=== PATIENT | male | born 1945 | race Caucasian/White ===

== ENCOUNTER 2019-11-08 12:36 | Outpatient (RCR) | payer MEDICARE, SELFPAY ==
--- NOTE | 2019-11-13 10:43 | ONC FU_ITS ---
Dr. Youngblood Patient Follow-Up Note Patient: Florentino Alfaro Unit #: [id number]: 1945 Dicatated By: Erik Youngblood M.D.Date of Visit:Nov 08, 2019 Onc Med Follow-up/Prog Note Chief Complaint: Chronic lymphocytic leukemia/bladder cancer. History of Present Illness: This is a 73 year-old man with chronic lymphocytic leukemia, Garibay stage 0, initially diagnosed in July 2016. I had seen him initially on 07/15/2016 in regard to an elevated white blood cell count. In reviewing his record in [facility], multiple previous blood counts had shown mild lymphocytosis. The most recent CBC prior to that visit, from 06/15/2016, showed hemoglobin 15.7 g with hematocrit 47%. The white blood cell count was 16,000 with the differential showing 29% granulocytes, 66% lymphocytes, and 3% monocytes. The platelet count was normal at 154,000. His further evaluation showed similar CBC results with hemoglobin 15.1 g, white blood cell count 15,600, and platelet count 149,000. The differential also was similar. Sedimentation rate was normal at 9 mm/hour. Comprehensive metabolic profile was unremarkable. LDH was normal 134 unit/L. B12 was normal at 318 pg/mL. As some of the prior blood counts had shown increased absolute neutrophil count, I did obtain clonal studies, which were negative. A whole blood flow cytometry in July 2016 showed a monotypic B-cell population positive for CD19, CD20, CD5 and CD23. It showed surface kappa light chain restriction. It was CD10, FMC7, and CD38 negative. The phenotypic pattern was felt to be consistent with chronic leukocytic leukemia/small lymphocytic lymphoma. A subsequent FISH analysis was positive for the 13q deletion. As he appeared to have early stage disease, observation/expectant management was recommended. His previous evaluation had included CT abdomen/pelvis 03/26/2016. It did show mild splenomegaly. Also noted was a possible soft tissue mass in the left urinary bladder. Outpatient cystoscopy by Dr. Wilcox did confirm the presence of a large bladder tumor. He underwent TURBT on 08/03/2016. This showed a small papillary tumor just cephalad to the right ureteral orifice and a large papillary tumor on the left posterior lateral bladder wall. The base appeared to be greater than 5 cm. The surrounding mucosa, distinct from the papillary tumor, showed changes suspicious for carcinoma in situ. It was felt that the tumor was completely resected. Pathology showed papillary urothelial carcinoma, low nuclear grade. There was no invasion identified. There was no muscular propria identified in the specimen. I had seen him for a follow-up visit on 05/18/2018. At that point he appeared stable clinically, and he continued observation/expectant management. His other medical illnesses include type II diabetes, hyperlipidemia, and COPD. He has history of smoking 1 pack of cigarettes daily for 47 years, but he quit smoking in 2008. INTERIM HISTORY: For some reason he had failed to return after his visit in May 2018. He did have a repeat CBC in October 2018. It showed slightly elevated hemoglobin at 17.2 g with his white blood cell count up just slightly at 14,200. Platelet count was borderline low but stable at 133,000. He is seen now for a followup visit. He has been feeling pretty good generally, though he does has some fatigue and somewhat limited activity. His ECOG score is 1. His appetite has been good. He has gained weight. He does not have fever. He sometimes has night sweating. He has shortness of breath. He has a very occasional dry cough. At times he has had pressure in the epigastric area. He has no other GI complaints. He sometimes has difficulty voiding. He tends to have stiffness when he first gets up in the morning, but it does get better after he first up. He sometimes has numbness in his feet. Medications: Brovana 1 (15 mcg/2mL) Nebulization solution Inhalation b.i.d., Budesonide 1 Suspension Nasal b.i.d., Farxiga 1 Tablet (of 5 mg) Oral daily, Levalbuterol HCl Nebulization solution Inhalation PRN, Lisinopril 1 Tablet (of 2.5 mg) Oral daily, Magnesium Oxide 1 Tablet (of 400 mg) Capsule Oral daily, MetFORMIN HCl 1 (500 mg) Tablet Oral daily, Proventil HFA 1 (108 (90 base) mcg/act) Aerosol, solution Inhalation daily PRN, Tamsulosin HCl 1 (0.4 mg) Capsule Oral daily, TiZANidine HCl 1 (2 mg) Tablet Oral PRN, TraMADol HCl Tablet Oral PRN, Vitamin D (Ergocalciferol) 1 Tablet (of 23167 Units) Capsule Oral daily, Xopenex Nebulization solution Inhalation PRN Allergies: No Known Allergies. Review of Systems: Constitutional - His energy is fair. He is able to do light work at home. His appetite is good and his weight is up almost 15 pounds since his last visit. No fever, chills or hot flashes. He has some sweating at night. ECOG score is 1, ENMT - No sinus congestion/drainage. No mouth sores. No sore throat or difficulty swallowing, Hematologic/Lymphatic - He bruises easily, Respiratory - He has shortness of breath with activity. He has an occasional dry cough. No pleuritic pain or hemoptysis, Cardiovascular - He has occasional pressure in his lower chest/upper abdomen. No palpitations, Gastrointestinal - No nausea or vomiting. No heartburn or acid reflux. No diarrhea or constipation. No blood in the stool or black stools, Genitourinary (M) - He has some difficulty voiding. He has follow up with Dr. Wilcox every 6 months, Musculoskeletal - He has stiffness in the mornings, Integumentary - No skin complications, Neurologic - No headache. He has difficulty with balance when he first gets up from sitting, with turning, and especially with looking up. He sometimes has numbness and tingling in his feet, Psychiatric - No anxiety or depression. No insomnia. Vital Signs: Performed on Nov 08, 2019 13:11 Height - 72.00 in Weight - 246 lbs (HIGH) BSA - 2.33 sq.m BMI - 33.36 (HIGH) Temperature - 98.1 F (LOW) Pulse - 71 /min Respiration - 18 /min BP - 132/69 mm(hg) O2 Sat - 93 % (LOW) Pain - 0 Physical Examination: Constitutional - He looks pretty good generally, Eyes - Sclerae nonicteric. Conjunctivae clear, ENMT - No lesions noted in the oral cavity, Hematologic/Lymphatic - No cervical, clavicular, or axillary adenopathy, Respiratory - Lungs are clear with diminished air movement bilaterally, Cardiovascular - Heart rhythm is regular. There is no murmur, gallop, or rub noted, Abdomen - Moderately distended. Liver and spleen are not enlarged. There is no abdominal mass or ascites noted and there is no inguinal adenopathy, Extremities - No edema. Pedal pulses are palpable bilaterally, Neurologic - He has severe postural instability. There are no focal neurologic deficits noted. Impression: 1. Patient with chronic leukocytic leukemia, initially diagnosed in July 2016. His FISH analysis showed 13q deletion. By clinical evaluation, he appeared to have early stage disease (Garibay stage 0). Expectant management was recommended. 2. He has borderline high hemoglobin/hematocrit levels, probably related to secondary polycythemia. 3. On 08/03/2016 he underwent cystoscopy/TURBT for superficial low-grade papillary urothelial cancer. He is on surveillance with Dr. Wilcox. His other medical illnesses include: 4. Type II diabetes. 5. Hyperlipidemia. 6. COPD. He has been followed on observation/expectant management. In December 2017 he was admitted to the hospital with influenza A. He had a gradual recovery following the illness. As of his follow-up visit in May 2018 he still had some shortness of breath and somewhat limited activity, but he was otherwise stable clinically. His blood counts also appeared stable other than his platelet count had declined somewhat. He then failed to return here for follow-up, but a repeat CBC in theOctober 2018 showed just a slight increase in the white blood cell count with the platelet count remaining stable. At this point he continues to have some fatigue I also continues to have shortness of breath. Overall, his clinical status does not appear to have changed significantly. I do not have any more recent blood counts available. Plan: He has been getting his hemoglobin A1c checked on a regular basis at the [facility], so I will just plan to repeat a CBC with CMP and LDH level with his next scheduled lab draw. He'll have further evaluation then as indicated. Signed By: Erik Youngblood M.D. <<Signature on File>>
== END 2019-12-01 23:59 | disposition home or self-care (01) ==
LOC: ONCMED 12:36
PROVIDERS: Family Provider Nurse Practitioner; PCP Nurse Practitioner; Visit Provider Internal Medicine Medical Oncology
DX: C91.10 Chronic lymphocytic leukemia of B-cell type not having achieved remission (principal); D75.1 Secondary polycythemia; E11.9 Type 2 diabetes mellitus without complications; E78.5 Hyperlipidemia, unspecified; J44.9 Chronic obstructive pulmonary disease, unspecified; Z79.84 Long term (current) use of oral hypoglycemic drugs; Z87.891 Personal history of nicotine dependence; Z85.51 Personal history of malignant neoplasm of bladder
CPT/HCPCS: 99214

== ENCOUNTER → 2019-12-19 13:17 | Outpatient (BNVA) | payer MEDICARE, SELFPAY | PROVIDERS: Family Provider Nurse Practitioner; PCP Nurse Practitioner; Visit Provider Urology | DX: C67.8 Malignant neoplasm of overlapping sites of bladder (principal) | CPT/HCPCS: 81001 ==

== ENCOUNTER → 2020-01-16 08:21 | Outpatient (BNVA) | payer MEDICARE, SELFPAY | PROVIDERS: Family Provider Nurse Practitioner; PCP Nurse Practitioner; Visit Provider Nurse Practitioner | DX: C91.10 Chronic lymphocytic leukemia of B-cell type not having achieved remission (principal); E11.9 Type 2 diabetes mellitus without complications; C91.00 Acute lymphoblastic leukemia not having achieved remission | CPT/HCPCS: 80053; 80061; 83036; 85025 ==

== ENCOUNTER → 2020-01-18 07:46 | Outpatient (BNVA) | payer MEDICARE, SELFPAY | PROVIDERS: Family Provider Nurse Practitioner; PCP Nurse Practitioner; Visit Provider Nurse Practitioner | DX: J44.9 Chronic obstructive pulmonary disease, unspecified (principal); E11.65 Type 2 diabetes mellitus with hyperglycemia; M79.10 Myalgia, unspecified site; E55.9 Vitamin D deficiency, unspecified | CPT/HCPCS: 81000; 82306 ==

== ENCOUNTER → 2020-02-26 08:35 | Outpatient (BNVA) | payer MEDICARE, SELFPAY | PROVIDERS: Family Provider Nurse Practitioner; PCP Nurse Practitioner; Visit Provider Nurse Practitioner | DX: J44.9 Chronic obstructive pulmonary disease, unspecified (principal); E11.65 Type 2 diabetes mellitus with hyperglycemia | CPT/HCPCS: 85025 ==

== ENCOUNTER → 2020-03-18 08:52 | Outpatient (BNVA) | payer MEDICARE, SELFPAY | PROVIDERS: Family Provider Nurse Practitioner; PCP Nurse Practitioner; Visit Provider Nurse Practitioner | DX: J44.9 Chronic obstructive pulmonary disease, unspecified (principal); E11.65 Type 2 diabetes mellitus with hyperglycemia; M79.10 Myalgia, unspecified site | CPT/HCPCS: 80053; 81000; 82044; 83036 ==

== ENCOUNTER → 2020-04-23 13:52 | Outpatient (BNVA) | payer MEDICARE, SELFPAY | PROVIDERS: Family Provider Nurse Practitioner; PCP Nurse Practitioner; Visit Provider Urology | DX: C67.8 Malignant neoplasm of overlapping sites of bladder (principal) | CPT/HCPCS: 81001 ==

== ENCOUNTER → 2020-05-27 13:31 | Outpatient (BNVA) | payer MEDICARE, SELFPAY | PROVIDERS: Family Provider Nurse Practitioner; PCP Nurse Practitioner; Visit Provider Nurse Practitioner | DX: J44.9 Chronic obstructive pulmonary disease, unspecified (principal); E11.65 Type 2 diabetes mellitus with hyperglycemia; M79.10 Myalgia, unspecified site; E55.9 Vitamin D deficiency, unspecified | CPT/HCPCS: 80053; 80061; 81000; 83036 ==

== ENCOUNTER → 2020-07-25 09:08 | Outpatient (BNVA) | payer MEDICARE, SELFPAY | PROVIDERS: Family Provider Nurse Practitioner; PCP Nurse Practitioner; Visit Provider Nurse Practitioner | DX: M25.562 Pain in left knee (principal) | CPT/HCPCS: 73562 ==

== ENCOUNTER → 2020-08-19 08:32 | Outpatient (BNVA) | payer MEDICARE, SELFPAY | PROVIDERS: Family Provider Nurse Practitioner; PCP Nurse Practitioner; Visit Provider Nurse Practitioner | DX: E11.65 Type 2 diabetes mellitus with hyperglycemia (principal); J44.9 Chronic obstructive pulmonary disease, unspecified; E55.9 Vitamin D deficiency, unspecified | CPT/HCPCS: 80053; 81000; 83036 ==

== ENCOUNTER → 2020-09-03 15:09 | Outpatient (BNVA) | payer MEDICARE, SELFPAY | PROVIDERS: Family Provider Nurse Practitioner; PCP Nurse Practitioner; Visit Provider Urology | DX: R39.9 Unspecified symptoms and signs involving the genitourinary system (principal) | CPT/HCPCS: 81003 ==

== ENCOUNTER → 2020-11-19 13:50 | Outpatient (BNVA) | payer SELFPAY | PROVIDERS: Family Provider Nurse Practitioner; PCP Nurse Practitioner; Visit Provider Nurse Practitioner | DX: E11.65 Type 2 diabetes mellitus with hyperglycemia (principal); M79.10 Myalgia, unspecified site; J44.9 Chronic obstructive pulmonary disease, unspecified; E55.9 Vitamin D deficiency, unspecified | CPT/HCPCS: 80053; 80061; 81000; 82043; 83036 ==

== ENCOUNTER 2020-11-25 08:57 | Outpatient (CLI) | payer MEDICARE, SELFPAY ==
[2020-11-25 09:50] LABS: Basophils # 0.1 10^3/uL (0.0-0.1); Basophils % 0.4 %; Eosinophils # 0.1 10^3/uL (0.0-0.8); Eosinophils % 0.4 %; Hematocrit 50.8 % (42.0-52.0); Hemoglobin 16.9 g/dL (11.7-16.6); Lymphocytes # 8.3 10^3/uL (0.8-4.8); Lymphocytes % 67.1 %; Mean Corpuscular HGB Conc 33.3 g/dL (30.0-36.0); Mean Corpuscular Hemoglobin 32.7 pg (28.0-34.0); Mean Corpuscular Volume 98.3 fL (80-94); Monocytes # 0.4 10^3/uL (0.2-0.9); Neutrophils # 3.58 10^3/uL (1.8-7.7); Neutrophils % 28.9 %; Nucleated Red Blood Cells % 0 %; Platelet Count 137 10^3/cmm (130-400); Red Blood Count 5.17 10^6/uL (4.1-5.3); Red Cell Distribution Width 13.3 % (12.1-15.1); White Blood Count 12.4 10^3/uL (4.0-10.0)
[2020-11-25 10:15] LABS: Lactate Dehydrogenase 136 U/L (135-225)
[2020-11-25 10:23] LABS: Slide Review Slide Review Perform
--- NOTE | 2020-11-29 16:32 | ONC FU_ITS ---
Dr. Youngblood Patient Follow-Up Note Patient: Florentino Alfaro Unit #: [id number]: 1945 Dicatated By: Erik Youngblood M.D.Date of Visit:Nov 25, 2020 Onc Med Follow-up/Prog Note Chief Complaint: Chronic lymphocytic leukemia/bladder cancer. History of Present Illness: This is a 75 year-old man with chronic lymphocytic leukemia, Garibay stage 0, initially diagnosed in July 2016. I had seen him initially on 07/15/2016 in regard to an elevated white blood cell count. In reviewing his record in [facility], multiple previous blood counts had shown mild lymphocytosis. The most recent CBC prior to that visit, from 06/15/2016, showed hemoglobin 15.7 g with hematocrit 47%. The white blood cell count was 16,000 with the differential showing 29% granulocytes, 66% lymphocytes, and 3% monocytes. The platelet count was normal at 154,000. His further evaluation showed similar CBC results with hemoglobin 15.1 g, white blood cell count 15,600, and platelet count 149,000. The differential also was similar. Sedimentation rate was normal at 9 mm/hour. Comprehensive metabolic profile was unremarkable. LDH was normal 134 unit/L. B12 was normal at 318 pg/mL. As some of the prior blood counts had shown increased absolute neutrophil count, I did obtain clonal studies, which were negative. A whole blood flow cytometry in July 2016 showed a monotypic B-cell population positive for CD19, CD20, CD5 and CD23. It showed surface kappa light chain restriction. It was CD10, FMC7, and CD38 negative. The phenotypic pattern was felt to be consistent with chronic leukocytic leukemia/small lymphocytic lymphoma. A subsequent FISH analysis was positive for the 13q deletion. As he appeared to have early stage disease, observation/expectant management was recommended. His previous evaluation had included CT abdomen/pelvis 03/26/2016. It did show mild splenomegaly. Also noted was a possible soft tissue mass in the left urinary bladder. Outpatient cystoscopy by Dr. Wilcox did confirm the presence of a large bladder tumor. He underwent TURBT on 08/03/2016. This showed a small papillary tumor just cephalad to the right ureteral orifice and a large papillary tumor on the left posterior lateral bladder wall. The base appeared to be greater than 5 cm. The surrounding mucosa, distinct from the papillary tumor, showed changes suspicious for carcinoma in situ. It was felt that the tumor was completely resected. Pathology showed papillary urothelial carcinoma, low nuclear grade. There was no invasion identified. There was no muscular propria identified in the specimen. I had seen him for a follow-up visit on 05/18/2018. At that point he appeared stable clinically, and he continued observation/expectant management. For some reason he had failed to return after his visit in May 2018. He did have a repeat CBC in October 2018. It showed slightly elevated hemoglobin at 17.2 g with his white blood cell count up just slightly at 14,200. Platelet count was borderline low but stable at 133,000. His other medical illnesses include type II diabetes, hyperlipidemia, and COPD. He has history of smoking 1 pack of cigarettes daily for 47 years, but he quit smoking in 2008. INTERIM HISTORY: He is seen now for a follow-up visit. He has been feeling okay. He says his energy is normal, he does have somewhat limited activity. ECOG score is 1. Appetite has been good. He has not had fever or night sweats. He has shortness of breath associated with his COPD. He is on oxygen at night. He has just occasional dry cough. He does not complain of chest pain. He has no GI complaints other than his stools are occasionally runny with Metformin. Bladder function remains adequate with medication. He does see Dr. Wilcox. His neck bothers him occasionally. He has no other joint or bone pain. He does not complain of headache. For the past couple of years he has had some dysequilibrium. It tends to be positional. He has some diabetic neuropathy. Which Medications: Brovana 1 (15 mcg/2mL) Nebulization solution Inhalation b.i.d., Budesonide 1 Suspension Nasal b.i.d., Farxiga 1 Tablet (of 5 mg) Oral daily, Levalbuterol HCl Nebulization solution Inhalation PRN, Lisinopril 1 Tablet (of 2.5 mg) Oral daily, Magnesium Oxide 1 Tablet (of 400 mg) Capsule Oral daily, MetFORMIN HCl 1 (500 mg) Tablet Oral daily, Proventil HFA 1 (108 (90 base) mcg/act) Aerosol, solution Inhalation daily PRN, Tamsulosin HCl 1 (0.4 mg) Capsule Oral daily, TiZANidine HCl 1 (2 mg) Tablet Oral PRN, TraMADol HCl Tablet Oral PRN, Vitamin D (Ergocalciferol) 1 Tablet ([place] 96168 Units) Capsule Oral daily, Xopenex Nebulization solution Inhalation PRN Allergies: No Known Allergies. Vital Signs: Performed on Nov 25, 2020 09:12 Height - 72.00 in Weight - 221.4 lbs (LOW) BSA - 2.22 sq.m BMI - 30.03 (HIGH) Performed on Nov 25, 2020 09:09 Height - 72.00 in Temperature - 97.2 F (LOW) Pulse - 77 /min Respiration - 20 /min BP - 130/70 mm(hg) O2 Sat - 92 % (LOW) Pain - 0 Fatigue - 0 Physical Examination: Constitutional - He looks pretty good generally, Eyes - Sclerae nonicteric. Conjunctivae clear, ENMT - No lesions noted in the oral cavity, Hematologic/Lymphatic - No cervical, clavicular, or axillary adenopathy, Respiratory - Lungs are clear with diminished air movement bilaterally, Cardiovascular - Heart tones are distant. The rhythm appears regular. There is no murmur, gallop, or rub noted, Abdomen - Soft. Liver and spleen are not enlarged. There is no abdominal mass or ascites noted and there is no inguinal adenopathy, Extremities - No edema. Dorsalis pedis pulses are palpable bilaterally, Integumentary - There are 2 small lesions on the left ear, one of which is pigmented slightly irregular. Just adjacent to it is a small actinic lesion, Neurologic - N focal neurologic deficits noted. Lab/Imaging: Test performed on Nov 25, 2020 09:35 LDH (Total) 136 U/L WBC 12.4 10 3/uL RBC 5.17 10 6/uL HGB 16.9 g/dL HCT 50.8 % MCV 98.3 fL MCH 32.7 pg MCHC 33.3 g/dL RDW 13.3 % Platelet Count 137 10 3/cmm MPV 10.0 fL Neutrophils 3.58 10 3/uL Lymphocytes 8.3 10 3/uL Monocytes 0.4 10 3/uL Eosinophils 0.1 10 3/uL Basophils 0.1 10 3/uL Neutrophil % 28.9 % Lymphocyte % 67.1 % Monocyte % 3.0 % Eosinophil % 0.4 % Basophils % 0.4 % NRBC % 0 % CBC Slide Review Slide Review Perform REVIEW AGREES WITH AUTOMATED Test performed on Nov 25, 2020 08:24 Cholesterol, Total 219 mg/dL Glucose 152 mg/dL BUN 18 mg/dL HDL Cholesterol 42 mg/dL Creatinine 0.8 mg/dL LDL Cholesterol 121 mg/dL Cr Clearance (Est) 115.0700 mL/min VLDL Cholesterol 56 mg/dL Triglycerides 278 mg/dL Sodium 137 mmol/L Potassium 4 mmol/L Chloride 92 mmol/L CO2 32 mmol/L Calcium 10.1 mg/dL Protein, Total 7.4 g/dL Albumin 4.4 g/dL Globulin 3.0 g/dL Bilirubin, Total 0.5 mg/dL Alkaline Phosphatase 65 IU/L AST (SGOT) 15 IU/L ALT (SGPT) 18 IU/L Hemoglobin A1C 7.1 % Ua Color yellow Ua Appearance clear Ua Specific [place] 1.015 Ua pH 5.5 Ua Protein 1+ Ua Glucose 4+ Ua Ketones negative Ua Blood trace Ua Leuk Esterase negative Ua Nitrites neg Ua Bilirubin neg Ua Urobilinogen 0.2 Problem List: 1. Chronic leukocytic leukemia, initially diagnosed in July 2016. His FISH analysis showed 13q deletion. By clinical evaluation, he appeared to have early stage disease (Garibay stage 0). Expectant management was recommended. 2. He has borderline high hemoglobin/hematocrit levels, presumed to be due to secondary polycythemia. 3. On 08/03/2016 he underwent cystoscopy/TURBT for superficial low-grade papillary urothelial cancer. He has been on surveillance with Dr. Wilcox. 4. Type II diabetes. 5. Hyperlipidemia. 6. COPD. Problems Addressed with this Encounter and Plan: 1. Chronic leukocytic leukemia, initially diagnosed in July 2016. His FISH analysis showed 13q deletion. By clinical evaluation, he appeared to have early stage disease (Garibay stage 0). He has been followed on observation/expectant management. During follow-up he has continued to have just mild lymphocytosis. His platelet count is borderline low. It is uncertain what extent that may be significant. Overall, he appears to be doing well clinically with no evidence for symptomatic progression of the CLL. As such, he remains on observation/expectant management. I will see him again in 6 months. 2. He has borderline high hemoglobin/hematocrit levels. This is presumed to be due to secondary polycythemia, and has remained stable. 3. He has couple of skin lesions on his left ear. I will get him set up to be seen either at ENT or dermatology clinic. Signed By: Erik Youngblood M.D. <<Signature on File>>
== END 2020-11-25 08:58 | disposition home or self-care (01) ==
LOC: ONCMED 09:01
PROVIDERS: PCP Nurse Practitioner; Visit Provider Internal Medicine Medical Oncology
DX: C91.10 Chronic lymphocytic leukemia of B-cell type not having achieved remission (principal); L98.9 Disorder of the skin and subcutaneous tissue, unspecified; D58.2 Other hemoglobinopathies; R71.8 Other abnormality of red blood cells
CPT/HCPCS: 36415; 83615; 85025; 99214

== ENCOUNTER → 2020-12-31 10:13 | Outpatient (BNVA) | payer MEDICARE, SELFPAY | PROVIDERS: PCP Nurse Practitioner; Visit Provider Urology | DX: C67.8 Malignant neoplasm of overlapping sites of bladder (principal); N40.1 Benign prostatic hyperplasia with lower urinary tract symptoms; N52.1 Erectile dysfunction due to diseases classified elsewhere; N13.8 Other obstructive and reflux uropathy | CPT/HCPCS: 81003 ==

== ENCOUNTER → 2021-02-17 09:28 | Outpatient (BNVA) | payer MEDICARE, SELFPAY | PROVIDERS: PCP Nurse Practitioner; Visit Provider Nurse Practitioner | DX: J44.9 Chronic obstructive pulmonary disease, unspecified (principal); E11.65 Type 2 diabetes mellitus with hyperglycemia; M79.10 Myalgia, unspecified site; E78.1 Pure hyperglyceridemia; C83.00 Small cell B-cell lymphoma, unspecified site | CPT/HCPCS: 80053; 80061; 81000; 82043; 83036; 84443; 85025 ==

== ENCOUNTER → 2021-04-08 08:22 | Outpatient (BNVA) | payer MEDICARE, SELFPAY | PROVIDERS: PCP Nurse Practitioner; Visit Provider Urology | DX: N13.8 Other obstructive and reflux uropathy (principal); N40.1 Benign prostatic hyperplasia with lower urinary tract symptoms; C67.8 Malignant neoplasm of overlapping sites of bladder | CPT/HCPCS: 81003 ==

== ENCOUNTER → 2021-05-12 13:43 | Outpatient (BNVA) | payer MEDICARE, SELFPAY | PROVIDERS: PCP Nurse Practitioner; Visit Provider Nurse Practitioner | DX: M25.572 Pain in left ankle and joints of left foot (principal); E11.65 Type 2 diabetes mellitus with hyperglycemia; E78.1 Pure hyperglyceridemia; E55.9 Vitamin D deficiency, unspecified; N40.1 Benign prostatic hyperplasia with lower urinary tract symptoms; J44.9 Chronic obstructive pulmonary disease, unspecified; M79.10 Myalgia, unspecified site | CPT/HCPCS: 73610; 80053; 81000; 83036 ==

== ENCOUNTER → 2021-05-29 08:35 | Outpatient (BNVA) | payer MEDICARE, SELFPAY | PROVIDERS: PCP Nurse Practitioner; Visit Provider Nurse Practitioner | DX: R05 Cough (principal); Z20.822 Contact with and (suspected) exposure to COVID-19 | CPT/HCPCS: 71046; 87635 ==

== ENCOUNTER 2021-06-03 11:38 | Outpatient (CLI) | payer MEDICARE, SELFPAY ==
[2021-06-03 12:21] VITALS: BP 114/64; PULSE 68; RESP 24; TEMP 37.3; O2SAT 90
[2021-06-03 13:44] VITALS: BP 120/70; PULSE 62; O2SAT 91
[2021-06-03 14:48] VITALS: BP 129/71; PULSE 61; O2SAT 91
== END 2021-06-03 14:53 | disposition home or self-care (01) ==
PROVIDERS: PCP Nurse Practitioner; Visit Provider Nurse Practitioner
DX: U07.1 COVID-19 (principal)
CPT/HCPCS: 96365

== ENCOUNTER 2021-06-07 12:33 | Inpatient (IN) | payer MEDICARE, SELFPAY ==
[2021-06-07] VITALS (7 sets, daily range): BP systolic 134–143; BP diastolic 70–73; PULSE 55–69; RESP 18–27; TEMP 36.3–36.9; O2SAT 90–95; BMI 29.8
--- NOTE | 2021-06-07 12:49 | XRR_ITS ---
PROCEDURE INFORMATION: Exam: XR Chest Exam date and time: 06/07/2021 12:49 PM Age: 75 years old Clinical indication: Shortness of breath; Additional info: Hypoxia TECHNIQUE: Imaging protocol: XR of the chest. Views: 1 view. COMPARISON: CR XR chest 2V* [id number] 05/29/2021 8:35 AM FINDINGS: Lungs: 1.3 cm nodule in the left lower lobe is unchanged. New patulous consolidations most conspicuous in the right lung base. Pleural spaces: Unremarkable. No pleural effusion. No pneumothorax. Heart/Mediastinum: Unremarkable. No cardiomegaly. Bones/joints: Unremarkable. XR/XR chest 1V portable [id number] IMPRESSION: New patulous consolidations most conspicuous in the right lung base suspicious for pneumonia.
--- NOTE | 2021-06-07 12:49 | ECG_ITS ---
[facility] ED Test Date: 2021-06-07 Pat Name: Florentino Alfaro Department: Room: Gender: Male Counseling Psychologist: : 1945 Requested By: Severo Blackburn Order Number: [id number] Madan MD: Sveta Davila M.D. Measurements Intervals [facility] Rate: 69 P: 60 PA: 213 QRS: -3 QRSD: 145 T: 89 QT: 409 QTc: 441 Interpretive Statements SINUS RHYTHM WITH FIRST DEGREE AV BLOCK LEFT BUNDLE BRANCH BLOCK [120+ ms QRS DURATION, 80+ ms Q/S IN V1/V2, 85+ ms R IN I/aVL/V5/V6] Compared to ECG 12/11/2017 10:23:26 No significant changes Electronically Signed On 06-12-2021 9:39:28 CDT by Sveta Davila M.D. [email or web address]
--- NOTE | 2021-06-07 12:59 | ED_ITS ---
HPI - COVID General: Chief Complaint: COVID symptoms Stated Complaint: COVID +; LOW O2 SATS Time Seen by Provider: 06/07/21 12:39 History of Present Illness: HPI Narrative: Patient brought in by EMS with low pulse ox reading. Diagnosed with Covid 2 weeks ago pulse ox is 68% on room air with oxygen up to 6 L could get him up into the low 80s. EMS placed on 10 L nonrebreather to go up to 95% Patient was not not vaccinated states he does not believe in it. is currently hospitalized with Covid at this facility Patient denies being short of breath MD complaint: known COVID positive (2 weeks ago) COVID 19 common symptoms: positive non-productive cough, body aches and headache(s); negative fever(s) COVID 19 other sytmptoms: negative chest pressure or chest pain Onset (ago): week(s) (2) Severity: slowly worsening Pertinent comorbid conditions: hypertension, heart disease and COPD/respiratory disease COVID Results: Nasal/Oral Coronavirus 2019 PCR Detected H 05/29/21 09:51 05/29/21 Review of Systems General: Reports: Other (denies fever, chills, chest pain, n/v/d, rash, syncope, AMS, PETTY, SOB, anxie) Const: Reports: body aches; Denies: fever(s) Card: Denies: chest pain Resp: Reports: non-productive cough Neuro: Reports: headache(s) PFS ED PFSH: Medical History Advanced chronic obstructive pulmonary disease BPH with obstruction/lower urinary tract symptoms Dependence on supplemental oxygen Diabetes mellitus with hyperglycemia, with long-term current use of insulin Generalized muscle ache Lymphoplasmacytoid lymphoma, CLL Malignant neoplasm of overlapping sites of bladder Vitamin D insufficiency Surgical History H/O hernia repair umbilical and bilateral inguinal 1979' History of arthroplasty of left shoulder tendon 1969's History of cholecystectomy History of condyloma acuminatum removal surgical December 2014 Hx of vasectomy Family History Mother , at age 73 Diabetes Lung disease Father , at age 75 Cancer blood Lung disease Social History Smoking and tobacco status: former smoker Second hand smoke exposure: No Smoking risk assessment/counseling performed?: No Alcohol intake: never Desire information about alcohol rehabilitation?: No Counseling given: No Desire information about substance/drug rehabilitation?: No Counseling given: No Adopted: No Caregiver/support person: No Lives independently: Yes Household members: spouse Housing: House Marital status: Number of children: 5 Number of grandchildren: 7 service: Yes branch: [email or web address] Current occupational status: disabled Pets and animals: Yes Pets & animals: cat(s) and dog(s) History of recent travel: No Current gender identity: Male Special luis needs: No Physical Exam Const: COMMON NORMALS: no acute distress and patient oriented x3 EXAM LIMITATIONS: no altered mental status GENERAL APPEARANCE: cooperative and comfortable HENMT: COMMON NORMALS: normocephalic and atraumatic HEAD & SCALP: normocephalic and atraumatic Eye: COMMON NORMALS: Equal, round and reactive pupils present and EOMs intact bilaterally PUPIL: Yes Equal, round and reactive pupils present Resp: COMMON NORMALS: normal respiratory effort, No retractions and No use of accessory muscles EFFORT & INSPECTION: Yes able to speak in complete sentences Cardio: COMMON NORMALS: regular rate, regular rhythm and Peripheral pulses 2+ throughout RATE: regular rate RHYTHM: regular rhythm PERIPHERAL PULSES: Peripheral pulses 2+ throughout GI: COMMON NORMALS: Normal to inspection, nondistended, normoactive bowel sounds present Extremity: COMMON NORMALS: normal to inspection Neuro: COMMON NORMALS: patient oriented x3, CN's II-XII intact bilaterally and moves all extremities Psych: COMMON NORMALS: mental status grossly normal Skin: COMMON NORMALS: no rashes or lesions noted GENERAL SKIN EXAM: no rashes or lesions noted Course ED course: Patient was stable throughout entire course. Is saturating at 92% on 10 L nasal cannula. Is comfortable with that. No respiratory distress. Labs imaging consistent with Covid infection. D-dimer was elevated 1.2. Will order a CTA PE protocol if hospitalist agrees. Did get 1 dose of dexamethasone. Will admit patient to floor hospitalist paged Vital Signs: Vital signs: Vital Signs Temperature 97.9 F 06/07/21 13:15 Pulse Rate 63 06/07/21 13:48 Respiratory Rate 23 H 06/07/21 13:48 Pulse Oximetry 91 06/07/21 13:48 MDM - COVID MDM Narrative: Medical decision making narrative: Patient is a 75-year-old gentleman 2 weeks after a positive Covid test requiring higher level of oxygen. Placed the patient on nasal cannula to see whether we can keep him up above 9092%. If not OptiFlow or CPAP. We will get admission labs. Patient most l ikely need to be admitted for a higher oxygen requirement. D-dimer will check for PE if above 1.0. Patient not in any acute distress at this moment does not need chemical intubation or ventilation Lab Data: Labs: Lab Results 06/07/21 06/07/21 06/07/21 Range/Units 13:37 13:37 13:37 WBC 16.5 H (4.0-10.0) 10^3/ uL RBC 4.73 (4.1-5.3) 10^6/u L Hgb 14.4 (11.7-16.6) g/dL Hct 46.6 (42.0-52.0) % MCV 98.5 H (80-94) fL MCH 30.4 (28.0-34.0) pg MCHC 30.9 (30.0-36.0) g/dL RDW 13.5 (12.1-15.1) % Plt Count 238 (130-400) 10^3/c mm MPV 9.7 (7.4-10.4) fL Neut % (Auto) 28.6 % Lymph % (Auto) 63.2 % Laurel % (Auto) 7.6 % Eos % (Auto) 0.2 % Baso % (Auto) 0.2 % Neut # (Auto) 4.74 (1.8-7.7) 10^3/u L Lymph # (Auto) 10.5 H (0.8-4.8) 10^3/u L Laurel # (Auto) 1.3 H (0.2-0.9) 10^3/u L Eos # (Auto) 0.0 (0.0-0.8) 10^3/u L Baso # (Auto) 0.0 (0.0-0.1) 10^3/u L Nucleated RBC % (a uto) 0 % Nucleated RBCs # 0.0 /100WBC PT 14.90 (12.1-14.9) SECO NDS INR 1.14 (0.8-1.2) APTT 33.1 (23.9-36.7) SECO NDS Fibrinogen 744 H (174-498) mg/dL D-Dimer 1.20 H (0-0.59) ug/mIFE U Sodium 141 (136-145) mmol/L Potassium 4.6 (3.5-5.1) mmol/L Chloride 97 L (98-107) mmol/L Carbon Dioxide 35 H (22-29) mmol/L Anion Gap 13.6 (5-19) BUN 19 (8-23) mg/dL Creatinine 0.7 (0.7-1.2) mg/dL GFR Calculation Not Reportable Glucose 147 H (65-115) mg/dL Calculated Osmolal ity 297 H (285-295) mOsm/k g Lactic Acid (0.5-2.2) mmol/L Calcium 8.8 (8.5-10.5) mg/dL Magnesium 1.5 L (1.7-2.3) mg/dL Ferritin 441 H (30-400) ng/mL Total Bilirubin 0.5 (0.15-1.2) mg/dL AST 19 (0-40) U/L ALT 11 (0-41) U/L Alkaline Phosphata se 39 L (40-130) IU/L Lactate Dehydrogen ase 162 (135-225) U/L Creatine Kinase 45 (39-308) U/L Troponin T Gen 5 n g/L (0-15) ng/L C-Reactive Protein 102.8 H (0.0-4.9) mg/L Total Protein 5.8 L (6.6-8.7) g/dL Albumin 3.3 L (3.5-5.2) g/dL Globulin 2.5 (1.3-4.6) g/dL Procalcitonin 0.11 (0-0.5) ng/mL 06/07/21 06/07/21 Range/Units 13:37 13:37 WBC (4.0-10.0) 10^3/ uL RBC (4.1-5.3) 10^6/u L Hgb (11.7-16.6) g/dL Hct (42.0-52.0) % MCV (80-94) fL MCH (28.0-34.0) pg MCHC (30.0-36.0) g/dL RDW (12.1-15.1) % Plt Count (130-400) 10^3/c mm MPV (7.4-10.4) fL Neut % (Auto) % Lymph % (Auto) % Laurel % (Auto) % Eos % (Auto) % Baso % (Auto) % Neut # (Auto) (1.8-7.7) 10^3/u L Lymph # (Auto) (0.8-4.8) 10^3/u L Laurel # (Auto) (0.2-0.9) 10^3/u L Eos # (Auto) (0.0-0.8) 10^3/u L Baso # (Auto) (0.0-0.1) 10^3/u L Nucleated RBC % (a uto) % Nucleated RBCs # /100WBC PT (12.1-14.9) SECO NDS INR (0.8-1.2) APTT (23.9-36.7) SECO NDS Fibrinogen (174-498) mg/dL D-Dimer (0-0.59) ug/mIFE U Sodium (136-145) mmol/L Potassium (3.5-5.1) mmol/L Chloride (98-107) mmol/L Carbon Dioxide (22-29) mmol/L Anion Gap (5-19) BUN (8-23) mg/dL Creatinine (0.7-1.2) mg/dL GFR Calculation Glucose (65-115) mg/dL Calculated Osmolal ity (285-295) mOsm/k g Lactic Acid 0.9 (0.5-2.2) mmol/L Calcium (8.5-10.5) mg/dL Magnesium (1.7-2.3) mg/dL Ferritin (30-400) ng/mL Total Bilirubin (0.15-1.2) mg/dL AST (0-40) U/L ALT (0-41) U/L Alkaline Phosphata se (40-130) IU/L Lactate Dehydrogen ase (135-225) U/L Creatine Kinase (39-308) U/L Troponin T Gen 5 n g/L 28 H (0-15) ng/L C-Reactive Protein (0.0-4.9) mg/L Total Protein (6.6-8.7) g/dL Albumin (3.5-5.2) g/dL Globulin (1.3-4.6) g/dL Procalcitonin (0-0.5) ng/mL Imaging Data: CXR: My impression: Groundglass opacities scattered bilaterally consistent with Covid. No apparent consolidation or pneumothorax degenerative spine changes EKG Data: EKG 1: EKG interpretation date: 06/07/21 EKG interpretation time: 13:11 Prior EKG tracings: not available for review Ischemic changes: acute STEMI and other (Sinus rhythm first-degree AV block) Other EKG comments: Left bundle branch block first-degree AV block no evidence of ischemia or infarct COVID Results: Nasal/Oral Coronavirus 2019 PCR Detected H 05/29/21 09:51 05/29/21 Critical Care Time Critical Care Time: Critical Care Time: Yes Total Critical Care Time: 60 Attestation: This case had a high probability of a clinically significant, sudden, or life threatening deterioration of this patient's condition which required my full and direct attention, intervention and personal management. Discharge Plan Discharge Prescriptions: No Action albuterol sulfate [Proventil HFA] 90 mcg/actuation HFA aerosol inhaler 2 puff INHALATION QID PRN (Reason: shortness of breath or wheezing) Qty: 18 RF: 2 Brovana 15 mcg/2 mL solution for nebulization 2 ml INHALATION BID Qty: 120 RF: 2 budesonide 0.5 mg/2 mL suspension for nebulization 0.5 mg INHALATION BID Qty: 60 RF: 2 fenofibrate nanocrystallized [Tricor] 145 mg tablet 145 mg PO DAILY Qty: 90 RF: 0 levalbuterol HCl 1.25 mg/0.5 mL solution for nebulization 1.25 mg INHALATION Q4H PRN (Reason: shortness of breath or wheezing) Qty: 100 RF: 2 metformin 500 mg tablet extended release 24 hr 2,000 mg PO DAILY Qty: 360 RF: 0 tramadol 50 mg tablet 50 mg PO BID PRN (Reason: pain) Qty: 60 RF: 0 triamcinolone acetonide 40 mg/mL suspension 40 mg IM ONCE Qty: 1 RF: 0 mupirocin 2 % ointment 1 applic TOPICAL TID PRN (Reason: skin irritation) Qty: 22 RF: 2 tamsulosin 0.4 mg capsule 0.4 mg PO BID Qty: 180 RF: 3 tizanidine 2 mg tablet 2 mg PO BEDTIME RF: 0 lisinopril 2.5 mg tablet 2.5 mg PO DAILY RF: 0 Farxiga 5 mg tablet 5 mg PO DAILY RF: 0 Coding Level of Care Code ED Tube Coremaker for Chg Fwd Exam Comprehensive
[2021-06-07] MEDS: dexamethasone 4 mg/mL INJ 6 MG IVP (13:42)
[2021-06-07 13:54] LABS: Basophils % 0.2 %; Eosinophils % 0.2 %; Hematocrit 46.6 % (42.0-52.0); Hemoglobin 14.4 g/dL (11.7-16.6); Lymphocytes # 10.5 10^3/uL (0.8-4.8); Lymphocytes % 63.2 %; Mean Corpuscular HGB Conc 30.9 g/dL (30.0-36.0); Mean Corpuscular Hemoglobin 30.4 pg (28.0-34.0); Mean Corpuscular Volume 98.5 fL (80-94); Mean Platelet Volume 9.7 fL (7.4-10.4); Monocytes # 1.3 10^3/uL (0.2-0.9); Monocytes % 7.6 %; Neutrophils # 4.74 10^3/uL (1.8-7.7); Neutrophils % 28.6 %; Nucleated Red Blood Cells % 0 %; Platelet Count 238 10^3/cmm (130-400); Red Blood Count 4.73 10^6/uL (4.1-5.3); Red Cell Distribution Width 13.5 % (12.1-15.1); White Blood Count 16.5 10^3/uL (4.0-10.0)
[2021-06-07 14:15] LABS: Troponin T (5th) Once 28 ng/L (0-15)
[2021-06-07 14:16] LABS: INR 1.14 (0.8-1.2)
[2021-06-07 14:17] LABS: Fibrinogen 744 mg/dL (174-498); Lactic Sepsis W/Reflex 0.9 mmol/L (0.5-2.2); Partial Thromboplastin Time 33.1 SECONDS (23.9-36.7)
[2021-06-07 14:18] LABS: Alanine Aminotransferase 11 U/L (0-41); Albumin Level 3.3 g/dL (3.5-5.2); Alkaline Phosphatase 39 IU/L (40-130); Anion Gap 13.6 (5-19); Aspartate Amino Transferase 19 U/L (0-40); Blood Urea Nitrogen 19 mg/dL (8-23); C Reactive Protein 102.8 mg/L (0.0-4.9); Calcium 8.8 mg/dL (8.5-10.5); Carbon Dioxide 35 mmol/L (22-29); Chloride 97 mmol/L (98-107); Creatine Phosphokinase 45 U/L (39-308); Creatinine Clr Calc Pharmacy 99.0871; Ferritin 441 ng/mL (30-400); Globulin 2.5 g/dL (1.3-4.6); Glucose 147 mg/dL (65-115); Lactate Dehydrogenase 162 U/L (135-225); Magnesium 1.5 mg/dL (1.7-2.3); Osmolality Calculated 297 mOsm/kg (285-295); Potassium 4.6 mmol/L (3.5-5.1); Sodium 141 mmol/L (136-145); Total Bilirubin 0.5 mg/dL (0.15-1.2); Total Protein 5.8 g/dL (6.6-8.7)
[2021-06-07 14:25] LABS: Procalcitonin 0.11 ng/mL (0-0.5)
[2021-06-07 14:32] LABS: Slide Review Slide Review Perform
[2021-06-07 15:12] LABS: Blood Gas Operator Identificat AMH; Blood Gas Sample Site Not specified; Blood Gas Sample Type Venous
[2021-06-07 15:13] LABS: PCO2 VBG 57.9 mmHg (41-51); Venous Blood Gas Hematocrit 44.6 % (42-52); pH VBG 7.44 (7.32-7.42)
[2021-06-07 15:14] LABS: Base Excess VBG 12.2 mmol/L (-3.0-3.0); HCO3 VBG 39.1 mmol/L (24-28); PO2 VBG 52.9 mmHg (25-40)
--- NOTE | 2021-06-07 15:56 | P.HP_ITS ---
Providers/Chief Complaint Primary Care Provider: Ken Escamilla, BIOINFORMATICS TECHNICIAN-C Chief Complaint: COVID +; LOW O2 SATS History of Present Illness 75-year-old gentleman with history of COPD, former smoker, chronically on 2 L of oxygen previously only at night, but recently has been having to run his oxygen at home at maximum, otherwise desaturated into the 60s with this change coming about since he had been diagnosed with Covid on 05/29. Came in due to progressive hypoxia. In ER had to be started on 10 L high flow cannula to maintain saturation in the 90s. Patchy infiltrates noted on chest x-ray. He is afebrile. Leukocytosis noted 16.5, although he has CLL. 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 Reports history of urinary bladder cancer which was re sected by urology. BPH. Recently has been having some difficulties with urinary flow which he attributes to COVID-19. He received a dose of dexamethasone in the emergency room. CRP is noted 102.8. D-dimer 1.2. He states he had recently lost his qasccoe-ts-wyk to COVID-19. His is currently battling severe Covid. He otherwise denies any chest pain or pressure. Denies any headache, nausea vomiting or diarrhea. States that his appetite has been good. He has not lost her sense of smell. He feels overall he is doing quite all right apart from the hypoxia. He reports productive cough with whitish to sometimes greenish sputum. Discussing with him goal status, he states he does not foresee anything bad happening as he feels quite all right, but discussing with him eventuality of cardiac arrest or respiratory arrest, he states would want attempted CPR, but may change his mind when the time comes . Discussed with him that he may not be able to communicate his wishes at that time. He does state he would not want prolonged resuscitative efforts if there is no chance of survival, or prolonged life support. Review of Systems Const: Denies: fever(s), chills, body aches or malaise Eyes: Denies: change in vision or eye redness ENMT: Denies: throat pain, oral sores or ear or mastoid pain Card: Denies: chest pain, edema, pre-syncope or dyspnea on exertion Resp: Reports: dyspnea and productive cough; Denies: change in phlegm color or hemoptysis GI: Denies: abdominal pain, nausea, vomiting, diarrhea, constipation, hematochezia or melena : Reports: difficulty urinating and urinary frequency; Denies: flank pain or hematuria Musc: Denies: back pain, joint swelling or joint redness Skin/Breast: Reports: other (Melanoma L ear); Denies: rash or sores Neuro: Denies: headache(s), numbness in extremities, weakness in extremities, dizziness, confusion or seizure-like activity Endo: Denies: polyuria or polydipsia Sharan/Lymph: Denies: easy bleeding or purpura All/Imm: Denies: urticaria, throat swelling or tongue swelling Medications/Allergies Home Medications Medication Instructions Recorded Confirmed Last Taken Type mupirocin 2 % topical ointment 1 applic TOPICAL TID PRN #22 gm 07/25/20 06/07/21 Unknown Rx tamsulosin 0.4 mg capsule 0.4 mg PO BID #180 cap 12/31/20 06/07/21 06/06/21 Rx albuterol sulfate 90 mcg/actuation 2 puff INHALATION QID PRN #18 gm 05/12/21 06/07/21 Unknown Rx aerosol inhaler arformoterol 15 mcg/2 mL solution 2 ml INHALATION BID #120 ml 05/12/21 06/07/21 Unknown Rx for nebulization budesonide 0.5 mg/2 mL suspension 0.5 mg INHALATION BID #60 ml 05/12/21 06/07/21 Unknown Rx for nebulization fenofibrate nanocrystallized 145 145 mg PO DAILY #90 tab 05/12/21 06/07/21 06/06/21 Rx mg tablet levalbuterol HCl 1.25 mg/0.5 mL 1.25 mg INHALATION Q4H PRN #100 05/12/21 06/07/21 Unknown Rx solution for nebulization vial metformin 500 mg tablet,extended 2,000 mg PO DAILY #360 tab 05/12/21 06/07/21 06/06/21 Rx release 24 hr tramadol 50 mg tablet 50 mg PO BID PRN #60 tab 05/12/21 06/07/21 Unknown Rx dapagliflozin [Farxiga] 5 mg PO DAILY 06/07/21 06/07/21 06/06/21 History lisinopril 2.5 mg PO DAILY 06/07/21 06/07/21 06/06/21 History tizanidine 2 mg PO BEDTIME 06/07/21 06/07/21 06/06/21 History Allergies Allergy/AdvReac Type Severity Reaction Status Date / Time No Known Allergies Allergy Verified 05/29/21 09:14 PFSH Acute PFSH: Medical History Advanced chronic obstructive pulmonary disease BPH with obstruction/lower urinary tract symptoms Dependence on supplemental oxygen Diabetes mellitus with hyperglycemia, with long-term current use of insulin Generalized muscle ache Lymphoplasmacytoid lymphoma, CLL Malignant neoplasm of overlapping sites of bladder Vitamin D insufficiency Surgical History H/O hernia repair umbilical and bilateral inguinal 1979' History of arthroplasty of left shoulder tendon 1969' History of cholecystectomy History of condyloma acuminatum removal surgical December 2014 Hx of vasectomy Family History Mother , at age 73 Diabetes Lung disease Father , at age 75 Cancer blood Lung disease Social History Smoking and tobacco status: former smoker Second hand smoke exposure: No Smoking risk assessment/counseling performed?: No Alcohol intake: never Desire information about alcohol rehabilitation?: No Counseling given: No Desire information about substance/drug rehabilitation?: No Counseling given: No Adopted: No Caregiver/support person: No Lives independently: Yes Household members: spouse Housing: House Marital status: Number of children: 5 Number of grandchildren: 7 service: Yes branch: [employer] Current occupational status: disabled Pets and animals: Yes Pets & animals: cat(s) and dog(s) History of recent travel: No Current gender identity: Male Special luis needs: No Vitals/I&O/Wt Last Vital Signs Temp 97.9 F 06/07/21 13:15 Pulse 63 06/07/21 13:48 Resp 23 H 06/07/21 13:48 Pulse Ox 91 06/07/21 13:48 Weight last 48 hrs Weight 99.79 kg Physical Exam Const: COMMON NORMALS: no acute distress and patient oriented x3 NUTR ITIONAL APPEARANCE: obese HENMT: COMMON NORMALS: oropharynx normal Neck/C-Spine: COMMON NORMALS: no JVD Resp: COMMON NORMALS: normal respiratory effort and clear to auscultation bilaterally AUSCULTATION: rales and wheezes Cardio: COMMON NORMALS: no JVD, regular rhythm, S1 normal heart sound present, S2 normal heart sound present and No murmurs present (Cardio) RHYTHM: regular rhythm HEART SOUNDS: S1 normal heart sound present and S2 normal heart sound present GI: COMMON NORMALS: Normal to inspection, nondistended, normoactive bowel sounds present, Soft to palpation and non-tender PALPATION: Yes Soft to palpation Extremity: COMMON NORMALS: no joint enlargement and no pedal edema Neuro: COMMON NORMALS: patient oriented x3 and moves all extremities Skin: COMMON NORMALS: no rashes or lesions noted GENERAL SKIN EXAM: no rashes or lesions noted Data : 06/07/21 13:37 06/07/21 13:37 Micro: Microbiology 06/07/21 15:09 Blood Culture - Preliminary Blood SPECIMEN COLLECTED 06/07/21 13:37 Blood Culture - Preliminary Blood SPECIMEN COLLECTED A&P Assessment and plan (1) Acute respiratory failure due to COVID-19: Hypoxic respiratory failure, requiring 10 L by high flow cannula currently. Usually with COPD requires 2 L only at night. Discussed with him regarding severe COVID-19, options for treatment. Discussed Decadron, remdesivir. CRP is elevated to 102.8. D-dimer 1.2. Prophylactic Lovenox. Discussed with him consideration of tocilizumab in case of progressive worsening hypoxia, increased inflammatory markers possibly tomorrow. Status: Acute (2) SARS-CoV-2 positive: Status: Acute (3) COPD exacerbation: Severe exacerbation. Dyspnea, hypoxia. Diminished lung sounds, wheezing on exam. Cough productive of white-greenish sputum. Collect sputum culture. Continue steroid as above. Zosyn empirically. Advair. Spiriva. Albuterol as needed. Flutter valve. IS. Status: Acute Additional A&P Information CLL: Chronic leukocytosis Hypomagnesemia: Replace History of urinary bladder cancer Left ear melanoma pending additional evaluation, he is going to be seeking biopsy, as well as following up with Dr. Youngblood Diabetes BPH: Continue Flomax. He reports recently having difficulties with flow, dribbling. Feels like he needs to urinate. Will collect UA. Discussed consideration of adding finasteride. He will be follow-up with urology after acute illness. Attestations Medical Necessity Statement*: Admission of over 2 midnights has been admitted for assessment management of hypoxic respiratory failure secondary to COVID-19, COPD exacerbation. Coding Level of Care Code Acute [facility] Diagnoses Acute respiratory failure due to COVID-19 U07.1; J96.00 SARS-CoV-2 positive U07.1 COPD exacerbation J44.1
[2021-06-07] MEDS: tamsulosin 0.4 mg Capsule PO (19:28)
[2021-06-07] MEDS: enoxaparin 40 mg/0.4 mL Syringe SUBCUT (19:28)
[2021-06-07] MEDS: famotidine 20 mg Tablet PO (19:28)
[2021-06-07] MEDS: magnesium sulfate premix 2 GM/50 ML PIGGYBACK IV (19:29)
[2021-06-07] MEDS: remdesivir 200 MG in sodium chloride 0.9% (100 ml) 100 ML 100 MG IV (20:29)
[2021-06-07] MEDS: tizanidine 4 mg Tablet 2 MG PO (20:31)
[2021-06-07] MEDS: albuterol 8 gm MDI 2 PUFF INHALATION (21:54)
[2021-06-07] MEDS: piperacillin-tazobactam 3.375 GM in sodium chloride 0.9% (plus) 50 ML IV (22:42)
[2021-06-07 22:51] LABS: Glucose Point of Care 247 mg/dL (70-110)
[2021-06-08] VITALS (7 sets, daily range): BP systolic 115–134; BP diastolic 62–72; PULSE 40–58; RESP 18–20; TEMP 36–36.7; O2SAT 89–99; BMI 29.8
[2021-06-08] MEDS: piperacillin-tazobactam 3.375 GM in sodium chloride 0.9% (plus) 50 ML IV ×3 (06:09→21:41)
[2021-06-08 06:52] LABS: Glucose Point of Care 144 mg/dL (70-110)
[2021-06-08 08:06] LABS: Basophils % 0.1 %; Hematocrit 45.2 % (42.0-52.0); Hemoglobin 13.6 g/dL (11.7-16.6); Lymphocytes # 10.1 10^3/uL (0.8-4.8); Lymphocytes % 64.1 %; Mean Corpuscular HGB Conc 30.1 g/dL (30.0-36.0); Mean Corpuscular Hemoglobin 30.3 pg (28.0-34.0); Mean Corpuscular Volume 100.7 fL (80-94); Mean Platelet Volume 10.1 fL (7.4-10.4); Monocytes # 1.4 10^3/uL (0.2-0.9); Monocytes % 8.7 %; Neutrophils # 4.23 10^3/uL (1.8-7.7); Neutrophils % 26.7 %; Nucleated Red Blood Cells % 0 %; Platelet Count 249 10^3/cmm (130-400); Red Blood Count 4.49 10^6/uL (4.1-5.3); Red Cell Distribution Width 13.5 % (12.1-15.1); White Blood Count 15.8 10^3/uL (4.0-10.0)
[2021-06-08 08:16] LABS: D Dimer 0.91 ug/mIFEU (0-0.59)
[2021-06-08] MEDS: famotidine 20 mg Tablet PO ×2 (08:17→17:34)
[2021-06-08] MEDS: dexamethasone 10 mg/mL INJ 6 MG IVP (08:17)
[2021-06-08] MEDS: tamsulosin 0.4 mg Capsule PO ×2 (08:17→17:34)
[2021-06-08 08:38] LABS: Alanine Aminotransferase 13 U/L (0-41); Alkaline Phosphatase 36 IU/L (40-130); Aspartate Amino Transferase 17 U/L (0-40); Blood Urea Nitrogen 25 mg/dL (8-23); C Reactive Protein 84.5 mg/L (0.0-4.9); Calcium 9.2 mg/dL (8.5-10.5); Carbon Dioxide 39 mmol/L (22-29); Chloride 99 mmol/L (98-107); Creatinine Clr Calc Pharmacy 99.0871; Glucose 144 mg/dL (65-115); Osmolality Calculated 301 mOsm/kg (285-295); Sodium 142 mmol/L (136-145); Total Bilirubin 0.2 mg/dL (0.15-1.2)
[2021-06-08] MEDS: albuterol 8 gm MDI 2 PUFF INHALATION ×2 (09:28→22:02)
[2021-06-08 10:41] LABS: Glucose Urine UA 4+ (Normal); Ketones Urine Negative (Negative); Protein Urine 1+ (Negative); Urine Appearance Clear (CLEAR); Urine Color Yellow (Yellow); pH Urine 5 (5-7)
[2021-06-08 10:42] LABS: Add Urine Microscopic? YES; Bilirubin Urine Neg (Negative); Blood Urine Neg (Negative); Leukocyte Esterase Urine Negative (Negative); Nitrate Urine Negative (Negative); Urobilinogen Urine Norm (Negative)
[2021-06-08 10:43] LABS: Add Urine Culture? No; Amorphous Sediment Urine 1+ /hpf; Bacteria Urine TRACE /hpf; WBC Urine 0-4 /hpf (0-5)
--- NOTE | 2021-06-08 12:23 | PM.PN ---
Subjective Subjective: Interval history: He reports today he is doing quite all right. Denies chest pain or pressure. He is bothered quite a bit by cough. So far phlegm production appears to be little bit better. Vitals/I&O/Wt Last Vital Signs Temp 97.5 F L 06/08/21 08:00 Pulse 58 L 06/08/21 09:28 Resp 20 H 06/08/21 09:28 BP 134/70 06/08/21 08:00 Pulse Ox 92 06/08/21 09:28 06/07/21 06/08/21 06/08/21 22:59 06:59 14:59 Intake Total 650 / 650 50 / 700 50.000 / 50.000 Output Total 350 / 350 250 / 600 300 / 300 Balance 300 / 300 -200 / 100 -250.000 / -250.000 Weight last 48 hrs Weight 99.79 kg Weight 99.79 kg Physical Exam Const: COMMON NORMALS: no acute distress and patient oriented x3 NUTRITIONAL APPEARANCE: obese HENMT: COMMON NORMALS: oropharynx normal Neck/C-Spine: COMMON NORMALS: no JVD Resp: COMMON NORMALS: normal respiratory effort AUSCULTATION: no rales and wheezes (Milder) Cardio: COMMON NORMALS: no JVD, regular rhythm, S1 normal heart sound present, S2 normal heart sound present and No murmurs present (Cardio) RHYTHM: regular rhythm HEART SOUNDS: S1 normal heart sound present and S2 normal heart sound present GI: COMMON NORMALS: Normal to inspection, nondistended, normoactive bowel sounds present, Soft to palpation and non-tender PALPATION: Yes Soft to palpation Extremity: COMMON NORMALS: no joint enlargement and no pedal edema Neuro: COMMON NORMALS: patient oriented x3 and moves all extremities Skin: COMMON NORMALS: no rashes or lesions noted GENERAL SKIN EXAM: no rashes or lesions noted Data : 06/08/21 06:50 06/08/21 06:50 Micro: Microbiology 06/08/21 09:25 Gram Stain - Final Sputum - Expectorated Sputum 06/07/21 15:09 Blood Culture - Preliminary Blood SPECIMEN COLLECTED 06/07/21 13:37 Blood Culture - Preliminary Blood SPECIMEN COLLECTED A&P Assessment and plan (1) Acute respiratory failure due to COVID-19: Today still requiring 10 L by high flow cannula. Inflammatory markers little bit better, CRP down to 84.5. He is still bothered by significant cough. Still wheezing on exam. Leukocytosis persistent, 15.8. With chronic leukocytosis, with greenish phlegm production at presentation, difficult to exclude additional underlying infection. Continues empirically on Zosyn due to also consolidations noted in the right lung base with concern for superimposed bacterial pneumonia. Unclear if possible aspiration, although does not appear to have other aspiration events here so far. Sputum culture pending. Add urine bacterial antigens. Check MRSA PCR. Hypoxic respiratory failure, requiring 10 L by high flow cannula currently. Usually with COPD requires 2 L only at night. Continue Decadron, remdesivir. Prophylactic Lovenox. Given suspicion for additional focal bacterial pneumonia would avoid tocilizumab. Status: Acute (2) SARS-CoV-2 positive: Status: Acute (3) COPD exacerbation: Severe exacerbation. Dyspnea, hypoxia. Diminished lung sounds, wheezing on exam. Cough productive of white-greenish sputum. Requested sputum culture. Continue steroid as above. Zosyn empirically. Advair. Spiriva. Albuterol as needed. Flutter valve. IS. Status: Acute Additional A&P Information CLL: Chronic leukocytosis Hypomagnesemia: Replace History of urinary bladder cancer Left ear melanoma pending additional evaluation, he is going to be seeking biopsy, as well as following up with Dr. Youngblood Diabetes BPH: Continue Flomax. He reports recently having difficulties with flow, dribbling. Feels like he needs to urinate. Will collect UA. Discussed consideration of adding finasteride. He will be follow-up with urology after acute illness. Attestations Medical Necessity Statement*: Continue admission for assessment management of hypoxic respite failure with severe COVID-19, superimposed bacterial pneumonia, COPD with exacerbation. Coding Level of Care Code Acute Financial Assistance Specialist for [facility] Diagnoses Acute respiratory failure due to COVID-19 U07.1; J96.00 SARS-CoV-2 positive U07.1 COPD exacerbation J44.1
[2021-06-08 17:33] LABS: Glucose Point of Care 348 mg/dL (70-110)
[2021-06-08] MEDS: enoxaparin 40 mg/0.4 mL Syringe SUBCUT (17:37)
[2021-06-08] MEDS: remdesivir 100 MG in sodium chloride 0.9% (100 ml) 100 ML IV (18:49)
[2021-06-08 21:14] LABS: Glucose Point of Care 275 mg/dL (70-110)
[2021-06-08 21:14] LABS: Glucose Point of Care 171 mg/dL (70-110)
[2021-06-08] MEDS: tizanidine 4 mg Tablet 2 MG PO (21:42)
[2021-06-09] VITALS (8 sets, daily range): BP systolic 113–138; BP diastolic 61–68; PULSE 44–58; RESP 14–22; TEMP 36.4–36.6; O2SAT 91–96
[2021-06-09 06:12] LABS: Basophils % 0.1 %; Eosinophils % 0.1 %; Hematocrit 44.5 % (42.0-52.0); Hemoglobin 13.9 g/dL (11.7-16.6); Lymphocytes # 11.5 10^3/uL (0.8-4.8); Lymphocytes % 57.8 %; Mean Corpuscular HGB Conc 31.2 g/dL (30.0-36.0); Mean Corpuscular Hemoglobin 30.8 pg (28.0-34.0); Mean Corpuscular Volume 98.5 fL (80-94); Mean Platelet Volume 10.2 fL (7.4-10.4); Monocytes # 1.8 10^3/uL (0.2-0.9); Monocytes % 8.8 %; Neutrophils # 6.49 10^3/uL (1.8-7.7); Neutrophils % 32.6 %; Nucleated Red Blood Cells % 0 %; Platelet Count 242 10^3/cmm (130-400); Red Blood Count 4.52 10^6/uL (4.1-5.3); Red Cell Distribution Width 13.2 % (12.1-15.1); White Blood Count 19.8 10^3/uL (4.0-10.0)
[2021-06-09] MEDS: piperacillin-tazobactam 3.375 GM in sodium chloride 0.9% (plus) 50 ML IV ×3 (06:19→22:09)
[2021-06-09 06:26] LABS: D Dimer 0.65 ug/mIFEU (0-0.59)
[2021-06-09 06:36] LABS: Anion Gap 9.5 (5-19); Blood Urea Nitrogen 30 mg/dL (8-23); C Reactive Protein 30.8 mg/L (0.0-4.9); Calcium 8.9 mg/dL (8.5-10.5); Carbon Dioxide 33 mmol/L (22-29); Chloride 99 mmol/L (98-107); Creatinine Clr Calc Pharmacy 99.0871; Glucose 172 mg/dL (65-115); Osmolality Calculated 294 mOsm/kg (285-295); Potassium 4.5 mmol/L (3.5-5.1); Sodium 137 mmol/L (136-145)
[2021-06-09 06:46] LABS: Glucose Point of Care 159 mg/dL (70-110)
[2021-06-09] MEDS: tamsulosin 0.4 mg Capsule PO ×2 (08:34→17:24)
[2021-06-09] MEDS: dexamethasone 10 mg/mL INJ 6 MG IVP (08:34)
[2021-06-09] MEDS: famotidine 20 mg Tablet PO ×2 (08:34→17:23)
--- NOTE | 2021-06-09 09:49 | PC.CHAP ---
Pastoral Care Encounter/Spiritual Assessment Type of Contact [] Declined industrial renderer visit [] Patient/Family/Request visit [] Outpatient visit [] Follow-up visit [] Physician referral [] Code/Alert [x] Routine visit [] Staff referral [] Actively dying [] Patient sleeping [] Family support [] [] Out of room [] Palliative care [] [] Receiving care in room [] Pre-surgical visit [] Trauma [] Long length of stay [] ICU visit [x] Other:covid Relational/Emotional Strength [] Patient feels connected with others/family/visitors/staff [] Distress [] Loneliness/isolation [] Abandonment Spirituality of Patient [] Person of Latonia [] Attends Yarsani of their [place]onia [] Believes in Prayer [] Reads Bible or Lutheran materials [] There are Spiritual issues to be addressed 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 Interventions [x] Prayer [] Active listening [] Non-anxious presence [] Spiritual/emotional support [] Crisis/trauma care [] Spiritual counseling [] Bereavement support [] Provided bereavement packet [] Provided Bible/devotional materials [] Provided toy/stuffed animal, coloring book to patient or family member [] Provided Communion [] Anointing/[place] [] Salvation [x] Completed spiritual assessment [] Other: Impact on Illness or Injury [] Angry [] Fearful [] Anxious [] Often cries [] Exhaustion [] Unable to work [] Unable to attend gnosticism [] Unable to walk/stand [] Unable to read [] Unable to drive [] Unable to eat/drink [] Unable to sleep [] Unable to be with family [] Patient intubated [] Other: Summary Time spent with patient
[2021-06-09 11:47] LABS: Glucose Point of Care 419 mg/dL (70-110)
--- NOTE | 2021-06-09 14:32 | PM.PN ---
Subjective Subjective: Interval history: Florentino reports he feels a little bit better. No chest discomfort. A little less short of breath. Medications: Reviewed: Yes Vitals/I&O/Wt Last Vital Signs Temp 97.6 F 06/09/21 12:00 Pulse 58 L 06/09/21 12:00 Resp 18 06/09/21 12:00 BP 130/68 06/09/21 12:00 Pulse Ox 93 06/09/21 12:00 06/08/21 06/09/21 06/09/21 22:59 06:59 14:59 Intake Total 390 / 440.000 50 / 490.000 770 / 770 Output Total 350 / 1000 425 / 1425 500 / 500 Balance 40 / -560.000 -375 / -935.000 270 / 270 Weight last 48 hrs Weight 96.57 kg Weight 99.79 kg Physical Exam Narrative: EXAM NARRATIVE: General exam no apparent distress Neck is supple no lymphadenopathy thyromegaly Cardiovascular regular in rhythm without murmur Lungs few expiratory wheezes, and coarse breath sounds Abdomen is soft with positive bowel sounds Extremities no cyanosis clubbing or edema Data : 06/09/21 05:45 06/09/21 05:45 Micro: Microbiology 06/08/21 09:25 Gram Stain - Final Sputum - Expectorated Sputum Sputum Culture - Preliminary 06/07/21 15:09 Blood Culture - Preliminary Blood NEGATIVE TO DATE 06/07/21 13:37 Blood Culture - Preliminary Blood NEGATIVE TO DATE A&P Assessment and plan (1) Acute respiratory failure due to COVID-19: Secondary to severe COVID-19 pneumonia Wean oxygen as tolerated. Currently on 10 L. Continue empiric Zosyn Note that his baseline oxygen requirement is 2 L MRSA PCR is pending as well as bacterial antigen panel. Continue pulmonary toilet Inflammatory markers are decreasing Continue remdesivir Continue dexamethasone Concern for superimposed bacterial pneumonia and Tocilizumab at this point will be avoided. Status: Acute (2) SARS-CoV-2 positive: Status: Acute (3) COPD exacerbation: Continue pulmonary toilet Dexamethasone as above Flutter valve. IS. 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 Sliding scale insulin BPH. 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
[2021-06-09 17:17] LABS: Glucose Point of Care 274 mg/dL (70-110)
[2021-06-09] MEDS: enoxaparin 40 mg/0.4 mL Syringe SUBCUT (17:24)
--- NOTE | 2021-06-09 17:37 | PC.RESP ---
RT Shift Note Frequent safety and respiratory rounds continue. Orders completed as indicated. Patient monitored pre and post treatments throughout shift. Patient tolerated treatments appropriately. Condition did not change. Patient and/or sales representative rural power educated on respiratory treatment and medications. Patient and/or sales representative rural power verbalized understanding. Will continue to monitor patient progress.
--- NOTE | 2021-06-09 17:48 | PC.NUTR ---
Nutrition note: Pt has not triggered for nutrition assessment, however when visiting other pt in room, was notified he would prefer coffee with meals. Approved per Dr. Walters and have added to order. Will assess at 5day LOS or as needed.
[2021-06-09] MEDS: remdesivir 100 MG in sodium chloride 0.9% (100 ml) 100 ML IV (20:52)
[2021-06-09] MEDS: tizanidine 4 mg Tablet 2 MG PO (20:52)
[2021-06-09] MEDS: albuterol 8 gm MDI 2 PUFF INHALATION (21:24)
[2021-06-10] VITALS (10 sets, daily range): BP systolic 126–149; BP diastolic 61–68; PULSE 40–98; RESP 16–22; TEMP 36.5–36.8; O2SAT 91–97
[2021-06-10 02:20] LABS: Glucose Point of Care 260 mg/dL (70-110)
[2021-06-10] MEDS: piperacillin-tazobactam 3.375 GM in sodium chloride 0.9% (plus) 50 ML IV ×3 (05:09→22:04)
[2021-06-10 06:40] LABS: Glucose Point of Care 189 mg/dL (70-110)
[2021-06-10 07:16] LABS: Basophils % 0.2 %; Eosinophils % 0.1 %; Hematocrit 45.8 % (42.0-52.0); Hemoglobin 14.1 g/dL (11.7-16.6); Lymphocytes # 11.3 10^3/uL (0.8-4.8); Lymphocytes % 62.6 %; Mean Corpuscular HGB Conc 30.8 g/dL (30.0-36.0); Mean Corpuscular Hemoglobin 30.5 pg (28.0-34.0); Mean Corpuscular Volume 98.9 fL (80-94); Mean Platelet Volume 9.9 fL (7.4-10.4); Monocytes # 1.5 10^3/uL (0.2-0.9); Monocytes % 8.1 %; Neutrophils # 5.13 10^3/uL (1.8-7.7); Neutrophils % 28.4 %; Nucleated Red Blood Cells % 0 %; Platelet Count 240 10^3/cmm (130-400); Red Blood Count 4.63 10^6/uL (4.1-5.3); Red Cell Distribution Width 13.3 % (12.1-15.1); White Blood Count 18.1 10^3/uL (4.0-10.0)
[2021-06-10 07:49] LABS: Anion Gap 11.5 (5-19); Blood Urea Nitrogen 25 mg/dL (8-23); Calcium 9.4 mg/dL (8.5-10.5); Carbon Dioxide 34 mmol/L (22-29); Chloride 101 mmol/L (98-107); Glucose 187 mg/dL (65-115); Osmolality Calculated 303 mOsm/kg (285-295); Potassium 4.5 mmol/L (3.5-5.1); Sodium 142 mmol/L (136-145)
[2021-06-10 08:11] LABS: Slide Review Slide Review Perform
[2021-06-10] MEDS: dexamethasone 10 mg/mL INJ 6 MG IVP (08:26)
[2021-06-10] MEDS: tamsulosin 0.4 mg Capsule PO ×2 (08:26→17:32)
[2021-06-10] MEDS: famotidine 20 mg Tablet PO ×2 (08:26→17:32)
[2021-06-10] MEDS: albuterol 8 gm MDI 2 PUFF INHALATION ×3 (09:07→22:00)
--- NOTE | 2021-06-10 09:11 | PC.SOCIAL ---
Pg 2 IMM Explained to pt's , via phone, Pg 2 IMM. No questions voiced. Provided pt care nurse a copy to give to pt. Initialed, dated, & timed a copy & placed in chart.
[2021-06-10 11:48] LABS: Glucose Point of Care 246 mg/dL (70-110)
--- NOTE | 2021-06-10 15:12 | PM.PN ---
Subjective Subjective: Interval history: Florentino believes he is feeling a little bit better. Feels like he can breathe deeper. Medications: Reviewed: Yes Vitals/I&O/Wt Last Vital Signs Temp 98.1 F 06/10/21 12:00 Pulse 92 06/10/21 12:00 Resp 18 06/10/21 12:00 BP 132/68 06/10/21 12:00 Pulse Ox 92 06/10/21 12:00 06/10/21 06/10/21 06/10/21 06:59 14:59 22:59 Intake Total 530 / 1930 650 / 650 Output Total 600 / 2850 600 / 600 Balance -70 / -920 50 / 50 Weight last 48 hrs Weight 95.844 kg Weight 96.57 kg Physical Exam Narrative: EXAM NARRATIVE: General exam no apparent distress Neck is supple no lymphadenopathy thyromegaly Cardiovascular regular in rhythm without murmur Lungs few expiratory wheezes, and coarse breath sounds Abdomen is soft with positive bowel sounds Extremities no cyanosis clubbing or edema Data : 06/10/21 06:20 06/10/21 06:20 Micro: Microbiology 06/08/21 09:25 Gram Stain - Final Sputum - Expectorated Sputum Sputum Culture - Final 06/09/21 13:15 MRSA Culture - Final Nose A&P Assessment and plan (1) Acute respiratory failure due to COVID-19: Secondary to severe COVID-19 pneumonia Wean oxygen as tolerated. He is still on 10 L Continue empiric Zosyn Note that his baseline oxygen requirement is 2 L MRSA PCR negative Continue pulmonary toilet Continue remdesivir Continue dexamethasone Concern for superimposed bacterial pneumonia and Tocilizumab was avoided. Status: Acute (2) SARS-CoV-2 positive: Status: Acute (3) COPD exacerbation: Continue pulmonary toilet Dexamethasone as above Flutter valve. IS. 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 Sliding scale insulin BPH. Continue Flomax Lovenox for DVT prophylaxis Attestations Medical Necessity Statement*: Needs continued hospitalization for severe COVID-19 pneumonia requiring high flow oxygen. 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
[2021-06-10 15:50] LABS: Glucose Point of Care 300 mg/dL (70-110)
[2021-06-10] MEDS: enoxaparin 40 mg/0.4 mL Syringe SUBCUT (17:33)
[2021-06-10] MEDS: remdesivir 100 MG in sodium chloride 0.9% (100 ml) 100 ML IV (17:33)
--- NOTE | 2021-06-10 18:23 | PC.NURSE ---
Shift Note Patient did well with his oxygen today still requiring 10 liters hi-flow. went home today so a little lonely, but has roommate now. Had great urine output, and had a bowel movement today. Frequent safety and comfort rounds continue. Orders and/or nursing care completed as indicated. Patient monitored for response to intervention and treatment(s). Education provided includes reinforcement of the IS and flutter valve. Patient and/or policy services representative verbalized understanding. Will continue to monitor.
[2021-06-10 21:35] LABS: Glucose Point of Care 364 mg/dL (70-110)
[2021-06-10] MEDS: tizanidine 4 mg Tablet 2 MG PO (22:04)
[2021-06-11] VITALS (9 sets, daily range): BP systolic 96–132; BP diastolic 50–70; PULSE 41–81; RESP 16–27; TEMP 36.3–36.8; O2SAT 91–98
[2021-06-11] MEDS: piperacillin-tazobactam 3.375 GM in sodium chloride 0.9% (plus) 50 ML IV ×3 (05:07→22:05)
--- NOTE | 2021-06-11 05:42 | PC.NURSE ---
Patient down to 7L NC. No issues all night. WIll continue to monitor.
[2021-06-11 07:03] LABS: Basophils % 0.2 %; Hematocrit 46.3 % (42.0-52.0); Hemoglobin 14.9 g/dL (11.7-16.6); Lymphocytes # 14.1 10^3/uL (0.8-4.8); Lymphocytes % 68.3 %; Mean Corpuscular HGB Conc 32.2 g/dL (30.0-36.0); Mean Corpuscular Hemoglobin 30.6 pg (28.0-34.0); Mean Corpuscular Volume 95.1 fL (80-94); Mean Platelet Volume 10.1 fL (7.4-10.4); Monocytes # 1.2 10^3/uL (0.2-0.9); Neutrophils % 24.8 %; Nucleated Red Blood Cells % 0 %; Platelet Count 285 10^3/cmm (130-400); Red Blood Count 4.87 10^6/uL (4.1-5.3); Red Cell Distribution Width 13.2 % (12.1-15.1); White Blood Count 20.6 10^3/uL (4.0-10.0)
--- NOTE | 2021-06-11 07:13 | PC.RESP ---
PULMONARY REHAB INFORMATION SENT TO PATIENT.
[2021-06-11 07:32] LABS: Glucose Point of Care 198 mg/dL (70-110)
[2021-06-11 07:34] LABS: Anion Gap 12.2 (5-19); Blood Urea Nitrogen 24 mg/dL (8-23); Carbon Dioxide 34 mmol/L (22-29); Chloride 98 mmol/L (98-107); Glucose 192 mg/dL (65-115); Osmolality Calculated 299 mOsm/kg (285-295); Potassium 4.2 mmol/L (3.5-5.1); Sodium 140 mmol/L (136-145)
[2021-06-11 07:54] LABS: Slide Review Slide Review Perform
[2021-06-11] MEDS: dexamethasone 10 mg/mL INJ 6 MG IVP (08:00)
[2021-06-11] MEDS: tamsulosin 0.4 mg Capsule PO ×2 (08:00→17:29)
[2021-06-11] MEDS: famotidine 20 mg Tablet PO ×2 (08:00→17:30)
[2021-06-11 08:09] LABS: Calcium 9.3 mg/dL (8.5-10.5)
[2021-06-11] MEDS: albuterol 8 gm MDI 2 PUFF INHALATION (09:29)
--- NOTE | 2021-06-11 11:01 | PC.CHAP ---
Pastoral Care Encounter/Spiritual Assessment Type of Contact [] Declined bias machine operator helper visit [] Patient/Family/Request visit [] Outpatient visit [] Follow-up visit [] Physician referral [] Code/Alert [x] Routine visit [] Staff referral [] Actively dying [] Patient sleeping [] Family support [] [] Out of room [] Palliative care [] [] Receiving care in room [] Pre-surgical visit [] Trauma [] Long length of stay [] ICU visit [x] Other: 2A Relational/Emotional Strength [] Patient feels connected with others/family/visitors/staff [] Distress [] Loneliness/isolation [] Abandonment Spirituality of Patient [] Person of Lat[place] [] Attends Hinduism of their [place] [] Believes in Prayer [] Reads Bible or Yazdanism materials [] There are Spiritual issues to be addressed Furniture Cleaner Interventions [x] Prayer [] Active listening [] Non-anxious presence [] Spiritual/emotional support [] Crisis/trauma care [] Spiritual counseling [] Bereavement support [] Provided bereavement packet [] Provided Bible/devotional materials [] Provided toy/stuffed animal, coloring book to patient or family member [] Provided Communion [] Anointing/[place] [] Salvation [x] Completed spiritual assessment [] Other: Impact on Illness or Injury [] Angry [] Fearful [] Anxious [] Often cries [] Exhaustion [] Unable to work [] Unable to attend restoration [] Unable to walk/stand [] Unable to read [] Unable to drive [] Unable to eat/drink [] Unable to sleep [] Unable to be with family [] Patient intubated [] Other: Summary Time spent with patient
[2021-06-11 11:36] LABS: Glucose Point of Care 346 mg/dL (70-110)
--- NOTE | 2021-06-11 11:57 | P.PN_ITS ---
Subjective Subjective: Interval history: Florentino reports he is feeling better. Less short of breath. Oxygen is weaned down some. Now on 7 L. Medications: Reviewed: Yes Vitals/I&O/Wt Last Vital Signs Temp 98.1 F 06/11/21 08:00 Pulse 57 L 06/11/21 09:30 Resp 20 H 06/11/21 09:30 BP 112/58 06/11/21 08:00 Pulse Ox 91 06/11/21 09:30 06/10/21 06/11/21 06/11/21 22:59 06:59 14:59 Intake Total 630 / 1280 150 / 1430 290 / 290 Output Total 1400 / 2000 500 / 2500 150 / 150 Balance -770 / -720 -350 / -1070 140 / 140 Weight last 48 hrs Weight 95.799 kg Weight 95.844 kg Physical Exam Narrative: EXAM NARRATIVE: General exam no apparent distress. Conversing in full sentences Neck is supple no lymphadenopathy thyromegaly Cardiovascular regular in rhythm without murmur Lungs no wheezes. Improved aeration. Abdomen is soft with positive bowel sounds Extremities no cyanosis clubbing or edema Data : 06/11/21 05:40 06/11/21 05:40 Micro: Microbiology 06/08/21 09:25 Gram Stain - Final Sputum - Expectorated Sputum Sputum Culture - Final A&P Assessment and plan (1) Acute respiratory failure due to COVID-19: Secondary to severe COVID-19 pneumonia Wean oxygen as tolerated. He is now on 7 L Continue empiric Zosyn Note that his baseline oxygen requirement is 2 L MRSA PCR negative Continue pulmonary toilet Continue remdesivir Continue dexamethasone Concern for superimposed bacterial pneumonia and Tocilizumab was avoided. If he continues to wean possible discharge tomorrow. Status: Acute (2) SARS-CoV-2 positive: Status: Acute (3) COPD exacerbation: Continue pulmonary toilet Dexamethasone as above Flutter valve. IS. 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 Sliding scale insulin BPH. Continue Flomax Lovenox for DVT prophylaxis No need for laboratory tomorrow. Attestations Medical Necessity Statement*: Needs continued hospitalization for treatment of COVID-19 pneumonia requiring significant amount of oxygen with antiviral and IV steroid. 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
[2021-06-11 17:17] LABS: Glucose Point of Care 441 mg/dL (70-110)
[2021-06-11] MEDS: remdesivir 100 MG in sodium chloride 0.9% (100 ml) 100 ML IV (17:30)
--- NOTE | 2021-06-11 17:58 | PC.NURSE ---
Shift Note Frequent safety and comfort rounds continue. Orders and/or nursing care completed as indicated. Patient monitored for response to intervention and treatment(s). Education provided includes sitting up for all meals and encouraged incentive spirometer and flutter valve. Patient and/or special service representative verbalized understanding. Will continue to monitor. Patient has been doing well today. Is currently on 7L hi-flow. Patient has diminished lung sounds in all almanza and crackles in the lower left lobe. Has had adequate output this shift and has had a BM.
[2021-06-11] MEDS: enoxaparin 40 mg/0.4 mL Syringe SUBCUT (18:37)
[2021-06-11 20:26] LABS: Glucose Point of Care 402 mg/dL (70-110)
[2021-06-11] MEDS: tizanidine 4 mg Tablet 2 MG PO (22:05)
--- NOTE | 2021-06-11 23:21 | PC.RESP ---
RT Shift Note Frequent safety and respiratory rounds continue. Orders completed as indicated. Patient monitored pre and post treatments throughout shift. Patient [Did. tolerate treatments appropriately. Condition [.DidNotChange]. Patient and/or software support representative educated on respiratory treatment and medications. Patient and/or software support representative [ResponseToTeaching]. Will continue to monitor patient progress.
[2021-06-12] VITALS (8 sets, daily range): BP systolic 114–160; BP diastolic 65–73; PULSE 50–68; RESP 18–26; TEMP 36.4–36.8; O2SAT 88–97
[2021-06-12 06:48] LABS: Glucose Point of Care 176 mg/dL (70-110)
[2021-06-12] MEDS: piperacillin-tazobactam 3.375 GM in sodium chloride 0.9% (plus) 50 ML IV (06:50)
[2021-06-12] MEDS: famotidine 20 mg Tablet PO (08:05)
[2021-06-12] MEDS: dexamethasone 10 mg/mL INJ 6 MG IVP (08:05)
[2021-06-12] MEDS: tamsulosin 0.4 mg Capsule PO (08:05)
[2021-06-12] MEDS: albuterol 8 gm MDI 2 PUFF INHALATION ×2 (09:15→13:20)
[2021-06-12 11:38] LABS: Glucose Point of Care 372 mg/dL (70-110)
--- NOTE | 2021-06-12 12:42 | PC.NUTR ---
Nutrition assessment completed for 5D LOS. Notified nurse of multiple diet orders in system, which was clarified to Consistent Carb diet at this time. Excellent po intakes noted. Swallowing difficulty per admission screen--recommend ACID FILLER eval if warranted. See full RD assessment for further details.
--- NOTE | 2021-06-12 14:10 | P.DS_ITS ---
Discharge Providers Date of Admission: 06/07/21 14:54 Date of Discharge: June 12, 2021 Attending Provider at Admission: Alon Goodwin Attending Provider at Discharge: Onofre Walters MD Primary Care Provider: MELCHOR Lange Diagnoses at Discharge Discharge Diagnosis (1) Acute respiratory failure due to COVID-19: Status: Acute (2) SARS-CoV-2 positive: Status: Acute (3) COPD exacerbation: Status: Acute Reason for Visit Reason for Visit: COVID +; LOW O2 SATS Hospital Course Hospital Course Florentino is a 75-year-old white male who presented to the hospital with shortness of breath secondary to COVID-19 pneumonia and COPD exacerbation. He was placed on dexamethasone as well as remdesivir. He was also placed on Zosyn IV for concern of bacterial infection. Throughout the course of his hospital stay he had gradual improvement. By June 12 he had made significant improvement and it was thought he could be discharged home. At that point he was requiring 5 L of oxygen per nasal cannula with exertion. He will finish up 4 more days of dexamethasone, 4 more days of Augmentin, and follow-up with his primary care provider in 3 to 5 days. Physical Exam Narrative: EXAM NARRATIVE: General exam no distress Neck is supple no lymphadenopathy or thyromegaly Cardiovascular regular rate and rhythm without murmur Lungs diminished breath sounds bilaterally but clear Abdomen is soft, positive bowel sounds Extremities no cyanosis clubbing or edema Discharge Data Data Completed and Pending: Completed Studies During Hospitalization Category Date Time Status XR chest 1V tanesha ble [id number] Stat Exams 06/07/21 12:49 Completed Pending at discharge Category Date Time Status Bacterial Antigen Routine Lab 06/09/21 07:27 Ordered Blood Culture Sta t Lab 06/07/21 13:37 Results Complete Blood Co unt w/Auto AM LABS Lab 06/13/21 04:00 Ordered Comprehensive Met abolic Panel AM LA BS Lab 06/13/21 04:00 Ordered Legionella Antige n STAT Routine Lab 06/09/21 07:27 Ordered Labs from last 24 hours 06/12/21 06/12/21 06/11/21 11:08 06:33 19:39 POC Glucose 372 H 176 H 402 H 06/11/21 15:59 POC Glucose 441 H Vitals: Last Vital Signs Temp 97.9 F 06/12/21 11:19 Pulse 68 06/12/21 13:22 Resp 20 H 06/12/21 13:22 BP 130/73 06/12/21 11:19 Pulse Ox 88 L 06/12/21 13:45 Discharge Plan Discharge Patient Disposition: Home Condition: Stable Prescriptions: New amoxicillin-pot clavulanate [Augmentin] 875-125 mg tablet 1 tab PO BID Qty: 8 RF: 0 dexamethasone 6 mg tablet 6 mg PO DAILY Qty: 4 RF: 0 Continued albuterol sulfate [Proventil HFA] 90 mcg/actuation HFA aerosol inhaler 2 puff INHALATION QID PRN (Reason: shortness of breath or wheezing) Qty: 18 RF: 2 Brovana 15 mcg/2 mL solution for nebulization 2 ml INHALATION BID Qty: 120 RF: 2 budesonide 0.5 mg/2 mL suspension for nebulization 0.5 mg INHALATION BID Qty: 60 RF: 2 fenofibrate nanocrystallized [Tricor] 145 mg tablet 145 mg PO DAILY Qty: 90 RF: 0 levalbuterol HCl 1.25 mg/0.5 mL solution for nebulization 1.25 mg INHALATION Q4H PRN (Reason: shortness of breath or wheezing) Qty: 100 RF: 2 metformin 500 mg tablet extended release 24 hr 2,000 mg PO DAILY Qty: 360 RF: 0 tramadol 50 mg tablet 50 mg PO BID PRN (Reason: pain) Qty: 60 RF: 0 triamcinolone acetonide 40 mg/mL suspension 40 mg IM ONCE Qty: 1 RF: 0 mupirocin 2 % ointment 1 applic TOPICAL TID PRN (Reason: skin irritation) Qty: 22 RF: 2 tamsulosin 0.4 mg capsule 0.4 mg PO BID Qty: 180 RF: 3 tizanidine 2 mg tablet 2 mg PO BEDTIME RF: 0 lisinopril 2.5 mg tablet 2.5 mg PO DAILY RF: 0 Farxiga 5 mg tablet 5 mg PO DAILY RF: 0 Discharge Orders: Discharge Order (Routine); Ordered 06/12/21 Ordered By: Onofre Walters Other Ambulatory Orders: DME: Oxygen (Order) Location: None Selected Ordered By: Onofre Walters Referrals: Ken Escamilla, RESEARCH EPIDEMIOLOGIST-C [Primary Care Provider] - 4-7 days Discharge Diet: Diabetic Discharge Activity: Increase activity as tolerated Patient Instructions: Opioid Safety Activity Restrictions/Additional Instructions: Return for any worsening Oxygen 5 L per nasal cannula Your primary care provider will decrease your oxygen as tolerated Discharge Attestations Time Spent in Discharge Care*: greater than 30 min Quality Metrics Clinical Quality Measures During this hospital stay, did patient experience: None Coding Level of Care Code Acute Chg FW DC note Diagnoses Acute respiratory failure due to COVID-19 U07.1; J96.00 SARS-CoV-2 positive U07.1 COPD exacerbation J44.1
--- NOTE | 2021-06-12 18:15 | PC.NURSE ---
Shift Note Frequent safety and comfort rounds continue. Orders and/or nursing care completed as indicated. Patient monitored for response to intervention and treatment(s). Education provided includes using oxygen as prescribed and continue to use incentive spirometer and flutter valve at home. Patient and/or vaccine customer representative verbalized understanding. Will continue to monitor.
== END 2021-06-12 18:17 | disposition home or self-care (01) | DRG 177 ==
LOC: ER 14:56 → MS 2A 16:59
PROVIDERS: Admitting Provider Internal Medicine; Emergency Provider Family Medicine; PCP Nurse Practitioner; Visit Provider Internal Medicine
DX: U07.1 COVID-19 (principal); J12.82 Pneumonia due to coronavirus disease 2019; J96.01 Acute respiratory failure with hypoxia; J44.1 Chronic obstructive pulmonary disease with (acute) exacerbation; J44.0 Chronic obstructive pulmonary disease with (acute) lower respiratory infection; C91.10 Chronic lymphocytic leukemia of B-cell type not having achieved remission; N40.0 Benign prostatic hyperplasia without lower urinary tract symptoms; E11.9 Type 2 diabetes mellitus without complications; E83.42 Hypomagnesemia; C43.22 Malignant melanoma of left ear and external auricular canal; Z85.51 Personal history of malignant neoplasm of bladder; Z98.52 Vasectomy status; Z90.49 Acquired absence of other specified parts of digestive tract; Z83.3 Family history of diabetes mellitus; Z87.891 Personal history of nicotine dependence; Z84.89 Family history of other specified conditions; Z79.4 Long term (current) use of insulin; Z79.52 Long term (current) use of systemic steroids
CPT/HCPCS: 36415; 36416; 71045; 80048; 80053; 81001; 82550; 82728; 82803; 82962; 83605; 83615; 83735; 84145; 84484; 85025; 85378; 85384; 85610; 85730; 86140; 87040; 87070; 87205; 87641; 93005; 94640; 96372; 96374; 99285; J1100; J1650; J1815; J2543; J3475; J3535

== ENCOUNTER → 2021-06-24 11:13 | Outpatient (BNVA) | payer MEDICARE, SELFPAY | PROVIDERS: PCP Nurse Practitioner; Visit Provider Nurse Practitioner | DX: E11.65 Type 2 diabetes mellitus with hyperglycemia (principal); E55.9 Vitamin D deficiency, unspecified; E78.1 Pure hyperglyceridemia; B37.9 Candidiasis, unspecified; K59.01 Slow transit constipation; Z79.4 Long term (current) use of insulin | CPT/HCPCS: 80053; 80061; 83036; 85025 ==

== ENCOUNTER → 2021-06-30 08:58 | Outpatient (BNVA) | payer MEDICARE, SELFPAY | PROVIDERS: PCP Nurse Practitioner; Visit Provider Urology | DX: C67.8 Malignant neoplasm of overlapping sites of bladder (principal); N41.9 Inflammatory disease of prostate, unspecified; R97.20 Elevated prostate specific antigen [PSA]; N40.1 Benign prostatic hyperplasia with lower urinary tract symptoms; N13.8 Other obstructive and reflux uropathy; Z12.5 Encounter for screening for malignant neoplasm of prostate | CPT/HCPCS: 81003; G0103 ==

== ENCOUNTER 2021-07-16 13:35 | Outpatient (CLI) | payer MEDICARE, SELFPAY ==
[2021-07-16 14:45] LABS: Basophils # 0.1 10^3/uL (0.0-0.1); Basophils % 0.5 %; Eosinophils # 0.1 10^3/uL (0.0-0.8); Eosinophils % 0.5 %; Hematocrit 43.1 % (42.0-52.0); Lymphocytes % 63.5 %; Mean Corpuscular HGB Conc 32.5 g/dL (30.0-36.0); Mean Corpuscular Hemoglobin 31.3 pg (28.0-34.0); Mean Corpuscular Volume 96.2 fl (80-94); Mean Platelet Volume 9.7 fL (7.4-10.4); Monocytes # 0.5 10^3/uL (0.2-0.9); Monocytes % 4.6 %; Neutrophils # 3.32 10^3/uL (1.8-7.7); Neutrophils % 30.3 %; Nucleated Red Blood Cells % 0 %; Platelet Count 152 10^3/cmm (130-400); Red Blood Count 4.48 10^6/uL (4.1-5.3); Red Cell Distribution Width 15.8 % (12.1-15.1)
[2021-07-16 15:21] LABS: Alanine Aminotransferase 12 U/L (0-41); Albumin Level 4.2 g/dL (3.5-5.2); Alkaline Phosphatase 41 IU/L (40-130); Anion Gap 13.6 (5-19); Aspartate Amino Transferase 13 U/L (0-40); Blood Urea Nitrogen 19 mg/dL (8-23); Calcium 9.5 mg/dL (8.5-10.5); Carbon Dioxide 30 mmol/L (22-29); Chloride 99 mmol/L (98-107); Globulin 2.5 g/dL (1.3-4.6); Glucose 100 mg/dL (65-115); Lactate Dehydrogenase 129 U/L (135-225); Osmolality Calculated 288 mOsm/kg (285-295); Potassium 4.6 mmol/L (3.5-5.1); Sodium 138 mmol/L (136-145); Total Bilirubin 0.2 mg/dL (0.15-1.2); Total Protein 6.7 g/dL (6.6-8.7)
[2021-07-16 15:33] LABS: Slide Review Slide Review Perform
--- NOTE | 2021-07-17 06:19 | ONC FU_ITS ---
Dr. Youngblood Patient Follow-Up Note Patient: Florentino Alfaro Unit #: [id number]: 1945 Dicatated By: Erik Youngblood M.D.Date of Visit:Jul 16, 2021 Onc Med Follow-up/Prog Note Chief Complaint: Chronic lymphocytic leukemia/bladder cancer. History of Present Illness: This is a 75 year-old man with chronic lymphocytic leukemia, Garibay stage 0, initially diagnosed in July 2016. I had seen him initially on 07/15/2016 in regard to an elevated white blood cell count. In reviewing his record in [facility], multiple previous blood counts had shown mild lymphocytosis. The most recent CBC prior to that visit, from 06/15/2016, showed hemoglobin 15.7 g with hematocrit 47%. The white blood cell count was 16,000 with the differential showing 29% granulocytes, 66% lymphocytes, and 3% monocytes. The platelet count was normal at 154,000. His further evaluation showed similar CBC results with hemoglobin 15.1 g, white blood cell count 15,600, and platelet count 149,000. The differential also was similar. Sedimentation rate was normal at 9 mm/hour. Comprehensive metabolic profile was unremarkable. LDH was normal 134 unit/L. B12 was normal at 318 pg/mL. As some of the prior blood counts had shown increased absolute neutrophil count, I did obtain clonal studies, which were negative. A whole blood flow cytometry in July 2016 showed a monotypic B-cell population positive for CD19, CD20, CD5 and CD23. It showed surface kappa light chain restriction. It was CD10, FMC7, and CD38 negative. The phenotypic pattern was felt to be consistent with chronic leukocytic leukemia/small lymphocytic lymphoma. A subsequent FISH analysis was positive for the 13q deletion. As he appeared to have early stage disease, observation/expectant management was recommended. His previous evaluation had included CT abdomen/pelvis 03/26/2016. It did show mild splenomegaly. Also noted was a possible soft tissue mass in the left urinary bladder. Outpatient cystoscopy by Dr. Wilcox did confirm the presence of a large bladder tumor. He underwent TURBT on 08/03/2016. This showed a small papillary tumor just cephalad to the right ureteral orifice and a large papillary tumor on the left posterior lateral bladder wall. The base appeared to be greater than 5 cm. The surrounding mucosa, distinct from the papillary tumor, showed changes suspicious for carcinoma in situ. It was felt that the tumor was completely resected. Pathology showed papillary urothelial carcinoma, low nuclear grade. There was no invasion identified. There was no muscular propria identified in the specimen. I had seen him for a follow-up visit on 05/18/2018. At that point he appeared stable clinically, and he continued observation/expectant management. For some reason he had failed to return after his visit in May 2018. He did have a repeat CBC in October 2018. It showed slightly elevated hemoglobin at 17.2 g with his white blood cell count up just slightly at 14,200. Platelet count was borderline low but stable at 133,000. His other medical illnesses include type II diabetes, hyperlipidemia, and COPD. He has history of smoking 1 pack of cigarettes daily for 47 years, but he quit smoking in 2008. INTERIM HISTORY: On 06/07/2021 he was admitted to the hospital with acute respiratory failure due to COVID-19 virus pneumonia. He improved on treatment. He did not require hospitalization, and he was discharged home 5 days later. He is seen for a scheduled follow-up visit. He has continued to show gradual recovery from the COVID-19 virus infection. He is still on home oxygen, but is breathing is getting better and is activity tolerance is improving. He is doing most of his normal activities, but more slowly. ECOG score is 1. He has good appetite. He has not had fever. He has had sweating chronically, both daytime and at night. He has not had sore mouth or throat and he now has cough only rarely. He does not complain of chest pain. He has no GI complaints. He continues follow-up with Dr. Wilcox for the bladder cancer. He recently has had antibiotic therapy for suspected UTI. He has no significant joint or bone pain. He does not complain of headache. He does report having difficulty with equilibrium. He occasionally has numbness in his feet. Medications: Brovana 1 (15 mcg/2mL) Nebulization solution Inhalation b.i.d., Budesonide 1 Suspension Nasal b.i.d., Farxiga 1 Tablet (of 5 mg) Oral daily, Levalbuterol HCl Nebulization solution Inhalation PRN, Lisinopril 1 Tablet (of 2.5 mg) Oral daily, Magnesium Oxide 1 Tablet (of 400 mg) Capsule Oral daily, MetFORMIN HCl 1 (500 mg) Tablet Oral daily, Proventil HFA 1 (108 (90 base) mcg/act) Aerosol, solution Inhalation daily PRN, Tamsulosin HCl 1 (0.4 mg) Capsule Oral daily, TiZANidine HCl 1 (2 mg) Tablet Oral PRN, TraMADol HCl Tablet Oral PRN, Vitamin D (Ergocalciferol) 1 Tablet ([place] 79142 Units) Capsule Oral daily, Xopenex Nebulization solution Inhalation PRN Allergies: No Known Allergies. Vital Signs: Performed on Jul 16, 2021 15:48 Height - 72.00 in Weight - 206.4 lbs (LOW) BSA - 2.16 sq.m BMI - 27.99 Temperature - 97.7 F (LOW) Pulse - 83 /min Respiration - 18 /min BP - 130/71 mm(hg) O2 Sat - 90 % (LOW) Pain - 0 Fatigue - 5 Physical Examination: Constitutional - He appears somewhat weak generally, Eyes - Sclerae nonicteric. Conjunctivae clear, ENMT - No lesions noted in the oral cavity, Hematologic/Lymphatic - No cervical, clavicular, or axillary adenopathy, Respiratory - Lungs are clear with diminished air movement bilaterally, Cardiovascular - Heart rhythm appears regular. There is no murmur, gallop, or rub noted, Abdomen - Mildly distended but soft. Liver and spleen are not enlarged. There is no abdominal mass or ascites noted and there is no inguinal adenopathy, Extremities - No edema, Neurologic - He has severe postural instability. There are no focal neurologic deficits noted. Lab/Imaging: Test performed on Jul 16, 2021 14:08 LDH (Total) 129 U/L Sodium 138 mmol/L Potassium 4.6 mmol/L Chloride 99 mmol/L CO2 30 mmol/L Anion Gap 13.6 BUN 19 mg/dL Creatinine 1.0 mg/dL Cr Clearance (Est) 85.82 mL/min Glucose 100 mg/dL Osmolality - Calculated 288 mOsm/kg Calcium 9.5 mg/dL Protein, Total 6.7 g/dL Albumin 4.2 g/dL Globulin 2.5 g/dL Bilirubin, Total 0.2 mg/dL ALT (SGPT) 12 U/L AST (SGOT) 13 U/L Alkaline Phosphatase 41 IU/L WBC 11.0 10 3/uL RBC 4.48 10 6/uL HGB 14.0 g/dL HCT 43.1 % MCV 96.2 fl MCH 31.3 pg MCHC 32.5 g/dL RDW 15.8 % Platelet Count 152 10 3/cmm MPV 9.7 fL Neutrophils 3.32 10 3/uL Lymphocytes 7.0 10 3/uL Monocytes 0.5 10 3/uL Eosinophils 0.1 10 3/uL Basophils 0.1 10 3/uL Neutrophil % 30.3 % Lymphocyte % 63.5 % Monocyte % 4.6 % Eosinophil % 0.5 % Basophils % 0.5 % NRBC % 0 % CBC Slide Review Slide Review Perform SLIDE REVIEWED AGREES WITH THE AUTO RESULT. Problem List: 1. Chronic leukocytic leukemia, initially diagnosed in July 2016. His FISH analysis showed 13q deletion. By clinical evaluation, he appeared to have early stage disease (Garibay stage 0). Expectant management was recommended. 2. He has borderline high hemoglobin/hematocrit levels, presumed to be due to secondary polycythemia. 3. On 08/03/2016 he underwent cystoscopy/TURBT for superficial low-grade papillary urothelial cancer. He has been on surveillance with Dr. Wilcox. 4. Type II diabetes. 5. Hyperlipidemia. 6. COPD. 7. He had COVID-19 virus pneumonia in June 2021. Problems Addressed with this Encounter and Plan: 1. Patient with chronic leukocytic leukemia, initially diagnosed in July 2016. His FISH analysis showed 13q deletion. By clinical evaluation, he appeared to have early stage disease (Garibay stage 0). He has been followed on observation/expectant management. During follow-up he has continued to have just mild lymphocytosis. He has had borderline low platelet count of uncertain clinical significance. Overall, there has been no significant progression of the chronic lymphocytic leukemia, and he continues on expectant management. He has regular quarterly follow-up and lab studies with Ken Escamilla. For my part, that should include CBC, comprehensive metabolic profile, and LDH . I will see him again in 6 months. 2. He has borderline high hemoglobin/hematocrit levels. This is presumed to be due to secondary polycythemia. It has remained stable, and can be followed expectantly. Signed By: Erik Youngblood M.D. <<Signature on File>>
== END 2021-07-16 13:36 | disposition home or self-care (01) ==
LOC: ONCMED 13:41
PROVIDERS: PCP Nurse Practitioner; Visit Provider Internal Medicine Medical Oncology
DX: C91.10 Chronic lymphocytic leukemia of B-cell type not having achieved remission (principal); D75.1 Secondary polycythemia; Z85.59 Personal history of malignant neoplasm of other urinary tract organ; E11.9 Type 2 diabetes mellitus without complications; E78.5 Hyperlipidemia, unspecified; J44.9 Chronic obstructive pulmonary disease, unspecified; Z86.16 Personal history of COVID-19; Z79.899 Other long term (current) drug therapy; Z79.84 Long term (current) use of oral hypoglycemic drugs
CPT/HCPCS: 36415; 80053; 83615; 85025; 99214

== ENCOUNTER → 2021-08-25 08:26 | Outpatient (BNVA) | payer MEDICARE, SELFPAY | PROVIDERS: PCP Nurse Practitioner; Visit Provider Nurse Practitioner | DX: E11.65 Type 2 diabetes mellitus with hyperglycemia (principal); Z79.4 Long term (current) use of insulin; C83.00 Small cell B-cell lymphoma, unspecified site; E55.9 Vitamin D deficiency, unspecified | CPT/HCPCS: 80053; 80061; 81000; 82306; 83036; 83615; 85025 ==

== ENCOUNTER → 2021-10-08 11:03 | Outpatient (BNVA) | payer MEDICARE, SELFPAY | PROVIDERS: PCP Nurse Practitioner; Visit Provider Urology | DX: N41.9 Inflammatory disease of prostate, unspecified (principal); C67.8 Malignant neoplasm of overlapping sites of bladder | CPT/HCPCS: 81003 ==

== ENCOUNTER → 2021-12-01 16:50 | Outpatient (BNVA) | payer MEDICARE, SELFPAY | PROVIDERS: PCP Nurse Practitioner; Visit Provider Nurse Practitioner | DX: C91.10 Chronic lymphocytic leukemia of B-cell type not having achieved remission (principal); D63.0 Anemia in neoplastic disease; D72.829 Elevated white blood cell count, unspecified; E11.65 Type 2 diabetes mellitus with hyperglycemia | CPT/HCPCS: 80053; 83036; 83615; 85025 ==

== ENCOUNTER 2022-01-14 13:55 | Outpatient (CLI) | payer MEDICARE, SELFPAY ==
--- NOTE | 2022-01-16 09:54 | ONC FU_ITS ---
Dr. Youngblood Patient Follow-Up Note Patient: Florentino Alfaro Unit #: [id number]: 1945 Dicatated By: Erik Youngblood M.D.Date of Visit:Jan 14, 2022 Onc Med Follow-up/Prog Note Chief Complaint: Chronic lymphocytic leukemia/bladder cancer. History of Present Illness: This is a 76 year-old man with chronic lymphocytic leukemia, Garibay stage 0, initially diagnosed in July 2016. I had seen him initially on 07/15/2016 in regard to an elevated white blood cell count. In reviewing his record in [facility], multiple previous blood counts had shown mild lymphocytosis. The most recent CBC prior to that visit, from 06/15/2016, showed hemoglobin 15.7 g with hematocrit 47%. The white blood cell count was 16,000 with the differential showing 29% granulocytes, 66% lymphocytes, and 3% monocytes. The platelet count was normal at 154,000. His further evaluation showed similar CBC results with hemoglobin 15.1 g, white blood cell count 15,600, and platelet count 149,000. The differential also was similar. Sedimentation rate was normal at 9 mm/hour. Comprehensive metabolic profile was unremarkable. LDH was normal 134 unit/L. B12 was normal at 318 pg/mL. As some of the prior blood counts had shown increased absolute neutrophil count, I did obtain clonal studies, which were negative. A whole blood flow cytometry in July 2016 showed a monotypic B-cell population positive for CD19, CD20, CD5 and CD23. It showed surface kappa light chain restriction. It was CD10, FMC7, and CD38 negative. The phenotypic pattern was felt to be consistent with chronic leukocytic leukemia/small lymphocytic lymphoma. A subsequent FISH analysis was positive for the 13q deletion. As he appeared to have early stage disease, observation/expectant management was recommended. His previous evaluation had included CT abdomen/pelvis 03/26/2016. It did show mild splenomegaly. Also noted was a possible soft tissue mass in the left urinary bladder. Outpatient cystoscopy by Dr. Wilcox did confirm the presence of a large bladder tumor. He underwent TURBT on 08/03/2016. This showed a small papillary tumor just cephalad to the right ureteral orifice and a large papillary tumor on the left posterior lateral bladder wall. The base appeared to be greater than 5 cm. The surrounding mucosa, distinct from the papillary tumor, showed changes suspicious for carcinoma in situ. It was felt that the tumor was completely resected. Pathology showed papillary urothelial carcinoma, low nuclear grade. There was no invasion identified. There was no muscular propria identified in the specimen. I had seen him for a follow-up visit on 05/18/2018. At that point he appeared stable clinically, and he continued observation/expectant management. For some reason he had failed to return after his visit in May 2018. He did have a repeat CBC in October 2018. It showed slightly elevated hemoglobin at 17.2 g with his white blood cell count up just slightly at 14,200. Platelet count was borderline low but stable at 133,000. His other medical illnesses include type II diabetes, hyperlipidemia, and COPD. He has history of smoking 1 pack of cigarettes daily for 47 years, but he quit smoking in 2008. INTERIM HISTORY: On 06/07/2021 he was admitted to the hospital with acute respiratory failure due to COVID-19 virus pneumonia. He improved on treatment. He did not require hospitalization, and he was discharged home 5 days later. As of his follow-up visit on 07/16/2021 he appeared stable clinically. He continued expectant management for the CLL. He is seen for a scheduled follow-up visit. He has been feeling pretty good generally, though he still tires easily. He is able to do light work. ECOG score is 1. He has good appetite. He has not had fever. He occasionally has sweating at night. He has not had sore mouth or throat. He has occasional nonproductive cough. His breathing is labored with activity, but it is unchanged. He has not had chest pain. He has no GI complaints other than his bowels are sometimes loose. He has ongoing problems with bladder function. He has episodes of having to void urgently but with dribbling and very small volume output. He is seeing Dr. Wilcox. He has no significant joint or bone pain. He does not complain of headache. He has ongoing problems with his equilibrium. He has numbness in both feet. Medications: Brovana 1 (15 mcg/2mL) Nebulization solution Inhalation b.i.d., Budesonide 1 Suspension Nasal b.i.d., Farxiga 1 Tablet (of 5 mg) Oral daily, Levalbuterol HCl Nebulization solution Inhalation PRN, Lisinopril 1 Tablet (of 2.5 mg) Oral daily, Magnesium Oxide 1 Tablet (of 400 mg) Capsule Oral daily, medicore Vitamin 1 Tablet daily, MetFORMIN HCl 1 (500 mg) Tablet Oral daily, Proventil HFA 1 (108 (90 base) mcg/act) Aerosol, solution Inhalation daily PRN, Tamsulosin HCl 1 (0.4 mg) Capsule Oral daily, TiZANidine HCl 1 (2 mg) Tablet Oral PRN, TraMADol HCl Tablet Oral PRN, Vitamin D (Ergocalciferol) 1 Tablet ([place] 19286 Units) Capsule Oral daily, Xopenex Nebulization solution Inhalation PRN Allergies: No Known Allergies. Vital Signs: Performed on Jan 14, 2022 15:39 Height - 72.00 in Weight - 226.4 lbs (HIGH) BSA - 2.25 sq.m BMI - 30.71 (HIGH) Temperature - 98.4 F Pulse - 74 /min Respiration - 22 /min BP - 133/68 mm(hg) O2 Sat - 90 % (LOW) Pain - 0 Fatigue - 6 Physical Examination: Constitutional - He appears somewhat weak generally, Eyes - Sclerae nonicteric. Conjunctivae clear, ENMT - No lesions noted in the oral cavity, Hematologic/Lymphatic - No cervical, clavicular, or axillary adenopathy, Respiratory - Lungs are clear with diminished air movement bilaterally, Cardiovascular - The heart tones are distant. The rhythm appears regular. There is no murmur, gallop, or rub noted, Abdomen - Mildly distended but soft. Liver and spleen are not enlarged. There is no abdominal mass or ascites noted and there is no inguinal adenopathy, Extremities - No edema. There are scattered purpuric lesions, Neurologic - He has severe postural instability. There are no focal neurologic deficits noted. Lab/Imaging: His laboratory studies from 12/01/2021 included CBC showing hemoglobin 16.8 g with hematocrit 52.7%. The white blood cell count was 12,700 with a differential showing 37% neutrophils, 56% lymphocytes, 4% monocytes, and 1% eosinophils. The platelet count was normal at 158,000. Comprehensive metabolic profile showed borderline renal function with BUN 27 and creatinine 1.2 mg/dL. The bilirubin and liver enzymes were normal. LDH was normal at 143 U/L. The hemoglobin A1c was down slightly at 6.7%. Problem List: 1. Chronic leukocytic leukemia, initially diagnosed in July 2016. His FISH analysis showed 13q deletion. By clinical evaluation, he appeared to have early stage disease (Garibay stage 0). Expectant management was recommended. 2. He has borderline high hemoglobin/hematocrit levels, presumed to be due to secondary polycythemia. 3. On 08/03/2016 he underwent cystoscopy/TURBT for superficial low-grade papillary urothelial cancer. He has been on surveillance with Dr. Wilcox. 4. Type II diabetes. 5. Hyperlipidemia. 6. COPD. 7. He had COVID-19 virus pneumonia in June 2021. Problems Addressed with this Encounter and Plan: 1. Patient with chronic leukocytic leukemia, initially diagnosed in July 2016. His FISH analysis showed 13q deletion. By clinical evaluation, he appeared to have early stage disease (Garibay stage 0). He has been followed on observation/expectant management. During follow-up he has continued to have just mild lymphocytosis. He has had borderline low platelet count of uncertain clinical significance. Overall, his clinical status appears stable. There has been no significant progression of the chronic lymphocytic leukemia. He continues expectant management. I will see him again in 6 months. 2. He has borderline high hemoglobin/hematocrit levels. This is presumed to be due to secondary polycythemia. It has remained stable, and it is being followed expectantly. Signed By: Erik Youngblood M.D. <<Signature on File>>
== END 2022-01-14 13:56 | disposition home or self-care (01) ==
PROVIDERS: PCP Nurse Practitioner; Visit Provider Internal Medicine Medical Oncology
DX: C91.10 Chronic lymphocytic leukemia of B-cell type not having achieved remission (principal); E11.9 Type 2 diabetes mellitus without complications; E78.5 Hyperlipidemia, unspecified; J44.9 Chronic obstructive pulmonary disease, unspecified; Z86.16 Personal history of COVID-19; D75.1 Secondary polycythemia; Z79.84 Long term (current) use of oral hypoglycemic drugs
CPT/HCPCS: 99214

== ENCOUNTER → 2022-03-12 15:01 | Outpatient (BNVA) | payer MEDICARE, SELFPAY | PROVIDERS: PCP Nurse Practitioner; Visit Provider Nurse Practitioner | DX: E11.65 Type 2 diabetes mellitus with hyperglycemia (principal); J44.9 Chronic obstructive pulmonary disease, unspecified; Z79.4 Long term (current) use of insulin; M79.10 Myalgia, unspecified site; E55.9 Vitamin D deficiency, unspecified; L03.90 Cellulitis, unspecified | CPT/HCPCS: 80053; 80061; 81000; 82306; 83036 ==

== ENCOUNTER 2022-04-09 09:02 | Outpatient (CLI) | payer MEDICARE, SELFPAY | END 2022-04-09 09:03 | disposition home or self-care (01) | LOC: LAB 09:07 | PROVIDERS: PCP Nurse Practitioner; Visit Provider Urology | DX: R97.20 Elevated prostate specific antigen [PSA] (principal); C67.8 Malignant neoplasm of overlapping sites of bladder; N40.1 Benign prostatic hyperplasia with lower urinary tract symptoms; N13.8 Other obstructive and reflux uropathy | CPT/HCPCS: 52000; 81003; 84153; 99214 ==

== ENCOUNTER → 2022-06-16 08:08 | Outpatient (BNVA) | payer MEDICARE, SELFPAY | PROVIDERS: PCP Nurse Practitioner; Visit Provider Nurse Practitioner | DX: E11.65 Type 2 diabetes mellitus with hyperglycemia (principal); E55.9 Vitamin D deficiency, unspecified; J44.9 Chronic obstructive pulmonary disease, unspecified; R97.20 Elevated prostate specific antigen [PSA] | CPT/HCPCS: 80053; 80061; 81000; 82043; 82306; 83036; 84153; 85651; 86140 ==

== ENCOUNTER 2022-07-01 17:03 | Observation (INO) | payer MEDICARE, SELFPAY ==
[2022-07-01] VITALS (7 sets, daily range): BP systolic 102–123; BP diastolic 50–66; PULSE 55–69; RESP 16–20; TEMP 36.9; O2SAT 90–94
--- NOTE | 2022-07-01 17:10 | XRR_ITS ---
PROCEDURE INFORMATION: Exam: XR Chest Exam date and time: 07/01/2022 5:31 PM Age: 76 years old Clinical indication: Shortness of breath; Additional info: Dyspnea TECHNIQUE: Imaging protocol: Radiologic exam of the chest. Views: 1 view. COMPARISON: CR (CHEST, ) 06/07/2021 1:02 PM FINDINGS: Lungs: Lungs are clear bilaterally. Pleural spaces: No pleural effusion. No pneumothorax. Heart/Mediastinum: Stable mild enlargement of the cardiac silhouette. Mediastinal contours are unremarkable. Vasculature: Stable vascular calcifications in the aorta. Bones/joints: Unremarkable for age. XR/XR chest 1V portable [id number] IMPRESSION: 1. No acute cardiopulmonary process. 2. Incidental/nonacute findings are listed in the report.
--- NOTE | 2022-07-01 17:20 | PC.NURSE ---
Per EMS, around 1400 pts heart started racing, checked his HR and it was above 260s. reports pt became dizzy, saw starts, and became short of breath. reports this has happened 4 times in the last 1.5 years. Pt denies chest, dyspnea, dizziness, or lightheadedness. denies fevers, nausea, or vomiting.
--- NOTE | 2022-07-01 17:43 | ECG_ITS ---
[facility] Test Date: 2022-07-01 Pat Name: Florentino Alfaro Department: Room: Gender: Male Client Support Coordinator: : 1945 Requested By: Jeremi King Order Number: [id number] Madan MD: Sveta Davila M.D. Measurements Intervals [place] Rate: 61 P: 64 IA: 264 QRS: 15 QRSD: 150 T: 129 QT: 426 QTc: 432 Interpretive Statements SINUS RHYTHM WITH FIRST DEGREE AV BLOCK LEFT BUNDLE BRANCH BLOCK [120+ ms QRS DURATION, 80+ ms Q/S IN V1/V2, 85+ ms R IN I/aVL/V5/V6] Compared to ECG 06/07/2021 13:05:24 No significant changes Electronically Signed On 07-02-2022 6:05:00 CDT by Sveta Davila M.D. [email or web address]
--- NOTE | 2022-07-01 17:51 | ED_ITS ---
HPI - General Adult General: Chief complaint: Shortness of Breath/Dyspnea Stated complaint: sob Time Seen by Provider: 07/01/22 17:09 History of Present Illness: Patient is a 76-year-old male with a history of bladder cancer, CLL, COPD who presents the emergency room for concerns of fast heart rate, near syncope and shortness of breath. Patient tells me that he was at home earlier today. Around 1 PM, patient noted that his heart rate was in the 200s per his apple device. Patient also noted that he was feeling very short of breath and her breathing. Patient reports that his vision became tunnel and he nearly passed out from or breathing. Patient was in this fast heart rate for a few minutes. Since then, patient's heart rate improved. Patient denies any prior cardiac history. Patient denies any associated chest pain, chest pressure, diaphoresis, nausea/vomiting, diarrhea melena medic easier. No complaints. Patient is not currently on any chemotherapy or radiation treatment for his bladder cancer or for his CLL. Onset: earlier today Duration:once for 2-3 hrs Location:home Severity:moderate Associated symptoms: Reports dyspnea and palpitations; Deny chest pain, nausea, rash or vomiting Review of Systems Const: Denies: fever(s) or chills Eyes: Denies: change in vision ENMT: Denies: mouth pain Card: Reports: palpitations; Denies: chest pain Resp: Reports: dyspnea; Denies: non-productive cough GI: Denies: abdominal pain, nausea, vomiting or diarrhea : Denies: dysuria Musc: Denies: extremity pain Skin/Breast: Denies: rash or new lesions Neuro: Reports: other (+near syncope); Denies: weakness in extremities Psych: Reports: other (Normal mood) Sharan/Lymph: Denies: easy bruising PFSH ED PFSH: Medical History Advanced chronic obstructive pulmonary disease BPH with obstruction/lower urinary tract symptoms Dependence on supplemental oxygen Diabetes mellitus with hyperglycemia, without long-term current use of insulin Generalized muscle ache Lymphoplasmacytoid lymphoma, CLL Malignant neoplasm of overlapping sites of bladder Vitamin D insufficiency Surgical History H/O hernia repair umbilical and bilateral inguinal History of arthroplasty of left shoulder tendon 1970's History of cholecystectomy History of condyloma acuminatum removal surgical December 2014 Hx of vasectomy Family History Mother , at age 73 Diabetes Lung disease Father , at age 75 Cancer blood Lung disease Social History Smoking and tobacco status: former smoker Second hand smoke exposure: No Smoking risk assessment/counseling performed?: No Alcohol intake: current Alcohol intake frequency: holidays/special occasions only Desire information about alcohol rehabilitation?: No Counseling given: No Desire information about substance/drug rehabilitation?: No Counseling given: No Adopted: No Caregiver/support person: No Lives independently: Yes Household members: spouse Housing: House Marital status: Number of children: 5 Number of grandchildren: 7 service: Yes branch: [employer] Current occupational status: disabled Pets and animals: Yes Pets & animals: cat(s) and dog(s) History of recent travel: No Current gender identity: Male Special luis needs: No Physical Exam Const: COMMON NORMALS: alert HENMT: COMMON NORMALS: atraumatic HEAD & SCALP: atraumatic MOUTH: moist mucous membranes not abnormal Eye: COMMON NORMALS: EOMs intact bilaterally and conjunctivae normal CONJUNCTIVA: Yes conjunctivae normal Neck/C-Spine: COMMON NORMALS: full ROM and supple Resp: COMMON NORMALS: normal respiratory effort and clear to auscultation bilaterally AUSCULTATION: clear to auscultation bilaterally Cardio: COMMON NORMALS: regular rate RATE: regular rate GI: COMMON NORMALS: Soft to palpation and non-tender PALPATION: Yes Soft to palpation OTHER: No focal TTP. NO guarding rebound, guarding, rigidity. No CVA tenderness to percussion. Neg Thomason/Neg McBurney's point tenderness, no suprabupic tenderness to palpation. Extremity: COMMON NORMALS: full ROM Neuro: SENSORIUM/ORIENTATION: Yes alert MOTOR EXAM: No Abnormal motor strength present and Other motor observations present (no focal motor deficits) Psych: COMMON NORMALS: speech normal SPEECH: Yes normal speech MOOD & AFFECT: Yes euthymic mood Course Vital Signs: Vital signs: Vital Signs Temperature 98.4 F 07/01/22 17:05 Pulse Rate 55 L 07/01/22 18:30 Respiratory Rate 16 07/01/22 18:30 Blood Pressure 113/50 07/01/22 18:30 Pulse Oximetry 94 07/01/22 18:30 Oxygen Delivery Me thod 07/01/22 17:05 Oxygen Flow Rate 3 07/01/22 17:05 MDM - General Adult Medical Decision Making Patient is a 76-year-old male with a history of bladder cancer, CLL, COPD who presents the emergency room for concerns of fast heart rate, near syncope and shortness of breath occurred for 2 to 3 hours. On exam, patient is hemodynamically stable. Patient's heart rate is within normal limit. No focal findings on physical exam. Patient has no signs of respiratory distress. O2 sat appears to be normal. EKG showed left bundle branch block with a prolonged NM interval. No signs of ST-T wave changes. Patient does not meet Sgarbossa criteria. Patient received IVF reports feeling symptomatically improved. It is unclear exactly what happened earlier with patient's heart rate in the 200s. Patient has never had a cardiac work-up. Troponin of 32 today. D-dimer within normal limit. XR chest is clear. Patient will be admitted to hospital for further work-up of near syncope and palpitation in the setting of left bundle branch abnormal EKG. Disposition: admission Lab Data : 07/01/22 17:34 07/01/22 17:34 Radiology Impressions Chest X-Ray 07/01/22 17:10 IMPRESSION: 1. No acute cardiopulmonary process. 2. Incidental/nonacute findings are listed in the report. Laboratory Results WBC 10.3 10^3/uL (4.0-10.0) H 07/01/22 17:34 RBC 5.14 10^6/uL (4.1-5.3) 07/01/22 17:34 Hgb 16.6 g/dL (11.7-16.6) 07/01/22 17:34 Hct 51.3 % (42.0-52.0) 07/01/22 17:34 MCV 99.8 fl (80-94) H 07/01/22 17:34 MCH 32.3 pg (28.0-34.0) 07/01/22 17:34 MCHC 32.4 g/dL (30.0-36.0) 07/01/22 17:34 RDW 14.0 % (12.1-15.1) 07/01/22 17:34 Plt Count 145 10^3/cmm (130-400) 07/01/22 17:34 MPV 10.5 fL (7.4-10.4) H 07/01/22 17:34 Neut % (Auto) 39.6 % 07/01/22 17:34 Lymph % (Auto) 54.7 % 07/01/22 17:34 [place] % (Auto) 4.0 % 07/01/22 17:34 Eos % (Auto) 0.7 % 07/01/22 17:34 Baso % (Auto) 0.4 % 07/01/22 17:34 Neut # (Auto) 4.09 10^3/uL (1.8-7.7) 07/01/22 17:34 Lymph # (Auto) 5.6 10^3/uL (0.8-4.8) H 07/01/22 17:34 [place] # (Auto) 0.4 10^3/uL (0.2-0.9) 07/01/22 17:34 Eos # (Auto) 0.1 10^3/uL (0.0-0.8) 07/01/22 17:34 Baso # (Auto) 0.0 10^3/uL (0.0-0.1) 07/01/22 17:34 Nucleated RBC % (auto) 0 % 07/01/22 17:34 Nucleated RBCs # 0.0 /100WBC 07/01/22 17:34 D-Dimer 0.41 ug/mIFEU (0-0.59) 07/01/22 17:34 Sodium 140 mmol/L (136-145) 07/01/22 17:34 Potassium 4.6 mmol/L (3.5-5.1) 07/01/22 17:34 Chloride 99 mmol/L (98-107) 07/01/22 17:34 Carbon Dioxide 31 mmol/L (22-29) H 07/01/22 17:34 Anion Gap 14.6 (5-19) 07/01/22 17:34 BUN 21 mg/dL (8-23) 07/01/22 17:34 Creatinine 1.0 mg/dL (0.7-1.2) 07/01/22 17:34 GFR Calculation Not Reportable 07/01/22 17:34 Glucose 170 mg/dL (65-115) H 07/01/22 17:34 Calculated Osmolality 297 mOsm/kg (285-295) H 07/01/22 17:34 Calcium 9.9 mg/dL (8.5-10.5) 07/01/22 17:34 Troponin T Baseline 32 ng/L (0-15) H 07/01/22 17:34 Troponin T 120 Minute 32.61 ng/L (0-15) H 07/01/22 19:12 Delta Troponin T 0.61 ABS# (0-10) 07/01/22 19:12 Imaging Data Other Imaging: Radiologist's impression: [address] [address] XRay Report Signed Patient: Florentino Alfaro Unit #: [id number] : 1945 Age/Sex: 76 / M ADM Date: 07/01/22 Loc: ER Room/Bed: Attending Dr: Ordering Provider/Ordering MD: Jeremi King MD Date of Service: 07/01/22 Procedure(s): XR chest 1V portable [id number] Accession Number(s): [id number] Report Number: [id number] PROCEDURE INFORMATION: Exam: XR Chest Exam date and time: 07/01/2022 5:31 PM Age: 76 years old Clinical indication: Shortness of breath; Additional info: Dyspnea TECHNIQUE: Imaging protocol: Radiologic exam of the chest. Views: 1 view. COMPARISON: CR (CHEST, ) 06/07/2021 1:02 PM FINDINGS: Lungs: Lungs are clear bilaterally. Pleural spaces: No pleural effusion. No pneumothorax. Heart/Mediastinum: Stable mild enlargement of the cardiac silhouette. Mediastinal contours are unremarkable. Vasculature: Stable vascular calcifications in the aorta. Bones/joints: Unremarkable for age. XR/XR chest 1V portable [id number] IMPRESSION: 1. No acute cardiopulmonary process. 2. Incidental/nonacute findings are listed in the report. ? Dictated By: Luanne Charles MD Signed By: Luanne Charles MD Signed Date/Time: 07/01/221805 DD/ 30 Discharge Plan Discharge Patient Disposition: Admitted As Inpatient Clinical Impression: Dyspnea, Light headedness, Palpitations Condition: Stable Coding Level of Care Code ED Short Filler Bunch Machine Operator for Chg Fwd Exam Comprehensive
[2022-07-01 17:57] LABS: Basophils % 0.4 %; Eosinophils # 0.1 10^3/uL (0.0-0.8); Eosinophils % 0.7 %; Hematocrit 51.3 % (42.0-52.0); Hemoglobin 16.6 g/dL (11.7-16.6); Lymphocytes # 5.6 10^3/uL (0.8-4.8); Lymphocytes % 54.7 %; Mean Corpuscular HGB Conc 32.4 g/dL (30.0-36.0); Mean Corpuscular Hemoglobin 32.3 pg (28.0-34.0); Mean Corpuscular Volume 99.8 fl (80-94); Mean Platelet Volume 10.5 fL (7.4-10.4); Monocytes # 0.4 10^3/uL (0.2-0.9); Neutrophils # 4.09 10^3/uL (1.8-7.7); Neutrophils % 39.6 %; Nucleated Red Blood Cells % 0 %; Platelet Count 145 10^3/cmm (130-400); Red Blood Count 5.14 10^6/uL (4.1-5.3); White Blood Count 10.3 10^3/uL (4.0-10.0)
[2022-07-01 17:59] LABS: D Dimer 0.41 ug/mIFEU (0-0.59)
--- NOTE | 2022-07-01 18:14 | PC.NURSE ---
attempted to obtain covid swab, pt refused. physician notified.
[2022-07-01 18:19] LABS: Troponin(5th) Baseline 32 ng/L (0-15)
[2022-07-01 18:20] LABS: Anion Gap 14.6 (5-19); Blood Urea Nitrogen 21 mg/dL (8-23); Calcium 9.9 mg/dL (8.5-10.5); Carbon Dioxide 31 mmol/L (22-29); Chloride 99 mmol/L (98-107); Glucose 170 mg/dL (65-115); Osmolality Calculated 297 mOsm/kg (285-295); Potassium 4.6 mmol/L (3.5-5.1); Sodium 140 mmol/L (136-145)
--- NOTE | 2022-07-01 19:00 | PC.NURSE ---
Report from STEPHAN Resendez. Pt sitting up on side of bed eating Sonic. Reports he is feeling much better.
--- NOTE | 2022-07-01 19:07 | PC.NURSE ---
report given to Lizz
[2022-07-01 19:36] LABS: Troponin 5 2HR 32.61 ng/L (0-15)
[2022-07-01 19:39] LABS: Troponin 5 2HR Delta 0.61 ABS# (0-10)
--- NOTE | 2022-07-01 19:43 | P.HP_ITS ---
Providers/Chief Complaint Primary Care Provider: Ken Escamilla, TRAFFIC ENGINEERING DIRECTOR-C Chief Complaint: sob History of Present Illness Florentino Alfaro is a 76 year old male who follows up with Dr. Youngblood for CLL, papillary urothelial cancer status post TURBT follows up with Dr. Wilcox type 2 diabetes COPD COVID-19 in 2020, dyslipidemia presented today after presyncopal event. Patient was told that he was watching television in his recliner when his pulse oximeter read his pulse 280 He is not experiencing any symptoms no chest pain shortness of breath or palpitations, after few seconds it dipped down to low 30s as per the . Patient is stating that he has been experiencing these kind of spells this year and this probably is third or fourth episode, it would only last for a few seconds but today this was more than just a few seconds which made them very anxious hence decided to come to the hospital for further evaluation. He never experienced any syncopal event, seizure, chest pain, shortness of breath recent fever diarrhea or shortness of breath. 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, however he is hemoglobin is 16 white count 10.3, platelet count of 145 In the ER his heart rate is fluctuating between 60 to 70s hemodynamically stable he was eating his dinner when entered the room no active chest pain or shortness of breath very pleasant [facility] requested to admit him monitor his heart rate EKG showing left bundle branch block which was present since 2018 Review of Systems Const: Denies: chills or body aches Eyes: Denies: change in vision ENMT: Denies: throat pain Card: Denies: chest pain Resp: Reports: dyspnea GI: Denies: abdominal pain : Denies: flank pain Musc: Denies: neck pain Skin/Breast: Denies: rash Neuro: Denies: headache(s) Psych: Denies: anxiety Endo: Denies: polyuria Sharan/Lymph: Denies: easy bruising All/Imm: Denies: urticaria Medications/Allergies Home Medications Medication Instructions Recorded Confirmed Last Taken Type mupirocin 2 % topical ointment 1 applic topical TID PRN skin 07/25/20 06/19/22 Unknown Rx irritation #22 grams blood sugar diagnostic #50 ea 01/21/22 06/19/22 Unknown Rx Disposable nebulizer circuit #1 ea 03/02/22 06/19/22 Unknown Rx nebulizers #1 ea 03/02/22 06/19/22 Unknown Rx pen needle, diabetic 33 gauge x #100 ea 03/12/22 06/19/22 Unknown Rx 5/32 ascorbate calcium (vitamin C) 500 500 mg PO DAILY 04/09/22 06/19/22 Unknown History mg tablet cholecalciferol (vitamin D3) 10 10 mcg PO DAILY 04/09/22 06/19/22 Unknown History mcg (400 unit) capsule albuterol sulfate 90 mcg/actuation 2 puff inhalation QID PRN 06/05/22 06/19/22 Unknown Rx aerosol inhaler (Proventil HFA) shortness of breath or wheezing #18 grams arformoterol 15 mcg/2 mL solution 2 ml inhalation BID #120 mL 06/05/22 06/19/22 Unknown Rx for nebulization (Obdulio) dapagliflozin 5 mg tablet (Farxiga) 5 mg PO DAILY #30 tabs 06/05/22 06/19/22 Unknown Rx fenofibrate nanocrystallized 145 145 mg PO DAILY #90 tabs 06/05/22 06/19/22 Unknown Rx mg tablet (Tricor) levalbuterol HCl 1.25 mg/0.5 mL 1.25 mg (0.5 mL) inhalation Q4H 06/05/22 06/19/22 Unknown Rx solution for nebulization PRN shortness of breath or wheezing #100 vials liraglutide 0.6 mg/0.1 mL (18 mg/3 1.2 mg (0.2 mL) SUBCUT DAILY #9 mL 06/05/22 06/19/22 Unknown Rx mL) subcutaneous pen injector (Victoza 3-Evgeny) lisinopril 2.5 mg tablet 2.5 mg PO DAILY #90 tabs 06/05/22 06/19/22 Unknown Rx metformin 500 mg tablet,extended 2,000 mg PO DAILY #360 tabs 06/05/22 06/19/22 Unknown Rx release 24 hr tizanidine 2 mg tablet 2 mg PO BEDTIME muscle spasticity 06/05/22 06/19/22 Unknown Rx #90 tabs tramadol 50 mg tablet 50 mg PO BID PRN pain #60 tabs 06/05/22 06/19/22 Unknown Rx cephalexin 500 mg capsule 500 mg PO TID #30 caps 06/19/22 06/19/22 Unknown Rx imiquimod 5 % topical cream packet 1 applic topical .MWF #24 ea 06/19/22 06/19/22 Unknown Rx budesonide 0.5 mg/2 mL suspension 0.5 mg (2 mL) inhalation BID #60 mL 06/28/22 Unknown Rx for nebulization tamsulosin 0.4 mg capsule 0.4 mg PO BID 07/01/22 07/01/22 07/01/22 History Allergies Allergy/AdvReac Type Severity Reaction Status Date / Time No Known Allergies Allergy Verified 06/19/22 14:23 PFSH Acute PFSH: Medical History Advanced chronic obstructive pulmonary disease BPH with obstruction/lower urinary tract symptoms Dependence on supplemental oxygen Diabetes mellitus with hyperglycemia, without long-term current use of insulin Generalized muscle ache Lymphoplasmacytoid lymphoma, CLL Malignant neoplasm of overlapping sites of bladder Vitamin D insufficiency Surgical History H/O hernia repair umbilical and bilateral inguinal 1979' History of arthroplasty of left shoulder tendon 1969' History of cholecystectomy History of condyloma acuminatum removal surgical December 2014 Hx of vasectomy Family History Mother , at age 73 Diabetes Lung disease Father , at age 75 Cancer blood Lung disease Social History Smoking and tobacco status: former smoker Second hand smoke exposure: No Smoking risk assessment/counseling performed?: No Alcohol intake: current Alcohol intake frequency: holidays/special occasions only Desire information about alcohol rehabilitation?: No Counseling given: No Desire information about substance/drug rehabilitation?: No Counseling given: No Adopted: No Caregiver/support person: No Lives independently: Yes Household members: spouse Housing: House Marital status: Number of children: 5 Number of grandchildren: 7 service: Yes branch: [employer] Current occupational status: disabled Pets and animals: Yes Pets & animals: cat(s) and dog(s) History of recent travel: No Current gender identity: Male Special luis needs: No Vitals/I&O/Wt Last Vital Signs Temp 98.4 F 07/01/22 17:05 Pulse 55 L 07/01/22 18:30 Resp 16 07/01/22 18:30 BP 113/50 07/01/22 18:30 Pulse Ox 94 07/01/22 18:30 O2 Del Method 07/01/22 17:05 O2 Flow Rate 3 07/01/22 17:05 Weight last 48 hrs Weight 2.722 kg Physical Exam Narrative: Very pleasant cooperative male Currently hemodynamically stable Heart rate in 70s No active chest pain or shortness of breath Currently doing well on 2 to 3 L of oxygen, Abdomen soft No signs of edema Awake and alert Nonfocal neuro exam at the bedside Patient was eating his meal Data : 07/01/22 17:34 07/01/22 17:34 A&P Assessment and plan (1) Light headedness: Status: Acute (2) Dependence on supplemental oxygen: Status: Chronic (3) BPH with obstruction/lower urinary tract symptoms: Status: Chronic (4) Lymphoplasmacytoid lymphoma, CLL: Status: Chronic (5) Malignant neoplasm of overlapping sites of bladder: Status: Chronic (6) Advanced chronic obstructive pulmonary disease: Status: Chronic Plan Presyncopal event Patient is sitting highest heart rate was 280 at home and then the worst was low 30s No fluctuation of blood pressure No active chest pain or shortness of breath No syncopal event He felt dizzy Weak and lethargic which was transient and only for few seconds At this point he is hemodynamically stable EKG showing chronic left bundle branch block We will monitor on cardiac telemetry Check TSH, magnesium level No active chest pain Troponin without significant delta EKG without ischemic or infarctive changes Tachybradycardia syndrome/sick sinus syndrome? Planning to discharge him home tomorrow with event monitor Will need outpatient cardiology new appointment Full code Cardiac diet DVT prophylaxis Lovenox D-dimer unremarkable Chronic COPD oxygen dependent uses 2 L of oxygen, no acute exacerbation No previous history of hyperviscosity syndrome however the way he is describing his symptoms are typical, follows up with Dr. Youngblood Attestations Medical Necessity Statement*: Anticipating discharge within 48 hours will need overnight monitoring because of tacky bradycardia syndrome Time Spent in Patient Care: 45 Coding Level of Care Code Acute Eligibility Counselor for Chg Fwd Diagnoses Light headedness R42 Dependence on supplemental oxygen Z99.81 BPH with obstruction/lower urinary tract symptoms N40.1; N13.8 Lymphoplasmacytoid lymphoma, CLL C83.00 Malignant neoplasm of overlapping sites of bladder C67.8 Advanced chronic obstructive pulmonary disease J44.9
[2022-07-01 20:11] LABS: Procalcitonin 0.12 ng/mL (0-0.5); Thyroid Stimulating Hormone 2.97 uIU/mL (0.27-4.20)
--- NOTE | 2022-07-01 22:32 | ECG_ITS ---
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 Measurements Intervals [place] Rate: 55 P: 71 HI: 263 QRS: -20 QRSD: 151 T: 110 QT: 441 QTc: 423 Interpretive Statements SINUS BRADYCARDIA WITH FIRST DEGREE AV BLOCK LEFT BUNDLE BRANCH BLOCK [120+ ms QRS DURATION, 80+ ms Q/S IN V1/V2, 85+ ms R IN I/aVL/V5/V6] Compared to ECG 07/01/2022 17:43:20 Sinus rhythm no longer present Electronically Signed On 07-03-2022 15:41:29 CDT by Pilar Harris M.D. [id number]
[2022-07-02] VITALS (9 sets, daily range): BP systolic 104–145; BP diastolic 53–72; PULSE 51–65; RESP 16–19; TEMP 36.7–37.2; O2SAT 90–98
--- NOTE | 2022-07-02 00:47 | USCV_ITS ---
AlfaroFlorentino hernandez Age: 76 Gender: M : 1945 Exam Date: 07/02/2022 01:38 Ordering Phys: Rossy Ruelas MD Technologist: KEESHA Exam Location: [facility] Indication: pre-syncope today, also 4 times in last 18 months. No history of cardiac intervention per patient BP: 145 / 72 HR: 57 Rhythm: Sinus Technical Quality: Adequate MEASUREMENTS (Male / Female) Normal Values 2D ECHO LV Diastolic Diameter PLAX 4.9 cm 4.2 - 5.9 / 3.9 - 5.3 cm LV Systolic Diameter PLAX 3.4 cm IVS Diastolic Thickness 1.5 cm 0.6 - 1.0 / 0.6 - 0.9 cm IVS Systolic Thickness 2.3 cm LVPW Diastolic Thickness 1.6 cm 0.6 - 1.0 / 0.6 - 0.9 cm LVPW Systolic Thickness 2.2 cm LVOT Diameter 2.1 cm LV Ejection Fraction 2D Teich 59.0 % LV Ejection Fraction MOD 2C 72.8 % LV Ejection Fraction 2C AL 72.6 % LA Diameter 3.7 cm LA Width 4.0 cm LA Height 5.0 cm RA Width 3.9 cm RA Height 3.4 cm Aorta at Sinotubular Diameter 3.0 cm IVC Diameter 2.3 cm M-MODE Aortic Annulus Diameter 3.4 cm LA Ao Ratio MM 1.0 MV E Point Septal Separation 0.9 cm DOPPLER AV Peak Velocity 209.0 cm/s LVOT Peak Velocity 120.0 cm/s AV Area Cont Eq vti 1.8 cm squared AV Area Cont Eq pk 2.1 cm squared MV Area PHT 3.7 cm squared Mitral E to A Ratio 0.9 MV E' Velocity 51.5 cm/s Mitral E to MV E' Ratio 22.7 Mitral E to LV E' Lateral Ratio 31.2 Mitral E to LV E' Septal Ratio 17.8 TR Peak Velocity 209.0 cm/s TR Peak Gradient 17.5 mmHg TV Peak E Velocity 43.0 cm/s Right Atrial Pressure 5.0 mmHg Pulmonary Artery Systolic Pressu 22.5 mmHg PV Peak Velocity 129.0 cm/s RV Acceleration Time 0.1 s RV Ejection Time 0.4 s RV AcT/ET 0.2 FINDINGS Left Ventricle Normal left ventricular size, systolic function and wall thickness, with no regional wall motion abnormalities. Grade I/IV diastolic dysfunction (abnormal relaxation filling pattern), normal to mildly elevated filling pressures. Left ventricular ejection fraction is estimated at 60 %. Right Ventricle Normal right ventricular size and systolic function. Normal right ventricular systolic pressure. Right Atrium The right atrium is normal in size. Left Atrium The left atrium is normal in size. Mitral Valve Structurally normal mitral valve. Trace mitral valve regurgitation. Aortic Valve Structurally normal aortic valve without significant sclerosis or stenosis. There is no aortic regurgitation. Tricuspid Valve Structurally normal tricuspid valve. Trace tricuspid valve regurgitation. Pulmonic Valve Pulmonic valve not well visualized. Pericardium Normal pericardium without effusion. Aorta Normal ascending aorta dimension. IVC The inferior vena cava appears normal. The inferior vena cava collapses normally with respiration. CONCLUSIONS Normal left ventricular size, systolic function and wall thickness, with no regional wall motion abnormalities. Grade I/IV diastolic dysfunction (abnormal relaxation filling pattern), normal to mildly elevated filling pressures. Left ventricular ejection fraction is estimated at 60 %. Structurally normal mitral valve. Trace mitral valve regurgitation. There are no prior echocardiogram studies to compare. Dr. Alen Vargas MD (Electronically Signed) Final Date: 02 July 2022 09:39 S
--- NOTE | 2022-07-02 01:47 | ECG_ITS ---
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 Measurements Intervals [place] Rate: 54 P: 75 IN: 268 QRS: -14 QRSD: 153 T: 99 QT: 452 QTc: 429 Interpretive Statements SINUS BRADYCARDIA WITH FIRST DEGREE AV BLOCK WITH OCCASIONAL VENTRICULAR PREMATURE COMPLEXES LEFT BUNDLE BRANCH BLOCK [120+ ms QRS DURATION, 80+ ms Q/S IN V1/V2, 85+ ms R IN I/aVL/V5/V6] Compared to ECG 07/01/2022 22:32:47 Ventricular premature complex(es) now present Electronically Signed On 07-03-2022 15:43:22 CDT by Pilar Harris M.D. [email or web address] [email or web address] va [id number]
[2022-07-02] MEDS: enoxaparin 40 mg/0.4 mL Syringe SUBCUT (02:31)
[2022-07-02 02:34] LABS: Basophils # 0.1 10^3/uL (0.0-0.1); Basophils % 0.4 %; Eosinophils # 0.1 10^3/uL (0.0-0.8); Eosinophils % 1.2 %; Hematocrit 53.8 % (42.0-52.0); Lymphocytes # 7.1 10^3/uL (0.8-4.8); Lymphocytes % 62.8 %; Mean Corpuscular HGB Conc 31.6 g/dL (30.0-36.0); Mean Corpuscular Hemoglobin 32.2 pg (28.0-34.0); Mean Corpuscular Volume 101.9 fl (80-94); Mean Platelet Volume 10.6 fL (7.4-10.4); Monocytes # 0.4 10^3/uL (0.2-0.9); Monocytes % 3.7 %; Neutrophils # 3.54 10^3/uL (1.8-7.7); Neutrophils % 31.5 %; Nucleated Red Blood Cells % 0 %; Platelet Count 152 10^3/cmm (130-400); Red Blood Count 5.28 10^6/uL (4.1-5.3); Red Cell Distribution Width 14.2 % (12.1-15.1); White Blood Count 11.3 10^3/uL (4.0-10.0)
[2022-07-02 02:53] LABS: Anion Gap 11.5 (5-19); Blood Urea Nitrogen 23 mg/dL (8-23); Calcium 10.2 mg/dL (8.5-10.5); Carbon Dioxide 38 mmol/L (22-29); Chloride 97 mmol/L (98-107); Glucose 170 mg/dL (65-115); Magnesium 1.9 mg/dL (1.7-2.3); Osmolality Calculated 302 mOsm/kg (285-295); Potassium 4.5 mmol/L (3.5-5.1); Sodium 142 mmol/L (136-145)
[2022-07-02 02:57] LABS: Troponin 5 6HR 31.97 ng/L (0-15)
[2022-07-02 03:13] LABS: Troponin 5 6HR Delta -0.03 ng/L (0-12)
[2022-07-02 06:35] LABS: Glucose Point of Care 157 mg/dL (70-110)
[2022-07-02] MEDS: lisinopril 2.5 mg Tablet PO (09:32)
[2022-07-02 11:01] LABS: Glucose Point of Care 216 mg/dL (70-110)
--- NOTE | 2022-07-02 12:00 | P.DS_ITS ---
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 In the hospital he was noted to have mild troponin elevation without any uptrend. Without signs of acute AK. Remained chest pain- free, and was monitored on telemetry, had no recurrence of tachycardia, mild sinus bradycardia noted overnight. EKG with noted first-degree block, old LBBB. He denies any prior history of AK or any cardiac work-up. He was assessed with echocardiogram which showed normal ejection fraction, no R WMA. Trace MVR. He states that he has had few similar episodes although overall they are rare happening maybe a few times a year. He does state that perhaps sometimes does not wear oxygen which he states should be wearing all the time, and noticed perhaps there could be some relation to not wearing his oxygen. Encouraged him to wear oxygen as instructed. Discussed with him also setting up for a 21-day event monitor. Discussed also referral for additional assessment with stress testing to which she is agreeable. Discussed follow-up with cardiology. Due to rarity of episodes in case of not catching any on 21-day event monitor and consideration may then be given to possibly a loop recorder. Continue to encourage him to wear oxygen as prescribed. He is also asked to stop Brovana nebs as it may have adverse effect of supraventricular arrhythmia in about 2% of cases, is at this time switched to Xopenex instead. Physical Exam Const: COMMON NORMALS: patient oriented x3 and alert GENERAL APPEARANCE: cooperative NUTRITIONAL APPEARANCE: overweight ORIENTATION/CONSCIOUSNESS: Yes awake OTHER: Pleasant, conversant, denies any complaints, no pain or discomfort. No chest pain or pressure, no trouble breathing. No further palpitations. Reports he is doing well. HENMT: COMMON NORMALS: oropharynx normal Neck/C-Spine: COMMON NORMALS: no JVD Resp: COMMON NORMALS: normal respiratory effort and clear to auscultation bilaterally AUSCULTATION: clear to auscultation bilaterally Cardio: COMMON NORMALS: no JVD, regular rhythm, S1 normal heart sound present, S2 normal heart sound present and No murmurs present (Cardio) RHYTHM: regular rhythm HEART SOUNDS: S1 normal heart sound present and S2 normal heart sound present GI: COMMON NORMALS: Normal to inspection, nondistended, normoactive bowel sounds present, Soft to palpation and non-tender PALPATION: Yes Soft to palpation Extremity: COMMON NORMALS: no joint enlargement and no pedal edema Neuro: COMMON NORMALS: patient oriented x3 and moves all extremities SENSORIUM/ORIENTATION: Yes alert Skin: COMMON NORMALS: no rashes or lesions noted GENERAL SKIN EXAM: no rashes or lesions noted Discharge Data Studies Completed and Pending Completed Studies During Hospitalization Category Date Time Status XR chest 1V portable [id number] Stat Exams 07/01/22 17:10 Completed CV. echo complete* [id number] Routine Ultrasound 07/02/22 00:47 Completed Pending at discharge Category Date Time Status COVID OZH [Coronavirus PCR] Stat Lab 07/01/22 17:39 Uncollected COVID [SARS Covid-2 Antigen] Stat Lab 07/01/22 17:48 Uncollected Radiology Impressions Chest X-Ray 07/01/22 17:10 IMPRESSION: 1. No acute cardiopulmonary process. 2. Incidental/nonacute findings are listed in the report. Laboratory Results WBC 11.3 10^3/uL (4.0-10.0) H 07/02/22 01:29 RBC 5.28 10^6/uL (4.1-5.3) 07/02/22 01:29 Hgb 17.0 g/dL (11.7-16.6) H 07/02/22 01:29 Hct 53.8 % (42.0-52.0) H 07/02/22 01:29 MCV 101.9 fl (80-94) H 07/02/22 01: MCH 32.2 pg (28.0-34.0) 07/02/22 01: MCHC 31.6 g/dL (30.0-36.0) 07/02/22 01: RDW 14.2 % (12.1-15.1) 07/02/22 01:29 Plt Count 152 10^3/cmm (130-400) 07/02/22 01: MPV 10.6 fL (7.4-10.4) H 07/02/22 01:29 Neut % (Auto) 31.5 % 07/02/22 01: Lymph % (Auto) 62.8 % 07/02/22 01: [place] % (Auto) 3.7 % 07/02/22 01: Eos % (Auto) 1.2 % 07/02/22 01: Baso % (Auto) 0.4 % 07/02/22 01: Neut # (Auto) 3.54 10^3/uL (1.8-7.7) 07/02/22 01: Lymph # (Auto) 7.1 10^3/uL (0.8-4.8) H 07/02/22 01: [place] # (Auto) 0.4 10^3/uL (0.2-0.9) 07/02/22 01: Eos # (Auto) 0.1 10^3/uL (0.0-0.8) 07/02/22 01: Baso # (Auto) 0.1 10^3/uL (0.0-0.1) 07/02/22 01: Nucleated RBC % (auto) 0 % 07/02/22 01: Nucleated RBCs # 0.0 /100WBC 07/02/22 01: D-Dimer 0.41 ug/mIFEU (0-0.59) 07/01/22 17:34 Sodium 142 mmol/L (136-145) 07/02/22 01: Potassium 4.5 mmol/L (3.5-5.1) 07/02/22 01: Chloride 97 mmol/L (98-107) L 07/02/22 01: Carbon Dioxide 38 mmol/L (22-29) H 07/02/22 01:29 Anion Gap 11.5 (5-19) 07/02/22 01:29 BUN 23 mg/dL (8-23) 07/02/22 01:29 Creatinine 1.2 mg/dL (0.7-1.2) 07/02/22 01:29 GFR Calculation Not Reportable 07/02/22 01:29 Glucose 170 mg/dL (65-115) H 07/02/22 01:29 POC Glucose 216 mg/dL (70-110) H 07/02/22 10:49 Calculated Osmolality 302 mOsm/kg (285-295) H 07/02/22 01:29 Calcium 10.2 mg/dL (8.5-10.5) 07/02/22 01:29 Magnesium 1.9 mg/dL (1.7-2.3) 07/02/22 01:29 Troponin T Baseline 32 ng/L (0-15) H 07/01/22 17:34 Troponin T 120 Minute 32.61 ng/L (0-15) H 07/01/22 19:12 Delta Troponin T 0.61 ABS# (0-10) 07/01/22 19:12 Troponin T Hi Sens 6Hr 31.97 ng/L (0-15) H 07/02/22 01:29 Troponin T Hi Sens 6Hr Delta -0.03 ng/L (0-12) L 07/02/22 01:29 C-Reactive Protein 5.0 mg/L (0.0-4.9) H 07/02/22 01:29 Procalcitonin 0.12 ng/mL (0-0.5) 07/01/22 19:14 TSH 2.97 uIU/mL (0.27-4.20) 07/01/22 19:14 Vitals Last Vital Signs Temp 98.2 F 07/02/22 11:34 Pulse 65 07/02/22 11:34 Resp 18 07/02/22 11:34 BP 108/62 07/02/22 11:34 Pulse Ox 98 07/02/22 11:34 O2 Del Method 07/02/22 11:34 O2 Flow Rate 2 07/02/22 11:34 Discharge Plan Discharge Patient Disposition: Home Condition: Stable Prescriptions: New levalbuterol HCl [Xopenex] 0.63 mg/3 mL solution for nebulization 0.63 mg inhalation TID Qty: 90 0RF Continued ascorbate calcium (vitamin C) 500 mg tablet 500 mg PO DAILY cholecalciferol (vitamin D3) 10 mcg (400 unit) capsule 10 mcg PO DAILY mupirocin 2 % ointment 1 applic TOPICAL TID PRN (Reason: skin irritation) Qty: 22 2RF imiquimod 5 % cream in packet 1 applic topical .MWF Qty: 24 2RF Rx Instructions: Apply thin film qhs MWF for 8 weeks to affected areas on penis cephalexin 500 mg capsule 500 mg PO TID Qty: 30 0RF (DME) pen needle, diabetic 33 gauge x 5/32 needle See Rx Instructions .ROUTE .MEDSUPPLY Qty: 100 5RF Rx Instructions: 1 times day albuterol sulfate [Proventil HFA] 90 mcg/actuation HFA aerosol inhaler 2 puff INHALATION QID PRN (Reason: shortness of breath or wheezing) Qty: 18 2RF Farxiga 5 mg tablet 5 mg PO DAILY Qty: 30 2RF fenofibrate nanocrystallized [Tricor] 145 mg tablet 145 mg PO DAILY Qty: 90 2RF levalbuterol HCl 1.25 mg/0.5 mL solution for nebulization 1.25 mg INHALATION Q4H PRN (Reason: shortness of breath or wheezing) Qty: 100 2RF Victoza 3-Evgeny 0.6 mg/0.1 mL (18 mg/3 mL) pen injector 1.2 mg SUBCUT DAILY Qty: 9 2RF lisinopril 2.5 mg tablet 2.5 mg PO DAILY Qty: 90 0RF metformin 500 mg tablet extended release 24 hr 2,000 mg PO DAILY Qty: 360 0RF tizanidine 2 mg tablet 2 mg PO BEDTIME Qty: 90 0RF tramadol 50 mg tablet 50 mg PO BID PRN (Reason: pain) Qty: 60 2RF (DME) OneTouch Ultra Blue Test Strip Strip See Rx Instructions .Route Qty: 50 5RF Rx Instructions: 1 daily (DME) Disposable nebulizer circuit See Rx Instructions .Route .MEDSUPPLY Qty: 1 0RF Rx Instructions: As directed (DME) nebulizers Misc See Rx Instructions .ROUTE .MEDSUPPLY Qty: 1 0RF Rx Instructions: As directed budesonide 0.5 mg/2 mL suspension for nebulization 0.5 mg INHALATION BID Qty: 60 2RF tamsulosin 0.4 mg capsule 0.4 mg PO BID Discontinued Brovana 15 mcg/2 mL solution for nebulization 2 ml INHALATION BID Qty: 120 2RF Discharge Orders: Discharge Order (Routine); Ordered 07/02/22 Ordered By: Alon Goodwin Other Ambulatory Orders: MCT/Event Monitor 21 Days (Routine) Timeframe: 1 Day Facility: [facility] - Location: Radiology Ordered By: Alon Goodwin Referrals: Pilar Harris MD [Physician] - (In 3 weeks regarding tachy/juan rare episodes, monitor, consider loop recorder. Heart block. Follow-up after stress test.) Ken Escamilla, PAPER SALES REPRESENTATIVE-C [Primary Care Provider] - 4-7 days Discharge Diet: Cardiac Discharge Activity: Oxygen as instructed Patient Instructions: Opioid Safety Activity Restrictions/Additional Instructions: Please wear oxygen as instructed. You are being set up with a forge utility worker as discussed. Please follow-up with stress test as well. Subsequently follow-up with cardiology Dr. Harris in office for assessment of forge utility worker and after stress test. Discuss also with your primary doctor. Additionally Brovana is discontinued as in 2% of cases may cause supraventricular arrhythmia. You are instead for now prescribed levalbuterol nebs. Albuterol sometimes can cause fast heart rate as well, please discuss with your primary doctor in case you notice any relation to using albuterol. Discharge Attestations Time Spent in Discharge Care*: greater than 30 min Quality Metrics Clinical Quality Measures [ No reported AMI, CVA or VTE this stay] Coding Level of Care Code Acute Chg FW DC note Diagnoses Light headedness R42 Dependence on supplemental oxygen Z99.81 BPH with obstruction/lower urinary tract symptoms N40.1; N13.8 Lymphoplasmacytoid lymphoma, CLL C83.00 Malignant neoplasm of overlapping sites of bladder C67.8 Advanced chronic obstructive pulmonary disease J44.9
== END 2022-07-02 14:35 | disposition home or self-care (01) ==
LOC: ER 23:00 → MEDSURG 07-02 00:03
PROVIDERS: Admitting Provider Internal Medicine; Emergency Provider Emergency Medicine; PCP Nurse Practitioner; Visit Provider Internal Medicine
DX: J44.9 Chronic obstructive pulmonary disease, unspecified (principal); R42 Dizziness and giddiness; N40.1 Benign prostatic hyperplasia with lower urinary tract symptoms; N13.8 Other obstructive and reflux uropathy; E11.65 Type 2 diabetes mellitus with hyperglycemia; I44.0 Atrioventricular block, first degree; I44.7 Left bundle-branch block, unspecified; Z79.84 Long term (current) use of oral hypoglycemic drugs; Z87.891 Personal history of nicotine dependence; Z85.51 Personal history of malignant neoplasm of bladder; Z85.72 Personal history of non-Hodgkin lymphomas; Z85.6 Personal history of leukemia; Z99.81 Dependence on supplemental oxygen
CPT/HCPCS: 36415; 36416; 71045; 80048; 82962; 83735; 84145; 84443; 84484; 85025; 85378; 86140; 93005; 93306; 96372; 97116; 97161; 99285; G0378; J1650

== ENCOUNTER → 2022-07-23 12:02 | Outpatient (BNVA) | payer MEDICARE, SELFPAY | PROVIDERS: PCP Nurse Practitioner; Visit Provider Internal Medicine | DX: I45.9 Conduction disorder, unspecified (principal); Z87.891 Personal history of nicotine dependence; E11.65 Type 2 diabetes mellitus with hyperglycemia; Z79.84 Long term (current) use of oral hypoglycemic drugs; R06.00 Dyspnea, unspecified | CPT/HCPCS: 99204 ==

== ENCOUNTER 2022-07-28 15:09 | Outpatient (CLI) | payer MEDICARE, SELFPAY | END 2022-07-28 15:10 | disposition home or self-care (01) | PROVIDERS: PCP Nurse Practitioner; Visit Provider Urology | DX: R97.20 Elevated prostate specific antigen [PSA] (principal) | CPT/HCPCS: 84153 ==

== ENCOUNTER → 2022-07-30 14:45 | Outpatient (BNVA) | payer MEDICARE, SELFPAY | PROVIDERS: PCP Nurse Practitioner; Visit Provider Internal Medicine Pulmonary Disease | DX: J44.9 Chronic obstructive pulmonary disease, unspecified (principal); R06.00 Dyspnea, unspecified; Z99.81 Dependence on supplemental oxygen; I45.9 Conduction disorder, unspecified; R42 Dizziness and giddiness; G47.30 Sleep apnea, unspecified; Z12.2 Encounter for screening for malignant neoplasm of respiratory organs; Z87.891 Personal history of nicotine dependence | CPT/HCPCS: 99204 ==

== ENCOUNTER 2022-08-06 | Outpatient (CLI) | payer MEDICARE, SELFPAY | END 2022-08-06 23:00 | disposition home or self-care (01) | LOC: RAD 09-01 01:28 | PROVIDERS: PCP Nurse Practitioner; Visit Provider Internal Medicine | DX: C67.8 Malignant neoplasm of overlapping sites of bladder (principal); N40.1 Benign prostatic hyperplasia with lower urinary tract symptoms; N13.8 Other obstructive and reflux uropathy; R97.20 Elevated prostate specific antigen [PSA] | CPT/HCPCS: 52000; 99213 ==

== ENCOUNTER → 2022-08-28 09:19 | Outpatient (BNVA) | payer MEDICARE, SELFPAY | PROVIDERS: PCP Nurse Practitioner; Visit Provider Nurse Practitioner | DX: E11.65 Type 2 diabetes mellitus with hyperglycemia (principal); J44.9 Chronic obstructive pulmonary disease, unspecified; E78.1 Pure hyperglyceridemia; M79.10 Myalgia, unspecified site | CPT/HCPCS: 80053; 80061; 81000; 83036; 83735; 84443; 85651; 86140 ==

== ENCOUNTER 2022-09-10 09:04 | Outpatient (CLI) | payer MEDICARE, SELFPAY ==
--- NOTE | 2022-09-10 | ECG_ITS ---
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 Interpretive Statements NAME OF STUDY: LEXISCAN SESTAMIBI STRESS TEST INDICATION: Chest Pain, PROCEDURE: At the baseline, the EKG revealed sinus rhythm with a left bundle branch block. Secondary ST-T changes. The baseline heart was 60 bpm with a blood pressue of 114/73 mm of Hg Lexiscan was infused over a period of 20 seconds. A total of 0.4 milligrams of Lexiscan was infused. The stress phase was continued for a total of 5 minutes. Heart rate at the end of the stress phase was 67 bpm with a blood pressure 126/70 mm of Hg. The EKG at the peak infusion revealed no significant changes. Sestamibi was injected 20 seconds after the Lexiscan infusion. Heart rate at the end of the recovery phase was 68 bpm with a blood pressure of 125/66 mm of Hg. CONCLUSION: 1. No significant EKG changes with the LexiScan infusion 2. No LexiScan induced chest pain or cardiac arrhythmia 3. Normal blood pressure and heart rate response 4. Sestamibi/sestamibi perfusion scan pending; see separate report. Electronically Signed On 09-11-2022 9:23:17 AUTOMOTIVE SERVICE PORTER by Pilar Harris M.D. [id number]
[2022-09-10 09:29] VITALS: BMI 30.9
--- NOTE | 2022-09-10 09:31 | NMCV_ITS ---
NM sakshi perf SPECT r/s* [id number] Florentino Alfaro Age: 76 Gender: M : 1945 Exam Date: 09/10/2022 09:31 Ordering Phys: Alon Goodwin MD Technologist: REYNA Adler Exam Location: [facility] Indications: SICK SINUS SYNDROME STRESS TEST Please see separate stress test report in [facility] for full findings IMAGE PROTOCOL Rest/Stress 1 Lexiscan Day Radiopharmaceutical Dose (mCi) Administration Site Administered by Rest: Tc-99m 9.0 IV REYNA Keith Sestamibi Stress:Tc-99m 29.8 IV REYNA Keith Sestamibi Rest: 10-Sep-2022 60 Discovery 630 Stress: 10-Sep-2022 30 Discovery 630 0.4mg Lexiscan. Images obtained in supine and prone position. SPECT RESULTS Technical Quality: Excellent Raw Data Analysis: Normal Image Corrections: No attenuation or motion correction applied Summed Stress Score: 16 Summed Rest Score: 19 Summed Difference Score: 0 PERFUSION FINDINGS Moderate to large area of moderate to severely decreases uptake in the inferior, inferoseptal, anteroseptal and apical regions. Subtle area of reversibility was noted in the inferolateral region FUNCTIONAL RESULTS (calculated via Gated SPECT) Stress Image LV EF (%): 48 Stress EDV (mL):145 TID: 1.22 Stress ESV (mL):76 FUNCTIONAL FINDINGS: Segmental wall motion analysis revealed moderate diffuse hypokinesia of the septum. The transient ischemic dilatation ratio was found to be elevated at 1.22 IMPRESSIONS 1. Myocardial perfusion imaging revealing moderate to large area of persistent decreased tracer uptake in the inferior, inferolateral, inferoseptal, anteroseptal and apical regions the subtle areas of reversibility, suggesting myocardial scarring in the distribution of all the 3 coronary arteries- predominantly in the distribution of the right coronary artery and left anterior descending artery with subtle areas of brandon-infarct ischemia in the right coronary artery distribution. 2. Diminished LV ejection fraction of 48%. 3. LV wall motion analysis revealing diffuse hypokinesia of the septum. 4. Mildly dilated LV cavity with an end-systolic volume of 76 mL. 5. Elevated transischemic dilatation ratio also may suggest endocardial ischemia. Clinical correlation is recommended. Dr Pilar Harris MD FACC (Electronically Signed) Final Date: 10 September 2022 18:40 S
[2022-09-10] MEDS: regadenoson 0.4 Mg/5 ml Syringe IVP (10:30)
[2022-09-10 10:58] VITALS: BP 125/66; PULSE 67
== END 2022-09-10 09:05 | disposition home or self-care (01) ==
PROVIDERS: PCP Nurse Practitioner; Visit Provider Internal Medicine
DX: I44.7 Left bundle-branch block, unspecified (principal); I49.5 Sick sinus syndrome; R07.9 Chest pain, unspecified
CPT/HCPCS: 36415; 78452; 93017; A9500; J2785

== ENCOUNTER 2022-09-29 20:00 | Outpatient (CLI) | payer MEDICARE, SELFPAY | END 2022-09-29 20:01 | disposition home or self-care (01) | LOC: SLEEP 09-30 09:00 | PROVIDERS: PCP Nurse Practitioner; Visit Provider Internal Medicine | DX: R40.0 Somnolence (principal); R06.83 Snoring; G47.33 Obstructive sleep apnea (adult) (pediatric); R09.02 Hypoxemia | CPT/HCPCS: 95810 ==

== ENCOUNTER → 2022-10-06 12:14 | Outpatient (BNVA) | payer MEDICARE, SELFPAY | PROVIDERS: PCP Nurse Practitioner; Visit Provider Internal Medicine | DX: R06.00 Dyspnea, unspecified (principal); E11.65 Type 2 diabetes mellitus with hyperglycemia; Z79.84 Long term (current) use of oral hypoglycemic drugs; I45.9 Conduction disorder, unspecified; Z87.891 Personal history of nicotine dependence | CPT/HCPCS: 99214 ==

== ENCOUNTER → 2022-11-23 09:06 | Outpatient (BNVA) | payer MEDICARE, SELFPAY | PROVIDERS: PCP Nurse Practitioner; Visit Provider Nurse Practitioner | DX: E11.65 Type 2 diabetes mellitus with hyperglycemia (principal); J44.9 Chronic obstructive pulmonary disease, unspecified; E78.1 Pure hyperglyceridemia; N40.1 Benign prostatic hyperplasia with lower urinary tract symptoms; N13.8 Other obstructive and reflux uropathy; M79.10 Myalgia, unspecified site | CPT/HCPCS: 80053; 80061; 81000; 83036; 84443 ==

== ENCOUNTER 2022-12-02 12:49 | Outpatient (CLI) | payer MEDICARE, SELFPAY | END 2022-12-02 12:50 | disposition home or self-care (01) | PROVIDERS: PCP Nurse Practitioner; Visit Provider Internal Medicine Pulmonary Disease | DX: G47.30 Sleep apnea, unspecified (principal); I45.9 Conduction disorder, unspecified; J44.9 Chronic obstructive pulmonary disease, unspecified | CPT/HCPCS: 94060; 94618; 94726; 94729; J7613 ==

== ENCOUNTER → 2023-01-06 08:08 | Outpatient (BNVA) | payer MEDICARE, SELFPAY | PROVIDERS: PCP Nurse Practitioner; Visit Provider Urology | DX: N40.1 Benign prostatic hyperplasia with lower urinary tract symptoms (principal); N13.8 Other obstructive and reflux uropathy; R97.20 Elevated prostate specific antigen [PSA] | CPT/HCPCS: 84153 ==

== ENCOUNTER → 2023-01-14 14:02 | Outpatient (BNVA) | payer MEDICARE, SELFPAY | PROVIDERS: PCP Nurse Practitioner; Visit Provider Urology | DX: C67.8 Malignant neoplasm of overlapping sites of bladder (principal); N41.9 Inflammatory disease of prostate, unspecified; R97.20 Elevated prostate specific antigen [PSA] | CPT/HCPCS: 52000; 99213 ==

== ENCOUNTER → 2023-02-05 08:45 | Outpatient (BNVA) | payer MEDICARE, SELFPAY | PROVIDERS: PCP Nurse Practitioner; Visit Provider Nurse Practitioner Family | DX: I45.9 Conduction disorder, unspecified (principal); Z87.891 Personal history of nicotine dependence | CPT/HCPCS: 93005; 99213 ==

== ENCOUNTER 2023-02-09 13:32 | Oncology outpatient (recurring) (ONCR) | payer MEDICARE, SELFPAY ==
[2023-02-09 15:44] LABS: Alanine Aminotransferase 11 U/L (0-41); Albumin Level 4.2 g/dL (3.5-5.2); Alkaline Phosphatase 34 U/L (40-130); Anion Gap 13.6 (5-19); Aspartate Amino Transferase 17 U/L (0-40); Blood Urea Nitrogen 30 mg/dL (8-23); Calcium 9.9 mg/dL (8.5-10.5); Carbon Dioxide 33 mmol/L (22-29); Chloride 98 mmol/L (98-107); Glucose 187 mg/dL (65-115); Lactate Dehydrogenase 179 U/L (135-225); Osmolality Calculated 301 mOsm/kg (285-295); Potassium 4.6 mmol/L (3.5-5.1); Sodium 140 mmol/L (136-145); Total Bilirubin 0.3 mg/dL (0.15-1.2); Total Protein 7.2 g/dL (6.6-8.7)
== END 2023-02-28 23:59 | disposition home or self-care (01) ==
LOC: ONCMED 13:33
PROVIDERS: PCP Nurse Practitioner; Visit Provider Internal Medicine Medical Oncology
DX: C91.10 Chronic lymphocytic leukemia of B-cell type not having achieved remission (principal); R55 Syncope and collapse
CPT/HCPCS: 36415; 80053; 83615; 99213; 99215

== ENCOUNTER → 2023-02-10 13:25 | Outpatient (BNVA) | payer MEDICARE, SELFPAY | PROVIDERS: PCP Nurse Practitioner; Visit Provider Internal Medicine Cardiovascular Disease | DX: R94.39 Abnormal result of other cardiovascular function study (principal); C83.00 Small cell B-cell lymphoma, unspecified site; Z79.899 Other long term (current) drug therapy | CPT/HCPCS: 85025; 85610 ==

== ENCOUNTER 2023-02-15 06:13 | Outpatient (CLI) | payer MEDICARE, SELFPAY | END 2023-02-15 06:14 | disposition home or self-care (01) | LOC: SLEEP 02-16 06:13 | PROVIDERS: PCP Nurse Practitioner; Visit Provider Internal Medicine Pulmonary Disease | DX: G47.33 Obstructive sleep apnea (adult) (pediatric) (principal); E11.65 Type 2 diabetes mellitus with hyperglycemia; E55.9 Vitamin D deficiency, unspecified; Z79.899 Other long term (current) drug therapy | CPT/HCPCS: 80053; 81000; 82043; 82306; 83036; 95811 ==

== ENCOUNTER 2023-02-24 05:41 | Outpatient (CLI) | payer MEDICARE, SELFPAY ==
[2023-02-24] VITALS (17 sets, daily range): BP systolic 110–165; BP diastolic 58–81; PULSE 52–62; RESP 15–21; TEMP 36.8; O2SAT 89–94; BMI 30.4
--- NOTE | 2023-02-24 06:00 | XACV_ITS ---
Exam Room: 2 Ht: 183 cm Wt: 102 kg BSA: 2.30 m2 Gender: Male : 1945 Exam Priority: Routine Procedure(s): Procedure Description: Diagnostic procedure Procedure Description: Left Heart Catheterization Procedure Description: Coronary Angiography Steven NAVARRETE; Diagnostic Cath Status: Elective Diagnostic Findings * INDICATION: Dyspnea on exertion/abnormal stress test/ sinus pauses/syncope. * Left Main has no significant disease. 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 It is a small to medium sized vessel that has no disease. * Circumflex has no disease. * Proximal Left Anterior Descending: mild 40% stenosis, DAVE: 3 flow. * Coronary angiography shows co-dominance. Conclusions 1. Nonobstructive CAD. Anomalous origin of RCA . Recommendations * Aggressive risk factor modification. * Outpatient cardiology follow up in 2-4 weeks. Interventional RX Recommendation: PCI w/o planned CABG Diagnostic RX Recommendation: PCI w/o planned CABG Anticoagulation: Heparin Pressures Phase:Rest AO : 87 / 47 ( 63 ) @ 8:54:00 AM 121 / 64 ( 86 ) @ 9:15:00 AM 121 / 63 ( 86 ) @ 9:15:00 AM LV : 132 / 2 / 20 @ 9:15:00 AM 138 / 1 / 21 @ 9:15:00 AM Valves Phase:DefaultPhase AV : 18.0 @ 8:22:39 AM 18.0 @ 8:22:39 AM AV Mean Gradient: 14.0 @ 8:22:39 AM 14.0 @ 8:22:39 AM Clinical Evaluation EBL: 5mL-10mL Procedural Details Procedure Consent Obtained. Admit Source: Out Patient. Pre-Procedure Time Out. Identified patient by full name and date of as verbalized by the patient/guarantor. Does the consent match the physician's order: Yes. Accurate & Complete Informed Consent: Yes. Inpatient/Outpatient History & Physical on Chart: Yes. If H&P is completed, is and addenduem needed: Yes; If yes, is the addendum complete: Yes. Visualize and Verify Site with Patient/Guarantor: N/A. Relevant Radiology Images available: N/A. Pre-op teaching completed and patient verbalized understanding. The risks, benefits, and alternatives of sedation and/or procedure were discussed by physician. The patient agrees to continue. Procedure started. [facility] Clinical Fraility Score: 4: Vulnerable. [employer] Indications: Worsening Angina, Abnormal Stress Test. Chest Pain Symptom Assessment: Typical Angina Symptoms. Correct patient, site and procedure confirmed by cath team. Current diagnosis: Chest Pain. PERRLA. Strong, equal hand counter former bilaterally. Lungs clear x 5 lobes. IV Site on Arrival: 20 gauge in the left anticubital. IV Fluids: 0.9% NaCl at KVO. 0 mL infused prior to photo lab specialist. Pre Procedural Pulses: bilateral dorsalis pedis was 3+. Pre Procedural Pulses: right brachial was 3+. Oxygen started at 2liters/min via nasal canula. right groin was prepped with chloroprep then draped in the usual sterile fashion. right radial was prepped with chloroprep then draped in the usual sterile fashion. Baseline sample Acquired. HR: 77 BPM. Physician notified. Physician arrived. Physician scrubbed in. Immediate Pre-Procedure Time Out. Correct Patient: Yes; Correct Procedure: Yes; Correct Site: Yes; Correct Patient Position: Yes; Correct Supplies: Yes; Dried Flammable Prep: Yes; Blood Products Available: N/A;. Lidocaine 1% infiltrated to the right radial. Arterial access obtained. A 5 [place] TIG catheter in over wire. Multiple views taken of left coronary artery. Catheter redirected to the RCA. Catheter removed over the exchange wire. A 5 [place] JR4 catheter in over wire. Catheter out. A 5 [place] 3DRC catheter in over wire. Catheter removed over the exchange wire. A 5 [place] AL1 catheter in over wire. Multiple views taken of right coronary artery. Catheter removed over the exchange wire. A 5 [place] JR4 catheter in over wire. EDP Sample taken: LV 132/2,20; HR: 79 BPM; SpO2: 96%. Pullback taken: LV 138/1,21; AO 121/64(86); Mean: 14mmHg, Peak to Peak: 18mmHg, SEP: 19sec/min; HR: 69 BPM; SpO2: 96%. Catheter out. A TR Band was successful obtaining hemostatsis at the Right Radial artery insertion site. Post Procedure: Pulses reassessed and unchanged. PERRLA. Strong, equal hand counter former bilaterally. No VTE prophylaxis required. Medication's Wasted: Lidocaine 1% = 1 mL. Medication's Wasted: Heparin = 1000 u. Medication's Wasted: Other = Versed 1 mg. Medication's Wasted: Other = Fentanyl 50 mcg. Medication's Wasted: Nitro = 49.8 mg. Total IV fluids: 45 mL. Post-op diagnosis: Anamalous takeoff of RCA, Mild LAD Stenosis. Complications: none. Estimated blood loss: 5mL-10mL. Responsiveness - Normal response to verbal stimuli; alert and oriented, PERRLA. Airway - Unaffected, no intervention required; spontaneous ventilation. Circulation: W/N/L, pulses unchanged. Nausea/Vomiting: No. Procedure completed. Patient transferred by wheelchair to CPRU. Vital chart was stopped. Access Site Site: Right Radial artery Sheath Size: 6 Fr Hemostasis Method: TR Band Hemostasis Success: Successful Procedure Medications Start: 7:45 AM Stop: 7:45 AM Medication: Versed Amount: 1 mg Route: I.V. Start: 7:45 AM Stop: 7:45 AM Medication: Fentanyl Amount: 50 mcg Route: I.V. Start: 7:50 AM Stop: 7:50 AM Medication: Nitrogylcerin Amount: 200 mcg Route: I.A. Start: 7:52 AM Stop: 7:52 AM Medication: Heparin Amount: 5000 units Route: I.V. I, the attending physician, have reviewed and verified all procedure medications. Yes, all medications given per verbal order History/Risk Factors Hypertension: No Dyslipidemia: No Peripheral Arterial Disease (PAD): No Myocardial Infarction (AZ): No Obesity: Yes Renal Disease: No Tobacco Use: Former Prior Interventions PCI: No CABG: No Valve Surgery: No Report Signatures Finalized by Eduardo Dewey MD on 02/28/2023 03:26 PM
[2023-02-24 06:24] LABS: Glucose Point of Care 158 mg/dL (70-110)
--- NOTE | 2023-02-24 07:43 | P.HPUD_ITS ---
Surgery/Procedure H&P Update DATE OF PROCEDURE: February 24, 2023 DATE H&P PERFORMED: 02/09/23 H&P UPDATE INFORMATION: I have reviewed H&P completed within last 30 days, I have examined patient prior to procedure and No changes to prior documentation PREOP DIAGNOSIS: Dyspnea on exertion/abnormal stress test/ sinus pauses/syncope PRIMARY INDICATION FOR PROCEDURE: Dyspnea on exertion/abnormal stress test/ sinus pauses/syncope PLANNED PROCEDURE: Operation Date: 02/24/23 07:00 Proposed Procedures p [facility] w/- w/o 79106, R94.39, I49.5, I44.7(Left) - Eduardo Dewey M.D Possible percutaneous coronary intervention PATIENT REASSESSED PRIOR TO SEDATION, WITH NO CHANGE NOTED: Yes PHYSICAL EXAM: alert, oriented x 3, clear to auscultation bilaterally and regular rate & rhythm AIRWAY EVAL/ANESTHESIA PLAN: normal airway, ASA III, Local Anesthesia, Risks, benefits & alternatives of sedation and/or procedure discussed and Patient agrees to continue as planned ADDITIONAL INFORMATION: Moderate sedation
--- NOTE | 2023-02-24 08:47 | PC.NURSE ---
received pt from laboratory engineer post diagnostic [facility]. pt alert and oriented x3. pt complains of no pain. tr band on right wrist with distal pulse palpable. no bruising or hematoma noted. pt placed on monitor and will be monitored per protocol. per physician verbal order nurse to infuse 100ml/hr for 4 hrs. cardiac diet ordered. pt and family educated on restrictions of right wrist and both acknowledged understanding.
== END 2023-02-24 12:36 | disposition home or self-care (01) ==
PROVIDERS: PCP Nurse Practitioner; Visit Provider Internal Medicine
DX: R94.39 Abnormal result of other cardiovascular function study (principal); R06.09 Other forms of dyspnea; R55 Syncope and collapse; I49.5 Sick sinus syndrome; I44.7 Left bundle-branch block, unspecified; J44.9 Chronic obstructive pulmonary disease, unspecified; Z87.891 Personal history of nicotine dependence; C83.00 Small cell B-cell lymphoma, unspecified site; E78.1 Pure hyperglyceridemia
CPT/HCPCS: 36415; 36416; 82962; 93458; 96361; 96365; 99152; 99153; C1769; C1887; C1894; J1644; J2250; J3010; J3490; J7030; Q0163; Q9967

== ENCOUNTER → 2023-03-09 10:24 | Outpatient (BNVA) | payer MEDICARE, SELFPAY | PROVIDERS: PCP Nurse Practitioner; Visit Provider Nurse Practitioner Family | DX: I25.10 Atherosclerotic heart disease of native coronary artery without angina pectoris (principal); J44.9 Chronic obstructive pulmonary disease, unspecified; Z87.891 Personal history of nicotine dependence | CPT/HCPCS: 36415; 80048; 99214 ==

== ENCOUNTER → 2023-04-07 14:51 | Outpatient (BNVA) | payer MEDICARE, SELFPAY | PROVIDERS: PCP Nurse Practitioner; Visit Provider Internal Medicine | DX: I45.9 Conduction disorder, unspecified (principal); R06.00 Dyspnea, unspecified; E11.65 Type 2 diabetes mellitus with hyperglycemia; Z87.891 Personal history of nicotine dependence; Z79.84 Long term (current) use of oral hypoglycemic drugs | CPT/HCPCS: 99214 ==

== ENCOUNTER → 2023-05-31 08:27 | Outpatient (BNVA) | payer OTHER, SELFPAY | PROVIDERS: PCP Nurse Practitioner; Visit Provider Nurse Practitioner | DX: E11.65 Type 2 diabetes mellitus with hyperglycemia (principal); E78.1 Pure hyperglyceridemia; N40.1 Benign prostatic hyperplasia with lower urinary tract symptoms; N13.8 Other obstructive and reflux uropathy; M79.10 Myalgia, unspecified site; C83.00 Small cell B-cell lymphoma, unspecified site | CPT/HCPCS: 80053; 80061; 81000; 82043; 83036 ==

== ENCOUNTER → 2023-08-12 08:29 | Outpatient (BNVA) | payer MEDICARE, SELFPAY | PROVIDERS: PCP Nurse Practitioner; Visit Provider Nurse Practitioner | DX: E11.65 Type 2 diabetes mellitus with hyperglycemia (principal); E78.1 Pure hyperglyceridemia; J44.9 Chronic obstructive pulmonary disease, unspecified; Z79.4 Long term (current) use of insulin; N40.1 Benign prostatic hyperplasia with lower urinary tract symptoms; N13.8 Other obstructive and reflux uropathy; M79.10 Myalgia, unspecified site; C91.10 Chronic lymphocytic leukemia of B-cell type not having achieved remission; R23.8 Other skin changes | CPT/HCPCS: 80053; 80061; 81000; 82043; 83036; 83615; 85025 ==

== ENCOUNTER → 2023-08-16 13:23 | Outpatient (BNVA) | payer MEDICARE, SELFPAY | PROVIDERS: PCP Nurse Practitioner; Visit Provider Internal Medicine Medical Oncology | DX: C91.10 Chronic lymphocytic leukemia of B-cell type not having achieved remission (principal) | CPT/HCPCS: 99213 ==

== ENCOUNTER → 2023-10-06 15:11 | Outpatient (BNVA) | payer MEDICARE, SELFPAY | PROVIDERS: PCP Nurse Practitioner; Visit Provider Internal Medicine | DX: E11.65 Type 2 diabetes mellitus with hyperglycemia (principal); Z79.84 Long term (current) use of oral hypoglycemic drugs; R06.00 Dyspnea, unspecified; I45.9 Conduction disorder, unspecified; Z87.891 Personal history of nicotine dependence | CPT/HCPCS: 99214 ==

== ENCOUNTER → 2023-11-04 12:25 | Outpatient (BNVA) | payer BC, SELFPAY | PROVIDERS: PCP Nurse Practitioner; Visit Provider Nurse Practitioner | DX: E11.9 Type 2 diabetes mellitus without complications (principal) | CPT/HCPCS: 80053; 81000; 83036 ==

== ENCOUNTER 2023-11-20 15:28 | Inpatient (IN) | payer MEDICARE, SELFPAY ==
[2023-11-20] VITALS (13 sets, daily range): BP systolic 93–138; BP diastolic 40–66; PULSE 53–61; RESP 14–23; TEMP 36.4; O2SAT 89–99
--- NOTE | 2023-11-20 16:37 | ED_ITS ---
Documented by User: RIVERA Llanos 11/20/23 19:39 HPI - Back Pain/Injury 2 General: Chief Complaint: Back Pain/Injury Stated Complaint: fall, back pain,confusion Time Seen by Provider: 11/20/23 16:25 Source: patient and family Mode of arrival: wheelchair Limitations: no limitations History of Present Illness: Patient presents to the emergency department today accompanied by his for evaluation and treatment of complaints of upper back pain after fall. Patient indicates the patient had a fall approximately 5 to 6 days ago. He has continued to have reported pain in between his shoulder blades with difficulty reclining or laying down. His states she has been providing him tramadol with alternating ibuprofen and Tylenol for his pain. When asked how the patient fell, he seems somewhat unsure. He states he thinks he fell but -who witnessed the fall, thought it look like he passed out, causing him to fall. She states she was getting dressed when he fell and by the time she finished getting her close on 2 go over to where the patient was, he had already stood back up and had made his way towards her. She states she asked him if he passed out and he stated he did not but, when I asked him now, in the room, if he passed out, patient indicated he was not sure. They note that when the patient fell, the ground he landed on was concrete. He does not believe he hit his head but states the patient seems much more confused-especially here just recently. Patient is not on any blood thinning medication. Patient is supposed to be on 2 L by nasal cannula at all times but, states patient is noncompliant and does not wear his oxygen. was concerned as she thought the patient may be hallucinating. Patient denies cough or congestion. They have not noticed any fever. Patient does note worsening of pain in his back when he takes a deep breath. He denies tingling or numbness in his lower extremities. He has been able to bear weight. He indicates no issues with bowel or bladder control. Review of Systems 2 General: Reports: 10 or more systems reviewed and unremarkable except in HPI and below PFSH ED 2 PFSH: Medical History Atherosclerosis of coronary artery ANASTASIYA (obstructive sleep apnea) Chronic lymphocytic leukemia Diabetes mellitus with hyperglycemia, without long-term current use of insulin Advanced chronic obstructive pulmonary disease Generalized muscle ache Malignant neoplasm of overlapping sites of bladder BPH with obstruction/lower urinary tract symptoms Dependence on supplemental oxygen Vitamin D insufficiency Surgical History History of local excision of skin lesion H/O transurethral destruction of bladder lesion History of condyloma acuminatum removal surgical December 2014 History of arthroplasty of left shoulder tendon 1969' Hx of vasectomy H/O hernia repair umbilical and bilateral inguinal History of cholecystectomy Family History Mother , at age 73 Diabetes Lung disease Father , at age 75 Cancer blood Lung disease Social History Smoking and tobacco/nicotine status: former use of tobacco/nicotine Quit status (tobacco/nicotine): has quit using Year quit tobacco: 2002 Former quit date comment: smoked 47 years Second hand smoke exposure: No Alcohol intake: current Alcohol intake frequency: holidays/special occasions only Substance/Drug Use: never Adopted: No Caregiver/support person: No Lives independently: Yes Household members: spouse Housing: House Marital status: Number of children: 5 Number of grandchildren: 7 service: Yes branch: [employer] Current occupational status: disabled Pets and animals: Yes Pets & animals: cat(s) and dog(s) Do you think of yourself as: Straight/Heterosexual Current gender identity: Male Special luis needs: No Physical Exam 2 Const: COMMON NORMALS: no acute distress, patient oriented x3 and alert HENMT: OTHER: No signs of any facial trauma, abrasions, or hematomas. Eye: COMMON NORMALS: EOMs intact bilaterally and conjunctivae normal C ONJUNCTIVA: Yes conjunctivae normal Lymph: LYMPHATIC: no lymphadenopathy noted Resp: COMMON NORMALS: normal respiratory effort, No retractions and No use of accessory muscles Cardio: COMMON NORMALS: regular rate RATE: regular rate : COMMON NORMALS: Yes no CVA tenderness BLADDER/KIDNEY EXAM: Yes no CVA tenderness Back/Pelvis: COMMON NORMALS: no CVA tenderness, thoracic and lumbar spine normal to inspection and thoraco-lumbar ROM normal Extremity: COMMON NORMALS: normal to inspection, full ROM and no pedal edema Neuro: COMMON NORMALS: patient oriented x3 SENSORIUM/ORIENTATION: Yes alert CRANIAL NERVES: Yes CN normal except as noted SPEECH: speech normal Psych: COMMON NORMALS: mental status grossly normal, Normal thought process present and speech normal SPEECH: Yes normal speech THOUGHT PROCESS: N ormal thought process present Skin: COMMON NORMALS: no rashes or lesions noted and turgor normal GENERAL SKIN EXAM: no rashes or lesions noted and turgor normal Course 2 Vital Signs: Vital signs: Vital Signs Temperature 97.5 F L 11/20/23 15:37 Pulse Rate 59 L 11/20/23 19:44 Respiratory Rate 14 11/20/23 17:17 Blood Pressure 118/64 11/20/23 18:00 Pulse Oximetry 97 11/20/23 19:44 Oxygen Delivery Me thod Nasal Cannula 11/20/23 18:00 Oxygen Flow Rate 5 11/20/23 18:00 Fraction of Inspir ed Oxygen 40 11/20/23 19:44 MDM - Back Pain/Injury Medical Decision Making Patient presents emergency department today accompanied by his for complaints of mid/upper back pain after a fall several days ago. indicates she is concerned that the patient seems confused and patient admits he is not sure how or why he fell originally. Lab work was obtained to evaluate other potential concerns for acute confusion or causes of unknown origin for fall. Patient is supposed be on 2 L by nasal cannula but refuses to wear his oxygen. After gathering more history, patient indicates he is also supposed to be wearing a CPAP which he will not do. He reports he has not worn oxygen or CPAP now for quite some time. Patient's VBG comes back with CO2 in the 80s. Patient's pH is acidic. BUN is extremely high and patient appears to be in acute kidney injury/acute kidney failure. Patient was started on BiPAP. However, nursing came to notify me that the patient was refusing to wear the BiPAP. I did going to speak with the patient who indicated he does not like the BiPAP and does not want to wear it. He states it is the same sensation he gets with the CPAP and does not want to wear it either. states that she thinks the patient is too confused to refuse to wear the BiPAP but, in my overall impression, patient is still within his right mind and is able to make medical decisions. However, I was very clear with him that with his kidney injury and respiratory failure-he will most likely without intervention. Patient is still not wanting to wear the BiPAP. I indicated I could have a doctor come in and provide him a second opinion and Dr. Fernandes was kind enough to do a bedside assessment and to discuss the condition of the patient with the family and patient. After discussion, patient was willing to try the BiPAP again and patient was provided Ativan for comfort. Upon recheck, patient was still wearing BiPAP and appeared to be resting. Dr. Fernandes had reached out to Dr. Parry to discuss admission. Patient will be admitted for further treatment and intervention. Differential Diagnosis Likely thoracic back pain; Unlikely lumbar radiculopathy, sciatica, strain of lumbar region, renal colic, pyelonephritis, AAA or discitis Labs 11/20/23 17:16 11/20/23 17:16 Radiology Impressions Cervical Spine CT 11/20/23 16:37 IMPRESSION: I see no acute abnormality. Head CT 11/20/23 16:37 IMPRESSION: No acute intracranial abnormality. Thoracic Spine CT 11/20/23 16:37 IMPRESSION: I see no acute abnormality. Laboratory Results WBC 8.56 10^3/uL (3.29-11.43) 11/20/23 17:16 RBC 5.09 10^6/uL (3.85-5.65) 11/20/23 17:16 Hgb 16.40 g/dL (11.27-16.99) 11/20/23 17:16 Hct 51.7 % (37-53) 11/20/23 17:16 MCV 101.6 fl (82-101) H 11/20/23 17:16 MCH 32.2 pg (27-33) 11/20/23 17:16 MCHC 31.7 g/dL (30-55) 11/20/23 17:16 RDW 15.3 % (12.1-15.1) H 11/20/23 17:16 Plt Count 119 10^3/cmm (157-399) L 11/20/23 17:16 MPV 10.5 fL (7.4-10.4) H 11/20/23 17:16 Neut % (Auto) 35.1 % 11/20/23 17:16 Lymph % (Auto) 60.3 % 11/20/23 17:16 [place] % (Auto) 3.7 % 11/20/23 17:16 Eos % (Auto) 0.5 % 11/20/23 17:16 Baso % (Auto) 0.2 % 11/20/23 17:16 Neut # (Auto) 3.00 10^3/uL (1.8-7.7) 11/20/23 17:16 Lymph # (Auto) 5.2 10^3/uL (0.8-4.8) H 11/20/23 17:16 [place] # (Auto) 0.3 10^3/uL (0.2-0.9) 11/20/23 17:16 Eos # (Auto) 0.0 10^3/uL (0.0-0.8) 11/20/23 17:16 Baso # (Auto) 0.0 10^3/uL (0.0-0.1) 11/20/23 17:16 Nucleated RBC % (auto) 0 % 11/20/23 17:16 Nucleated RBCs # 0.0 /100WBC 11/20/23 17:16 Specimen Type Venous 11/20/23 16:38 Sample Site Not specified 11/20/23 16:38 Remberto Test Pos 11/20/23 16:38 VBG pH 7.16 (7.32-7.42) L* 11/20/23 16:38 VBG pCO2 82.2 mmHg (41-51) H* 11/20/23 16:38 VBG pO2 28.3 mmHg (25-40) 11/20/23 16:38 VBG HCO3 29.6 mmol/L (24-28) H 11/20/23 16:38 VBG Base Excess -2.2 mmol/L (-3.0-3.0) 11/20/23 16:38 VBG Hematocrit 53.6 % (42-52) H 11/20/23 16:38 O2 Delivery Device Nc 11/20/23 16:38 O2 Liters/Min 5.0 % 11/20/23 16:38 FiO2 40.0 % 11/20/23 16:38 Recruiting Assistant ID Monro 11/20/23 16:38 Sodium 137 mmol/L (136-145) 11/20/23 17:16 Potassium 5.4 mmol/L (3.5-5.1) H 11/20/23 17:16 Chloride 98 mmol/L (98-107) 11/20/23 17:16 Carbon Dioxide 26 mmol/L (22-29) 11/20/23 17:16 Anion Gap 18.4 (5-19) 11/20/23 17:16 BUN 92 mg/dL (8-23) H* D 11/20/23 17:16 Creatinine 3.8 mg/dL (0.7-1.2) H 11/20/23 17:16 GFR Calculation Not Reportable 11/20/23 17:16 Glucose 190 mg/dL (65-115) H 11/20/23 17:16 Calculated Osmolality 317 mOsm/kg (285-295) H 11/20/23 17:16 Calcium 8.7 mg/dL (8.5-10.5) 11/20/23 17:16 Total Bilirubin 0.2 mg/dL (0.15-1.2) 11/20/23 17:16 AST 13 U/L (0-40) 11/20/23 17:16 ALT 10 U/L (0-41) 11/20/23 17:16 Alkaline Phosphatase 57 U/L (40-130) 11/20/23 17:16 Total Protein 6.1 g/dL (6.6-8.7) L 11/20/23 17:16 Albumin 3.4 g/dL (3.5-5.2) L 11/20/23 17:16 Globulin 2.7 g/dL (1.3-4.6) 11/20/23 17:16 Urine Color Straw (Yellow) 11/20/23 16:50 Urine Appearance Clear (CLEAR) 11/20/23 16:50 Urine pH 5 (5-7) 11/20/23 16:50 Ur Specific Dix 1.015 (1.005-1.030) 11/20/23 16:50 Urine Protein Trace (Negative) 11/20/23 16:50 Urine Glucose (UA) 2+ (Normal) H 11/20/23 16:50 Urine Ketones Negative (Negative) 11/20/23 16:50 Urine Blood Trace (Negative) H 11/20/23 16:50 Urine Nitrate Negative (Negative) 11/20/23 16:50 Urine Bilirubin Neg (Negative) 11/20/23 16:50 Urine Urobilinogen Norm mg/dL (Negative) 11/20/23 16:50 Ur Leukocyte Esterase Negative (Negative) 11/20/23 16:50 Urine RBC Rare /hpf (0-2) 11/20/23 16:50 Urine WBC 10-15 /hpf (0-5) H 11/20/23 16:50 Ur Squamous Epith Cells None /hpf (0-5) 11/20/23 16:50 Amorphous Sediment Not Reportable 11/20/23 16:50 Urine Bacteria Trace /hpf (NONE) 11/20/23 16:50 All radiology interpretation(s) finalized by discharge Discharge Plan Discharge Admit Provider: Josh Parry Condition: Stable Prescriptions: No Action ascorbate calcium (vitamin C) 500 mg tablet 500 mg PO DAILY cholecalciferol (vitamin D3) 10 mcg (400 unit) capsule 10 mcg PO DAILY imiquimod 5 % cream in packet 1 applic topical .MWF Qty: 24 2RF Hold Instructions: Doctor's Order Rx Instructions: Apply thin film qhs MWF for 8 weeks to affected areas on penis vitamin E (dl, acetate) 450 mg (1,000 unit) capsule 450 mg PO DAILY zinc acetate 50 mg (zinc) capsule 50 mg PO DAILY (DME) OneTouch Ultra Test Strip See Rx Instructions .Route Qty: 50 5RF Rx Instructions: use one strip daily levalbuterol HCl 1.25 mg/0.5 mL solution for nebulization 1.25 mg INHALATION Q4H PRN (Reason: shortness of breath or wheezing) Qty: 100 2RF levalbuterol tartrate [Xopenex HFA] 45 mcg/actuation HFA aerosol inhaler 2 inh inhalation Q6H PRN (Reason: shortness of breath) Qty: 15 2RF metformin 500 mg tablet extended release 24 hr 2,000 mg PO DAILY Qty: 360 0RF Hold Instructions: Resume on 02/26/23. (DME) pen needle, diabetic 33 gauge x needle See Rx Instructions .ROUTE .MEDSUPPLY Qty: 100 5RF Rx Instructions: 1 times day tramadol 50 mg tablet 50 mg PO BID PRN (Reason: pain) Qty: 60 2RF mupirocin 2 % ointment 1 applic TOPICAL TID PRN (Reason: skin irritation) Qty: 22 2RF Farxiga 5 mg tablet 5 mg PO DAILY Qty: 30 5RF Victoza 3-Evgeny 0.6 mg/0.1 mL (18 mg/3 mL) pen injector 1.8 mg SUBCUT DAILY Qty: 18 5RF (DME) Disposable nebulizer circuit See Rx Instructions .Route .MEDSUPPLY Qty: 1 0RF Rx Instructions: As directed (DME) nebulizers Misc See Rx Instructions .ROUTE .MEDSUPPLY Qty: 1 0RF Rx Instructions: As directed arformoterol [Brovana] 15 mcg/2 mL solution for nebulization 2 ml INHALATION BID Qty: 120 5RF budesonide 1 mg/2 mL suspension for nebulization 1 mg inhalation DAILY Qty: 60 0RF Rx Instructions: To be used when 0.5 mg is unavailable. tizanidine 2 mg tablet 2 mg PO BEDTIME Qty: 90 0RF Hold Instructions: He not taking currently lisinopril 2.5 mg tablet 2.5 mg PO DAILY Qty: 90 0RF tamsulosin 0.4 mg capsule 0.4 mg PO BID Qty: 180 0RF budesonide 0.5 mg/2 mL suspension for nebulization 0.5 mg INHALATION BID Qty: 60 2RF Hold Instructions: using Marv Coding Level of Care Code ED Field Service Manager for Chg Fwd Documented by User: Inocencio Fernandes MD 11/20/23 19:54 HPI - Back Pain/Injury 2 General: Chief Complaint: Back Pain/Injury Stated Complaint: fall, back pain,confusion Time Seen by Provider: 11/20/23 16:25 PFSH ED 2 PFSH: Medical History Atherosclerosis of coronary artery ANASTASIYA (obstructive sleep apnea) Chronic lymphocytic leukemia Diabetes mellitus with hyperglycemia, without long-term current use of insulin Advanced chronic obstructive pulmonary disease Generalized muscle ache Malignant neoplasm of overlapping sites of bladder BPH with obstruction/lower urinary tract symptoms Dependence on supplemental oxygen Vitamin D insufficiency Surgical History History of local excision of skin lesion H/O transurethral destruction of bladder lesion History of condyloma acuminatum removal surgical December 2014 History of arthroplasty of left shoulder tendon 1970's Hx of vasectomy H/O hernia repair umbilical and bilateral inguinal 1979' History of cholecystectomy Family History Mother , at age 73 Diabetes Lung disease Father , at age 75 Cancer blood Lung disease Social History Smoking and tobacco/nicotine status: former use of tobacco/nicotine Quit status (tobacco/nicotine): has quit using Year quit tobacco: 2002 Former quit date comment: smoked 47 years Second hand smoke exposure: No Alcohol intake: current Alcohol intake frequency: holidays/special occasions only Substance/Drug Use: never Adopted: No Caregiver/support person: No Lives independently: Yes Household members: spouse Housing: House Marital status: Number of children: 5 Number of grandchildren: 7 service: Yes branch: [employer] Current occupational status: disabled Pets and animals: Yes Pets & animals: cat(s) and dog(s) Do you think of yourself as: Straight/Heterosexual Current gender identity: Male Special luis needs: No Course 2 Vital Signs: Vital signs: Vital Signs Temperature 97.5 F L 11/20/23 15:37 Pulse Rate 59 L 11/20/23 19:44 Respiratory Rate 14 11/20/23 17:17 Blood Pressure 118/64 11/20/23 18:00 Pulse Oximetry 97 11/20/23 19:44 Oxygen Delivery Me thod Nasal Cannula 11/20/23 18:00 Oxygen Flow Rate 5 11/20/23 18:00 Fraction of Inspir ed Oxygen 40 11/20/23 19:44 MDM - Back Pain/Injury Medical Decision Making Patient presents emergency department today accompanied by his for complaints of mid/upper back pain after a fall several days ago. indicates she is concerned that the patient seems confused and patient admits he is not sure how or why he fell originally. Lab work was obtained to evaluate other potential concerns for acute confusion or causes of unknown origin for fall. Patient is supposed be on 2 L by nasal cannula but refuses to wear his oxygen. After gathering more history, patient indicates he is also supposed to be wearing a CPAP which he will not do. He reports he has not worn oxygen or CPAP now for quite some time. Patient's VBG comes back with CO2 in the 80s. Patient's pH is acidic. BUN is extremely high and patient appears to be in acute kidney injury/acute kidney failure. Patient was started on BiPAP. However, nursing came to notify me that the patient was refusing to wear the BiPAP. I did going to speak with the patient who indicated he does not like the BiPAP and does not want to wear it. He states it is the same sensation he gets with the CPAP and does not want to wear it either. states that she thinks the patient is too confused to refuse to wear the BiPAP but, in my overall impression, patient is still within his right mind and is able to make medical decisions. However, I was very clear with him that with his kidney injury and respiratory failure-he will most likely without intervention. Patient is still not wanting to wear the BiPAP. I indicated I could have a doctor come in and provide him a second opinion and Dr. Fernandes was kind enough to do a bedside assessment and to discuss the condition of the patient with the family and patient. After discussion, patient was willing to try the BiPAP again and patient was provided Ativan for comfort. Upon recheck, patient was still wearing BiPAP and appeared to be resting. Dr. Fernandes had reached out to Dr. Parry to discuss admission. Patient will be admitted for further treatment and intervention. I did speak to patient was able to convince him to wear BiPAP here for his hypercapnia spoke to the hospitalist will admit to the ICU Labs 11/20/23 17:16 11/20/23 17:16 Radiology Impressions Cervical Spine CT 11/20/23 16:37 IMPRESSION: I see no acute abnormality. Head CT 11/20/23 16:37 IMPRESSION: No acute intracranial abnormality. Thoracic Spine CT 11/20/23 16:37 IMPRESSION: I see no acute abnormality. Laboratory Results WBC 8.56 10^3/uL (3.29-11.43) 11/20/23 17:16 RBC 5.09 10^6/uL (3.85-5.65) 11/20/23 17:16 Hgb 16.40 g/dL (11.27-16.99) 11/20/23 17:16 Hct 51.7 % (37-53) 11/20/23 17:16 MCV 101.6 fl (82-101) H 11/20/23 17:16 MCH 32.2 pg (27-33) 11/20/23 17:16 MCHC 31.7 g/dL (30-55) 11/20/23 17:16 RDW 15.3 % (12.1-15.1) H 11/20/23 17:16 Plt Count 119 10^3/cmm (157-399) L 11/20/23 17:16 MPV 10.5 fL (7.4-10.4) H 11/20/23 17:16 Neut % (Auto) 35.1 % 11/20/23 17:16 Lymph % (Auto) 60.3 % 11/20/23 17:16 [place] % (Auto) 3.7 % 11/20/23 17:16 Eos % (Auto) 0.5 % 11/20/23 17:16 Baso % (Auto) 0.2 % 11/20/23 17:16 Neut # (Auto) 3.00 10^3/uL (1.8-7.7) 11/20/23 17:16 Lymph # (Auto) 5.2 10^3/uL (0.8-4.8) H 11/20/23 17:16 [place] # (Auto) 0.3 10^3/uL (0.2-0.9) 11/20/23 17:16 Eos # (Auto) 0.0 10^3/uL (0.0-0.8) 11/20/23 17:16 Baso # (Auto) 0.0 10^3/uL (0.0-0.1) 11/20/23 17:16 Nucleated RBC % (auto) 0 % 11/20/23 17:16 Nucleated RBCs # 0.0 /100WBC 11/20/23 17:16 Specimen Type Venous 11/20/23 16:38 Sample Site Not specified 11/20/23 16:38 Remberto Test Pos 11/20/23 16:38 VBG pH 7.16 (7.32-7.42) L* 11/20/23 16:38 VBG pCO2 82.2 mmHg (41-51) H* 11/20/23 16:38 VBG pO2 28.3 mmHg (25-40) 11/20/23 16:38 VBG HCO3 29.6 mmol/L (24-28) H 11/20/23 16:38 VBG Base Excess -2.2 mmol/L (-3.0-3.0) 11/20/23 16:38 VBG Hematocrit 53.6 % (42-52) H 11/20/23 16:38 O2 Delivery Device Nc 11/20/23 16:38 O2 Liters/Min 5.0 % 11/20/23 16:38 FiO2 40.0 % 11/20/23 16:38 Recruiting Assistant ID Monro 11/20/23 16:38 Sodium 137 mmol/L (136-145) 11/20/23 17:16 Potassium 5.4 mmol/L (3.5-5.1) H 11/20/23 17:16 Chloride 98 mmol/L (98-107) 11/20/23 17:16 Carbon Dioxide 26 mmol/L (22-29) 11/20/23 17:16 Anion Gap 18.4 (5-19) 11/20/23 17:16 BUN 92 mg/dL (8-23) H* D 11/20/23 17:16 Creatinine 3.8 mg/dL (0.7-1.2) H 11/20/23 17:16 GFR Calculation Not Reportable 11/20/23 17:16 Glucose 190 mg/dL (65-115) H 11/20/23 17:16 Calculated Osmolality 317 mOsm/kg (285-295) H 11/20/23 17:16 Calcium 8.7 mg/dL (8.5-10.5) 11/20/23 17:16 Total Bilirubin 0.2 mg/dL (0.15-1.2) 11/20/23 17:16 AST 13 U/L (0-40) 11/20/23 17:16 ALT 10 U/L (0-41) 11/20/23 17:16 Alkaline Phosphatase 57 U/L (40-130) 11/20/23 17:16 Total Protein 6.1 g/dL (6.6-8.7) L 11/20/23 17:16 Albumin 3.4 g/dL (3.5-5.2) L 11/20/23 17:16 Globulin 2.7 g/dL (1.3-4.6) 11/20/23 17:16 Urine Color Straw (Yellow) 11/20/23 16:50 Urine Appearance Clear (CLEAR) 11/20/23 16:50 Urine pH 5 (5-7) 11/20/23 16:50 Ur Specific Dix 1.015 (1.005-1.030) 11/20/23 16:50 Urine Protein Trace (Negative) 11/20/23 16:50 Urine Glucose (UA) 2+ (Normal) H 11/20/23 16:50 Urine Ketones Negative (Negative) 11/20/23 16:50 Urine Blood Trace (Negative) H 11/20/23 16:50 Urine Nitrate Negative (Negative) 11/20/23 16:50 Urine Bilirubin Neg (Negative) 11/20/23 16:50 Urine Urobilinogen Norm mg/dL (Negative) 11/20/23 16:50 Ur Leukocyte Esterase Negative (Negative) 11/20/23 16:50 Urine RBC Rare /hpf (0-2) 11/20/23 16:50 Urine WBC 10-15 /hpf (0-5) H 11/20/23 16:50 Ur Squamous Epith Cells None /hpf (0-5) 11/20/23 16:50 Amorphous Sediment Not Reportable 11/20/23 16:50 Urine Bacteria Trace /hpf (NONE) 11/20/23 16:50 Critical Care Time 2 Critical Care Time: Critical Care Time: Yes Total Critical Care Time: 40 Attestation: The high probability of a clinically significant, sudden or life threatening deterioration of the patient's resp system(s) required my full and direct attention, intervention and personal management. The critical care time is as shown. This time is in addition to time spent performing any reported procedures but includes the following: [x] Data and vital sign review and interpretation [x] Patient assessment, examination and intervention [x] Documentation [x] Medication orders and management Discharge Plan Discharge Admit Provider: Josh Parry Condition: Stable Prescriptions: No Action ascorbate calcium (vitamin C) 500 mg tablet 500 mg PO DAILY cholecalciferol (vitamin D3) 10 mcg (400 unit) capsule 10 mcg PO DAILY imiquimod 5 % cream in packet 1 applic topical .MWF Qty: 24 2RF Hold Instructions: Doctor's Order Rx Instructions: Apply thin film qhs MWF for 8 weeks to affected areas on penis vitamin E (dl, acetate) 450 mg (1,000 unit) capsule 450 mg PO DAILY zinc acetate 50 mg (zinc) capsule 50 mg PO DAILY (DME) OneTouch Ultra Test Strip See Rx Instructions .Route Qty: 50 5RF Rx Instructions: use one strip daily levalbuterol HCl 1.25 mg/0.5 mL solution for nebulization 1.25 mg INHALATION Q4H PRN (Reason: shortness of breath or wheezing) Qty: 100 2RF levalbuterol tartrate [Xopenex HFA] 45 mcg/actuation HFA aerosol inhaler 2 inh inhalation Q6H PRN (Reason: shortness of breath) Qty: 15 2RF metformin 500 mg tablet extended release 24 hr 2,000 mg PO DAILY Qty: 360 0RF Hold Instructions: Resume on 02/26/23. (DME) pen needle, diabetic 33 gauge x 5/32 needle See Rx Instructions .ROUTE .MEDSUPPLY Qty: 100 5RF Rx Instructions: 1 times day tramadol 50 mg tablet 50 mg PO BID PRN (Reason: pain) Qty: 60 2RF mupirocin 2 % ointment 1 applic TOPICAL TID PRN (Reason: skin irritation) Qty: 22 2RF Farxiga 5 mg tablet 5 mg PO DAILY Qty: 30 5RF Victoza 3-Evgeny 0.6 mg/0.1 mL (18 mg/3 mL) pen injector 1.8 mg SUBCUT DAILY Qty: 18 5RF (DME) Disposable nebulizer circuit See Rx Instructions .Route .MEDSUPPLY Qty: 1 0RF Rx Instructions: As directed (DME) nebulizers [facility] [place] See Rx Instructions .ROUTE .MEDSUPPLY Qty: 1 0RF Rx Instructions: As directed arformoterol [Brovana] 15 mcg/2 mL solution for nebulization 2 ml INHALATION BID Qty: 120 5RF budesonide 1 mg/2 mL suspension for nebulization 1 mg inhalation DAILY Qty: 60 0RF Rx Instructions: To be used when 0.5 mg is unavailable. tizanidine 2 mg tablet 2 mg PO BEDTIME Qty: 90 0RF Hold Instructions: He not taking currently lisinopril 2.5 mg tablet 2.5 mg PO DAILY Qty: 90 0RF tamsulosin 0.4 mg capsule 0.4 mg PO BID Qty: 180 0RF budesonide 0.5 mg/2 mL suspension for nebulization 0.5 mg INHALATION BID Qty: 60 2RF Hold Instructions: using [place] Coding Level of Care Code ED Field Service Manager for Brandon Paredes
--- NOTE | 2023-11-20 16:37 | CTR_ITS ---
PROCEDURE INFORMATION: Exam: CT Cervical Spine Without Contrast Exam date and time: 11/20/2023 5:27 PM Age: 78 years old Clinical indication: Injury or trauma; Fall; Blunt trauma TECHNIQUE: Imaging protocol: Computed tomography of the cervical spine without contrast. Radiation optimization: All CT scans at this facility use at least one of these dose optimization techniques: automated exposure control; mA and/or kV adjustment per patient size (includes targeted exams where dose is matched to clinical indication); or iterative reconstruction. COMPARISON: CT head wo con* [id number] 11/20/2023 5:27 PM RADIATION DOSE METRICS: Total DLP (mGy-cm): 739.5 FINDINGS: Bones/joints: There is multilevel degenerative disc disease along with vertebral body spurring and facet arthropathy. No fracture noted. Lungs: Lung apices are normal. Soft tissues: Unremarkable. CT/CT cervical spin wo con* [id number] IMPRESSION: I see no acute abnormality.
--- NOTE | 2023-11-20 16:37 | ECG_ITS ---
[facility] Test Date: 2023-11-20 Pat Name: Florentino Alfaro Department: Room: Gender: Male Assistant Manager: : 1945 Requested By: Lottie Roldan Order Number: [id number] Madan MD: Alen Vargas M.D. Measurements Intervals [place] Rate: 57 P: 65 CT: 261 QRS: -26 QRSD: 158 T: 87 QT: 431 QTc: 421 Interpretive Statements SINUS BRADYCARDIA WITH FIRST DEGREE AV BLOCK LEFT BUNDLE BRANCH BLOCK [120+ ms QRS DURATION, 80+ ms Q/S IN V1/V2, 85+ ms R IN I/aVL/V5/V6] Compared to ECG 07/02/2022 02:29:36 No significant changes Electronically Signed On 11-21-2023 8:30:11 STILL OPERATOR BATCH OR CONTINUOUS by Alen Vargas M.D. [id number]
--- NOTE | 2023-11-20 16:37 | CTR_ITS ---
PROCEDURE INFORMATION: Exam: CT Head Without Contrast Exam date and time: 11/20/2023 5:27 PM Age: 78 years old Clinical indication: Injury or trauma; Fall; Blunt trauma (contusions or hematomas); Additional info: Fall, seems confused- per TECHNIQUE: Imaging protocol: Computed tomography of the head without contrast. Radiation optimization: All CT scans at this facility use at least one of these dose optimization techniques: automated exposure control; mA and/or kV adjustment per patient size (includes targeted exams where dose is matched to clinical indication); or iterative reconstruction. COMPARISON: CT cervical spin wo con* [id number] 11/20/2023 5:27 PM RADIATION DOSE METRICS: Total DLP (mGy-cm): 981.4 FINDINGS: Brain: Normal. No hemorrhage. Unremarkable white matter. No mass effect or acute infarct. Cerebral ventricles: No ventriculomegaly. No midline shift. Paranasal sinuses: Visualized sinuses are unremarkable. No fluid levels. Mastoid air cells: Visualized mastoid air cells are well aerated. Bones/joints: Unremarkable. No acute fracture. Soft tissues: Unremarkable. CT/CT head wo con* [id number] IMPRESSION: No acute intracranial abnormality.
--- NOTE | 2023-11-20 16:37 | CTR_ITS ---
PROCEDURE INFORMATION: Exam: CT Thoracic Spine Without Contrast Exam date and time: 11/20/2023 5:31 PM Age: 78 years old Clinical indication: Injury or trauma; Fall; Blunt trauma (contusions or hematomas); Additional info: Fall, pain, t3-6 TECHNIQUE: Imaging protocol: Computed tomography of the thoracic spine without contrast. Radiation optimization: All CT scans at this facility use at least one of these dose optimization techniques: automated exposure control; mA and/or kV adjustment per patient size (includes targeted exams where dose is matched to clinical indication); or iterative reconstruction. COMPARISON: CT cervical spin wo con* [id number] 11/20/2023 5:27 PM RADIATION DOSE METRICS: Total DLP (mGy-cm): 1536.39 FINDINGS: Bones/joints: SevereVertebral body spurring can be seen at multiple levels. Soft tissues: Unremarkable. CT/CT thoracic spin wo con* [id number] IMPRESSION: I see no acute abnormality.
[2023-11-20 17:12] LABS: Glucose Urine UA 2+ (Normal); Ketones Urine Negative (Negative); Protein Urine Trace (Negative); Specific Gravity, Urine 1.015 (1.005-1.030); Urine Appearance Clear (CLEAR); Urine Color Straw (Yellow); pH Urine 5 (5-7)
[2023-11-20 17:13] LABS: Add Urine Microscopic? YES; Bilirubin Urine Neg (Negative); Blood Urine Trace (Negative); Leukocyte Esterase Urine Negative (Negative); Nitrate Urine Negative (Negative); Urobilinogen Urine Norm (Negative)
[2023-11-20 17:17] LABS: Add Urine Culture? No; Bacteria Urine TRACE /hpf; RBC Urine RARE /hpf (0-2)
[2023-11-20] MEDS: morphine 4 mg/mL SDV 1 mL IVP (17:17)
[2023-11-20 17:47] LABS: Base Excess VBG -2.2 mmol/L (-3.0-3.0); Blood Gas Allen Test Pos; Blood Gas Operator Identificat MONRO; Blood Gas Sample Site Not specified; Blood Gas Sample Type Venous; HCO3 VBG 29.6 mmol/L (24-28); Oxygen Device NC; PO2 VBG 28.3 mmHg (25-40); Venous Blood Gas Hematocrit 53.6 % (42-52)
[2023-11-20 17:47] LABS: Basophils % 0.2 %; Eosinophils % 0.5 %; Hematocrit 51.7 % (37-53); Lymphocytes # 5.2 10^3/uL (0.8-4.8); Lymphocytes % 60.3 %; Mean Corpuscular HGB Conc 31.7 g/dL (30-55); Mean Corpuscular Hemoglobin 32.2 pg (27-33); Mean Corpuscular Volume 101.6 fl (82-101); Mean Platelet Volume 10.5 fL (7.4-10.4); Monocytes # 0.3 10^3/uL (0.2-0.9); Monocytes % 3.7 %; Neutrophils % 35.1 %; Nucleated Red Blood Cells % 0 %; Platelet Count 119 10^3/cmm (157-399); Red Blood Count 5.09 10^6/uL (3.85-5.65); Red Cell Distribution Width 15.3 % (12.1-15.1); White Blood Count 8.56 10^3/uL (3.29-11.43)
[2023-11-20 17:48] LABS: PCO2 VBG 82.2 mmHg (41-51); pH VBG 7.16 (7.32-7.42)
[2023-11-20 18:09] LABS: Alanine Aminotransferase 10 U/L (0-41); Albumin Level 3.4 g/dL (3.5-5.2); Alkaline Phosphatase 57 U/L (40-130); Anion Gap 18.4 (5-19); Aspartate Amino Transferase 13 U/L (0-40); Calcium 8.7 mg/dL (8.5-10.5); Carbon Dioxide 26 mmol/L (22-29); Chloride 98 mmol/L (98-107); Globulin 2.7 g/dL (1.3-4.6); Glucose 190 mg/dL (65-115); Osmolality Calculated 317 mOsm/kg (285-295); Potassium 5.4 mmol/L (3.5-5.1); Sodium 137 mmol/L (136-145); Total Bilirubin 0.2 mg/dL (0.15-1.2); Total Protein 6.1 g/dL (6.6-8.7)
[2023-11-20 18:11] LABS: Blood Urea Nitrogen 92 mg/dL (8-23)
[2023-11-20] MEDS: sodium chloride 0.9% 1,000 ML 999 ML IV (18:32)
[2023-11-20] MEDS: LORazepam 2 mg/mL INJ 10 mL MDV 0.5 MG IVP (19:14)
--- NOTE | 2023-11-20 19:30 | XRR_ITS ---
PROCEDURE INFORMATION: Exam: XR Chest Exam date and time: 11/20/2023 7:53 PM Age: 78 years old Clinical indication: Shortness of breath; Additional info: SOB TECHNIQUE: Imaging protocol: Radiologic exam of the chest. Views: 1 view. COMPARISON: CR XR chest 1V portable [id number] 07/01/2022 5:31 PM FINDINGS: Lungs: Calcified granuloma noted in the left lower lung. Low lung volumes with bronchovascular crowding. No convincing airspace disease. Pleural spaces: No pleural effusion. No pneumothorax. Heart/Mediastinum: Normal sized cardiac silhouette. Bones/joints: Bone anchors are noted in the left glenoid neck. XR/XR chest 1V portable [id number] IMPRESSION: Low lung volumes. No convincing airspace disease. No features of heart failure.
--- NOTE | 2023-11-20 19:38 | ECG_ITS ---
[facility] Test Date: 2023-11-20 Pat Name: Florentino Alfaro Department: Room: Gender: Male Youth Counselor: : 1945 Requested By: Josh Parry Order Number: [id number] Madan MD: Alen Vargas M.D. Measurements Intervals [place] Rate: 55 P: 74 [place]: 275 QRS: -11 QRSD: 153 T: 92 QT: 442 QTc: 424 Interpretive Statements SINUS BRADYCARDIA WITH FIRST DEGREE AV BLOCK LEFT BUNDLE BRANCH BLOCK [120+ ms QRS DURATION, 80+ ms Q/S IN V1/V2, 85+ ms R IN I/aVL/V5/V6] Compared to ECG 11/20/2023 16:46:37 No significant changes Electronically Signed On 11-21-2023 8:31:54 COUNSELLING PSYCHOLOGIST by Alen Vargas M.D. [id number]
[2023-11-20 20:21] LABS: Troponin(5th) Baseline 84 ng/L (0-15)
[2023-11-20 20:28] LABS: NT Pro B Type Natriuretic Pept 179 pg/mL (0-450); Procalcitonin 0.26 ng/mL (0-0.5)
[2023-11-20 20:36] LABS: Troponin 5 2HR 90.89 ng/L (0-15); Troponin 5 2HR Delta 6.89 ABS# (0-10)
[2023-11-20 20:40] LABS: C Reactive Protein 53.1 mg/L (0.0-4.9); Creatine Phosphokinase 264 U/L (39-308); Ferritin 45 ng/mL (30-400); Iron 34 ug/dL (59-158)
--- NOTE | 2023-11-20 21:13 | PC.NURSE ---
narrative writer assumed care of pt at 2104, report from margaret rivas, verified pt allergies and applied band.
--- NOTE | 2023-11-20 21:30 | ECG_ITS ---
[facility] Test Date: 2023-11-20 Pat Name: Florentino Alfaro Department: Room: ED Gender: Male Forensic Psychologist: : 1945 Requested By: Josh Parry Order Number: [id number] Madan MD: Alen Vargas M.D. Measurements Intervals [place] Rate: 55 P: 77 MS: 254 QRS: 5 QRSD: 153 T: 90 QT: 428 QTc: 411 Interpretive Statements SINUS BRADYCARDIA WITH FIRST DEGREE AV BLOCK LEFT BUNDLE BRANCH BLOCK [120+ ms QRS DURATION, 80+ ms Q/S IN V1/V2, 85+ ms R IN I/aVL/V5/V6] Compared to ECG 11/20/2023 19:38:09 No significant changes Electronically Signed On 11-21-2023 8:38:07 REAL ESTATE JOB TITLES by Alen Vargas M.D. [id number]
--- NOTE | 2023-11-20 21:31 | PM.HP ---
Providers/Chief Complaint Admitting Physician: Josh Parry MD Primary Care Provider: Ken Escamilla, STOCK PARTS INSPECTOR-C Chief Complaint: fall, back pain,confusion History of Present Illness Florentino Alfaro is a 78 year old male with a past medical history of COPD, on 4 L, history of CAD, BPH, CLL, cfj-rbphneu-xonmfxmod type 2 diabetes mellitus, ANASTASIYA, history of bladder cancer, BPH, who presents [facility] due to syncopal episode, shortness of breath, right-sided back pain, confusion. Currently patient is on BiPAP, he is alert to person, to place, not to time, he can follow commands. Patient's is at bedside, helps with the history taking, she tells me that patient has been following up with cardiology as outpatient, he has had a normal coronary angiography roughly January of last year, he has been having intermittent syncopal episodes which has been worked up by cardiology. About a week ago he went outside to change that would in the stove, fire stove, when he passed out, witnessed the event went out to help him but by the time she got out there, he was already on his feet, initially he said that he slipped and fell, but he subsequently has been telling nurses here in the ER that he thinks he just passed out. Since his fall he has been having back pain, mid back, between both scapula's, associated with shortness of breath, no chest pain reported. He has been complaining of increased shortness of breath, increased bilateral lower extremity swelling more particularly on the right the tells me that he has had that for some time no history of DVTs or PEs. In the emergency room, he was found to have hypoxic respiratory failure was placed on BiPAP, he had a VBG drawn, he is resting comfortably on BiPAP, he has been given Ativan due to agitation on BiPAP. Currently he complains of pain between both scapula is more on the right, no chest pain, does report shortness of breath, no fevers, no chills, no cough, no history of smoking does have COPD, discussed with at bedside he is uremia, and acute renal failure, she tells me he has been hydrating well, Review of Systems Const: Denies: fever(s) Card: Denies: chest pain Resp: Reports: dyspnea GI: Denies: abdominal pain Neuro: Denies: headache(s), numbness in extremities or weakness in extremities Medications/Allergies Home Medications Medication Instructions Recorded Confirmed Last Taken Type Disposable nebulizer circuit #1 ea 03/02/22 11/04/23 Unknown Rx nebulizers #1 ea 03/02/22 11/04/23 Unknown Rx ascorbate calcium (vitamin C) 500 500 mg PO DAILY 04/09/22 11/04/23 02/23/23 10:00 History mg tablet cholecalciferol (vitamin D3) 10 10 mcg PO DAILY 04/09/22 11/04/23 02/23/23 10:00 History mcg (400 unit) capsule imiquimod 5 % topical cream packet 1 applic topical .MWF #24 ea 06/19/22 11/04/23 02/23/23 10:00 Rx vitamin E (dl, acetate) 450 mg 450 mg PO DAILY 02/03/23 11/04/23 02/23/23 10:00 History (1,000 unit) capsule zinc acetate 50 mg (zinc) capsule 50 mg PO DAILY 03/09/23 11/04/23 Unknown History arformoterol 15 mcg/2 mL solution 2 ml inhalation BID #120 mL 03/19/23 11/04/23 Unknown Rx for nebulization (Brovana) blood sugar diagnostic (OneTouch #50 ea 08/12/23 11/04/23 Unknown Rx Ultra Test strips) levalbuterol HCl 1.25 mg/0.5 mL 1.25 mg (0.5 mL) inhalation Q4H 08/12/23 11/04/23 Unknown Rx solution for nebulization PRN shortness of breath or wheezing #100 vials levalbuterol tartrate 45 2 inh inhalation Q6H PRN shortness 08/12/23 11/04/23 Unknown Rx mcg/actuation aerosol inhaler of breath #15 grams (Xopenex HFA) metformin 500 mg tablet,extended 2,000 mg (4 x 500 mg) PO DAILY 08/12/23 11/04/23 Unknown Rx release 24 hr #360 tabs mupirocin 2 % topical ointment 1 applic topical TID PRN skin 08/12/23 11/04/23 Unknown Rx irritation #22 grams pen needle, diabetic 33 gauge x #100 ea 08/12/23 11/04/23 Unknown Rx 5/32 tramadol 50 mg tablet 50 mg PO BID PRN pain #60 tabs 08/12/23 11/04/23 Unknown Rx budesonide 1 mg/2 mL suspension 1 mg (2 mL) inhalation DAILY #60 mL 10/05/23 11/04/23 Unknown Rx for nebulization lisinopril 2.5 mg tablet 2.5 mg PO DAILY #90 tabs 11/01/23 11/04/23 Unknown Rx tamsulosin 0.4 mg capsule 0.4 mg PO BID #180 caps 11/01/23 11/04/23 Unknown Rx tizanidine 2 mg tablet 2 mg PO BEDTIME muscle spasticity 11/01/23 11/04/23 Unknown Rx #90 tabs dapagliflozin propanediol 5 mg 5 mg PO DAILY #30 tabs 11/07/23 11/07/23 Unknown Rx tablet (Farxiga) liraglutide 0.6 mg/0.1 mL (18 mg/3 1.8 mg (0.3 mL) SUBCUT DAILY #18 mL 11/07/23 11/07/23 Unknown Rx mL) subcutaneous pen injector (Victoza 3-Evgeny) budesonide 0.5 mg/2 mL suspension 0.5 mg (2 mL) inhalation BID #60 mL 11/19/23 Unknown Rx for nebulization Allergies Allergy/AdvReac Type Severity Reaction Status Date / Time No Known Allergies Allergy Verified 11/20/23 15:41 PFSH Acute PFSH: Medical History Atherosclerosis of coronary artery ANASTASIYA (obstructive sleep apnea) Chronic lymphocytic leukemia Diabetes mellitus with hyperglycemia, without long-term current use of insulin Advanced chronic obstructive pulmonary disease Generalized muscle ache Malignant neoplasm of overlapping sites of bladder BPH with obstruction/lower urinary tract symptoms Dependence on supplemental oxygen Vitamin D insufficiency Surgical History History of local excision of skin lesion H/O transurethral destruction of bladder lesion History of condyloma acuminatum removal surgical December 2014 History of arthroplasty of left shoulder tendon 1970's Hx of vasectomy H/O hernia repair umbilical and bilateral inguinal 1979' History of cholecystectomy Family History Mother , at age 73 Diabetes Lung disease Father , at age 75 Cancer blood Lung disease Social History Smoking and tobacco/nicotine status: former use of tobacco/nicotine Quit status (tobacco/nicotine): has quit using Year quit tobacco: 2002 Former quit date comment: smoked 47 years Second hand smoke exposure: No Alcohol intake: current Alcohol intake frequency: holidays/special occasions only Substance/Drug Use: never Adopted: No Caregiver/support person: No Lives independently: Yes Household members: spouse Housing: House Marital status: Number of children: 5 Number of grandchildren: 7 service: Yes branch: [employer] Current occupational status: disabled Pets and animals: Yes Pets & animals: cat(s) and dog(s) Do you think of yourself as: Straight/Heterosexual Current gender identity: Male Special luis needs: No Vitals/I&O/Wt Last Vital Signs Temp 97.5 F L 11/20/23 15:37 Pulse 60 11/20/23 21:11 Resp 17 11/20/23 21:11 BP 103/48 11/20/23 21:11 Pulse Ox 97 11/20/23 21:11 O2 Del Method BiPAP 11/20/23 21:11 O2 Flow Rate 5 11/20/23 18:00 FiO2 40 11/20/23 19:44 Weight last 48 hrs Weight 101.605 kg Physical Exam Const: COMMON NORMALS: no acute distress and patient oriented x3 HENMT: COMMON NORMALS: normocephalic HEAD & SCALP: normocephalic Eye: COMMON NORMALS: Equal, round and reactive pupils present and EOMs intact bilaterally Neck/C-Spine: COMMON NORMALS: no JVD Lymph: LYMPHATIC: no lymphadenopathy noted Resp: COMMON NORMALS: normal respiratory effort, No retractions and No use of accessory muscles AUSCULTATION: wheezes Cardio: COMMON NORMALS: regular rate, regular rhythm, S1 normal heart sound present and S2 normal heart sound present RATE: regular rate RHYTHM: regular rhythm HEART SOUNDS: S1 normal heart sound present and S2 normal heart sound present GI: COMMON NORMALS: Normal to inspection, nondistended, normoactive bowel sounds present, Soft to palpation and non-tender Extremity: NARRATIVE EXTREMITY EXAM: Bilateral calf tenderness, bilateral lower extremity mild right more than left Neuro: COMMON NORMALS: patient oriented x3, CN's II-XII intact bilaterally and moves all extremities Psych: COMMON NORMALS: mental status grossly normal Data 11/20/23 17:16 11/20/23 17:16 A&P Assessment and plan (1) Acute hypoxic respiratory failure: (2) Acute renal failure: (3) Uremia: (4) NSTEMI (non-ST elevated myocardial infarction): (5) Lymphoplasmacytoid lymphoma, CLL: (6) Sleep apnea: (7) Syncope: (8) COPD exacerbation: Plan Acute hypoxic respiratory failure -Likely secondary to COPD -History concerning for possible PE, given elevated troponin, right lower extremity swelling, complaints of shortness of breath, acute hypoxia, syncopal episode Plan -Solu-Medrol 125 mg, followed by 40 mg IV every 8 hours -DuoNeb -Budesonide -CT of the chest, cannot give contrast given acute renal failure -Will have to consider VQ scan based on clinical progress -For now placed on heparin drip -D-dimer ordered, venous ultrasound ordered -Monitor respiratory status closely -Repeat ABG in the a.m. -Full code -Heparin drip for DVT prophylaxis NSTEMI -Serial EKGs, serial troponins, telemetry monitoring -History of coronary angiography and 02/18/2023, no obstructive CAD -Order cardiac echo Right lower extremity swelling, elevated troponins -Concerns for hypercoagulable bed, DVT and/or PE -Venous ultrasound, cardiac echo, D-dimer Acute renal failure with uremia -CPK within normal limits -CVA no significant tenderness -UA within normal limits -No history of renal failure -CT abdomen and pelvis History of BPH -Bladder scan, evaluate for postobstructive SUE Syncope -Syncope -Recent history of normal coronary angiography in 02/18/2023 -Had event monitoring on 02/18/2023 1. Monitoring period was from 02/05/2023 till 03/06/2023. 2. Baseline heart rhythm was normal sinus bradycardia with first-degree AV block with heart rate of 51 bpm. 3. Average heart rate was 63 bpm. Maximum heart rate was 121 bpm and patient was in sinus tachycardia at that time. This was recorded on 02/17/2023 at 12:41 PM. Minimum heart rate was 37 bpm. Patient had sinus bradycardia. This was recorded at 8:01 AM on 02/08/2023. Less than 1% ventricular ectopic beats. Less than 1% supraventricular ectopic beats. 4. No atrial fibrillation or arrhythmias seen. 5. No pauses seen 6. No patient reported symptoms -CT head within normal limits -EKGs, echo, venous ultrasound, CT chest abdomen pelvis workup as above Back pain -CT thoracic spine within normal limits -Monitor Attestations Medical Necessity Statement*: Patient requires hospitalization, inpatient, greater than 2 midnights, for acute hypoxia, COPD exacerbation, NSTEMI, syncope, uremia, acute renal failure Diagnoses Acute hypoxic respiratory failure J96.01 Acute renal failure N17.9 Uremia N19 NSTEMI (non-ST elevated myocardial infarction) I21.4 Lymphoplasmacytoid lymphoma, CLL C83.00 Sleep apnea G47.30 Syncope R55 COPD exacerbation J44.1
--- NOTE | 2023-11-20 21:38 | CTR_ITS ---
PROCEDURE INFORMATION: Exam: CT Chest Without Contrast; Diagnostic Exam date and time: 11/21/2023 5:28 AM Age: 78 years old Clinical indication: Other: Abd distention/shyla; Shortness of breath; Prior surgery; Surgery date: 6+ months; Surgery type: Left shoulder. Gb. Hernia repair. Vasectomy. Patient HX: SOB with hypoxia and hypercapnia. Abd distention with shyla. History of copd and lymphoma/leukemia; Additional info: SOB, abdominal distention, shyla TECHNIQUE: Imaging protocol: Diagnostic computed tomography of the chest without contrast. Radiation optimization: All CT scans at this facility use at least one of these dose optimization techniques: automated exposure control; mA and/or kV adjustment per patient size (includes targeted exams where dose is matched to clinical indication); or iterative reconstruction. COMPARISON: CR (CHEST, ) 11/20/2023 7:53 PM RADIATION DOSE METRICS: Total DLP (mGy-cm): 1215.86 FINDINGS: Lungs: Is a prominent calcified granuloma seen in the left posterior hemithorax measuring 14 mm. Pleural spaces: Unremarkable. No pneumothorax. No pleural effusion. Heart: Unremarkable. No cardiomegaly. No pericardial effusion. Coronary arteries: There are mild coronary artery calcifications. There is a background centrilobular emphysema and mild pulmonary fibrosis. There are patchy and strandy opacities in the right posterior lung base that likely represents atelectasis although a right basilar pneumonia can not be excluded. Lymph nodes: There are small mediastinal lymph nodes seen are below CT criteria for lymphadenopathy. Vasculature: Unremarkable. No aortic aneurysm. Bones/joints: Unremarkable. No acute fracture. Soft tissues: Unremarkable. COMMENTS: The presence of pulmonary emphysema on CT is an independent risk factor for lung cancer. In the absence of a history or active diagnosis of lung cancer, it is recommended that this patient with emphysema be evaluated for enrollment in a low dose CT lung cancer screening program. PROCEDURE INFORMATION: Exam: CT Abdomen And Pelvis Without Contrast Exam date and time: 11/21/2023 5:28 AM Age: 78 years old Clinical indication: Other: Abd distention/shyla; Shortness of breath; Prior surgery; Surgery date: 6+ months; Surgery type: Left shoulder. Gb. Hernia repair. Vasectomy. Patient HX: SOB with hypoxia and hypercapnia. Abd distention with shyla. History of copd and lymphoma/leukemia; Additional info: SOB, abdominal distention, shyla TECHNIQUE: Imaging protocol: Computed tomography of the abdomen and pelvis without contrast. Radiation optimization: All CT scans at this facility use at least one of these dose optimization techniques: automated exposure control; mA and/or kV adjustment per patient size (includes targeted exams where dose is matched to clinical indication); or iterative reconstruction. COMPARISON: CT thoracic spin wo con* [id number] 11/20/2023 5:31 PM RADIATION DOSE METRICS: Total DLP (mGy-cm): 1215.86 FINDINGS: Liver: There is hypoattenuation hepatic parenchyma with fatty infiltration. Gallbladder and bile ducts: Status post cholecystectomy. Pancreas: Normal. No ductal dilation. Spleen: Normal. No splenomegaly. Adrenal glands: Normal. No mass. Kidneys and ureters: Normal. No hydronephrosis. Stomach and bowel: Some diverticula are seen the sigmoid colon. Appendix: No evidence of appendicitis. Intraperitoneal space: Unremarkable. No free air. No significant fluid collection. Vasculature: Unremarkable. No abdominal aortic aneurysm. Lymph nodes: There are multiple prominent retroperitoneal lymph nodes seen . This finding correlates patient's clinical history of lymphoma. The largest lymph node is seen anterior to inferior vena cava measuring 18 mm transverse dimension. Prominent lymph nodes are seen along the pelvic sidewalls bilaterally. Urinary bladder: Unremarkable as visualized. Reproductive: Unremarkable as visualized. Bones/joints: Unremarkable. No acute fracture. Soft tissues: Unremarkable. CT/[place] [id number] IMPRESSION: 1. There are no acute chest findings. 2. Stranding patchy opacity seen right lung base posteriorly likely represents atelectasis although right basilar pneumonia can not excluded. 3. There are small mediastinal nodes seen below CT criteria for lymphadenopathy. However, this could represent mild nodes. IMPRESSION: 1. Multiple prominent retroperitoneal lymph are seen within pelvis, finding that correlates with patient's clinical history of lymphoma. 2. Fatty infiltration liver 3. Mild diverticulosis of the sigmoid colon
[2023-11-20 21:52] LABS: D Dimer 1.14 ug/mLFEU (0-0.59)
--- NOTE | 2023-11-20 23:35 | PC.NURSE ---
global technical writer gave report to Patrica Donaldson at 2333, pt stable in recliner no current complaints or concerns.
[2023-11-20 23:42] LABS: Lactic Sepsis W/Reflex 0.8 mmol/L (0.5-2.2)
[2023-11-20 23:43] LABS: Estmated Average Glucose 194; Hemoglobin A1C 8.4 % (4.0-6.0)
[2023-11-20 23:52] LABS: Cholesterol 162 mg/dL (0-200); Creatine Phosphokinase 280 U/L (39-308); HDL Cholesterol 36 mg/dL (60-100); LDL Cholesterol Calculated 102 mg/dL (50-129); LDL HDL Ratio 2.83 RATIO (0.00-3.22); Thyroid Stimulating Hormone 3.16 uIU/mL (0.27-4.20); Triglycerides 118 mg/dL (0-150)
[2023-11-21] VITALS (178 sets, daily range): BP systolic 83–143; BP diastolic 35–73; PULSE 45–118; RESP 11–37; TEMP 36.2–37; O2SAT 87–100; BMI 31.6
[2023-11-21] MEDS: heparin drip 25,000 UNIT/500 ML PREMIX 28.45 UNIT IV (00:03)
[2023-11-21] MEDS: heparin 5,000 unit/mL INJ 1 mL IV (00:03)
[2023-11-21] MEDS: pantoprazole 40 mg SDV IVP ×2 (00:05→20:22)
[2023-11-21] MEDS: methylPREDNISolone sod succ 125 mg/2 mL INJ IVP (00:05)
--- NOTE | 2023-11-21 01:30 | ECG_ITS ---
[facility] Test Date: 2023-11-21 Pat Name: Florentino Alfaro Department: Room: ED Gender: Male Food And Nutrition Teacher: : 1945 Requested By: Josh Parry Order Number: [id number] Madan MD: Alen Vargas M.D. Measurements Intervals [place] Rate: 65 P: 68 [place]: 270 QRS: -21 QRSD: 166 T: 88 QT: 422 QTc: 439 Interpretive Statements SINUS RHYTHM WITH FIRST DEGREE AV BLOCK LEFT BUNDLE BRANCH BLOCK [120+ ms QRS DURATION, 80+ ms Q/S IN V1/V2, 85+ ms R IN I/aVL/V5/V6] Compared to ECG 11/20/2023 21:43:08 Sinus bradycardia no longer present Electronically Signed On 11-21-2023 8:38:24 SEAM PRESS OPERATOR by Alen Vargas M.D. [id number]
[2023-11-21] MEDS: LORazepam 2 mg/mL INJ 10 mL MDV 0.5 MG IV ×2 (01:43→02:43)
[2023-11-21 02:12] LABS: Troponin 5 6HR 30.11 ng/L (0-15)
--- NOTE | 2023-11-21 06:00 | USCV_ITS ---
Florentino Alfaro Age: 78 Gender: M : 1945 Exam Date: 11/21/2023 11:12 Ordering Phys: Josh Parry MD Technologist: Elio Kaba Exam Location: [facility] [place] Indication: sob BP: 132 / 54 HR: Rhythm: Sinus Technical Quality: Very technically difficult study MEASUREMENTS (Male / Female) Normal Values 2D ECHO LVOT Diameter 2.0 cm LA Diameter 3.2 cm Aorta at Sinotubular Diameter 2.4 cm M-MODE Aortic Annulus Diameter 2.8 cm LA Ao Ratio MM 1.2 MV E Point Septal Separation 0.5 cm DOPPLER PV Peak Velocity 99.0 cm/s RV Acceleration Time 0.1 s RV Ejection Time 0.3 s RV AcT/ET 0.5 FINDINGS Left Ventricle The study is limited to two-dimensional parasternal long axis view only. Patient was uncooperative and verbally abused the registered veterinary technician. The study was stopped short. No M-mode or Doppler examinations were obtained. In the limited views available the overall ejection fraction appears to be lower limit of normal. Wall motion disturbances cannot be determined. Diastolic function cannot be determined. Right Ventricle Right ventricle not well visualized. Right Atrium Right atrium not well visualized. Left Atrium Left atrium not well visualized. Mitral Valve Mitral valve not well visualized. Aortic Valve Aortic valve not well visualized. Tricuspid Valve Tricuspid valve not well visualized. Pulmonic Valve Pulmonic valve not well visualized. Pericardium Normal pericardium without effusion. Aorta Aorta not well visualized. IVC Inferior vena cava not visualized. CONCLUSIONS The study is limited to two-dimensional parasternal long axis view only. Patient was uncooperative and verbally abused the registered veterinary technician. The study was stopped short. No M-mode or Doppler examinations were obtained. In the limited views available the overall ejection fraction appears to be lower limit of normal. Wall motion disturbances cannot be determined. Diastolic function cannot be determined. Previous scan was done in July 2022. No changes compared to then. Dr. Alen Vargas MD (Electronically Signed) Final Date: 22 November 2023 07:12 S
[2023-11-21] MEDS: dexmedeTOMIDine 0.9 % NaCL 400 MCG/100 ML PREMIX IV (06:47)
[2023-11-21] MEDS: morphine 4 mg/mL SDV 1 mL 2 MG IVP ×2 (06:56→14:56)
[2023-11-21 07:31] LABS: Glucose Point of Care 273 mg/dL (70-110)
[2023-11-21 07:34] LABS: Glucose Point of Care 313 mg/dL (70-110)
[2023-11-21] MEDS: methylPREDNISolone sod succ 40 mg/mL INJ IVP (07:35)
[2023-11-21] MEDS: ipratropium-albuterol 3 mL Neb INHALATION ×3 (07:37→20:01)
[2023-11-21] MEDS: budesonide 0.5 mg/2 mL Neb 0.25 MG INHALATION ×2 (07:37→20:01)
[2023-11-21] MEDS: insulin lispro 100 unit/1 mL SUBCUT ×4 (07:38→20:22)
[2023-11-21 07:55] LABS: Basophils % 0.1 %; Eosinophils % 0.1 %; Hematocrit 51.9 % (37-53); Lymphocytes # 5.2 10^3/uL (0.8-4.8); Lymphocytes % 57.2 %; Mean Corpuscular HGB Conc 31.4 g/dL (30-55); Mean Corpuscular Hemoglobin 32.2 pg (27-33); Mean Corpuscular Volume 102.6 fl (82-101); Mean Platelet Volume 10.5 fL (7.4-10.4); Monocytes # 0.1 10^3/uL (0.2-0.9); Monocytes % 0.8 %; Neutrophils # 3.74 10^3/uL (1.8-7.7); Neutrophils % 41.2 %; Nucleated Red Blood Cells % 0.3 %; Platelet Count 130 10^3/cmm (157-399); Red Blood Count 5.06 10^6/uL (3.85-5.65); Red Cell Distribution Width 15.1 % (12.1-15.1); White Blood Count 9.07 10^3/uL (3.29-11.43)
[2023-11-21 08:01] LABS: ABG PCO2 51.4 mmHg (35-45); Alveolar-Arterial Oxygen Gradi 16.6 mmHg (5-10); Base Excess ABG -8.4 mmol/L (-2.0-2.0); Blood Gas Allen Test Pos; Blood Gas Operator Identificat MONRO; Blood Gas Sample Site Radial, right; Blood Gas Sample Type Arterial; HCO3 ABG 20.1 mmol/L (22-26); Ionized Calcium Level - ABG 1.1 mmol/L (1.1-1.4); Methemoglobin 0.4 % (0.4-1.5); Oxygen Device BIPAP; Oxygen Saturation ABG 98.3; PO2 ABG 99.5 mmHg (80.0-100.0); PO2 FiO2 Ratio Arterial Blood 0
[2023-11-21 08:13] LABS: Alanine Aminotransferase 12 U/L (0-41); Albumin Level 3.4 g/dL (3.5-5.2); Alkaline Phosphatase 62 U/L (40-130); Anion Gap 23.4 (5-19); Aspartate Amino Transferase 15 U/L (0-40); Calcium 8.2 mg/dL (8.5-10.5); Carbon Dioxide 20 mmol/L (22-29); Chloride 98 mmol/L (98-107); Glucose 286 mg/dL (65-115); Magnesium 2.4 mg/dL (1.7-2.3); Osmolality Calculated 319 mOsm/kg (285-295); Phosphorus 6.7 mg/dL (2.5-4.5); Sodium 134 mmol/L (136-145); Total Bilirubin 0.3 mg/dL (0.15-1.2); Total Protein 6.4 g/dL (6.6-8.7)
--- NOTE | 2023-11-21 08:14 | PC.NURSE ---
ABG shows potassium of 7. NUrse alerted Dr Ruelas. recieved orders for 10 units of insulin and amp of d50. Orders to start folet for accurate I/O.
[2023-11-21 08:17] LABS: Blood Urea Nitrogen 97 mg/dL (8-23); Potassium 7.4 mmol/L (3.5-5.1)
[2023-11-21] MEDS: dextrose 50% syringe 50 mL IVP (08:17)
[2023-11-21] MEDS: insulin regular-human 10 UNIT in SYRINGE 1 EACH IVP (08:21)
[2023-11-21 08:23] LABS: Partial Thromboplastin Time 56.6 SECONDS (23.9-36.7)
--- NOTE | 2023-11-21 09:10 | PC.PHAR ---
pts delmy [phone] verified pts medications-states the pt only uses brovana and budesonide 0.5mg/2ml qam both rxs filled for bid-pts states the pts victoza was increased to 1.8mg daily
[2023-11-21] MEDS: sodium polystyrene sulfonate 15 gm/60 mL Btl PO (09:26)
[2023-11-21] MEDS: lactulose oral liq 20 gm/30 mL UDC 10 GM PO (09:26)
[2023-11-21] MEDS: FUROsemide 10 mg/mL SDV 4mL 40 MG IVP ×2 (09:33→18:04)
[2023-11-21] MEDS: calcium gluconate 0.9% NaCL 1 GM/50 ML PREMIX IV (09:34)
[2023-11-21 09:52] LABS: Glucose Point of Care 314 mg/dL (70-110)
[2023-11-21 11:05] LABS: Glucose Point of Care 244 mg/dL (70-110)
--- NOTE | 2023-11-21 12:04 | P.PN_ITS ---
Subjective 2 Subjective: Patient is refusing venous Doppler and echo He has been cursing the staff taking care of him I have asked bench repair technician not to continue with the echo Patient is on a BiPAP This morning he was given calcium gluconate, insulin, lactulose, Kayexalate, Vitals/I&O/Wt Last Vital Signs Temp 98.4 F 11/21/23 07:32 Pulse 64 11/21/23 11:09 Resp 16 11/21/23 10:10 BP 94/44 11/21/23 10:10 Pulse Ox 96 11/21/23 11:09 O2 Del Method BiPAP 11/21/23 07:37 O2 Flow Rate 4 11/21/23 02:39 FiO2 40 11/21/23 11:09 11/20/23 11/21/23 11/21/23 22:59 06:59 14:59 Intake Total 0 / 0 12.234 / 12.234 Output Total 450 / 450 Balance 0 / 0 -437.766 / -437.766 Weight last 48 hrs Weight 105.959 kg Weight 101.605 kg Physical Exam 2 Narrative: Clinically patient is fluid overloaded Farrell catheter drained urine right away Sign of fluid overload present Currently on BiPAP Not willing to participate for echo No active chest pain or shortness of breath No fever hemodynamically stable Abdomen soft Urinary Catheter Management: Farrell: Cath Placed During This Visit: yes Urinary Catheter Date of Insertion: 11/21/23 Urinary Catheter Time of Insertion: 09:13 Data 11/21/23 07:15 11/21/23 07:15 A&P Assessment and plan (1) NSTEMI (non-ST elevated myocardial infarction): (2) Diabetes mellitus with hyperglycemia, without long-term current use of insulin: Qualifiers: Diabetes mellitus type: type 2 Qualified Code(s): E11.65 - Type 2 diabetes mellitus with hyperglycemia (3) Constipation, slow transit: (4) Acute renal failure: (5) 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, CLL: (7) Chronic lymphocytic leukemia not having achieved remission: (8) Malignant neoplasm of overlapping sites of bladder: (9) Sleep apnea: (10) Syncope: (11) Hyperkalemia: (12) Metabolic acidosis: Plan Acute renal failure Concern for post renal obstructive etiology History of bladder cancer with BPH Farrell cath was placed this morning No sign of hydronephrosis on CT abdomen pelvis No need to get renal ultrasound Hyperkalemia: She was given hyperkalemia cocktail Will repeat BMP now Monitor urine output Not sure if patient would opt for hemodialysis if needed if acute renal failure worsens Non-STEMI No active chest pain Recent angiogram was done which showed nonobstructive coronary disease this could be related to worsening of creatinine Sign of fluid overload Patient refused venous Doppler Hypoxic hypercapnic respiratory failure Continue BiPAP for now Metabolic acidosis will give bicarb as well Hyperglycemia start consistent carb insulin diet CODE STATUS needs to be discussed as patient is not using most information which has been offered, Attestations 2 Medical Necessity Statement*: Continue medical management Diagnoses NSTEMI (non-ST elevated myocardial infarction) I21.4 Type 2 diabetes mellitus with hyperglycemia, without long-term current use of insulin E11.65 Diabetes mellitus type: type 2 Constipation, slow transit K59.01 Acute renal failure N17.9 BPH with obstruction/lower urinary tract symptoms N40.1; N13.8 Lymphoplasmacytoid lymphoma, CLL C83.00 Chronic lymphocytic leukemia not having achieved remission C91.10 Malignant neoplasm of overlapping sites of bladder C67.8 Sleep apnea G47.30 Syncope R55 Hyperkalemia E87.5 Metabolic acidosis E87.20
[2023-11-21] MEDS: sodium bicarbonate 650 mg Tablet PO ×3 (12:46→20:22)
[2023-11-21 12:47] LABS: Calcium 8.7 mg/dL (8.5-10.5); Carbon Dioxide 23 mmol/L (22-29); Chloride 97 mmol/L (98-107); Glucose 259 mg/dL (65-115); Osmolality Calculated 317 mOsm/kg (285-295); Sodium 134 mmol/L (136-145)
[2023-11-21 12:55] LABS: Anion Gap 20.1 (5-19); Blood Urea Nitrogen 98 mg/dL (8-23); Potassium 6.1 mmol/L (3.5-5.1)
[2023-11-21 13:08] LABS: ABG PCO2 54.6 mmHg (35-45); ABG PH Result 7.22 (7.35-7.45); Arterial Blood Gas Hematocrit 51.2 % (42-52); Blood Gas Allen Test Pos; Blood Gas Sample Type Arterial; HCO3 ABG 22.6 mmol/L (22-26); PO2 ABG 80.1 mmHg (80.0-100.0)
[2023-11-21 13:09] LABS: Blood Gas Operator Identificat MONRO; Blood Gas Sample Site Radial, right; Oxygen Device NC; PO2 FiO2 Ratio Arterial Blood 0
[2023-11-21 17:23] LABS: Glucose Point of Care 269 mg/dL (70-110)
[2023-11-21] MEDS: heparin 5,000 unit/mL INJ 1 mL 5000 UNIT SUBCUT (18:04)
[2023-11-21] MEDS: tamsulosin 0.4 mg Capsule PO (18:04)
--- NOTE | 2023-11-21 18:22 | PC.NURSE ---
Shift SUmmary: UNeventful shift. Patient has rested in bed throughout the day. Overall, mental status has improved and is usually oriented to person, place, time, and situation, though he still has intermittent periods of confusion where he has removed Bipap, becomes agitated, or pulls off monitoring/pulls out IV. came to bedside near end of shift and endorses improvement in mental status. Farrell catheter in place. 1750mL of urine output.
[2023-11-21 20:15] LABS: Glucose Point of Care 309 mg/dL (70-110)
[2023-11-22] VITALS (53 sets, daily range): BP systolic 93–159; BP diastolic 36–86; PULSE 50–165; RESP 10–27; TEMP 36.2–36.7; O2SAT 87–95; BMI 31.1
[2023-11-22] MEDS: ipratropium-albuterol 3 mL Neb INHALATION ×3 (02:38→14:13)
[2023-11-22 05:02] LABS: Eosinophils % 0.1 %; Hematocrit 45.6 % (37-53); Lymphocytes # 4.2 10^3/uL (0.8-4.8); Lymphocytes % 45.5 %; Mean Corpuscular HGB Conc 32.7 g/dL (30-55); Mean Corpuscular Hemoglobin 32.4 pg (27-33); Mean Corpuscular Volume 99.1 fl (82-101); Mean Platelet Volume 10.4 fL (7.4-10.4); Monocytes # 0.4 10^3/uL (0.2-0.9); Monocytes % 4.6 %; Neutrophils # 4.53 10^3/uL (1.8-7.7); Neutrophils % 49.5 %; Nucleated Red Blood Cells % 0 %; Platelet Count 151 10^3/cmm (157-399); Red Cell Distribution Width 14.6 % (12.1-15.1); White Blood Count 9.15 10^3/uL (3.29-11.43)
[2023-11-22 05:16] LABS: Anion Gap 16.8 (5-19); Carbon Dioxide 26 mmol/L (22-29); Chloride 103 mmol/L (98-107); Glucose 277 mg/dL (65-115); Osmolality Calculated 334 mOsm/kg (285-295); Potassium 5.8 mmol/L (3.5-5.1); Sodium 140 mmol/L (136-145)
[2023-11-22 05:17] LABS: Blood Urea Nitrogen 108 mg/dL (8-23)
[2023-11-22 05:24] LABS: ABG PCO2 55.3 mmHg (35-45); ABG PH Result 7.31 (7.35-7.45); Arterial Blood Gas Hematocrit 47.9 % (42-52); Blood Gas Allen Test Pos; Blood Gas Operator Identificat JB; Blood Gas Sample Site Radial, left; Blood Gas Sample Type Arterial; HCO3 ABG 27.7 mmol/L (22-26); Oxygen Device NC; PO2 ABG 75.7 mmHg (80.0-100.0)
[2023-11-22] MEDS: FUROsemide 10 mg/mL SDV 4mL 40 MG IVP ×2 (06:07→19:21)
[2023-11-22] MEDS: heparin 5,000 unit/mL INJ 1 mL 5000 UNIT SUBCUT ×2 (06:07→19:27)
[2023-11-22] MEDS: budesonide 0.5 mg/2 mL Neb 0.25 MG INHALATION (08:49)
[2023-11-22 09:48] LABS: Glucose Point of Care 284 mg/dL (70-110)
[2023-11-22] MEDS: sodium bicarbonate 650 mg Tablet PO (10:07)
[2023-11-22] MEDS: insulin lispro 100 unit/1 mL SUBCUT ×4 (10:08→21:38)
[2023-11-22] MEDS: tamsulosin 0.4 mg Capsule PO ×2 (10:08→17:27)
--- NOTE | 2023-11-22 10:30 | PC.SOCIAL ---
Pg 2 IMM Explained to pt Pg 2 IMM. No questions voiced. Provided pt a copy. Initialed, dated, & timed a copy & placed in chart.
[2023-11-22 12:45] LABS: Glucose Point of Care 300 mg/dL (70-110)
--- NOTE | 2023-11-22 13:13 | P.PN_ITS ---
Subjective 2 Subjective: Patient this morning is very awake and alert He is not able to recall events from yesterday Request assist more Spoke with his Creatinine improving Will request nephro consultation BNP was not high Echo was not completed because of his aggressive behavior yesterday Vitals/I&O/Wt Last Vital Signs Temp 97.5 F L 11/22/23 12:00 Pulse 64 11/22/23 12:00 Resp 24 H 11/22/23 12:00 BP 139/60 11/22/23 12:00 Pulse Ox 90 11/22/23 12:00 O2 Del Method Nasal Cannula 11/22/23 12:00 O2 Flow Rate 3 11/22/23 12:00 FiO2 40 11/21/23 23:00 11/21/23 11/22/23 11/22/23 22:59 06:59 14:59 Intake Total 123.048 / 1739.110 240 / 1979.110 240 / 240 Output Total 600 / 1750 1775 / 3525 1700 / 1700 Balance -476.952 / -10.890 -1535 / -1545.890 -1460 / -1460 Weight last 48 hrs Weight 103.963 kg Weight 105.959 kg Weight 101.605 kg Physical Exam 2 Narrative: Signs of fluid overload still present GCS 15 Pleasant cough Currently on 3 L Awake and alert Afebrile No signs of meningitis Pleasant and cooperative Farrell catheter in place S1, S2 Abdomen soft Urinary Catheter Management: Farrell: Cath Placed During This Visit: yes Reason for Continuing Indwelling Catheter: Accurate Measurement of Urinary Output in Critically Ill Patients Urinary Catheter Date of Insertion: 11/21/23 Urinary Catheter Time of Insertion: 09:13 Data 11/22/23 04:24 11/22/23 04:24 A&P Assessment and plan (1) Diabetes mellitus with hyperglycemia, without long-term current use of insulin: Qualifiers: Diabetes mellitus type: type 2 Qualified Code(s): E11.65 - Type 2 diabetes mellitus with hyperglycemia (2) Constipation, slow transit: (3) Atherosclerosis of coronary artery: (4) Acute renal failure: (5) Hyperkalemia: (6) Metabolic acidosis: (7) BPH with obstruction/lower urinary tract symptoms: (8) Uremia: (9) Lymphoplasmacytoid lymphoma, CLL: (10) Syncope: Plan Non-STEMI Patient had a stress test with clean coronary angiogram in the past Type II [place]? No active chest pain Echo was not able to be completed because of his aggressive behavior yesterday He is very calm Metabolic encephalopathy related to hypercapnia and uremia: Much improved today Hypoxic hypercapnic respite failure related to fluid overload, improved with BiPAP Hypervolemia with acute renal failure Will request nephro consultation My concern is related to underlying chronic kidney disease Will request urine studies, nephro consultation Avoid nephrotoxic agents Avoid metformin Hyperkalemia: Proved Discontinue bicarb tablets patient's metabolic acidosis improved Hyperglycemia Consistent carb diet insulin sliding scale Patient is very stable today, will transfer out of ICU [facility] we will request respiratory panel add doxycycline Continue Farrell catheter with aggressive diuresis Attestations 2 Medical Necessity Statement*: Continue medical management Diagnoses Type 2 diabetes mellitus with hyperglycemia, without long-term current use of insulin E11.65 Diabetes mellitus type: type 2 Constipation, slow transit K59.01 Atherosclerosis of coronary artery I25.10 Acute renal failure N17.9 Hyperkalemia E87.5 Metabolic acidosis E87.20 BPH with obstruction/lower urinary tract symptoms N40.1; N13.8 Uremia N19 Lymphoplasmacytoid lymphoma, CLL C83.00 Syncope R55
--- NOTE | 2023-11-22 16:53 | P.CONIM_ITS ---
Providers/Reason For Consult 2 Consulting Physician/Specialty*: kommana/nephrology Reason for Consult*: sue Attending Physician: Rossy Ruelas MD Primary Care Provider: MELCHOR Lange History of Present Illness History of Present Illness Florentino Alfaro is a 78 year old male Patient is a 78-year-old male with past medical history of COPD on 4 L oxygen, coronary artery disease, diabetes, history of bladder cancer presented to the emergency department on November 20, 2023 due to syncopal episode, shortness of breath. Patient reports that he had been having intermittent episodes of syncope and follows with cardiology as outpatient. Patient was hypoxic, was placed on BiPAP. Lab data significant for creatinine of 3.8 BUN of 92 and potassium of 5.4 on presentation. Troponin was elevated. Patient was admitted to the hospital due to acute hypoxic respiratory failure and possible non-STEMI. Renal function has improved to 2.5 currently but continues to have hyperkalemia with a potassium of 5.4 today. Patient refused echocardiogram, has been getting IV Lasix with a aggressive diuresis, had been running negative fluid balance in the last couple of days. . Review of Systems 2 Narrative: other ros negative Medications/Allergies Home Medications Medication Instructions Recorded Confirmed Last Taken Type Disposable nebulizer circuit #1 ea 03/02/22 11/21/23 Unknown Rx nebulizers #1 ea 03/02/22 11/21/23 Unknown Rx ascorbate calcium (vitamin C) 500 1,000 mg PO DAILY 04/09/22 11/21/23 02/23/23 10:00 History mg tablet cholecalciferol (vitamin D3) 10 10 mcg PO DAILY 04/09/22 11/21/23 02/23/23 10:00 History mcg (400 unit) capsule vitamin E (dl, acetate) 450 mg 450 mg PO DAILY 02/03/23 11/21/23 02/23/23 10:00 History (1,000 unit) capsule zinc acetate 50 mg (zinc) capsule 50 mg PO DAILY 03/09/23 11/21/23 Unknown History blood sugar diagnostic (OneTouch #50 ea 08/12/23 11/21/23 Unknown Rx Ultra Test strips) levalbuterol HCl 1.25 mg/0.5 mL 1.25 mg (0.5 mL) inhalation Q4H 08/12/23 11/21/23 Unknown Rx solution for nebulization PRN shortness of breath or wheezing #100 vials levalbuterol tartrate 45 2 inh inhalation Q6H PRN shortness 08/12/23 11/21/23 Unknown Rx mcg/actuation aerosol inhaler of breath #15 grams (Xopenex HFA) metformin 500 mg tablet,extended 2,000 mg (4 x 500 mg) PO DAILY 08/12/23 11/21/23 Unknown Rx release 24 hr #360 tabs mupirocin 2 % topical ointment 1 applic topical TID PRN skin 08/12/23 11/21/23 Unknown Rx irritation #22 grams pen needle, diabetic 33 gauge x #100 ea 08/12/23 11/21/23 Unknown Rx tramadol 50 mg tablet 50 mg PO BID PRN pain #60 tabs 08/12/23 11/21/23 Unknown Rx lisinopril 2.5 mg tablet 2.5 mg PO DAILY #90 tabs 11/01/23 11/21/23 Unknown Rx tamsulosin 0.4 mg capsule 0.4 mg PO BID #180 caps 11/01/23 11/21/23 Unknown Rx dapagliflozin propanediol 5 mg 5 mg PO DAILY #30 tabs 11/07/23 11/21/23 Unknown Rx tablet (Farxiga) liraglutide 0.6 mg/0.1 mL (18 mg/3 1.8 mg (0.3 mL) SUBCUT DAILY #18 mL 11/07/23 11/21/23 Unknown Rx mL) subcutaneous pen injector (Victoza 3-Evgeny) albuterol sulfate 90 mcg/actuation 2 puff inhalation QID PRN 11/21/23 11/21/23 Unknown History aerosol inhaler Shortness Of Breath arformoterol 15 mcg/2 mL solution 2 ml inhalation QAM 11/21/23 11/21/23 Unknown History for nebulization (Brovana) budesonide 0.5 mg/2 mL suspension 0.5 mg inhalation QAM 11/21/23 11/21/23 Unknown History for nebulization tizanidine 2 mg tablet 2 mg PO BEDTIME PRN Muscle 11/21/23 11/21/23 Unknown History Spasticity Allergies Allergy/AdvReac Type Severity Reaction Status Date / Time No Known Allergies Allergy Verified 11/21/23 09:02 Current Medications Generic Name Dose Route Start Last Admin Trade Name Freq PRN Reason Stop Dose Admin Albuterol/Ipratropium 3 ml 11/21/23 02:00 11/22/23 14:13 Ipratropium-Albuterol 3 Ml Neb INHALATION 3 ml Q6H.RESP COOPER Administration Budesonide 0.25 mg 11/21/23 08:00 11/22/23 08:49 Budesonide 0.5 Mg/2 Ml Neb INHALATION 0.25 mg BID.RESPIRATORY COOPER Administration Furosemide 40 mg 11/21/23 19:00 11/22/23 06:07 Furosemide 10 Mg/Ml Sdv 4ml IVP 40 mg Q12H COOPER Administration Heparin Sodium (Porcine) 5,000 unit 11/21/23 19:00 11/22/23 06:07 Heparin 5,000 Unit/Ml Inj 1 Ml SUBCUT 5,000 unit Q12H COOPER Administration Insulin Human Lispro 0 unit 11/21/23 18:00 11/22/23 12:14 Insulin Lispro 100 Unit/1 Ml SUBCUT 10 unit WM&BEDTIME COOPER Administration Protocol Pantoprazole Sodium 40 mg 11/20/23 23:14 11/21/23 20:22 Pantoprazole 40 Mg Sdv IVP 40 mg BEDTIME COOPER Administration Tamsulosin HCl 0.4 mg 11/21/23 09:00 11/22/23 10:08 Tamsulosin 0.4 Mg Capsule PO 0.4 mg BID COOPER Administration PFSH Acute 2 PFSH: Medical History Atherosclerosis of coronary artery ANASTASIYA (obstructive sleep apnea) Chronic lymphocytic leukemia Diabetes mellitus with hyperglycemia, without long-term current use of insulin Advanced chronic obstructive pulmonary disease Generalized muscle ache Malignant neoplasm of overlapping sites of bladder BPH with obstruction/lower urinary tract symptoms Dependence on supplemental oxygen Vitamin D insufficiency Surgical History History of local excision of skin lesion H/O transurethral destruction of bladder lesion History of condyloma acuminatum removal surgical December 2014 History of arthroplasty of left shoulder tendon 1970's Hx of vasectomy H/O hernia repair umbilical and bilateral inguinal 1979' History of cholecystectomy Family History Mother , at age 73 Diabetes Lung disease Father , at age 75 Cancer blood Lung disease Social History Smoking and tobacco/nicotine status: former use of tobacco/nicotine Quit status (tobacco/nicotine): has quit using Year quit tobacco: 2002 Former quit date comment: smoked 47 years Second hand smoke exposure: No Alcohol intake: current Alcohol intake frequency: holidays/special occasions only Substance/Drug Use: never Adopted: No Caregiver/support person: No Lives independently: Yes Household members: spouse Housing: House Marital status: Number of children: 5 Number of grandchildren: 7 service: Yes branch: [employer] Current occupational status: disabled Pets and animals: Yes Pets & animals: cat(s) and dog(s) Do you think of yourself as: Straight/Heterosexual Current gender identity: Male Special luis needs: No Vitals/I&O/Wt Last Vital Signs Temp 97.5 F L 11/22/23 12:00 Pulse 56 L 11/22/23 14:21 Resp 18 11/22/23 14:21 BP 122/62 11/22/23 14:00 Pulse Ox 91 11/22/23 14:21 O2 Del Method Nasal Cannula 11/22/23 14:21 O2 Flow Rate 3 11/22/23 14:21 FiO2 40 11/21/23 23:00 11/22/23 11/22/23 11/22/23 06:59 14:59 22:59 Intake Total 240 / 1979.110 240 / 240 Output Total 1775 / 3525 1700 / 1700 Balance -1535 / -1545.890 -1460 / -1460 Weight last 48 hrs Weight 103.963 kg Weight 105.959 kg Physical Exam 2 Narrative: awake , no distress Urinary Catheter Management: Farrell: Cath Placed During This Visit: yes Reason for Continuing Indwelling Catheter: Accurate Measurement of Urinary Output in Critically Ill Patients Urinary Catheter Date of Insertion: 11/21/23 Urinary Catheter Time of Insertion: 09:13 Data 11/22/23 04:24 11/22/23 04:24 A&P Assessment and plan (1) Acute renal failure: (2) Hyperkalemia: Plan 1. Acute kidney injury: Baseline creatinine of 1.0 prior to admission on November 04. Now has SUE with a creatinine of 3.8 on presentation likely , question cardiorenal. -Patient had aggressive diuresis and had been running negative fluid balance, will hold Lasix for now, check echocardiogram, will give gentle hydration with normal saline at 60 cc/h, check urine electrolytes no obstruction seen on CT. 2. Hyperkalemia: Mild, will give a dose of Lokelma, should be on low K diet 3. Acute on chronic respiratory failure 4. Question NSTEMI 5. History of COPD Patient evaluated using audiovisual cart. Time spent 40 minutes Consult Attestations 2 Medical Necessity Statement: per medicine Coding Level of Care Code Acute Code for [facility] Fwd Diagnoses Acute renal failure N17.9 Hyperkalemia E87.5
[2023-11-22 17:23] LABS: Glucose Point of Care 171 mg/dL (70-110)
[2023-11-22] MEDS: sodium polystyrene sulfonate 15 gm/60 mL Btl 30 GM PO (17:26)
[2023-11-22] MEDS: doxycycline 100 mg Tablet PO (17:27)
[2023-11-22 17:39] LABS: Urine Random Sodium 60 mmol/L
[2023-11-22 17:44] LABS: Creatinine Urine, Random 56 mg/dL (39-259); Microalbum Creatinine Ratio Ur 36 mg/dL (0-20); Microalbumin Random Urine 2 ug/dL (0-20)
[2023-11-22 19:08] LABS: Adenovirus Not Detected (NOT DETECT); Chlamydia Pneumoniae Not Detected (NOT DETECT); Coronavirus 229E,HKU1,NL63,OC4 Not Detected (NOT DETECT); Human Metapneumovirus Not Detected (NOT DETECT); Human Rhinovirus/Enterovirus Not Detected (NOT DETECT); Influenza A Not Detected (NOT DETECT); Influenza A H1 Not Detected (NOT DETECT); Influenza A H1-2009 Not Detected (NOT DETECT); Influenza A H3 Not Detected (NOT DETECT); Influenza B Not Detected (NOT DETECT); Mycoplasma Pneumoniae Not Detected (NOT DETECT); Parainfluenza Virus Type 1 Not Detected (NOT DETECT); Parainfluenza Virus Type 2 Not Detected (NOT DETECT); Parainfluenza Virus Type 3 Not Detected (NOT DETECT); Parainfluenza Virus Type 4 Not Detected (NOT DETECT); Respiratory Syncytial Virus A Not Detected (NOT DETECT); Respiratory Syncytial Virus B Not Detected (NOT DETECT); SARS-COV-2 Not Detected (NOT DETECT)
[2023-11-22] MEDS: sodium chloride 0.9% 1,000 ML 60 ML IV (19:23)
[2023-11-22] MEDS: acetaminophen 325 mg Tablet 650 MG PO (19:46)
--- NOTE | 2023-11-22 20:53 | PC.NURSE ---
Spoke with regarding patient complaints of back pain, not relieved with PRN tylenol. ordered Morphine 1mg IVP q 4 PRN.
[2023-11-22] MEDS: morphine 4 mg/mL SDV 1 mL 1 MG IVP (21:14)
[2023-11-22 22:33] LABS: Glucose Point of Care 195 mg/dL (70-110)
[2023-11-23] VITALS (27 sets, daily range): BP systolic 110–120; BP diastolic 51–62; PULSE 53–72; RESP 13–23; TEMP 36.2–36.6; O2SAT 88–95
--- NOTE | 2023-11-23 00:08 | PC.NURSE ---
Spoke with regarding patient complaints of nasal stuffiness possibly related to supplemental o2. ordered prn saline nasal spray.
[2023-11-23] MEDS: saline nasal spray 44mL Btl 1 SPRAY NASAL (00:57)
[2023-11-23] MEDS: morphine 4 mg/mL SDV 1 mL 1 MG IVP ×5 (01:04→21:25)
[2023-11-23] MEDS: ipratropium-albuterol 3 mL Neb INHALATION ×4 (02:30→19:38)
[2023-11-23 03:54] LABS: Basophils % 0.2 %; Eosinophils # 0.1 10^3/uL (0.0-0.8); Eosinophils % 0.5 %; Hematocrit 50.3 % (37-53); Lymphocytes # 5.3 10^3/uL (0.8-4.8); Mean Corpuscular HGB Conc 32.2 g/dL (30-55); Mean Corpuscular Hemoglobin 32.4 pg (27-33); Mean Corpuscular Volume 100.6 fl (82-101); Mean Platelet Volume 10.7 fL (7.4-10.4); Monocytes # 0.3 10^3/uL (0.2-0.9); Monocytes % 3.5 %; Neutrophils % 39.4 %; Nucleated Red Blood Cells % 0 %; Platelet Count 137 10^3/cmm (157-399); Red Cell Distribution Width 14.8 % (12.1-15.1)
[2023-11-23 04:12] LABS: Anion Gap 12.6 (5-19); Calcium 8.4 mg/dL (8.5-10.5); Carbon Dioxide 33 mmol/L (22-29); Chloride 102 mmol/L (98-107); Glucose 169 mg/dL (65-115); Osmolality Calculated 326 mOsm/kg (285-295); Potassium 4.6 mmol/L (3.5-5.1); Sodium 143 mmol/L (136-145)
[2023-11-23 04:18] LABS: Blood Urea Nitrogen 87 mg/dL (8-23)
[2023-11-23] MEDS: heparin 5,000 unit/mL INJ 1 mL 5000 UNIT SUBCUT ×2 (06:07→18:18)
--- NOTE | 2023-11-23 06:09 | XR_ITS ---
WS: [id number] XR chest 1V portable [id number] REASON FOR EXAM: sob FINDINGS: The chest is unchanged compared to 11/20/2023. Cardiac silhouette is somewhat prominent. Calcified granulomas disease in both hemithoraces. No active pulmonary parenchymal or pleural disease. IMPRESSION: Stable chest with no acute abnormality.
[2023-11-23 06:29] LABS: Glucose Point of Care 187 mg/dL (70-110)
--- NOTE | 2023-11-23 07:36 | SUR.PREOP ---
STRESS CANCEL NOTE Informed by nuclear medicine that MD wishes to cancel stress today. Noted. Orders cancelled.
[2023-11-23] MEDS: insulin lispro 100 unit/1 mL SUBCUT ×4 (08:37→21:56)
[2023-11-23] MEDS: tamsulosin 0.4 mg Capsule PO ×2 (08:38→18:14)
[2023-11-23] MEDS: doxycycline 100 mg Tablet PO ×2 (08:38→18:14)
[2023-11-23] MEDS: budesonide 0.5 mg/2 mL Neb 0.25 MG INHALATION ×2 (08:54→19:38)
--- NOTE | 2023-11-23 08:59 | P.PN_ITS ---
Subjective 2 Subjective: Negative fluid retention Signs of contraction alkalosis Creatinine improving Patient clinically doing much better Creatinine 1.3 Potassium 4.6 Vitals/I&O/Wt Last Vital Signs Temp 97.9 F 11/23/23 04:00 Pulse 62 11/23/23 08:55 Resp 16 11/23/23 08:55 BP 115/55 11/23/23 04:00 Pulse Ox 91 11/23/23 08:55 O2 Del Method Nasal Cannula 11/23/23 08:55 O2 Flow Rate 4 11/23/23 08:55 FiO2 40 11/21/23 23:00 11/22/23 11/23/23 11/23/23 22:59 06:59 14:59 Intake Total 240 / 480 480 / 480 Output Total 3350 / 5050 1650 / 6700 Balance -3110 / -4570 -1650 / -6220 480 / 480 Weight last 48 hrs Weight 102.648 kg Weight 103.963 kg Physical Exam 2 Narrative: Awake and alert Signs of fluid load of lower extremities GCS 15 Pleasant cooperative Currently on 3 L Pleasant cooperative Patient endorsing feeling better Lower extremity swelling Abdomen soft Urinary Catheter Management: Farrell: Cath Placed During This Visit: yes Reason for Continuing Indwelling Catheter: Acute Urinary Retention or Obstruction Urinary Catheter Date of Insertion: 11/21/23 Urinary Catheter Time of Insertion: 09:13 Data 11/23/23 03:15 11/23/23 03:15 A&P Assessment and plan (1) NSTEMI (non-ST elevated myocardial infarction): (2) Diabetes mellitus with hyperglycemia, without long-term current use of insulin: Qualifiers: Diabetes mellitus type: type 2 Qualified Code(s): E11.65 - Type 2 diabetes mellitus with hyperglycemia (3) Constipation, slow transit: (4) Acute renal failure: (5) Hyperkalemia: (6) Metabolic acidosis: (7) 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 Normal angiogram recently We wanted MUGA scan to learn about his EF with recently, troponin Hyperkalemia acute renal failure metabolic acidosis improving We held diuresis yesterday and gave fluids SUE: Creatinine improving significantly Patient nephro recommendations COPD exacerbation: Acute hypoxia Currently requiring 4 L Off BiPAP Hypercapnia improved Most likely patient will be able to go home in next 24 to 48 hours Will request PT evaluation Continue doxycycline therapy Full code Consistent carb cardiac diet DVT prophylaxis on board Constipation: Relieved Attestations 2 Medical Necessity Statement*: Likely discharge tomorrow Diagnoses NSTEMI (non-ST elevated myocardial infarction) I21.4 Type 2 diabetes mellitus with hyperglycemia, without long-term current use of insulin E11.65 Diabetes mellitus type: type 2 Constipation, slow transit K59.01 Acute renal failure N17.9 Hyperkalemia E87.5 Metabolic acidosis E87.20 BPH with obstruction/lower urinary tract symptoms N40.1; N13.8 Lymphoplasmacytoid lymphoma, CLL C83.00 Malignant neoplasm of overlapping sites of bladder C67.8 Generalized muscle ache M79.10 Acute hypoxic respiratory failure J96.01 Advanced chronic obstructive pulmonary disease J44.9 Syncope R55
--- NOTE | 2023-11-23 10:30 | NMCV_ITS ---
NM card bld pool r or s*[id number] Dominic Florentino Age: 78 Gender: M : 1945 Exam Date: 11/23/2023 18:16 Ordering Phys: Rossy Ruelas MD Technologist: REYNA Adler Exam Location: [facility] Indications: NSTEMI, NORMAL ANGIOGRAM 02-24-23 Camera Used: [employer] Imaging Protocol: three view gated blood pool study Technical Image Quality: Good Dose: Admin Site: Administered By: [id number] Tagged RBCs: 27.5 IV - Right REYNA Adler Antecubital PYP: EJECTION FRACTION: Automatic LV EF: 63 Rest RV EF: Manual LV EF: FINDINGS LV ejection fraction estimated to be 63% LV wall motion analysis revealing no gross wall motion abnormalities CONCLUSIONS Estimated LV ejection fraction 63% Segmental wall motion analysis revealing no gross wall motion abnormalities Dr Pilar Harris MD FACC (Electronically Signed) Final Date: 23 November 2023 12:45 S
[2023-11-23 11:54] LABS: Glucose Point of Care 225 mg/dL (70-110)
[2023-11-23 16:58] LABS: Glucose Point of Care 197 mg/dL (70-110)
--- NOTE | 2023-11-23 17:06 | P.PN_ITS ---
Subjective 2 Subjective: feels better stopped IVFs Medications: Reviewed: Yes Vitals/I&O/Wt Last Vital Signs Temp 97.6 F 11/23/23 16:10 Pulse 61 11/23/23 16:10 Resp 18 11/23/23 16:10 BP 118/51 11/23/23 16:10 Pulse Ox 91 11/23/23 16:10 O2 Del Method Nasal Cannula 11/23/23 16:10 O2 Flow Rate 4 11/23/23 14:30 FiO2 40 11/21/23 23:00 11/23/23 11/23/23 11/23/23 06:59 14:59 22:59 Intake Total 1440 / 1440 Output Total 1650 / 6700 500 / 500 Balance -1650 / -6220 1440 / 1440 -500 / 940 Weight last 48 hrs Weight 102.648 kg Weight 103.963 kg Physical Exam 2 Narrative: awake , no distress Urinary Catheter Management: Farrell: Cath Placed During This Visit: yes Reason for Continuing Indwelling Catheter: Acute Urinary Retention or Obstruction Urinary Catheter Date of Insertion: 11/21/23 Urinary Catheter Time of Insertion: 09:13 Data 11/23/23 03:15 11/23/23 03:15 A&P Assessment and plan (1) Acute renal failure: (2) Hyperkalemia: Plan 1. Acute kidney injury: Baseline creatinine of 1.0 prior to admission on November 04. Now has SUE with a creatinine of 3.8 on presentation likely , question cardiorenal. -Patient had aggressive diuresis and had been running negative fluid balance, will hold Lasix for now, check echocardiogram, - s/p IVFs , Cr improved 2. Hyperkalemia: improved , s/p Lokelma, should be on low K diet 3. Acute on chronic respiratory failure 4. Question NSTEMI 5. History of COPD Patient evaluated using audiovisual cart. Time spent 20 minutes Attestations 2 Medical Necessity Statement*: per roney Coding Level of Care Code Acute Code for Chg Fwd Diagnoses Acute renal failure N17.9 Hyperkalemia E87.5
[2023-11-23 22:47] LABS: Glucose Point of Care 202 mg/dL (70-110)
[2023-11-24] VITALS (26 sets, daily range): BP systolic 118–129; BP diastolic 51–70; PULSE 54–80; RESP 15–25; TEMP 36.5; O2SAT 87–94; BMI 29.2
[2023-11-24] MEDS: morphine 4 mg/mL SDV 1 mL 1 MG IVP ×2 (03:51→10:26)
[2023-11-24 04:15] LABS: Basophils % 0.2 %; Eosinophils # 0.1 10^3/uL (0.0-0.8); Eosinophils % 0.6 %; Lymphocytes # 5.2 10^3/uL (0.8-4.8); Lymphocytes % 53.1 %; Mean Corpuscular Hemoglobin 32.6 pg (27-33); Mean Platelet Volume 10.2 fL (7.4-10.4); Monocytes # 0.4 10^3/uL (0.2-0.9); Monocytes % 4.1 %; Neutrophils # 4.09 10^3/uL (1.8-7.7); Neutrophils % 41.7 %; Nucleated Red Blood Cells % 0 %; Platelet Count 128 10^3/cmm (157-399); Red Cell Distribution Width 14.6 % (12.1-15.1); White Blood Count 9.81 10^3/uL (3.29-11.43)
[2023-11-24 04:40] LABS: Blood Urea Nitrogen 56 mg/dL (8-23); Calcium 9.2 mg/dL (8.5-10.5); Carbon Dioxide 34 mmol/L (22-29); Chloride 100 mmol/L (98-107); Glucose 218 mg/dL (65-115); Osmolality Calculated 314 mOsm/kg (285-295); Sodium 141 mmol/L (136-145)
[2023-11-24] MEDS: heparin 5,000 unit/mL INJ 1 mL 5000 UNIT SUBCUT (05:58)
[2023-11-24 08:16] LABS: Glucose Point of Care 193 mg/dL (70-110)
[2023-11-24] MEDS: TRAMadol 50 mg Tablet PO ×2 (08:23→13:56)
[2023-11-24] MEDS: insulin lispro 100 unit/1 mL SUBCUT (08:24)
[2023-11-24] MEDS: doxycycline 100 mg Tablet PO (08:24)
[2023-11-24] MEDS: tamsulosin 0.4 mg Capsule PO (08:24)
[2023-11-24] MEDS: lidocaine 5% Patch 1 PATCH TOPICAL (08:25)
[2023-11-24] MEDS: budesonide 0.5 mg/2 mL Neb 0.25 MG INHALATION (09:02)
[2023-11-24] MEDS: ipratropium-albuterol 3 mL Neb INHALATION ×2 (09:03→14:12)
--- NOTE | 2023-11-24 10:36 | PM.DCS ---
Discharge Providers Date of Admission: 11/20/23 23:14 Date of Discharge: November 24, 2023 Attending Provider at Admission: Josh Parry MD Attending Provider at Discharge: Rossy Ruelas MD Primary Care Provider: MELCHOR Lange Diagnoses at Discharge Discharge Diagnosis (1) Acute renal failure: Status: Acute (2) Hyperkalemia: Status: Acute Reason for Visit Reason for Visit: fall, back pain,confusion Hospital Course Hospital Course 78-year male who carries history of diastolic CHF, last year he was evaluated by cardiology for recurrent syncopal events, 4-second pause was identified however there was a 6 months When patient never experienced any syncopal event, he presented to the hospital with another episode of syncope, he was diagnosed with acute renal failure, hyperkalemia, uremia, acute hypoxic hypercarbic respiratory failure. He was admitted to ICU is mentation improved significantly with use of BiPAP for about 12 to 48 hours, hypercapnic episode improved, patient has history of sleep apnea he does not use CPAP regularly, he does get bradycardic during his sleep. He never extremity syncopal event during hospitalization. EKG and telemetry consistent with first-degree AV block with sinus rhythm. Patient had high troponin, I requested MUGA scan which showed preserved action fraction, coronary angiogram was done last year which was unremarkable Mentation significant improved after use of BiPAP patient never required BiPAP after initial 48 hours I do believe untreated sleep apnea is the cause of worsening of hypoxic syncope and bradycardia He did get extensive workup for his spine because he was complaining of shoulder blade pain, no active fracture it is consistent with osteoarthritis, he may need outpatient evaluation by Dr. Hernandez I will discharge him on low-dose tramadol and as needed use of anti-inflammatory Acute renal failure improved when we placed Farrell catheter, adequate urine output was noted likely was postrenal obstruction, patient has history of urinary bladder cancer and BPH Creatinine has improved to normal at the time of discharge Patient is requiring 2 to 3 L of oxygen which she uses at baseline, Nose blood and sputum cultures are negative Nephro was consulted for his lower extremity swelling and worsening of creatinine, initially creatinine improved with diuresis and Farrell catheter placement, nephro recommended IV fluids for about 24 hours because patient was in negative fluid balance, This case was discussed with Dr. Dewey, he recommended discharging him on event monitor to see if he would require a pacemaker however he does not have an indication as of now Physical Exam Narrative: GCS 15 Currently on 3 L Hemodynamic stable Pleasant cooperative Reproducible pain paraspinal region and between shoulder blades Abdomen soft Pleasant cooperative S1, S2 sinus rhythm heart rate around 70s Urinary Catheter Management: Farrell: Cath Placed During This Visit: yes Reason for Continuing Indwelling Catheter: Accurate Measurement of Urinary Output in Critically Ill Patients Urinary Catheter Date of Insertion: 11/21/23 Urinary Catheter Time of Insertion: 09:13 Discharge Data Studies Completed and Pending Completed Studies During Hospitalization Category Date Time Status CT cervical spin wo con* [id number] Stat Cat Scan 11/20/23 16:[address] chest abdomen pelvis [[place] [id number] Cat Scan 11/20/23 21:38 Completed ] Routine CT head wo con* [id number] Stat Cat Scan 11/20/23 16:[address] thoracic spin wo con* [id number] Stat Cat Scan 11/20/23 16:37 Completed CXRP [XR chest 1V portable [id number]] Routine Exams 11/23/23 06:09 Completed XR chest 1V portable [id number] Stat Exams 11/20/23 19:30 Completed NM card bld pool r or s*[id number] Routine Nuc Med 11/23/23 10:30 Completed CV. echo complete* [id number] Routine Ultrasound 11/21/23 06:00 Completed Pending at discharge Category Date Time Status Sestamibi Stress Test Request Routine Exams 11/22/23 12:58 Stop Req Blood Cultures ([facility]) Routine Lab 11/20/23 20:00 Received Blood Cultures ([facility]) Routine Lab 11/20/23 20:10 Received Radiology Impressions Cervical Spine CT 11/20/23 16:37 IMPRESSION: I see no acute abnormality. Head CT 11/20/23 16:37 IMPRESSION: No acute intracranial abnormality. Thoracic Spine CT 11/20/23 16:37 IMPRESSION: I see no acute abnormality. Chest/Abdomen/Pelvis CT 11/20/23 21:38 IMPRESSION: 1. There are no acute chest findings. 2. Stranding patchy opacity seen right lung base posteriorly likely represents atelectasis although right basilar pneumonia can not excluded. 3. There are small mediastinal nodes seen below CT criteria for lymphadenopathy. However, this could represent mild nodes. IMPRESSION: 1. Multiple prominent retroperitoneal lymph are seen within pelvis, finding that correlates with patient's clinical history of lymphoma. 2. Fatty infiltration liver 3. Mild diverticulosis of the sigmoid colon Laboratory Results WBC 9.81 10^3/uL (3.29-11.43) 11/24/23 03:48 RBC 5.00 10^6/uL (3.85-5.65) 11/24/23 03:48 Hgb 16.30 g/dL (11.27-16.99) 11/24/23 03:48 Hct 51.0 % (37-53) 11/24/23 03:48 MCV 102.0 fl (82-101) H 11/24/23 03:48 MCH 32.6 pg (27-33) 11/24/23 03:48 MCHC 32.0 g/dL (30-55) 11/24/23 03:48 RDW 14.6 % (12.1-15.1) 11/24/23 03:48 Plt Count 128 10^3/cmm (157-399) L 11/24/23 03:48 MPV 10.2 fL (7.4-10.4) 11/24/23 03:48 Neut % (Auto) 41.7 % 11/24/23 03:48 Lymph % (Auto) 53.1 % 11/24/23 03:48 [place] % (Auto) 4.1 % 11/24/23 03:48 Eos % (Auto) 0.6 % 11/24/23 03:48 Baso % (Auto) 0.2 % 11/24/23 03:48 Neut # (Auto) 4.09 10^3/uL (1.8-7.7) 11/24/23 03:48 Lymph # (Auto) 5.2 10^3/uL (0.8-4.8) H 11/24/23 03:48 [place] # (Auto) 0.4 10^3/uL (0.2-0.9) 11/24/23 03:48 Eos # (Auto) 0.1 10^3/uL (0.0-0.8) 11/24/23 03:48 Baso # (Auto) 0.0 10^3/uL (0.0-0.1) 11/24/23 03:48 Nucleated RBC % (auto) 0 % 11/24/23 03:48 Nucleated RBCs # 0.0 /100WBC 11/24/23 03:48 APTT 56.6 SECONDS (23.9-36.7) H 11/21/23 07:15 D-Dimer 1.14 ug/mLFEU (0-0.59) H 11/20/23 20:05 Specimen Type Arterial 11/22/23 05:10 Sample Site Radial, left 11/22/23 05:10 ABG pH 7.31 (7.35-7.45) L 11/22/23 05:10 ABG pCO2 55.3 mmHg (35-45) H 11/22/23 05:10 ABG pO2 75.7 mmHg (80.0-100.0) L 11/22/23 05:10 ABG PO2/FiO2 Ratio 0 11/21/23 12:57 ABG HCO3 27.7 mmol/L (22-26) H 11/22/23 05:10 ABG O2 Saturation 98.3 11/21/23 07:49 ABG Base Excess 0.0 mmol/L (-2.0-2.0) 11/22/23 05:10 [place] Test Pos 11/22/23 05:10 VBG pH 7.16 (7.32-7.42) L* 11/20/23 16:38 VBG pCO2 82.2 mmHg (41-51) H* 11/20/23 16:38 VBG pO2 28.3 mmHg (25-40) 11/20/23 16:38 VBG HCO3 29.6 mmol/L (24-28) H 11/20/23 16:38 VBG Base Excess -2.2 mmol/L (-3.0-3.0) 11/20/23 16:38 VBG Hematocrit 53.6 % (42-52) H 11/20/23 16:38 A-a O2 Gradient 16.6 mmHg (5-10) H 11/21/23 07:49 Hematocrit 47.9 % (42-52) 11/22/23 05:10 Hgb O2 Saturation 96.0 % (95-100) 11/21/23 07:49 Carboxyhemoglobin 2.0 %THgb (0.4-20.1) 11/21/23 07:49 Methemoglobin 0.4 % (0.4-1.5) 11/21/23 07:49 Total Hemoglobin 17.0 g/dL (14-18) 11/21/23 07:49 Sodium 136.0 mmol/L (131-143) 11/21/23 07:49 Potassium 7.0 mmol/L (3.5-5.0) H 11/21/23 07:49 Glucose 293.0 mg/dL (70-115) H 11/21/23 07:49 Ionized Calcium 1.1 mmol/L (1.1-1.4) 11/21/23 07:49 O2 Delivery Device Nc 11/22/23 05:10 O2 Liters/Min 2.0 % 11/22/23 05:10 FiO2 32.0 % 11/21/23 12:57 Battery Inspector ID Jorge 11/22/23 05:10 Sodium 141 mmol/L (136-145) 11/24/23 03:48 Potassium 5.0 mmol/L (3.5-5.1) 11/24/23 03:48 Chloride 100 mmol/L (98-107) 11/24/23 03:48 Carbon Dioxide 34 mmol/L (22-29) H 11/24/23 03:48 Anion Gap 12.0 (5-19) 11/24/23 03:48 BUN 56 mg/dL (8-23) H 11/24/23 03:48 Creatinine 0.9 mg/dL (0.7-1.2) 11/24/23 03:48 GFR Calculation Not Reportable 11/24/23 03:48 Glucose 218 mg/dL (65-115) H 11/24/23 03:48 POC Glucose 193 mg/dL (70-110) H 11/24/23 08:14 Estimat Average Glucose 194 11/20/23 20:22 Hemoglobin A1c 8.4 % (4.0-6.0) H 11/20/23 20:22 Calculated Osmolality 314 mOsm/kg (285-295) H 11/24/23 03:48 Lactic Acid 0.8 mmol/L (0.5-2.2) 11/20/23 20:22 Calcium 9.2 mg/dL (8.5-10.5) 11/24/23 03:48 Phosphorus 6.7 mg/dL (2.5-4.5) H 11/21/23 07:15 Magnesium 2.4 mg/dL (1.7-2.3) H 11/21/23 07:15 Iron 34 ug/dL (59-158) L 11/20/23 17:16 Ferritin 45 ng/mL (30-400) 11/20/23 17:16 Total Bilirubin 0.3 mg/dL (0.15-1.2) 11/21/23 07:15 AST 15 U/L (0-40) 11/21/23 07:15 ALT 12 U/L (0-41) 11/21/23 07:15 Alkaline Phosphatase 62 U/L (40-130) 11/21/23 07:15 Creatine Kinase 280 U/L (39-308) 11/20/23 20:22 Troponin T Baseline 84 ng/L (0-15) H 11/20/23 17:16 Troponin T 120 Minute 90.89 ng/L (0-15) H 11/20/23 20:00 Delta Troponin T 6.89 ABS# (0-10) 11/20/23 20:00 Troponin T Hi Sens 6Hr 30.11 ng/L (0-15) H 11/21/23 01:34 Troponin T Hi Sens 6Hr Delta -53.89 ng/L (0-12) L 11/21/23 01:34 C-Reactive Protein 53.1 mg/L (0.0-4.9) H 11/20/23 17:16 NT-Pro-B Natriuret Pep 179 pg/mL (0-450) 11/20/23 17:16 Total Protein 6.4 g/dL (6.6-8.7) L 11/21/23 07:15 Albumin 3.4 g/dL (3.5-5.2) L 11/21/23 07:15 Globulin 3.0 g/dL (1.3-4.6) 11/21/23 07:15 Triglycerides 118 mg/dL (0-150) 11/20/23 20: Cholesterol 162 mg/dL (0-200) 11/20/23 20:22 LDL Cholesterol, Calc 102 mg/dL (50-129) 11/20/23 20:22 HDL Cholesterol 36 mg/dL (60-100) L 11/20/23 20:22 LDL/HDL Ratio 2.83 RATIO (0.00-3.22) 11/20/23 20: Cholesterol/HDL Ratio 4.50 mg/dL (1.0-5.00) 11/20/23 20:22 Procalcitonin 0.26 ng/mL (0-0.5) 11/20/23 17:16 TSH 3.16 uIU/mL (0.27-4.20) 11/20/23 20:22 Urine Color Straw (Yellow) 11/20/23 16:50 Urine Appearance Clear (CLEAR) 11/20/23 16:50 Urine pH 5 (5-7) 11/20/23 16:50 Ur Specific [place] 1.015 (1.005-1.030) 11/20/23 16:50 Urine Protein Trace (Negative) 11/20/23 16:50 Urine Glucose (UA) 2+ (Normal) H 11/20/23 16:50 Urine Ketones Negative (Negative) 11/20/23 16:50 Urine Blood Trace (Negative) H 11/20/23 16:50 Urine Nitrate Negative (Negative) 11/20/23 16:50 Urine Bilirubin Neg (Negative) 11/20/23 16:50 Urine Urobilinogen Norm mg/dL (Negative) 11/20/23 16:50 Ur Leukocyte Esterase Negative (Negative) 11/20/23 16:50 Urine RBC Rare /hpf (0-2) 11/20/23 16:50 Urine WBC 10-15 /hpf (0-5) H 11/20/23 16:50 Ur Squamous Epith Cells None /hpf (0-5) 11/20/23 16:50 Amorphous Sediment Not Reportable 11/20/23 16:50 Urine Bacteria Trace /hpf (NONE) 11/20/23 16:50 Ur Random Microalbumin 2 ug/dL (0-20) 11/22/23 13:10 Ur Random Sodium 60 mmol/L 11/22/23 13:10 Urine Creatinine 56 mg/dL (39-259) 11/22/23 13:10 Microalb/Creat Ratio 36 mg/dL (0-20) H 11/22/23 13:10 Adenovirus (PCR) Not detected (NOT DETECT) 11/22/23 13:10 C. pneumoniae DNA (PCR) Not detected (NOT DETECT) 11/22/23 13:10 Coronavirus 229E (PCR) Not detected (NOT DETECT) 11/22/23 13:10 Human Metapneumovir PCR Not detected (NOT DETECT) 11/22/23 13:10 Influenza A (H1) PCR Not detected (NOT DETECT) 11/22/23 13:10 Influ A (H1/09) PCR Not detected (NOT DETECT) 11/22/23 13:10 Influenza A (H3) PCR Not detected (NOT DETECT) 11/22/23 13:10 Influenza Type A (PCR) Not detected (NOT DETECT) 11/22/23 13:10 Influenza Type B (PCR) Not detected (NOT DETECT) 11/22/23 13:10 M. pneumoniae (PCR) Not detected (NOT DETECT) 11/22/23 13:10 Parainfluenza 1 (PCR) Not detected (NOT DETECT) 11/22/23 13:10 Parainfluenza 2 (PCR) Not detected (NOT DETECT) 11/22/23 13:10 Parainfluenza 3 (PCR) Not detected (NOT DETECT) 11/22/23 13:10 Parainfluenza 4 (PCR) Not detected (NOT DETECT) 11/22/23 13:10 RSV Type A (PCR) Not detected (NOT DETECT) 11/22/23 13:10 RSV Type B (PCR) Not detected (NOT DETECT) 11/22/23 13:10 Entero/Rhino (PCR) Not detected (NOT DETECT) 11/22/23 13:10 SARS-CoV-2 (PCR) Not detected (NOT DETECT) 11/22/23 13:10 Vitals Last Vital Signs Temp 97.7 F 11/24/23 06:13 Pulse 61 11/24/23 09:13 Resp 22 H 11/24/23 10:26 BP 125/62 11/24/23 06:13 Pulse Ox 93 11/24/23 10:26 O2 Del Method Nasal Cannula 11/24/23 08:56 O2 Flow Rate 4 11/24/23 08:56 FiO2 40 11/21/23 23:00 Discharge Plan Discharge Patient Disposition: Home Condition: Stable Prescriptions: New tramadol 50 mg tablet 50 mg PO BID PRN (Reason: pain) Qty: 20 0RF doxycycline monohydrate 100 mg Tablet 100 mg PO BID Qty: 6 0RF Continued ascorbate calcium (vitamin C) 500 mg tablet 1,000 mg PO DAILY cholecalciferol (vitamin D3) 10 mcg (400 unit) capsule 10 mcg PO DAILY vitamin E (dl, acetate) 450 mg (1,000 unit) capsule 450 mg PO DAILY zinc acetate 50 mg (zinc) capsule 50 mg PO DAILY (DME) OneTouch Ultra Test Strip See Rx Instructions .Route Qty: 50 5RF Rx Instructions: use one strip daily levalbuterol HCl 1.25 mg/0.5 mL solution for nebulization 1.25 mg INHALATION Q4H PRN (Reason: shortness of breath or wheezing) Qty: 100 2RF levalbuterol tartrate [Xopenex HFA] 45 mcg/actuation HFA aerosol inhaler 2 inh inhalation Q6H PRN (Reason: shortness of breath) Qty: 15 2RF (DME) pen needle, diabetic 33 gauge x 5/32 needle See Rx Instructions .ROUTE .MEDSUPPLY Qty: 100 5RF Rx Instructions: 1 times day mupirocin 2 % ointment 1 applic TOPICAL TID PRN (Reason: skin irritation) Qty: 22 2RF Farxiga 5 mg tablet 5 mg PO DAILY Qty: 30 5RF Victoza 3-Evgeny 0.6 mg/0.1 mL (18 mg/3 mL) pen injector 1.8 mg SUBCUT DAILY Qty: 18 5RF (DME) Disposable nebulizer circuit See Rx Instructions .Route .MEDSUPPLY Qty: 1 0RF Rx Instructions: As directed (DME) nebulizers Mis See Rx Instructions .ROUTE .MEDSUPPLY Qty: 1 0RF Rx Instructions: As directed lisinopril 2.5 mg tablet 2.5 mg PO DAILY Qty: 90 0RF tamsulosin 0.4 mg capsule 0.4 mg PO BID Qty: 180 0RF tizanidine 2 mg Tablet 2 mg PO BEDTIME PRN (Reason: Muscle Spasticity) tramadol 50 mg tablet 50 mg PO BID PRN (Reason: pain) Qty: 20 0RF budesonide 0.5 mg/2 mL suspension for nebulization 0.5 mg inhalation QAM Qty: 60 3RF Rx Instructions: mixes with brovana albuterol sulfate 90 mcg/actuation HFA aerosol inhaler 2 puff INHALATION QID PRN (Reason: Shortness Of Breath) Qty: 6.7 4RF arformoterol 15 mcg/2 mL solution for nebulization 2 ml INHALATION QAM Qty: 60 4RF Held metformin 500 mg tablet extended release 24 hr 2,000 mg PO DAILY Qty: 360 0RF Hold Instructions: Resume on 02/26/23. Discharge Orders: Discharge Order (Routine); Ordered 11/24/23 Ordered By: Rossy Ruelas Other Ambulatory Orders: MCT/Event Monitor 21 Days (Routine) Timeframe: 3 Weeks Facility: [facility] - Location: Radiology Ordered By: Rossy Ruelas Referrals: Ken Escamilla, DUANE-C [Primary Care Provider] - Eduardo Dewey M.D [Physician] - 1 month Richard Hernandez DO [Physician] - 2 weeks Patient Instructions: Opioid Safety Activity Restrictions/Additional Instructions: Please do not take trazodone before you go to bed Your last dose of trazodone could be taken before 5 PM You did not have any fractures You can see orthopedic surgeon for your osteoarthritis of spine Please use CPAP for sleep apnea to prevent readmissions in the hospital and wear monitor for 3 weeks before you see Dr. Dewey again in the clinic Discharge Attestations Time Spent in Discharge Care*: greater than 30 min Quality Metrics Clinical Quality Measures [ No reported AMI, CVA or VTE this stay] Coding Level of Care Code Acute Code for Chg Fwd Diagnoses Acute renal failure N17.9 Hyperkalemia E87.5
--- NOTE | 2023-11-24 11:17 | PC.SOCIAL ---
IMM Updated Updated pt on IMM. No questions voiced. Provided pt a copy. Initialed, dated, & timed copy in chart.
[2023-11-24] MEDS: FUROsemide 10 mg/mL SDV 4mL 40 MG IVP (11:31)
--- NOTE | 2023-11-24 13:41 | P.PN_ITS ---
Subjective 2 Subjective: on 4 L FiO2 Medications: Reviewed: Yes Vitals/I&O/Wt Last Vital Signs Temp 97.7 F 11/24/23 06:13 Pulse 63 11/24/23 13:30 Resp 19 H 11/24/23 13:30 BP 129/70 11/24/23 13:30 Pulse Ox 87 L 11/24/23 13:30 O2 Del Method Nasal Cannula 11/24/23 08:56 O2 Flow Rate 4 11/24/23 08:56 FiO2 40 11/21/23 23:00 11/23/23 11/24/23 11/24/23 22:59 06:59 14:59 Intake Total 600 / 600 Output Total 500 / 500 2175 / 2675 600 / 600 Balance -500 / 940 -2175 / -1235 0 / 0 Weight last 48 hrs Weight 97.607 kg Weight 102.648 kg Physical Exam 2 Narrative: awake , no distress Urinary Catheter Management: Farrell: Cath Placed During This Visit: yes, but has since been removed by the nurse Reason for Continuing Indwelling Catheter: Accurate Measurement of Urinary Output in Critically Ill Patients Urinary Catheter Date of Insertion: 11/21/23 Urinary Catheter Time of Insertion: 09:13 Date Urinary Catheter Removed: 11/24/23 Time Urinary Catheter Discontinued: 12:45 Data 11/24/23 03:48 11/24/23 03:48 A&P Assessment and plan (1) Acute renal failure: (2) Hyperkalemia: Plan 1. Acute kidney injury: Baseline creatinine of 1.0 prior to admission on November 04. Now has SUE with a creatinine of 3.8 on presentation likely , question cardiorenal. -Patient had aggressive diuresis and had been running negative fluid balance, holding Lasix, check echocardiogram, - s/p IVFs , Cr improved -Resume Lasix 40 mg p.o. twice daily, ordered extra dose of Lasix IV 40 mg x 1 due to increased O2 requirement 2. Hyperkalemia: improved , s/p Lokelma, should be on low K diet 3. Acute on chronic respiratory failure 4. Question NSTEMI 5. History of COPD Patient evaluated using audiovisual cart. Time spent 20 minutes Attestations 2 Medical Necessity Statement*: Per medicine team Coding Level of Care Code Acute Code for [facility] Diagnoses Acute renal failure N17.9 Hyperkalemia E87.5
--- NOTE | 2023-11-24 15:40 | PC.NURSE ---
discharge instructions given and explained to pt and spouse .they verb understanding.discharged via w/c to exit.spouse to drive pt home
== END 2023-11-24 15:43 | disposition home or self-care (01) | DRG 682 ==
LOC: ER 16:37 → ER IP 19:54 → ICU 11-21 06:25 → ER IP 11-21 09:30 → ICU 11-21 09:30 → CSU 11-22 18:16
PROVIDERS: Hospitalist; Physician Assistant; Admitting Provider Family Medicine; Emergency Provider Emergency Medicine; PCP Nurse Practitioner; Visit Provider Internal Medicine
DX: N17.9 Acute kidney failure, unspecified (principal); G93.41 Metabolic encephalopathy; I21.4 Non-ST elevation (NSTEMI) myocardial infarction; J96.21 Acute and chronic respiratory failure with hypoxia; C91.10 Chronic lymphocytic leukemia of B-cell type not having achieved remission; J44.1 Chronic obstructive pulmonary disease with (acute) exacerbation; E87.20 Acidosis, unspecified; R55 Syncope and collapse; I25.10 Atherosclerotic heart disease of native coronary artery without angina pectoris; N40.1 Benign prostatic hyperplasia with lower urinary tract symptoms; E11.65 Type 2 diabetes mellitus with hyperglycemia; G47.33 Obstructive sleep apnea (adult) (pediatric); W18.30XA Fall on same level, unspecified, initial encounter; E55.9 Vitamin D deficiency, unspecified; K59.01 Slow transit constipation; E87.5 Hyperkalemia; M19.90 Unspecified osteoarthritis, unspecified site; Z11.52 Encounter for screening for COVID-19; Z99.81 Dependence on supplemental oxygen; Z79.85 Long-term (current) use of injectable non-insulin antidiabetic drugs; Z79.4 Long term (current) use of insulin; Z85.51 Personal history of malignant neoplasm of bladder; Z87.891 Personal history of nicotine dependence
CPT/HCPCS: 36415; 36416; 36600; 51702; 51798; 70450; 71045; 71250; 72125; 72128; 74176; 78472; 80048; 80051; 80053; 80061; 81001; 82044; 82330; 82550; 82728; 82803; 82805; 82962; 83036; 83540; 83605; 83735; 83880; 84100; 84132; 84145; 84300; 84443; 84484; 85025; 85378; 85730; 86140; 87040; 87486; 87581; 87633; 93005; 93306; 94640; 94660; 96372; 96374; 96375; 96376; 99291; A9560; C9113; J0610; J1644; J1815; J1940; J2060; J2270; J2920; J2930; J7030; J7626

== ENCOUNTER → 2023-12-01 11:29 | Outpatient (BNVA) | payer MEDICARE, SELFPAY | PROVIDERS: PCP Nurse Practitioner; Visit Provider Nurse Practitioner | DX: E11.65 Type 2 diabetes mellitus with hyperglycemia (principal) | CPT/HCPCS: 80048 ==

== ENCOUNTER → 2023-12-10 13:58 | Outpatient (BNVA) | payer MEDICARE, SELFPAY | PROVIDERS: PCP Nurse Practitioner; Referring Provider Internal Medicine; Visit Provider Orthopaedic Surgery | DX: M54.6 Pain in thoracic spine | CPT/HCPCS: 72070; 99204 ==

== ENCOUNTER → 2024-01-19 11:51 | Outpatient (BNVA) | payer MEDICARE, SELFPAY | PROVIDERS: PCP Nurse Practitioner; Visit Provider Nurse Practitioner | DX: E11.65 Type 2 diabetes mellitus with hyperglycemia (principal); M79.10 Myalgia, unspecified site; R23.8 Other skin changes | CPT/HCPCS: 80053; 81000; 85025 ==

== ENCOUNTER → 2024-02-02 10:48 | Outpatient (BNVA) | payer MEDICARE, SELFPAY | PROVIDERS: PCP Nurse Practitioner; Visit Provider Nurse Practitioner Family | DX: I45.9 Conduction disorder, unspecified (principal); Z87.891 Personal history of nicotine dependence | CPT/HCPCS: 99213 ==

== ENCOUNTER → 2024-02-09 14:39 | Outpatient (BNVA) | payer MEDICARE, SELFPAY | PROVIDERS: PCP Nurse Practitioner; Visit Provider Nurse Practitioner | DX: E11.65 Type 2 diabetes mellitus with hyperglycemia (principal); N40.1 Benign prostatic hyperplasia with lower urinary tract symptoms; N13.8 Other obstructive and reflux uropathy; E11.9 Type 2 diabetes mellitus without complications; C83.00 Small cell B-cell lymphoma, unspecified site | CPT/HCPCS: 80053; 81000; 82607; 83036; 83615; 85025 ==

== ENCOUNTER 2024-02-14 13:54 | Oncology outpatient (recurring) (ONCR) | payer MEDICARE, SELFPAY | END 2024-02-29 23:59 | disposition home or self-care (01) | PROVIDERS: PCP Nurse Practitioner; Visit Provider Internal Medicine Medical Oncology | DX: C91.10 Chronic lymphocytic leukemia of B-cell type not having achieved remission (principal) | CPT/HCPCS: 99213 ==

== ENCOUNTER 2024-02-16 15:19 | Outpatient (CLI) | payer MEDICARE, SELFPAY ==
--- NOTE | 2024-02-16 15:45 | USCV_ITS ---
AlfaroFlorentino hernandez Age: 78 Gender: M : 1945 Exam Date: 02/16/2024 15:28 Ordering Phys: Rolan Molina MD Technologist: LYNNE [place] [facility] [place]: [place] Risk Factors: Previous Vascular Surgery: Right Brachial BP: / Left Brachial BP: / Right Left Velocity (cm/s) Spectral Plaque Velocity (cm/s) Spectral Plaque Syst/Diast Broadening Syst/Diast Broadening 112.50/13.70 Prox CCA 168.20/ 17.50 110.00/20.20 Mid CCA 126.90/ 22.40 112.20/22.40 Distal CCA 109.90/ 27.20 77.50/ 15.40 Prox ICA 75.70 / 15.10 85.20/ 21.60 Mid ICA 122.60/ 29.30 102.20/33.00 Distal ICA 138.50/ 29.30 123.20 ECA 163.40 0.90 ICA/CCA 1.30 Antegrade Vertebral Antegrade 64.90/ 20.40 cm/s 53.30/ 12.70 cm/s Tri Subclavian Tri 191.5 151.0 0 0 CONCLUSIONS Right ICA stenosis <50%. Moderate atheromatous plaque right carotid bulb/ICA. Left ICA stenosis <50%. Moderate atheromatous plaque left carotid bulb/ICA. Normal antegrade Doppler flow noted in the right vertebral artery. Normal antegrade Doppler flow noted in the left vertebral artery. Christopher Go MD (Electronically Signed) Final Date: 16 February 2024 16:10 S
== END 2024-02-16 15:20 | disposition home or self-care (01) ==
LOC: RAD 15:24
PROVIDERS: Visit Provider Internal Medicine Pulmonary Disease
DX: R55 Syncope and collapse (principal); I65.23 Occlusion and stenosis of bilateral carotid arteries
CPT/HCPCS: 93880

== ENCOUNTER → 2024-03-02 10:54 | Outpatient (BNVA) | payer MEDICARE, SELFPAY | PROVIDERS: PCP Nurse Practitioner; Visit Provider Psychiatry & Neurology Neurology | DX: R55 Syncope and collapse (principal); R00.1 Bradycardia, unspecified | CPT/HCPCS: 99203 ==

== ENCOUNTER → 2024-03-22 09:55 | Outpatient (BNVA) | payer MEDICARE, SELFPAY | PROVIDERS: PCP Nurse Practitioner; Visit Provider Nurse Practitioner Family | DX: R55 Syncope and collapse (principal); Z87.891 Personal history of nicotine dependence | CPT/HCPCS: 99213 ==

== ENCOUNTER → 2024-04-05 09:50 | Outpatient (BNVA) | payer MEDICARE, SELFPAY | PROVIDERS: PCP Nurse Practitioner; Visit Provider Internal Medicine Cardiovascular Disease | DX: R55 Syncope and collapse (principal); Z79.01 Long term (current) use of anticoagulants; E78.1 Pure hyperglyceridemia; E11.65 Type 2 diabetes mellitus with hyperglycemia; Z87.891 Personal history of nicotine dependence; Z79.4 Long term (current) use of insulin | CPT/HCPCS: 99214 ==

== ENCOUNTER → 2024-04-11 13:44 | Outpatient (BNVA) | payer MEDICARE, SELFPAY | PROVIDERS: PCP Nurse Practitioner; Visit Provider Nurse Practitioner | DX: R59.0 Localized enlarged lymph nodes (principal); Z79.899 Other long term (current) drug therapy | CPT/HCPCS: 85025 ==

== ENCOUNTER 2024-04-12 15:27 | Oncology outpatient (recurring) (ONCR) | payer MEDICARE, SELFPAY ==
--- NOTE | 2024-03-30 16:45 | MR_ITS ---
WS: [id number] MRI BRAIN WITHOUT CONTRAST HISTORY: R55 - Syncope and collapse COMPARISON: CT head 11/20/2023 TECHNIQUE: Diffusion imaging, multiplanar T1, T2 and FLAIR imaging obtained. Technically limited MRI brain. Patient was unable to lay flat for the entire examination. No evidence for acute infarct or hemorrhage. [place]-white matter differentiation is normal. Mild volume loss with no prior large infarct. Mild small vessel ischemic type changes in the perivent ricular and subcortical white matter. Ventricles and extra-axial spaces are normal. No inferior displacement of cerebellar tonsils. The sella turcica and pituitary gland are unremarkabl e. Dural venous sinuses and [place] demonstrate no abnormality on this unenhanced studies. Paranasal sinuses: Clear. Mastoid air cells: Normal. Calvarium and scalp: Intact. MR/MR head wo con* [id number] IMPRESSION: 1. No acute infarct. No diffusion abnormality. 2. Mild atrophy and volume loss with mild small vessel ischemic changes. 3. No hemorrhage.
--- NOTE | 2024-04-12 16:00 | US_ITS ---
WS: [id number] INDICATION: Enlarged lymph nodes TECHNIQUE: Ultrasound soft tissue area LEFT neck area of concern FINDINGS: Several enlarged suspicious-appearing lymph nodes in the area of concern LEFT neck. Replace ment of the normal fatty hilum. Recommend further evaluation with contrast-enhanced neck CT for watson r anatomic detail. Largest lymph nodes measure 1.4 x 0.5 x 1.0 cm. US/US soft tissue head neck [id number] IMPRESSION: Enlarged lymph nodes LEFT neck area of concern some with replacemen t of the fatty hilum with a suspicious appearance. Recommend further evaluation with contrast-enhanced neck CT.
== END 2024-04-12 23:59 | disposition home or self-care (01) ==
LOC: RAD 15:27 → ONCMED 05-16 07:28
PROVIDERS: PCP Nurse Practitioner; Visit Provider Nurse Practitioner
DX: C91.10 Chronic lymphocytic leukemia of B-cell type not having achieved remission (principal); R55 Syncope and collapse
CPT/HCPCS: 70551; 76536

== ENCOUNTER 2024-04-25 05:37 | Outpatient (CLI) | payer MEDICARE, SELFPAY ==
[2024-04-25] MEDS: cephALEXin 500 mg Capsule 2000 MG PO (06:45)
[2024-04-25 06:47] VITALS: BMI 30.5
[2024-04-25 06:48] VITALS: BP 163/80; PULSE 68; RESP 18; TEMP 36.7; O2SAT 94
--- NOTE | 2024-04-25 06:51 | W.PM.OPSUD ---
Surgery/Procedure H&P Update DATE OF PROCEDURE: April 25, 2024 DATE H&P PERFORMED: 04/05/24 H&P UPDATE INFORMATION: I have reviewed H&P completed within last 30 days, I have examined patient prior to procedure and No changes to prior documentation PREOP DIAGNOSIS: Recurrent syncope/near syncope PRIMARY INDICATION FOR PROCEDURE: Patient with history of bradycardia, second-degree heart block, presenting with recurrent episodes of syncope. Had no symptoms while wearing the event monitor. PLANNED PROCEDURE: Operation Date: 04/25/24 07:00 Proposed Procedures p Loop Recorder Insertion [id number], I45.9, I44.7(Not Applicable) - Pilar Harris MD
[2024-04-25 07:51] VITALS: BP 133/62; PULSE 68; RESP 18; O2SAT 92
--- NOTE | 2024-04-25 07:52 | SUR.PHASEII ---
post procedure note Manual pressure held at insertion site until hemostasis obtained. Vitals obtained post- stable and normal. Site secured with steri strips and a covaderm dressing. Verbal instcutions about use of device went over with the patient and the family who is now at bedside post procedure. They understood well. MD to discharge 1 hour post procedure. Appointments made.
--- NOTE | 2024-04-25 08:05 | PM.OP ---
Operative Report Date of procedure: April 25, 2024 Surgeon: Pilar Harris MD Procedure: Date of Procedure: 04/25/2020 Name of the procedure: IMPLANTABLE INSTRUMENT PERSON INSERTION LOCATION: [facility] REFERRING PROVIDER: Dr. SAGAR Harris PREOPERATIVE DIAGNOSIS: Recurrent syncope. POSTOPERATIVE DIAGNOSIS: Same. ESTIMATED BLOOD LOSS: None COMPLICATIONS: None. BRIEF HISTORY: Patient presented with recurrent episodes of syncope. He had an event monitor which didn't reveal any significant arrhythmias to explain the symptoms. Apparently the patient was noted to having the syncopal or near syncopal episodes, while wearing the monitor. For further evaluation, an implantable warehouse receiving clerk was recommended PROCEDURE: The procedure was explained to the patient in detail with the risks and benefits. The risk of bleeding, hematoma, vascular injury, infection and other concomitant complications were explained in detail. The patient understood this well and consented to proceed. The patient was brought to the [facility]. The left side of the chest was cleaned and draped in a sterile fashion. 1% Xylocaine was used as local anesthetic agent. An incision was made in the left fourth intercostal space. Making use of the application device, the implantable warehouse receiving clerk was inserted, subcutaneously. 5 minutes of manual pressure was applied, at the puncture site. The patient tolerated the procedure very well and there were no complications. No bleeding or hematoma. Steri-Strips were applied over the insertion site followed by a sterile dressing. Patient was sent back to the medical floor in stable condition IMPLANTED DEVICE Reveal GUSTAVOQII Model number: [id number] Serial number: [id number] Make: Medtronic Parameters: Standard settings were applied( (tachycardia rate of 140 beats per minute , bradycardia rate of 40 beats per minute and a pause of 3 seconds ; symptom recording -4 episodes of 7.5 minutes. Atrial fibrillation detection was turned on- recording threshold of ->6 minutes. Sensitivity was kept at 0.035 mV) The R wave sensing was 0.10 mV
== END 2024-04-25 09:00 | disposition home or self-care (01) ==
PROVIDERS: PCP Nurse Practitioner; Visit Provider Internal Medicine Cardiovascular Disease
PROC: (CPT 33285; principal; 2024-04-25 07:00)
DX: R55 Syncope and collapse (principal); E11.42 Type 2 diabetes mellitus with diabetic polyneuropathy; N40.1 Benign prostatic hyperplasia with lower urinary tract symptoms; N13.8 Other obstructive and reflux uropathy; I25.2 Old myocardial infarction; G47.33 Obstructive sleep apnea (adult) (pediatric); Z87.891 Personal history of nicotine dependence
CPT/HCPCS: 33285; C1764; C1769

== ENCOUNTER → 2024-05-24 11:03 | Outpatient (BNVA) | payer MEDICARE, SELFPAY | PROVIDERS: PCP Nurse Practitioner; Visit Provider Internal Medicine Cardiovascular Disease | DX: Z45.09 Encounter for adjustment and management of other cardiac device (principal) | CPT/HCPCS: 93296; 93298 ==

== ENCOUNTER → 2024-05-26 10:52 | Outpatient (BNVA) | payer MEDICARE, SELFPAY | PROVIDERS: PCP Nurse Practitioner; Visit Provider Nurse Practitioner Family | DX: R00.1 Bradycardia, unspecified (principal); Z09 Encounter for follow-up examination after completed treatment for conditions other than malignant neoplasm | CPT/HCPCS: 99213 ==

== ENCOUNTER → 2024-06-07 11:27 | Outpatient (BNVA) | payer MEDICARE, SELFPAY | PROVIDERS: PCP Nurse Practitioner; Visit Provider Nurse Practitioner | DX: E11.65 Type 2 diabetes mellitus with hyperglycemia (principal); Z79.4 Long term (current) use of insulin | CPT/HCPCS: 80053; 80061; 83036 ==

== ENCOUNTER → 2024-07-04 12:46 | Outpatient (BNVA) | payer MEDICARE, SELFPAY | PROVIDERS: PCP Nurse Practitioner; Visit Provider Internal Medicine | DX: E11.65 Type 2 diabetes mellitus with hyperglycemia (principal); R06.00 Dyspnea, unspecified; I45.9 Conduction disorder, unspecified; Z87.891 Personal history of nicotine dependence | CPT/HCPCS: 99214 ==

== ENCOUNTER → 2024-07-05 09:54 | Outpatient (BNVA) | payer MEDICARE, SELFPAY | PROVIDERS: PCP Nurse Practitioner; Visit Provider Internal Medicine Cardiovascular Disease | DX: I44.39 Other atrioventricular block (principal); I44.7 Left bundle-branch block, unspecified; E78.1 Pure hyperglyceridemia; R55 Syncope and collapse; J44.9 Chronic obstructive pulmonary disease, unspecified; Z99.81 Dependence on supplemental oxygen; Z87.891 Personal history of nicotine dependence | CPT/HCPCS: 99214 ==

== ENCOUNTER → 2024-08-23 09:37 | Outpatient (BNVA) | payer MEDICARE, SELFPAY | PROVIDERS: PCP Nurse Practitioner; Visit Provider Internal Medicine Cardiovascular Disease | DX: Z45.09 Encounter for adjustment and management of other cardiac device (principal) | CPT/HCPCS: 93298 ==

== ENCOUNTER → 2024-08-23 13:43 | Outpatient (BNVA) | payer MEDICARE, SELFPAY | PROVIDERS: PCP Nurse Practitioner; Visit Provider Nurse Practitioner | DX: N40.1 Benign prostatic hyperplasia with lower urinary tract symptoms (principal); N13.8 Other obstructive and reflux uropathy | CPT/HCPCS: 81000 ==

== ENCOUNTER → 2024-09-07 11:39 | Outpatient (BNVA) | payer MEDICARE, SELFPAY | PROVIDERS: PCP Nurse Practitioner; Visit Provider Nurse Practitioner | DX: E11.9 Type 2 diabetes mellitus without complications (principal); M17.11 Unilateral primary osteoarthritis, right knee; M25.561 Pain in right knee; W19.XXXA Unspecified fall, initial encounter | CPT/HCPCS: 73562; 80053; 80061; 81000; 82607; 83036 ==

== ENCOUNTER → 2024-09-13 09:10 | Outpatient (BNVA) | payer MEDICARE, SELFPAY | PROVIDERS: PCP Nurse Practitioner; Visit Provider Internal Medicine Cardiovascular Disease | DX: Z45.010 Encounter for checking and testing of cardiac pacemaker pulse generator [battery] (principal) | CPT/HCPCS: 93296 ==

== ENCOUNTER → 2024-09-18 14:23 | Outpatient (BNVA) | payer MEDICARE, SELFPAY | PROVIDERS: PCP Nurse Practitioner; Visit Provider Nurse Practitioner | DX: S76.111A Strain of right quadriceps muscle, fascia and tendon, initial encounter; X58.XXXA Exposure to other specified factors, initial encounter; M23.51 Chronic instability of knee, right knee; M17.11 Unilateral primary osteoarthritis, right knee | CPT/HCPCS: 73560; 73565; 99204 ==

== ENCOUNTER 2024-09-25 11:06 | Oncology outpatient (recurring) (ONCR) | payer MEDICARE, SELFPAY ==
--- OUTSIDE RECORDS SUMMARY | 2024-09-25 11:05 | XMS_ITS ---
Author Name Unknown Organization [facility] Address [address] [place] [address] Care Team Providers Care Greens Cutter Name Role Phone Ken Escamilla APRN Primary Care Provider Unav ailable CLIFTON HURLEY Unavailable [phone] DB GONGORA Unavailable [phone] Allergies No Known Allergies REASON FOR VISIT bladder tumor Medications Medication SIG (Take, Route, Frequency, Duration) Notes Start Date End Date Status Budesonide Active Vitamin C Active Brovana Active Albuterol Active Ciprofloxacin HCl 500 MG 1 tablet Orally every 12 hrs for 3 day(s) 12/28/2023 12/31/2023 Active Vitamin D3 Active Victoza Active Levalbuterol HCl Act gustavo Tricor Active Farxiga Active traMADol HCl Active Spiriva Respimat Act gustavo Tamsulosin HCl 0.4 MG 1 capsule Orally t wice a day Active metFORMIN HCl ER Act gustavo Lisinopril 2.5 MG 1 tablet Once a day Active Vitamin D Active Zinc Active Finasteride 5 MG 1 tablet Orally Once a day for 90 days 12/28/2023 12/22/2024 Active Social History Tobacco Use: Social History Observation Description Date Details (start date - stop date) Former Smoker NA - NA Tobacco Use/Smoking Question Answer Notes Tobacco use: former smoker Problems Problem Type SNOMED Code ICD Code Onset Dates Problem Status W/U Status Risk Notes Problem Malignant tumor of urinary bladder (806569059) Bladder carcinoma (C67.9) Active confirmed Vital Signs Temperature 98.1 degrees Fahrenheit 12/28/19 24 Blood pressure systolic 142 mm Hg 12/28/19 24 Blood pressure diastolic 74 mm Hg 024 Heart Rate 79 /min 12/28/2023 Height 72 in 12/28/2023 Weight 215 lbs 12/28/2023 BMI 29.16 kg/m2 12/28/2023 Height-cm 182.88 cm 12/28/2023 Weight-kg 97.52 kg 12/28/2023 Encounters Encounter Location Date Provider Diagnosis [facility] [address] [place] [address] 12/28/2023 DB GONGORA History of bladder cancer Z85.51 ; Elevated PSA R97.20 ; BPH loc w urin obs/LUTS N40.1 ; Glucosuria R81 and Anxiety about health F41.8 Assessments Encounter Date Diagnosis (ICD Code) Assessment Notes Treatment Notes Treatment Clinical Notes 12/28/2023 History of bladder cancer (ICD-10 - Z85.51) 12/28/2023 Elevated PSA (ICD-10 - R97.20) 12/28/2023 BPH loc w urin obs/LUTS (ICD-10 - N40.1) 12/28/2023 Glucosuria (ICD-10 - R81) 12/28/2023 Anxiety about health (ICD-10 - F41.8) 12/28/2023 Other Rx sent by Manju Carrillo CNA Plan Of Treatment Medication Medication Name Sig Start Date Stop Date Notes Ciprofloxacin HCl 500 MG 1 tablet Orally every 12 hrs for 3 day(s) 12/28/2023 12/31/2023 Finasteride 5 MG 1 tablet Orally Once a day for 90 days 12/28/2023 12/22/2024 Treatment Notes Assessment Notes Other Rx sent by Manju flower CNA Pending Test Test Name Order Date Urinalysis, Routine 12/28/2023 Next Appt Details Follow Up: 6 Weeks,2 Months, Reason: Procedure Notes * Category Sub-Category Detail Notes Cystoscopy Consent: General procedur e, indications, risks, benefits, alternative treatments, and expected outcomes have been discussed with this patient. The patient has had an opportunity to ask questions, and all questions have been answered by me. The patient verbalizes understanding, and to the best of my knowledge I feel the patient has been adequately informed and consented. The consent form has been signed. Indications: Bladder tumor histor y Procedure: After cleaning the e xternal genitalia with betadine and instilling lidocaine gel into the urethra for anesthesia, cystoscope was introduced into the urethra and gently advanced into the bladder. Findings: No bladder tumor not ed; obstructing prostate with inflammatory changes Post-procedure and Disposition: All the instruments were removed from the patient. The patient tolerated the procedure well and was discharged from the office in good condition. All discharge instructions were reviewed with the patient and given in writing. Follow-up as scheduled Progress Notes * Renetta ALFAROOB:1945 (78 yo M)Acc No.[id number]:12/28/2023 Patient:?Florentino ALFARO Provider:?Db Gongora MD :1945???Age:78 Y???Sex:Male Biju e:12/28/2023 Address:[address] [place], [place] [phone] Pcp:Ken Escamilla APRN Subjective: * Chief Complaints: * ???Bladder tumor * HPI: ???Migrated HPI:?Pt is a 78y/o M with history of bladder cancer. He was previously followed by Dr. Wilcox. Diagnosed with bladder cancer in June 2016. TURBT on 08/03/2016. Pathology revealed papillary urothelial carcinoma, low grade, no invasion identified, no muscularis propria identified. He had recurrence in June 2017 just distal to the left UO. It was completely fulgurated in clinic with Dr. Wilcox. He is on tamsulosin twice daily for BPH. He has history of elevated PSA of 10.1 in June 2021, 10.8 in April 2022, 12.5 in August 2022, and most recently 15.8 at last office visit with Dr. Wilcox in 12/2022. He has never had a biopsy or MRI of the prostate. He has a very heavy smoking history reporting 5 to 7 packs/day. He is on oxygen at all times. He was recently hospitalized at [place] for severe hypoxia, and had to have a catheter during hospitalization. He reported hematuria with catheterization, but that it cleared quickly. He has not had any UTI symptoms since removal. IPSS 20, QOL 6. Here today for surveillance Cystoscopy, to review MRI along with new PSA.? Neither MRI nor PSA were obtained prior to visit. * ROS:?General / Constitutional:?Patient denies?chills, fever.?Respiratory:?Patient denies?cough, shortness of breath.?Gastrointestinal:?Patient denies?constipation, diarrhea.?Genitourinary:?Comments?See HPI for details.?Musculoskeletal:?Patient denies?joint stiffness, weakness.? * Medical History:? * Surgical History:?hernia rep airs x 5 left shoulder surgery cholecystectomy removal condyloma acuminatum vasectomy TURBT 2016bladder ca recurrence fulgurated in clinic 2016 * Hospitalization/Major Diagno stic Procedure:?surgery * Family History:?Father: dece ased, blood type cancer at 73.?Mother: , diabetes lung disease age 73.? * Social History:?Tobacco Use:?Tobacco Use/Smoking?Tobacco use:?former smoker * Medications:?TakingVitamin D Zinc traMADol HCl Spiriva Respimat Tamsulosin HCl 0.4 MG Capsule 1 capsule Orally twice a day metFORMIN HCl ER Lisinopril 2.5 MG Tablet 1 tablet Once a day Victoza Levalbuterol HCl Tricor Farxiga Vitamin D3 Budesonide Vitamin C Brovana Albuterol Medication List reviewed and reconciled with the patientTaking Vitamin D Taking Zinc Taking traMADol HCl Taking Spiriva Respimat Taking Tamsulosin HCl 0.4 MG Capsule 1 capsule Orally twice a day Taking metFORMIN HCl ER Taking Lisinopril 2.5 MG Tablet 1 tablet Once a day Taking Victoza Taking Levalbuterol HCl Taking Tricor Taking Farxiga Taking Vitamin D3 Taking Budesonide Taking Vitamin C Taking Brovana Taking Albuterol Medication List reviewed and reconciled with the patient * Allergies:?N.K.D.A.no[Allerg ies Verified] Objective: * Vitals:?BP: 142/74 mm Hg, HR : 79 /min, Temp: 98.1 F, Wt: 215 lbs, Wt-k.52 kg, Ht: 72 in, Ht-cm: 182.88 cm, BMI: 29.16 Index, Body Surface Area: 2.22. Assessment: * Assessment: 1.?History of bladder cancer - Z85.51?2.?Elevated PSA - R97.20?3.?BPH loc w urin obs/LUTS - N40.1?4.?Glucosuria - R81?5.?Anxiety about health - F41.8? He has no visual evidence of tumor recurrence today. He will need an MRI of his prostate for PSA elevation as he has not gotten this yet. I will also start him on Proscar given the appearance of his prostate that is quite inflamed and obstructing with baseline urinary symptoms. He will return in 6 to 8 weeks with MRI and he has a clear yearly cystoscopy but with any hematuria will need CT imaging also. Side effects of Proscar reviewed. Following cystoscopy we spent over 10 minutes in consultation with over 50% of this time in direct [id number] review of treatment options. Plan: * Treatment: * Procedures:?Cystoscopy:?Indications:?Bladder tumor history.?Consent:?General procedure, indications, risks, benefits, alternative treatments, and expected outcomes have been discussed with this patient. The patient has had an opportunity to ask questions, and all questions have been answered by me. The patient verbalizes understanding, and to the best of my knowledge I feel the patient has been adequately informed and consented. The consent form has been signed..?Procedure:?After cleaning the external genitalia with betadine and instilling lidocaine gel into the urethra for anesthesia, cystoscope was introduced into the urethra and gently advanced into the bladder..?Findings:?No bladder tumor noted; obstructing prostate with inflammatory changes.?Post-procedure and Disposition:?All the instruments were removed from the patient. The patient tolerated the procedure well and was discharged from the office in good condition. All discharge instructions were reviewed with the patient and given in writing. Follow-up as scheduled.? * Labs:? * ?Lab: Urinalysis, Routin e * Procedure Codes:?22084 URINA LYSIS, AUTO, W/O [id number] CYSTOSCOPY * Follow Up:?6 Weeks,2 Months * Billing Information: * Visit Code:? 16821 Office Visit, Est Pt., Level 2. Modifiers: 25 * Procedure Codes:? 09736 URINALYSIS, AUTO, W/O SCOPE. 17923 CYSTOSCOPY. * Sign off status: Completed true * Provider:?Db Gongora MD Date:? Generated for Hank rand/Debby/Biancaitting on:?09/25/2024 11:05 AM TARIFF SUPERVISOR
--- OUTSIDE RECORDS SUMMARY | 2024-09-25 11:05 | XMS_ITS | Patient Health Record ---
Author Name Unknown Organization [facility] Address [address] [place] [address] Support Name Relationship Address Phone Dominic Florentino Guarantor Unknown [phone] Reason For Referral No Information Medications Medication SIG (Take, Route, Frequency, Duration) Notes Start Date End Date Status Klor-Con Klor-Con 06/01/2017 Active tamsulosin tamsulosin 06/01/2017 Active Aspirin 81 MG Oral Tablet Aspirin 81 MG Oral Tablet 06/01/2017 Active Proventil Proventil 06/01/2017 Active Xopenex Xopenex 06/01/2017 Active Jardiance Jardiance 06/01/2017 Active tizanidine tizanidine 06/01/2017 Active Lisinopril Lisinopril 06/01/2017 Active arformoterol 0.0075 MG/ML Inhalant Solution [Brovana] arformoterol 0.0075 MG/ML Inhalant Solution [Brovana] 06/18/2017 Active Budesonide 0.25 MG/ML Inhalant Solution Budesonide 0.25 MG/ML Inhalant Solution 06/18/2017 Active Spiriva Spiriva 06/01/2017 Active atorvastatin atorvastatin 06/01/2017 Ac tive Metformin Metformin 06/01/2017 Active Plan Of Treatment No Information
--- OUTSIDE RECORDS SUMMARY | 2024-09-25 11:05 | XMS_ITS | Patient Health Record ---
Author Name Unknown Organization [facility] Address [address] [place] [address] Care Team Providers Care Upsetter Name Role Phone Francine BATESN Ken Primary Care Provider Unav ailable CLIFTON HURLEY Unavailable [phone] POOLELARA VEGA Unavailable [phone] PAULINO HAAS Unavailable [phone] Allergies No Known Allergies Results Component Value Reference Range Notes Urinalysis, Routine Reviewed date:12/08/2023 02:24:52 PM Interpretation: Performing Lab: Notes/Report: Urine-Color yellow Appearance clear Glucose 3+ Bilirubin - Ketones - Specific [place] 1.015 Occult Blood - pH 1.015 Urine Protein trace Urobilinogen,Semi-Qn - Nitrite, Urine - WBC Esterase - Reason For Referral No Information Medications Medication SIG (Take, Route, Fr equency, Duration) Notes Start Date End Date Status Farxiga Active Spiriva Respimat Act gustavo Brovana Active traMADol HCl Active Vitamin C Active Zinc Active Budesonide Active Vitamin D Active Vitamin D3 Active Victoza Active Lisinopril 2.5 MG 1 tablet Once a day Active Finasteride 5 MG 1 tablet Orally Once a day for 90 days 12/28/2023 12/22/2024 Active metFORMIN HCl ER Act gustavo Tamsulosin HCl 0.4 MG 1 capsule Orally twice a day Active Albuterol Active Tricor Active Levalbuterol HCl Act gustavo Social History Tobacco Use: Social History Observation Description Date Details (start date - stop date) Former Smoker NA - NA Tobacco Use/Smoking Question Answer Notes Tobacco use: former smoker Problems Problem Type SNOMED Code ICD Code Onset Dates Problem Status W/U Status Risk Notes Problem Malignant tumor of urinary bladder (607843785) Bladder carcinoma (C67.9) Active confirmed Problem Bladder cancer (895051598) Bladder cancer (C67.9) Active confirmed Problem Anxiety about health (584433563) Anxiety about health (F41.8) Active confirmed Problem Personal history of primary malignant neoplasm of urinary bladder (807387838) History of bladder cancer (Z85.51) Active confirmed Problem Benign prostatic hypertrophy with outflow obstruction (475382658) BPH loc w urin obs/LUTS (N40.1) Active confirmed Vital Signs Heart Rate 79 /min 12/28/2023 Temperature 98.1 degrees Fahrenheit 12/28/2023 Blood pressure diastolic 74 mm Hg 12/28/2023 Height-cm 182.88 cm 12/28/2023 Weight-kg 97.52 kg 12/28/2023 Height 72 in 12/28/2023 Blood pressure systolic 142 mm Hg 12/28/2023 Weight 215 lbs 12/28/2023 BMI 29.16 kg/m2 12/28/2023 Procedures Procedure Date Ordered Date Performed Result Body Sit e Bladder Scan 12/08/2023 12/08/2023 24 mL Encounters Encounter Location Date Provider Diagnosis [facility] [employer] [facility] [address] [place] [address] 12/08/2023 PAULINO MONTENEGROPARISA History of bladder cancer Z85.51 ; Elevated PSA R97.20 ; BPH loc w urin obs/LUTS N40.1 ; Glucosuria R81 and Anxiety about health F41.8 [facility] [employer] [address] [place] [address] 12/28/2023 LARA ZULEMA History of bladder cancer Z85.51 ; Elevated PSA R97.20 ; BPH loc w urin obs/LUTS N40.1 ; Glucosuria R81 and Anxiety about health F41.8 [facility] [address] [place] [address] 12/10/2023 CLIFTON HURLEY Assessments Encounter Date Diagnosis (ICD Code) Assessment Notes Treatment Notes Treatment Clinical Notes 12/08/2023 History of bladder cancer (ICD-10 - Z85.51) 12/28/2023 History of bladder cancer (ICD-10 - Z85.51) 12/08/2023 Elevated PSA (ICD-10 - R97.20) 12/28/2023 Elevated PSA (ICD-10 - R97.20) 12/08/2023 BPH loc w urin obs/LUTS (ICD-10 - N40.1) 12/28/2023 BPH loc w urin obs/LUTS (ICD-10 - N40.1) 12/28/2023 Glucosuria (ICD-10 - R81) 12/08/2023 Glucosuria (ICD-10 - R81) 12/08/2023 Anxiety about health (ICD-10 - F41.8) 12/28/2023 Anxiety about health (ICD-10 - F41.8) 12/08/2023 Other Patient is very anxious about being 6 months overdue for cystoscopy for his bladder cancer surveillance. I would recommend OR cysto incase TURBT needed, but he is not a good candidate for anesthesia with his respiratory status. Also recommended repeat PSA, his states whats the point of knowing about bladder cancer if you don't wanna know if you have prostate cancer . Patient agreeable to MRI. He will RTC for cystoscopy with MRI/PSA review. All questions that were asked were answered. Patient and his are agreebale with plan of care. 12/28/2023 Other Rx sent by Manju Carrillo CNA Plan Of Treatment Pending Test Test Name Order Date Urinalysis, Routine 12/28/2023 BUN, Creatinine 12/08/2023 MRI : Pelvis with and without Contrast 7 219612/08/2023 PSA, TOTAL (5363) 12/08/2023 Insurance Providers Payer Name Payer Address Payer Phone Subscriber Number Group Number Insured Name Patient Relationship to Insured Coverage Start Date Coverage End Date [place] [address] [place], [place] [id number] Florentino Alfaro Self - patient is the insured Medical (General) History Medical History History ICD Code Hx bladder cancer June 2016 Recurrance of bladder CA June 2017 BPH with LUTs COPD Diabetes Lymphoplasmacutod lymphoma CLL Vitamin D deficiency Surgical History Surgery Date(Month/Year) hernia repairs x 5 left shoulder surgery cholecystectomy removal condyloma acuminatum vasectomy TURBT 2015 bladder ca recurrence fulgurated in clin ic 2016 Hospitalization History Reason Date(Month/Year) surgery
--- OUTSIDE RECORDS SUMMARY | 2024-09-25 11:05 | XMS_ITS ---
Author Name Unknown Organization [facility] Address [address] [place] [address] Care Team Providers Care Machine Loader Name Role Phone Ken Escamilla APRN Primary Care Provider Unav ailable HURLEYCLIFTON COLON Unavailable [phone] DB GONGORA Unavailable [phone] REASON FOR VISIT 6-8 wks w/ MRI Medications Medication SIG (Take, Route, Fr equency, Duration) Notes Start Date End Date Status Farxiga Active Vitamin D3 Active Victoza Active Tricor Active Levalbuterol HCl Act gustavo Spiriva Respimat Act gustavo traMADol HCl Active Lisinopril 2.5 MG 1 tablet Once a day Active metFORMIN HCl ER Act gustavo Tamsulosin HCl 0.4 MG 1 capsule Orally twice a day Active Brovana Active Zinc Active Vitamin D Active Finasteride 5 MG 1 tablet Orally Once a day for 90 days 12/28/2023 12/22/2024 Active Albuterol Active Vitamin C Active Budesonide Active Encounters Encounter Location Date Provider Diagnosis [email or web address] [address] [place] [address] 02/15/2024 DB GONGORA History of bladder cancer Z85.51 ; Elevated PSA R97.20 ; BPH loc w urin obs/LUTS N40.1 ; Glucosuria R81 and Anxiety about health F41.8 Assessments Encounter Date Diagnosis (ICD Code) Assessment Notes Treatment Notes Treatment Clinical Notes 02/15/2024 History of bladder cancer (ICD-10 - Z85.51) 02/15/2024 Elevated PSA (ICD-10 - R97.20) 02/15/2024 BPH loc w urin obs/LUTS (ICD-10 - N40.1) 02/15/2024 Glucosuria (ICD-10 - R81) 02/15/2024 Anxiety about health (ICD-10 - F41.8) Plan Of Treatment No Information Progress Notes * Renetta ALFAROOB:1945 (78 yo M)Acc No.[id number]:02/15/2024 Progress Notes Patient:?Florentino ALFARO Provider:?Db Gongora MD :1945???Age:78 Y???Sex:Male Biju e:02/15/2024 Address:[address] [place], [place] [id number] Pcp:Ken Escamilla APRN Subjective: * Chief Complaints: * ???1. 6-8 wks w/ MRI. * HPI: ???Migrated HPI:?Pt is a 78y/o [...] all times. He was recently hospitalized at [place] for severe hypoxia, and had to have a catheter during hospitalization. He reported hematuria with catheterization, but that it cleared quickly. He has not had any UTI symptoms since removal. IPSS 20, QOL 6. Here today for surveillance Cystoscopy, to review MRI along with new PSA.? Neither MRI nor PSA were obtained prior to visit. * Medical History:? * Medications:?Taking Vitamin D , Taking Zinc , Taking traMADol HCl , Taking Spiriva Respimat , Taking Tamsulosin HCl 0.4 MG Capsule 1 capsule Orally twice a day , Taking metFORMIN HCl ER , Taking Lisinopril 2.5 MG Tablet 1 tablet Once a day , Taking Victoza , Taking Levalbuterol HCl , Taking Tricor , Taking Farxiga , Taking Vitamin D3 , Taking Budesonide , Taking Vitamin C , Taking Brovana , Taking Albuterol , Taking Finasteride 5 MG Tablet 1 tablet Orally Once a day , stop date 12/22/2024 Objective: * Vitals:? Assessment: * Assessment: 1.?History of bladder cancer - Z85.51???2.?Elevated PSA - R97.20???3.?BPH loc w urin obs/LUTS - N40.1???4.?Glucosuria - R81???5.?Anxiety about health - F41.8??? He has no visual evidence of tumor [...] over 50% of this time in direct [id number] review of treatment options. Plan: * Treatment: * Billing Information: * Visit Code:? * Procedure Codes:? * Electronic signature of BRANDAN GONGORA MD on 09/25/2024 at 11:04 AM CANDLE MAKER Sign off status: Pending * Provider:?Db Gongora MD Date:? Generated for Hank rand/Debby/Biancaitting on:?09/25/2024 11:04 AM CANDLE MAKER
--- OUTSIDE RECORDS SUMMARY | 2024-09-25 11:05 | XMS_ITS ---
Author Name Unknown Organization [facility] Address [address] [place] [address] Care Team Providers Care Associate Spa Director Name Role Phone Ken Escamilla APRN Primary Care Provider Unav ailable HURLEYCLIFTON Unavailable [phone] REASON FOR VISIT MRI PA Encounters Encounter Location Date Provider Diagnosis [facility] [address] [facility] [place] [address] 12/10/2023 CLIFTON HURLEY Plan Of Treatment No Information Progress Notes * Renetta ALFAROOB:1945 (78 yo M)Acc No.[id number]:12/10/2023 Patient:?ALFAROFlorentino SAWANT :1945???Age:78 Y???Sex:Male Address:[address] [place] [address] [place] [address] * true * Date:? Generated for Printi ng/Faananyag/eTransmitting on:?09/25/2024 11:05 AM BANK EXAMINER
[2024-09-25 12:09] LABS: Basophils % 0.3 %; Eosinophils # 0.1 10^3/uL (0.0-0.8); Eosinophils % 0.7 %; Hematocrit 36.6 % (37-53); Lymphocytes # 5.4 10^3/uL (0.8-4.8); Lymphocytes % 61.2 %; Mean Corpuscular HGB Conc 32.8 g/dL (30-55); Mean Corpuscular Hemoglobin 32.6 pg (27-33); Mean Corpuscular Volume 99.5 fl (82-101); Mean Platelet Volume 10.3 fL (7.4-10.4); Monocytes # 0.4 10^3/uL (0.2-0.9); Monocytes % 3.9 %; Neutrophils # 2.96 10^3/uL (1.8-7.7); Neutrophils % 33.4 %; Nucleated Red Blood Cells % 0 %; Platelet Count 96 10^3/cmm (157-399); Red Blood Count 3.68 10^6/uL (3.85-5.65); Red Cell Distribution Width 14.2 % (12.1-15.1); White Blood Count 8.87 10^3/uL (3.29-11.43)
[2024-09-25 12:40] LABS: Alanine Aminotransferase 8 U/L (0-41); Albumin Level 3.9 g/dL (3.5-5.2); Alkaline Phosphatase 58 U/L (40-130); Anion Gap 9.8 (5-19); Aspartate Amino Transferase 11 U/L (0-40); Blood Urea Nitrogen 27 mg/dL (8-23); Calcium 9.2 mg/dL (8.5-10.5); Carbon Dioxide 35 mmol/L (22-29); Chloride 100 mmol/L (98-107); Globulin 2.3 g/dL (1.3-4.6); Glucose 254 mg/dL (65-115); Osmolality Calculated 304 mOsm/kg (285-295); Potassium 4.8 mmol/L (3.5-5.1); Sodium 140 mmol/L (136-145); Total Bilirubin 0.2 mg/dL (0.15-1.2); Total Protein 6.2 g/dL (6.6-8.7)
[2024-09-25 13:10] LABS: Slide Review Slide Review Perform
== END 2024-09-30 23:59 | disposition home or self-care (01) ==
PROVIDERS: Internal Medicine Medical Oncology; PCP Nurse Practitioner; Visit Provider Nurse Practitioner
DX: C91.10 Chronic lymphocytic leukemia of B-cell type not having achieved remission (principal); E55.9 Vitamin D deficiency, unspecified; Z87.891 Personal history of nicotine dependence; Z79.899 Other long term (current) drug therapy; Z53.9 Procedure and treatment not carried out, unspecified reason
CPT/HCPCS: 36415; 80053; 85025; 99214

== ENCOUNTER → 2024-10-04 14:00 | Outpatient (BNVA) | payer MEDICARE, SELFPAY | PROVIDERS: PCP Nurse Practitioner; Visit Provider Internal Medicine | DX: E11.65 Type 2 diabetes mellitus with hyperglycemia (principal); R06.00 Dyspnea, unspecified; I45.9 Conduction disorder, unspecified; Z87.891 Personal history of nicotine dependence; Z95.0 Presence of cardiac pacemaker; Z79.4 Long term (current) use of insulin | CPT/HCPCS: 99214 ==

== ENCOUNTER → 2024-10-10 15:26 | Outpatient (BNVA) | payer MEDICARE, SELFPAY | PROVIDERS: PCP Nurse Practitioner; Visit Provider Internal Medicine Cardiovascular Disease | DX: Z95.0 Presence of cardiac pacemaker (principal); J44.9 Chronic obstructive pulmonary disease, unspecified; Z99.81 Dependence on supplemental oxygen; E11.65 Type 2 diabetes mellitus with hyperglycemia; Z79.4 Long term (current) use of insulin; R42 Dizziness and giddiness; M79.89 Other specified soft tissue disorders; Z87.891 Personal history of nicotine dependence | CPT/HCPCS: 99214 ==

== ENCOUNTER 2024-10-16 11:44 | Oncology outpatient (recurring) (ONCR) | payer MEDICARE, SELFPAY ==
--- NOTE | 2024-10-16 12:15 | USCV_ITS ---
Alfaro Florentino Age: 78 Gender: M : 1945 Exam Date: 10/16/2024 11:55 Ordering Phys: Pilar Harris MD ([email or web address]) Technologist: R [place] [facility] [place]: [place] PROCEDURES: Venous duplex imaging was performed in only the right lower extremity. The following venous structures were evaluated: common femoral vein, profunda vein, proximal portion of the greater saphenous vein, superficial femoral vein, and the popliteal vein. In addition, the posterior tibial and peroneal trunk were evaluated. FINDINGS: No evidence of DVT seen in any vessel visualized at this time. CONCLUSIONS No evidence of right lower extremity DVT. Christopher Go MD (Electronically Signed) Final Date: 16 October 2024 12:39 S
== END 2024-10-31 23:59 | disposition home or self-care (01) ==
PROVIDERS: PCP Nurse Practitioner; Visit Provider Nurse Practitioner
DX: C91.10 Chronic lymphocytic leukemia of B-cell type not having achieved remission (principal); R55 Syncope and collapse; R59.0 Localized enlarged lymph nodes; G31.9 Degenerative disease of nervous system, unspecified; M79.661 Pain in right lower leg; M79.89 Other specified soft tissue disorders
CPT/HCPCS: 93971

== ENCOUNTER → 2024-10-18 15:24 | Outpatient (BNVA) | payer MEDICARE, SELFPAY | PROVIDERS: PCP Nurse Practitioner; Visit Provider Emergency Medicine | DX: R06.02 Shortness of breath (principal); J84.10 Pulmonary fibrosis, unspecified; I25.10 Atherosclerotic heart disease of native coronary artery without angina pectoris; I10 Essential (primary) hypertension | CPT/HCPCS: 71046; 80048; 83880; 85025; 87400; 87420; 87426 ==

== ENCOUNTER → 2024-10-27 12:03 | Outpatient (BNVA) | payer MEDICARE, SELFPAY | PROVIDERS: PCP Nurse Practitioner; Visit Provider Internal Medicine | DX: M79.89 Other specified soft tissue disorders (principal); R06.02 Shortness of breath | CPT/HCPCS: 36415; 80048; 93291 ==

== ENCOUNTER 2024-10-29 13:58 | Inpatient (IN) | payer MEDICARE, SELFPAY ==
[2024-10-29] VITALS (27 sets, daily range): BP systolic 113–158; BP diastolic 60–75; PULSE 60–83; RESP 13–25; TEMP 36.7–37.2; O2SAT 89–98; BMI 30.5
--- NOTE | 2024-10-29 14:02 | ECG_ITS ---
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 Measurements Intervals [place] Rate: 83 P: 78 CT: 249 QRS: -3 QRSD: 134 T: 113 QT: 367 QTc: 432 Interpretive Statements SINUS RHYTHM WITH FIRST DEGREE AV BLOCK WITH OCCASIONAL VENTRICULAR PREMATURE COMPLEXES LEFT BUNDLE BRANCH BLOCK [120+ ms QRS DURATION, 80+ ms Q/S IN V1/V2, 85+ ms R IN I/aVL/V5/V6] Compared to ECG 11/21/2023 01:45:21 Ventricular premature complex(es) now present Electronically Signed On 10-29-2024 20:03:52 FLORICULTURIST by Eduardo Dewey M.D. [email or web address]
--- NOTE | 2024-10-29 14:07 | XRR_ITS ---
PROCEDURE INFORMATION: Exam: XR Chest Exam date and time: 10/29/2024 2:19 PM Age: 78 years old Clinical indication: Shortness of breath; Patient HX: SOB TECHNIQUE: Imaging protocol: Radiologic exam of the chest. Views: 1 view. COMPARISON: CR XR chest 2V* [id number] 10/18/2024 3:26 PM FINDINGS: Tubes, catheters and devices: Cardiac device left anterior chest in good position. A cardiac loop recorder is present in the left hemithorax. Lungs: There is left lower lobe granuloma stable since prior No consolidation. Pleural spaces: Unremarkable. No pleural effusion. No pneumothorax. Heart/Mediastinum: Unremarkable. No cardiomegaly. Bones/joints: Unremarkable. XR/XR chest 1V portable [id number] IMPRESSION: 1. No acute findings. 2. Stable cardiac device left anterior chest. 3. Stable left lower lobe granuloma 4. Stable cardiac loop recorder left hemithorax
[2024-10-29 15:33] LABS: Basophils % 0.3 %; Eosinophils # 0.1 10^3/uL (0.0-0.8); Eosinophils % 0.7 %; Hematocrit 38.6 % (37-53); Lymphocytes # 4.5 10^3/uL (0.8-4.8); Lymphocytes % 47.1 %; Mean Corpuscular HGB Conc 31.3 g/dL (30-55); Mean Corpuscular Hemoglobin 31.9 pg (27-33); Mean Corpuscular Volume 101.8 fl (82-101); Mean Platelet Volume 9.7 fL (7.4-10.4); Monocytes # 0.4 10^3/uL (0.2-0.9); Monocytes % 4.4 %; Neutrophils # 4.43 10^3/uL (1.8-7.7); Neutrophils % 46.7 %; Nucleated Red Blood Cells % 0 %; Platelet Count 173 10^3/cmm (157-399); Red Blood Count 3.79 10^6/uL (3.85-5.65); Red Cell Distribution Width 13.9 % (12.1-15.1); White Blood Count 9.51 10^3/uL (3.29-11.43)
--- NOTE | 2024-10-29 15:33 | PC.NURSE ---
PT REFUSED COVID/FLU/RSV SWAB.
--- NOTE | 2024-10-29 15:43 | PC.NURSE ---
PT STATED TO THIS NURSE, I HAVE REQUESTED TO HAVE CARDIOLOGY CONSULT ON HIS CASE. THIS NURSE EDUCATED ON IF THE PHYSICIAN FELT IT WAS NECESSARY FOR CADIOLOGY TO CONSULT, HE WOULD. PT STATED I DON'T CARE IF HE FEELS IT IS NECESSARY. I AM DEMANDING THE PRINCIPAL [employer] DEVELOPER TO SEE HIM. THIS NURSE VERBALIZED UNDERSTANDING. NOTIFIED.
[2024-10-29 15:52] LABS: Troponin(5th) Baseline 47 ng/L (0-15)
--- NOTE | 2024-10-29 16:03 | CTR_ITS ---
PROCEDURE INFORMATION: Exam: CTA Chest With Contrast Exam date and time: 10/29/2024 4:43 PM Age: 78 years old Clinical indication: Dyspnea; Additional info: Dyspnea, hypoxia, just finished abx for pneumonia TECHNIQUE: Imaging protocol: Computed tomographic angiography of the chest with contrast. Exam focused on the arteries. 3D rendering (Not supervised by radiologist): MIP and/or 3D reconstructed images were created by the technologist. Radiation optimization: All CT scans at this facility use at least one of these dose optimization techniques: automated exposure control; mA and/or kV adjustment per patient size (includes targeted exams where dose is matched to clinical indication); or iterative reconstruction. Contrast material: OMNIPAQUE 350; Contrast volume: 100 ml; Contrast route: INTRAVENOUS (IV); COMPARISON: [place] [id number] 11/21/2023 5:28 AM RADIATION DOSE METRICS: Total DLP (mGy-cm): 470.27 FINDINGS: Pulmonary arteries: Normal. No pulmonary emboli. Aorta: Unremarkable. No aortic aneurysm. No aortic dissection. Lungs: Unremarkable. No consolidation. No masses. There is a 16 mm calcified granuloma in the left upper lobe stable since prior Pleural spaces: Unremarkable. No pneumothorax. No pleural effusion. Heart: Negative for right heart strain. Heavy coronary artery calcifications No cardiomegaly. No pericardial effusion. Lymph nodes: There are multiple enlarged mediastinal lymph nodes. The largest precarinal lymph node measures 11 mm in short axis. An enlarged lymph node is present in the right hilum measuring 21 mm x 30 mm. The subcarinal tissues show multiple enlarged lymph nodes the largest measures 31 mm x 16 mm these lymph nodes were not present on prior examination. Bones/joints: Lumbar spine severe osteoarthritis.. No acute fracture. Soft tissues: Status post cholecystectomy CT/CT angio chest PE protcl [id number] IMPRESSION: 1. Negative for pulmonary embolism. 2. Negative for right heart strain. 3. Heavy coronary artery calcifications. 4. Calcified granuloma left upper lobe 5. Multiple enlarged mediastinal lymph nodes new since prior . 6. Normal thoracic aorta. 7. Cholecystectomy
--- NOTE | 2024-10-29 16:03 | W.ED.SOB ---
Documented by User: Marty Prescott MD 10/29/24 16:08 HPI - SOB/Dyspnea General: Chief Complaint: Shortness of Breath/Dyspnea Stated Complaint: sob Time Seen by Provider: 10/29/24 15:17 History of Present Illness: HPI Narrative: 78-year-old male presents emergency department from urgent care walk-in clinic for shortness of breath. Patient reports he has been feeling short of breath really for the last week or 2. Before that he was diagnosed with pneumonia about 1 month ago. He was treated with antibiotics and actually just finished Levaquin 2 days ago. Patient reports that at home he had several low oxygen readings as low as 52%. It slowly came back up into the upper 80s. It is unclear whether these were accurate readings or not but the patient states he was symptomatic. Patient reports chronic dry cough unchanged. He does have a history of COPD and CHF. The patient also notes that he has obstructive sleep apnea but cannot use a CPAP at night despite all of his best efforts. It is unclear how much this is affecting his symptoms. He does have a loop recorder and pacemaker. Patient reports no fever, chills, hemoptysis. He has some baseline swelling in his lower extremities (right is always slightly worse than left). Right lower extremity ultrasound was negative for DVT in the last month. Patient reports no GI or symptoms. He does have a history of bladder cancer. Related Data Home Medications Medication Instructions Recorded Confirmed ascorbate calcium (vitamin C) 500 1,000 mg PO DAILY 04/09/22 10/29/24 mg tablet cholecalciferol (vitamin D3) 10 10 mcg PO DAILY 04/09/22 10/29/24 mcg (400 unit) capsule zinc acetate 50 mg (zinc) capsule 50 mg PO DAILY 03/09/23 10/29/24 liraglutide 0.6 mg/0.1 mL (18 mg/3 1.8 mg SUBCUT DAILY 10/29/24 10/29/24 mL) subcutaneous pen injector (Victoza 3-Evgeny) potassium chloride 10 mEq 10 meq PO DAILY 10/29/24 10/29/24 tablet,extended release Previous Rx's Medication Instructions Recorded Disposable nebulizer circuit #1 ea 03/02/22 nebulizers #1 ea 03/02/22 levalbuterol HCl 1.25 mg/0.5 mL 1.25 mg (0.5 mL) inhalation Q4H 03/29/24 solution for nebulization PRN shortness of breath or wheezing #100 vials lisinopril 2.5 mg tablet 2.5 mg PO DAILY #90 tabs 03/29/24 metformin 500 mg tablet,extended 2,000 mg (4 x 500 mg) PO DAILY 03/29/24 release 24 hr #360 tabs insulin glargine 100 unit/mL (3 See Rx Instructions SUBCUT DAILY 06/07/24 mL) subcutaneous pen (Lantus #15 mL Solostar U-100 Insulin) tamsulosin 0.4 mg capsule 0.4 mg PO BID #180 caps 08/23/24 pen needle, diabetic 33 gauge x #100 ea 08/29/24 vitamin B comp and C no.3 15 mg-10 1 cap PO DAILY #180 caps 09/18/24 mg-50 mg-5 mg-300 mg capsule (B Complex Plus Vitamin C) blood sugar diagnostic (GoIP InternationalTouch #50 ea 09/24/24 Ultra Test strips) albuterol sulfate 90 mcg/actuation 2 puff inhalation QID PRN 10/01/24 aerosol inhaler Shortness Of Breath #6.7 grams budesonide 0.5 mg/2 mL suspension 0.5 mg (2 mL) inhalation QAM #60 mL 10/01/24 for nebulization Allergies Allergy/AdvReac Type Severity Reaction Status Date / Time No Known Allergies Allergy Verified 10/29/24 14:07 Review of Systems General: Reports: 10 or more systems reviewed and unremarkable except in HPI and below PFSH ED PFSH: Medical History Atherosclerosis of coronary artery Intermittent complete heart block Chronic hypoxic respiratory failure Diabetes mellitus with hyperglycemia, with long-term current use of insulin Advanced chronic obstructive pulmonary disease Lymphoplasmacytoid lymphoma, 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 History of local excision of skin lesion H/O transurethral destruction of bladder lesion History of condyloma acuminatum removal surgical December 2014 History of arthroplasty of left shoulder tendon 1969' Hx of vasectomy H/O hernia repair umbilical and bilateral inguinal 1979' History of cholecystectomy Family History Mother , at age 73 Diabetes Lung disease Father , at age 75 Cancer blood Lung disease Social History Smoking and tobacco/nicotine status: former use of tobacco/nicotine Quit status (tobacco/nicotine): has quit using Year quit tobacco: 2002 Former quit date comment: smoked 47 years Second hand smoke exposure: No Alcohol intake: current Alcohol intake frequency: holidays/special occasions only Substance/Drug Use: never Adopted: No Caregiver/support person: No Lives independently: Yes Household members: spouse Housing: House Marital status: Number of children: 5 Number of grandchildren: 7 service: Yes branch: [employer] Current occupational status: disabled Pets and animals: Yes Pets & animals: cat(s) and dog(s) Do you think of yourself as: Straight/Heterosexual Current gender identity: Male Special luis needs: No Physical Exam Narrative: EXAM NARRATIVE: Awake, alert, oriented. also giving independent history. Some mild pitting edema both lower extremities, slightly worse on the right. Abnormal breath sounds and mild tachypnea noted. See below. Const: COMMON NORMALS: no limitations, alert and well nourished EXAM LIMITATIONS: no altered mental status HENMT: COMMON NORMALS: normocephalic, atraumatic and external ears normal HEAD & SCALP: normocephalic and atraumatic EXTERNAL EAR: Yes external ears normal MOUTH: no muffled voice Eye: COMMON NORMALS: EOMs intact bilaterally, conjunctivae normal and no scleral icterus CONJUNCTIVA: Yes conjunctivae normal Neck/C-Spine: COMMON NORMALS: no JVD GENERAL: Yes normal visual inspection and Yes trachea midline Resp: OTHER: 2 L of oxygen by nasal cannula satting 93%. Mild tachypnea with a rate of 21. Mild increased work of breathing with some accessory use but not distressed. Wheezes and adventitious breath sounds noted in the posterior lungs bilaterally. Cardio: COMMON NORMALS: no JVD, regular rate and regular rhythm RATE: regular rate RHYTHM: regular rhythm GI: COMMON NORMALS: Soft to palpation and non-tender PALPATION: Yes Soft to palpation and No Guarding due to palpation present (GI) Extremity: COMMON NORMALS: normal to inspection Neuro: COMMON NORMALS: moves all extremities, no focal motor deficits and no sensory deficits noted SENSORIUM/ORIENTATION: Yes alert SPEECH: speech normal Psych: COMMON NORMALS: mental status grossly normal, Normal thought process present, cooperative, normal affect and speech normal SPEECH: Yes normal speech THOUGHT PROCESS: Normal thought process present Skin: COMMON NORMALS: no rashes or lesions noted, turgor normal and no jaundice GENERAL SKIN EXAM: no rashes or lesions noted and turgor normal Course Vital Signs: Vital signs: Vital Signs Temperature 98.0 F 10/29/24 14:05 Pulse Rate 71 10/29/24 19:30 Respiratory Rate 18 10/29/24 19:30 Blood Pressure 121/60 10/29/24 19:30 Pulse Oximetry 93 10/29/24 19:30 Oxygen Delivery Me thod Nasal Cannula 10/29/24 20:21 Oxygen Flow Rate 2 10/29/24 18:30 MDM - SOB/Dyspnea Medical Decision Making Differential diagnosis includes COPD, CHF, pulmonary hypertension, pulmonary embolism, pleural effusion, chronic lung disease, neoplastic process, pericardial effusion, anemia, ACS, multiple others. Chest x-ray was performed and I did not see any new infiltrates or any significant changes compared to previous. He is afebrile here and is not endorsing any fever or chills. Discussed with patient and . They feel he is still symptomatic and would like to see if we can do any advanced imaging. We will go ahead and do a CT angiogram of the chest to rule out any pulmonary embolism and make a definitive evaluation for any signs of CHF, masses, infiltrates, pericardial effusion, etc. Lab Data 10/29/24 15:18 10/29/24 15:18 Labs/Radiology: Radiology Impressions Chest X-Ray 10/29/24 14:07 IMPRESSION: 1. No acute findings. 2. Stable cardiac device left anterior chest. 3. Stable left lower lobe granuloma 4. Stable cardiac loop recorder left hemithorax Chest CTA 10/29/24 16:03 IMPRESSION: 1. Negative for pulmonary embolism. 2. Negative for right heart strain. 3. Heavy coronary artery calcifications. 4. Calcified granuloma left upper lobe 5. Multiple enlarged mediastinal lymph nodes new since prior . 6. Normal thoracic aorta. 7. Cholecystectomy Laboratory Results WBC 9.51 10^3/uL (3.29-11.43) 10/29/24 15:18 RBC 3.79 10^6/uL (3.85-5.65) L 10/29/24 15:18 Hgb 12.10 g/dL (11.27-16.99) 10/29/24 15:18 Hct 38.6 % (37-53) 10/29/24 15:18 MCV 101.8 fl (82-101) H 10/29/24 15:18 MCH 31.9 pg (27-33) 10/29/24 15:18 MCHC 31.3 g/dL (30-55) 10/29/24 15:18 RDW 13.9 % (12.1-15.1) 10/29/24 15:18 Plt Count 173 10^3/cmm (157-399) 10/29/24 15:18 MPV 9.7 fL (7.4-10.4) 10/29/24 15:18 Neut % (Auto) 46.7 % 10/29/24 15:18 Lymph % (Auto) 47.1 % 10/29/24 15:18 [place] % (Auto) 4.4 % 10/29/24 15:18 Eos % (Auto) 0.7 % 10/29/24 15:18 Baso % (Auto) 0.3 % 10/29/24 15:18 Neut # (Auto) 4.43 10^3/uL (1.8-7.7) 10/29/24 15:18 Lymph # (Auto) 4.5 10^3/uL (0.8-4.8) 10/29/24 15:18 [place] # (Auto) 0.4 10^3/uL (0.2-0.9) 10/29/24 15:18 Eos # (Auto) 0.1 10^3/uL (0.0-0.8) 10/29/24 15:18 Baso # (Auto) 0.0 10^3/uL (0.0-0.1) 10/29/24 15:18 Nucleated RBC % (auto) 0 % 10/29/24 15:18 Nucleated RBCs # 0.0 /100WBC 10/29/24 15:18 Specimen Type Arterial 10/29/24 18:45 Sample Site Radial, left 10/29/24 18:45 ABG pH 7.36 (7.35-7.45) 10/29/24 18:45 ABG pCO2 74.0 mmHg (35-45) H* 10/29/24 18:45 ABG pO2 68.8 mmHg (80.0-100.0) L 10/29/24 18:45 ABG PO2/FiO2 Ratio 245 10/29/24 18:45 ABG HCO3 41.8 mmol/L (22-26) H 10/29/24 18:45 ABG O2 Saturation 93.8 10/29/24 18:45 ABG Base Excess 13.5 mmol/L (-2.0-2.0) H 10/29/24 18:45 [place] Test Pos 10/29/24 18:45 A-a O2 Gradient 5.3 mmHg (5-10) 10/29/24 18:45 Hematocrit 34.6 % (42-52) L 10/29/24 18:45 Hgb O2 Saturation 91.4 % (95-100) L 10/29/24 18:45 Carboxyhemoglobin 1.8 %THgb (0.4-20.1) 10/29/24 18:45 Methemoglobin 0.8 % (0.4-1.5) 10/29/24 18:45 Total Hemoglobin 11.3 g/dL (14-18) L 10/29/24 18:45 Sodium 142.0 mmol/L (131-143) 10/29/24 18:45 Potassium 4.5 mmol/L (3.5-5.0) 10/29/24 18:45 Glucose 119.0 mg/dL (70-115) H 10/29/24 18:45 Ionized Calcium 1.3 mmol/L (1.1-1.4) 10/29/24 18:45 O2 Delivery Device Nc 10/29/24 18:45 O2 Liters/Min 2.0 % 10/29/24 18:45 FiO2 28.0 % 10/29/24 18:45 [employer] And [employer] Welder ID Cak 10/29/24 18:45 Sodium 142 mmol/L (136-145) 10/29/24 15:18 Potassium 5.1 mmol/L (3.5-5.1) 10/29/24 15:18 Chloride 96 mmol/L (98-107) L 10/29/24 15:18 Carbon Dioxide 41 mmol/L (22-29) H 10/29/24 15:18 Anion Gap 10.1 (5-19) 10/29/24 15:18 BUN 30 mg/dL (8-23) H 10/29/24 15:18 Creatinine 0.9 mg/dL (0.7-1.2) 10/29/24 15:18 GFR Calculation Not Reportable 10/29/24 15:18 Glucose 135 mg/dL (65-115) H 10/29/24 15:18 Calculated Osmolality 302 mOsm/kg (285-295) H 10/29/24 15:18 Calcium 10.2 mg/dL (8.5-10.5) 10/29/24 15:18 Total Bilirubin 0.3 mg/dL (0.15-1.2) 10/29/24 15:18 AST 12 U/L (0-40) 10/29/24 15:18 ALT 10 U/L (0-41) 10/29/24 15:18 Alkaline Phosphatase 55 U/L (40-130) 10/29/24 15:18 Troponin T Baseline 47 ng/L (0-15) H 10/29/24 15:18 Troponin T 120 Minute 44.03 ng/L (0-15) H 10/29/24 18:10 Delta Troponin T -2.97 ABS# (0-10) L 10/29/24 18:10 NT-Pro-B Natriuret Pep 384 pg/mL (0-450) 10/29/24 15:18 Total Protein 6.5 g/dL (6.6-8.7) L 10/29/24 15:18 Albumin 3.8 g/dL (3.5-5.2) 10/29/24 15:18 Globulin 2.7 g/dL (1.3-4.6) 10/29/24 15:18 Discharge Plan Discharge Patient Disposition: Admitted As Inpatient Admit Provider: Adimora-Nweke,Renee Clinical Impression: Acute and chronic respiratory failure with hypercapnia Condition: Stable Coding Level of Care Code ED Copy Operator for Chg Fwd Documented by User: Ron Shook DO 10/29/24 21:14 HPI - SOB/Dyspnea General: Chief Complaint: Shortness of Breath/Dyspnea Stated Complaint: sob Time Seen by Provider: 10/29/24 15:17 Related Data Home Medications Medication Instructions Recorded Confirmed ascorbate calcium (vitamin C) 500 1,000 mg PO DAILY 04/09/22 10/29/24 mg tablet cholecalciferol (vitamin D3) 10 10 mcg PO DAILY 04/09/22 10/29/24 mcg (400 unit) capsule zinc acetate 50 mg (zinc) capsule 50 mg PO DAILY 03/09/23 10/29/24 liraglutide 0.6 mg/0.1 mL (18 mg/3 1.8 mg SUBCUT DAILY 10/29/24 10/29/24 mL) subcutaneous pen injector (Thryve 3-Evgeny) potassium chloride 10 mEq 10 meq PO DAILY 10/29/24 10/29/24 tablet,extended release Previous Rx's Medication Instructions Recorded Disposable nebulizer circuit #1 ea 03/02/22 nebulizers #1 ea 03/02/22 levalbuterol HCl 1.25 mg/0.5 mL 1.25 mg (0.5 mL) inhalation Q4H 03/29/24 solution for nebulization PRN shortness of breath or wheezing #100 vials lisinopril 2.5 mg tablet 2.5 mg PO DAILY #90 tabs 03/29/24 metformin 500 mg tablet,extended 2,000 mg (4 x 500 mg) PO DAILY 03/29/24 release 24 hr #360 tabs insulin glargine 100 unit/mL (3 See Rx Instructions SUBCUT DAILY 06/07/24 mL) subcutaneous pen (Lantus #15 mL Solostar U-100 Insulin) tamsulosin 0.4 mg capsule 0.4 mg PO BID #180 caps 08/23/24 pen needle, diabetic 33 gauge x #100 ea 08/29/24 vitamin B comp and C no.3 15 mg-10 1 cap PO DAILY #180 caps 09/18/24 mg-50 mg-5 mg-300 mg capsule (B Complex Plus Vitamin C) blood sugar diagnostic (OneTouch #50 ea 09/24/24 Ultra Test strips) albuterol sulfate 90 mcg/actuation 2 puff inhalation QID PRN 10/01/24 aerosol inhaler Shortness Of Breath #6.7 grams budesonide 0.5 mg/2 mL suspension 0.5 mg (2 mL) inhalation QAM #60 mL 10/01/24 for nebulization Allergies Allergy/AdvReac Type Severity Reaction Status Date / Time No Known Allergies Allergy Verified 10/29/24 14:07 [facility] ED PFS: Medical History Atherosclerosis of coronary artery Intermittent complete heart block Chronic hypoxic respiratory failure Diabetes mellitus with hyperglycemia, with long-term current use of insulin Advanced chronic obstructive pulmonary disease Lymphoplasmacytoid lymphoma, 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 History of local excision of skin lesion H/O transurethral destruction of bladder lesion History of condyloma acuminatum removal surgical December 2014 History of arthroplasty of left shoulder tendon 1969's Hx of vasectomy H/O hernia repair umbilical and bilateral inguinal 1979' History of cholecystectomy Family History Mother , at age 73 Diabetes Lung disease Father , at age 75 Cancer blood Lung disease Social History Smoking and tobacco/nicotine status: former use of tobacco/nicotine Quit status (tobacco/nicotine): has quit using Year quit tobacco: 2002 Former quit date comment: smoked 47 years Second hand smoke exposure: No Alcohol intake: current Alcohol intake frequency: holidays/special occasions only Substance/Drug Use: never Adopted: No Caregiver/support person: No Lives independently: Yes Household members: spouse Housing: House Marital status: Number of children: 5 Number of grandchildren: 7 service: Yes branch: [employer] Current occupational status: disabled Pets and animals: Yes Pets & animals: cat(s) and dog(s) Do you think of yourself as: Straight/Heterosexual Current gender identity: Male Special luis needs: No Course Vital Signs: Vital signs: Vital Signs Temperature 98.0 F 10/29/24 14:05 Pulse Rate 71 10/29/24 19:30 Respiratory Rate 18 10/29/24 19:30 Blood Pressure 121/60 10/29/24 19:30 Pulse Oximetry 93 10/29/24 19:30 Oxygen Delivery Me thod Nasal Cannula 10/29/24 20:21 Oxygen Flow Rate 2 10/29/24 18:30 MDM - SOB/Dyspnea Medical Decision Making Differential diagnosis includes COPD, CHF, pulmonary hypertension, pulmonary embolism, pleural effusion, chronic lung disease, neoplastic process, pericardial effusion, anemia, ACS, multiple others. Chest x-ray was performed and I did not see any new infiltrates or any significant changes compared to previous. He is afebrile here and is not endorsing any fever or chills. Discussed with patient and . They feel he is still symptomatic and would like to see if we can do any advanced imaging. We will go ahead and do a CT angiogram of the chest to rule out any pulmonary embolism and make a definitive evaluation for any signs of CHF, masses, infiltrates, pericardial effusion, etc. Care transferred to ia at shift change, ABG showed hypercapnia, upon discussing with and patient. Patient will need to be sedated be placed on BiPAP to help dry up some of this hypercapnia. Did talk to Dr.Adimora Deborah Warren who agreed to place patient in ICU for further evaluation and treatment. Lab Data 10/29/24 15:18 10/29/24 15:18 Labs/Radiology: Radiology Impressions Chest X-Ray 10/29/24 14:07 IMPRESSION: 1. No acute findings. 2. Stable cardiac device left anterior chest. 3. Stable left lower lobe granuloma 4. Stable cardiac loop recorder left hemithorax Chest CTA 10/29/24 16:03 IMPRESSION: 1. Negative for pulmonary embolism. 2. Negative for right heart strain. 3. Heavy coronary artery calcifications. 4. Calcified granuloma left upper lobe 5. Multiple enlarged mediastinal lymph nodes new since prior . 6. Normal thoracic aorta. 7. Cholecystectomy Laboratory Results WBC 9.51 10^3/uL (3.29-11.43) 10/29/24 15:18 RBC 3.79 10^6/uL (3.85-5.65) L 10/29/24 15:18 Hgb 12.10 g/dL (11.27-16.99) 10/29/24 15:18 Hct 38.6 % (37-53) 10/29/24 15:18 MCV 101.8 fl (82-101) H 10/29/24 15:18 MCH 31.9 pg (27-33) 10/29/24 15:18 MCHC 31.3 g/dL (30-55) 10/29/24 15:18 RDW 13.9 % (12.1-15.1) 10/29/24 15:18 Plt Count 173 10^3/cmm (157-399) 10/29/24 15:18 MPV 9.7 fL (7.4-10.4) 10/29/24 15:18 Neut % (Auto) 46.7 % 10/29/24 15:18 Lymph % (Auto) 47.1 % 10/29/24 15:18 [place] % (Auto) 4.4 % 10/29/24 15:18 Eos % (Auto) 0.7 % 10/29/24 15:18 Baso % (Auto) 0.3 % 10/29/24 15:18 Neut # (Auto) 4.43 10^3/uL (1.8-7.7) 10/29/24 15:18 Lymph # (Auto) 4.5 10^3/uL (0.8-4.8) 10/29/24 15:18 [place] # (Auto) 0.4 10^3/uL (0.2-0.9) 10/29/24 15:18 Eos # (Auto) 0.1 10^3/uL (0.0-0.8) 10/29/24 15:18 Baso # (Auto) 0.0 10^3/uL (0.0-0.1) 10/29/24 15:18 Nucleated RBC % (auto) 0 % 10/29/24 15:18 Nucleated RBCs # 0.0 /100WBC 10/29/24 15:18 Specimen Type Arterial 10/29/24 18:45 Sample Site Radial, left 10/29/24 18:45 ABG pH 7.36 (7.35-7.45) 10/29/24 18:45 ABG pCO2 74.0 mmHg (35-45) H* 10/29/24 18:45 ABG pO2 68.8 mmHg (80.0-100.0) L 10/29/24 18:45 ABG PO2/FiO2 Ratio 245 10/29/24 18:45 ABG HCO3 41.8 mmol/L (22-26) H 10/29/24 18:45 ABG O2 Saturation 93.8 10/29/24 18:45 ABG Base Excess 13.5 mmol/L (-2.0-2.0) H 10/29/24 18:45 [place] Test Pos 10/29/24 18:45 A-a O2 Gradient 5.3 mmHg (5-10) 10/29/24 18:45 Hematocrit 34.6 % (42-52) L 10/29/24 18:45 Hgb O2 Saturation 91.4 % (95-100) L 10/29/24 18:45 Carboxyhemoglobin 1.8 %THgb (0.4-20.1) 10/29/24 18:45 Methemoglobin 0.8 % (0.4-1.5) 10/29/24 18:45 Total Hemoglobin 11.3 g/dL (14-18) L 10/29/24 18:45 Sodium 142.0 mmol/L (131-143) 10/29/24 18:45 Potassium 4.5 mmol/L (3.5-5.0) 10/29/24 18:45 Glucose 119.0 mg/dL (70-115) H 10/29/24 18:45 Ionized Calcium 1.3 mmol/L (1.1-1.4) 10/29/24 18:45 O2 Delivery Device Nc 10/29/24 18:45 O2 Liters/Min 2.0 % 10/29/24 18:45 FiO2 28.0 % 10/29/24 18:45 Arc And Gas Welder ID Cak 10/29/24 18:45 Sodium 142 mmol/L (136-145) 10/29/24 15:18 Potassium 5.1 mmol/L (3.5-5.1) 10/29/24 15:18 Chloride 96 mmol/L (98-107) L 10/29/24 15:18 Carbon Dioxide 41 mmol/L (22-29) H 10/29/24 15:18 Anion Gap 10.1 (5-19) 10/29/24 15:18 BUN 30 mg/dL (8-23) H 10/29/24 15:18 Creatinine 0.9 mg/dL (0.7-1.2) 10/29/24 15:18 GFR Calculation Not Reportable 10/29/24 15:18 Glucose 135 mg/dL (65-115) H 10/29/24 15:18 Calculated Osmolality 302 mOsm/kg (285-295) H 10/29/24 15:18 Calcium 10.2 mg/dL (8.5-10.5) 10/29/24 15:18 Total Bilirubin 0.3 mg/dL (0.15-1.2) 10/29/24 15:18 AST 12 U/L (0-40) 10/29/24 15:18 ALT 10 U/L (0-41) 10/29/24 15:18 Alkaline Phosphatase 55 U/L (40-130) 10/29/24 15:18 Troponin T Baseline 47 ng/L (0-15) H 10/29/24 15:18 Troponin T 120 Minute 44.03 ng/L (0-15) H 10/29/24 18:10 Delta Troponin T -2.97 ABS# (0-10) L 10/29/24 18:10 NT-Pro-B Natriuret Pep 384 pg/mL (0-450) 10/29/24 15:18 Total Protein 6.5 g/dL (6.6-8.7) L 10/29/24 15:18 Albumin 3.8 g/dL (3.5-5.2) 10/29/24 15:18 Globulin 2.7 g/dL (1.3-4.6) 10/29/24 15:18 All radiology interpretation(s) finalized by discharge Discharge Plan Discharge Patient Disposition: Admitted As Inpatient Admit Provider: Renee Nichole Clinical Impression: Acute and chronic respiratory failure with hypercapnia Condition: Stable Coding Level of Care Code ED Copy Operator for Brandon Paredes
--- NOTE | 2024-10-29 16:07 | ECG_ITS ---
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 Measurements Intervals [place] Rate: 68 P: 79 [place]: 247 QRS: 0 QRSD: 153 T: 91 QT: 402 QTc: 429 Interpretive Statements SINUS RHYTHM WITH FIRST DEGREE AV BLOCK LEFT BUNDLE BRANCH BLOCK [120+ ms QRS DURATION, 80+ ms Q/S IN V1/V2, 85+ ms R IN I/aVL/V5/V6] Compared to ECG 10/29/2024 14:02:01 Ventricular premature complex(es) no longer present Electronically Signed On 10-29-2024 20:10:52 GAME PROGRAMER by Eduardo Dewey M.D. [id number]
[2024-10-29 16:11] LABS: Alanine Aminotransferase 10 U/L (0-41); Albumin Level 3.8 g/dL (3.5-5.2); Alkaline Phosphatase 55 U/L (40-130); Anion Gap 10.1 (5-19); Aspartate Amino Transferase 12 U/L (0-40); Blood Urea Nitrogen 30 mg/dL (8-23); Calcium 10.2 mg/dL (8.5-10.5); Chloride 96 mmol/L (98-107); Creatinine Clr Calc Pharmacy 84.9559; Globulin 2.7 g/dL (1.3-4.6); Glucose 135 mg/dL (65-115); NT Pro B Type Natriuretic Pept 384 pg/mL (0-450); Osmolality Calculated 302 mOsm/kg (285-295); Potassium 5.1 mmol/L (3.5-5.1); Sodium 142 mmol/L (136-145); Total Bilirubin 0.3 mg/dL (0.15-1.2); Total Protein 6.5 g/dL (6.6-8.7)
[2024-10-29 16:13] LABS: Carbon Dioxide 41 mmol/L (22-29)
[2024-10-29] MEDS: iohexol 350 mg/mL 500 mL Btl (per mL) IV (16:45)
[2024-10-29 18:37] LABS: Troponin 5 2HR 44.03 ng/L (0-15)
[2024-10-29 18:38] LABS: Troponin 5 2HR Delta -2.97 ABS# (0-10)
[2024-10-29 18:56] LABS: ABG PH Result 7.36 (7.35-7.45); Alveolar-Arterial Oxygen Gradi 5.3 mmHg (5-10); Arterial Blood Gas Hematocrit 34.6 % (42-52); Base Excess ABG 13.5 mmol/L (-2.0-2.0); Blood Gas Allen Test Pos; Blood Gas Operator Identificat CAK; Blood Gas Sample Site Radial, left; Blood Gas Sample Type Arterial; Carboxyhemoglobin 1.8 %THgb (0.4-20.1); HCO3 ABG 41.8 mmol/L (22-26); HGB O2 Sat 91.4 % (95-100); Ionized Calcium Level - ABG 1.3 mmol/L (1.1-1.4); Methemoglobin 0.8 % (0.4-1.5); Oxygen Device NC; Oxygen Saturation ABG 93.8; PO2 ABG 68.8 mmHg (80.0-100.0); PO2 FiO2 Ratio Arterial Blood 245; Potassium Level - ABG 4.5 mmol/L (3.5-5.0); Total Hemoglobin 11.3 g/dL (14-18)
--- NOTE | 2024-10-29 19:39 | P.HP_ITS ---
Providers/Chief Complaint 2 Admitting Physician: Renee Nichole Primary Care Provider: MELCHOR Lange Chief Complaint: sob History of Present Illness Florentino Alfaro is a 78 year old male COPD, ANASTASIYA intolerant to CPAP, chronic hypoxic respiratory failure on 2L, non-IDDM2, Papillary Urothelial bladder cancer s/p TURBT in 08/2016, CLL, Complete heart block s/p PPM in 08/2024 at [facility], who presents to [facility] on 10/29/2024 with complaints of progressive dyspnea. The patient states that starting about a month ago, he can get up to go and use the restroom and when he sits down his O2 sat would be in the 80s. It would take about 15mins for his O2 to rebound to 94%. He noticed that now when he goes to use the restroom and he sits down, his O2 sat would be in the 60s and after about 30mins his O2 sat would be in the 80s, despite the NC being on 5L. For the last several weeks he increased his NC to 3L to try to keep his O2 sat at 90%. He states that on the night of 10/27, after his shower, his O2 sat was 49%. Last night, he made a sandwich and when he went to his chair his O2 sat was at 54%. He sent a message to his Drier Operator Head, and his nurse referred them to the ED from the Cardiology clinic. In addition to his low O2 sats, he endorses progressively dyspenic. He endorses chronic non-productive and wheezing. He endorses dizziness when getting up, but it is chronic. He denies CP, palpitations, headaches, syncope In the ED, patient was tachypneic to 22, and hypoxic to 86 on 2L. His ProBNP was 389. His CXR showed no acute findings. His CTA chest with PE protocol was negative for PE and right heart strain, but it showed unremarkable lungs with no consolidation or masses, but a 16mm calcified granuloma in the JESSIE and new multiple enlarged mediastinal LN. his EKG showed NSR with PVCs, no ST changes, and an old LBBB noted on previous EKGs. His QTc was 432. According to the ED physician and confirmed by the patient's , the patient's wanted the patient to be sedated, because he historically did not tolerate BiPAP, so the patient was accepted for admission to the ICU for acute on chronic hypoxic/hypercapnic respiratory failure secondary to COPD exacerbation requiring BiPAP with trial of Precedex drip. On arrival to the ICU, it was noted that his heart rate was in the 60s. The patient's tells me that she has been informed that his COPD is advanced. It was explained to the patient and his that we will try Precedex drip, however if he becomes bradycardic, we will discontinue the Precedex drip, and attempt lorazepam. If he becomes too sedated with lorazepam, and blood gas worsens, he may need to be intubated. The patient and the agreed. Review of Systems 2 Const: Reports: change in appetite; Denies: fever(s) or chills Eyes: Reports: change in vision (chronic) ENMT: Reports: nasal discharge (chronic - it occurs after he eats); Denies: odynophagia, ear or mastoid pain, ear discharge or nasal congestion Card: Denies: chest pain, palpitations, lightheadedness or syncope Resp: Reports: dyspnea, non-productive cough (chronic and intermittent) and wheezing (chronic and intermittent) GI: Denies: abdominal pain, nausea, vomiting, diarrhea, constipation, hematochezia or melena : Reports: difficulty urinating, urinary dribbling and change in urine stream; Denies: dysuria, urinary frequency or urinary urgency Musc: Reports: joint pain (R. knee - he has osteoarthritis) Skin/Breast: Denies: rash or new lesions Neuro: Reports: dizziness; Denies: headache(s) Psych: Denies: anxiety, depression, suicidal ideation or homicidal ideation Endo: Reports: cold intolerance; Denies: heat intolerance Sharan/Lymph: Reports: easy bruising; Denies: easy bleeding Medications/Allergies Home Medications Medication Instructions Recorded Confirmed Last Taken Type Disposable nebulizer circuit #1 ea 03/02/22 10/29/24 Unknown Rx nebulizers #1 ea 03/02/22 10/29/24 Unknown Rx ascorbate calcium (vitamin C) 500 1,000 mg PO DAILY 04/09/22 10/29/24 02/23/23 10:00 History mg tablet cholecalciferol (vitamin D3) 10 10 mcg PO DAILY 0610/29/24 02/23/23 10:00 History mcg (400 unit) capsule zinc acetate 50 mg (zinc) capsule 50 mg PO DAILY 03/09/23 10/29/24 Unknown History levalbuterol HCl 1.25 mg/0.5 mL 1.25 mg (0.5 mL) inhalation Q4H 03/29/24 10/29/24 Unknown Rx solution for nebulization PRN shortness of breath or wheezing #100 vials lisinopril 2.5 mg tablet 2.5 mg PO DAILY #90 tabs 03/29/24 10/29/24 Unknown Rx metformin 500 mg tablet,extended 2,000 mg (4 x 500 mg) PO DAILY 03/29/24 10/29/24 Unknown Rx release 24 hr #360 tabs insulin glargine 100 unit/mL (3 See Rx Instructions SUBCUT DAILY 06/07/24 10/29/24 Unknown Rx mL) subcutaneous pen (Lantus #15 mL Solostar U-100 Insulin) tamsulosin 0.4 mg capsule 0.4 mg PO BID #180 caps 08/23/24 10/29/24 Unknown Rx pen needle, diabetic 33 gauge x #100 ea 08/29/24 10/29/24 Unknown Rx 5/32 vitamin B comp and C no.3 15 mg-10 1 cap PO DAILY #180 caps 09/18/24 10/29/24 Unknown Rx mg-50 mg-5 mg-300 mg capsule (B Complex Plus Vitamin C) blood sugar diagnostic (OneTouch #50 ea 09/24/24 10/29/24 Unknown Rx Ultra Test strips) albuterol sulfate 90 mcg/actuation 2 puff inhalation QID PRN 10/01/24 10/29/24 Unknown Rx aerosol inhaler Shortness Of Breath #6.7 grams budesonide 0.5 mg/2 mL suspension 0.5 mg (2 mL) inhalation QAM #60 mL 10/01/24 10/29/24 Unknown Rx for nebulization liraglutide 0.6 mg/0.1 mL (18 mg/3 1.8 mg SUBCUT DAILY 10/29/24 10/29/24 Unknown History mL) subcutaneous pen injector (Pharmapod 3-Evgeny) potassium chloride 10 mEq 10 meq PO DAILY 10/29/24 10/29/24 Unknown History tablet,extended release Allergies Allergy/AdvReac Type Severity Reaction Status Date / Time No Known Allergies Allergy Verified 10/29/24 14:07 PFSH Acute 2 PFSH: Medical History Atherosclerosis of coronary artery Intermittent complete heart block Chronic hypoxic respiratory failure Diabetes mellitus with hyperglycemia, with long-term current use of insulin Advanced chronic obstructive pulmonary disease Lymphoplasmacytoid lymphoma, CLL BPH with obstruction/lower urinary tract symptoms Metabolic acidosis Hyperkalemia Syncope NSTEMI (non-ST elevated myocardial infarction) Uremia Acute renal failure Acute hypoxic respiratory failure Chronic lymphocytic leukemia not having achieved remission Sleep apnea Constipation, slow transit ANASTASIYA (obstructive sleep apnea) Chronic lymphocytic leukemia Generalized muscle ache Malignant neoplasm of overlapping sites of bladder Dependence on supplemental oxygen Vitamin D insufficiency Surgical History History of permanent cardiac pacemaker placement August 2024 at [facility] in [place], [place]. History of local excision of skin lesion H/O transurethral destruction of bladder lesion History of condyloma acuminatum removal surgical December 2014 History of arthroplasty of left shoulder tendon 1969' Hx of vasectomy H/O hernia repair umbilical and bilateral inguinal History of cholecystectomy Family History Mother , at age 73 Diabetes Lung disease Father , at age 75 Cancer blood Lung disease Social History Smoking and tobacco/nicotine status: former use of tobacco/nicotine Quit status (tobacco/nicotine): has quit using Year quit tobacco: 2002 Former quit date comment: smoked 47 years Second hand smoke exposure: No Alcohol intake: current Alcohol intake frequency: holidays/special occasions only Substance/Drug Use: never Adopted: No Caregiver/support person: No Lives independently: Yes Household members: spouse Housing: House Marital status: Number of children: 5 Number of grandchildren: 7 service: Yes branch: [employer] Current occupational status: disabled Pets and animals: Yes Pets & animals: cat(s) and dog(s) Do you think of yourself as: Straight/Heterosexual Current gender identity: Male Special luis needs: No Vitals/I&O/Wt Last Vital Signs Temp 98.0 F 10/29/24 14:05 Pulse 61 10/29/24 19:00 Resp 17 10/29/24 19:00 BP 121/60 10/29/24 19:00 Pulse Ox 93 10/29/24 19:00 O2 Del Method Nasal Cannula 10/29/24 18:30 O2 Flow Rate 2 10/29/24 18:30 10/29/24 10/29/24 10/29/24 06:59 14:59 22:59 Intake Total 0 / 0 Balance 0 / 0 Weight last 48 hrs Weight 102.058 kg Data 10/29/24 15:18 10/29/24 15:18 A&P Assessment and plan (1) Acute on chronic respiratory failure with hypoxia and hypercapnia: (2) BPH with obstruction/lower urinary tract symptoms: (3) COPD with acute exacerbation: Plan Florentino Alfaro is a 78 year old male COPD, ANASTASIYA intolerant to CPAP, chronic hypoxic respiratory failure on 2L, non-IDDM2, Papillary Urothelial bladder cancer s/p TURBT in 08/2016, CLL, Complete heart block s/p PPM in 08/2024 at [facility], who presents to [facility] on 10/29/2024 with complaints of progressive dyspnea. #Acute on chronic hypoxic/hypercapneic respiratory failure #Acute COPD exacerbation #ANASTASIYA intolerant to CPAP - Currently on 4.5L. - ABG in the ED - As discussed w/ and patient in the HPI, start BiPAP w/ Precedex drip. Try Lorazepam if he becomes too bradycardic (<50) on Precedex. Intubate if too sedated on Lorazeapm and blood gas worsens - duonebs, Steroids, Levofloxacin, PPI, - Place arnold cath while on BiPAP given his difficulty controlling his urge to urinate and per his request. #non-IDDM2: - Start Insulin glargine + sliding scale. -On extensive chart review, it does not appear that he has HTN as a diagnosis. It appears that he is on lisinopril for renal protection for his diabetes. #Papillary Urothelial bladder cancer s/p TURBT in 08/2016 -He tells me that he has not followed up with urology in 8 months. Refer to urology on discharge if he does not have an appointment with one. #BPH: Hold Tamsulosin. # CLL -Previously followed by Dr. Youngblood who is also now retired as of this year. He may need referral for follow-up if he does not have one #Complete heart block s/p PPM - Telemonitoring DVT ppx:Lovenox GI ppx: Pantoprazole Attestations 2 Medical Necessity Statement*: The patient needs to be hospitalized for greater than 2 midnights for acute on chronic hypoxic hypercapnic respiratory failure secondary to COPD exacerbation. Critical Care Time: The high probability of a clinically significant, sudden or life threatening deterioration of the patient's [] system(s) required my full and direct attention, intervention and personal management. The critical care time is as shown. This time is in addition to time spent performing any reported procedures but includes the following: [x] Data and vital sign review and interpretation [x] Patient assessment, examination and intervention [x] Documentation [x] Medication orders and management Critical Care Time (min): 60 Coding Level of Care Code Critical Care >/= 30 minutes Other Coding Information Focused coding review requested Diagnoses Acute on chronic respiratory failure with hypoxia and hypercapnia J96.21; J96.22 BPH with obstruction/lower urinary tract symptoms N40.1; N13.8 COPD with acute exacerbation J44.1
--- NOTE | 2024-10-29 20:07 | ECG_ITS ---
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 Measurements Intervals [place] Rate: 63 P: 78 UT: 250 QRS: 17 QRSD: 150 T: 84 QT: 422 QTc: 432 Interpretive Statements SINUS RHYTHM WITH FIRST DEGREE AV BLOCK LEFT BUNDLE BRANCH BLOCK [120+ ms QRS DURATION, 80+ ms Q/S IN V1/V2, 85+ ms R IN I/aVL/V5/V6] Compared to ECG 10/29/2024 16:09:35 No significant changes Electronically Signed On 10-30-2024 16:52:23 ARMOR SENIOR SERGEANT by Eduardo Dewey M.D. [email or web address]
[2024-10-29 21:24] LABS: Troponin 5 6HR 44.89 ng/L (0-15)
[2024-10-29 21:25] LABS: Troponin 5 6HR Delta -2.11 ng/L (0-12)
[2024-10-29] MEDS: enoxaparin 40 mg/0.4 mL Syringe SUBCUT (22:10)
[2024-10-29] MEDS: dexmedeTOMIDine 0.9 % NaCL 400 MCG/100 ML PREMIX IV (22:18)
[2024-10-29 23:02] LABS: Glucose Point of Care 123 mg/dL (70-110)
[2024-10-29] MEDS: methylPREDNISolone sod succ 125 mg/2 mL INJ 80 MG IVP (23:08)
[2024-10-29] MEDS: levofloxacin-dextrose 5 % 750 MG/150 ML PREMIX 100 MG IV (23:09)
[2024-10-30] VITALS (42 sets, daily range): BP systolic 99–153; BP diastolic 43–87; PULSE 6–75; RESP 9–32; TEMP 36.2–36.8; O2SAT 85–97
[2024-10-30] MEDS: ipratropium-albuterol 3 mL Neb INHALATION ×6 (00:31→23:54)
[2024-10-30] MEDS: pantoprazole 40 mg SDV IVP (05:46)
[2024-10-30 05:58] LABS: Basophils % 0.1 %; Eosinophils % 0.1 %; Hematocrit 34.9 % (37-53); Lymphocytes # 2.5 10^3/uL (0.8-4.8); Lymphocytes % 35.1 %; Mean Corpuscular HGB Conc 31.5 g/dL (30-55); Mean Corpuscular Hemoglobin 32.4 pg (27-33); Mean Corpuscular Volume 102.9 fl (82-101); Mean Platelet Volume 9.9 fL (7.4-10.4); Monocytes # 0.5 10^3/uL (0.2-0.9); Monocytes % 7.3 %; Neutrophils % 56.3 %; Nucleated Red Blood Cells % 0 %; Platelet Count 148 10^3/cmm (157-399); Red Blood Count 3.39 10^6/uL (3.85-5.65); Red Cell Distribution Width 13.7 % (12.1-15.1); White Blood Count 7.12 10^3/uL (3.29-11.43)
[2024-10-30 06:25] LABS: Alanine Aminotransferase 8 U/L (0-41); Albumin Level 3.3 g/dL (3.5-5.2); Alkaline Phosphatase 49 U/L (40-130); Anion Gap 12.3 (5-19); Aspartate Amino Transferase 11 U/L (0-40); Blood Urea Nitrogen 28 mg/dL (8-23); Calcium 9.8 mg/dL (8.5-10.5); Carbon Dioxide 38 mmol/L (22-29); Chloride 93 mmol/L (98-107); Creatinine Clr Calc Pharmacy 84.1556; Glucose 355 mg/dL (65-115); Magnesium 1.1 mg/dL (1.7-2.3); Osmolality Calculated 306 mOsm/kg (285-295); Potassium 5.3 mmol/L (3.5-5.1); Sodium 138 mmol/L (136-145); Total Bilirubin 0.3 mg/dL (0.15-1.2); Total Protein 6.3 g/dL (6.6-8.7)
[2024-10-30 07:30] LABS: Glucose Point of Care 350 mg/dL (70-110)
--- NOTE | 2024-10-30 07:30 | PC.NURSE ---
Patient refusing the Covid/RSV/Flu swab as ordered, patient states that they did one at the clinic.
[2024-10-30] MEDS: insulin lispro 100 unit/1 mL SUBCUT ×4 (08:22→20:32)
[2024-10-30] MEDS: magnesium sulfate premix 2 GM/50 ML PIGGYBACK IV (09:25)
[2024-10-30] MEDS: insulin glargine 100 units/1 mL 40 UNIT SUBCUT (09:30)
--- NOTE | 2024-10-30 12:26 | PC.SOCIAL ---
IMM Update Pg. 2 of IMM Updated. Initialed, dated, and timed copy in chart. Copy provided at bedside.
[2024-10-30 13:07] LABS: Glucose Point of Care 353 mg/dL (70-110)
--- NOTE | 2024-10-30 14:37 | PC.NURSE ---
1300-- Dr. Goodwin to bedside, plan of care discussed. 1325 -- Updated patients Lolita Alfaro of patients plan of care. Notified that Dr. Goodwin would be at patients bedside around 1000 and will explain plan of care in further detail to her at that time.
[2024-10-30 14:53] LABS: Potassium 5.4 mmol/L (3.5-5.1)
[2024-10-30 16:18] LABS: Glucose Point of Care 321 mg/dL (70-110)
--- NOTE | 2024-10-30 20:15 | P.PN_ITS ---
Subjective 2 Subjective: He is overall feeling much better. Has weaned off of BiPAP. She is inquiring about BiPAP for home use. States CPAP that he had was too strong for him. He drinks quite a bit of water, drinks 4-5 large mugs of water in a day, was told to drink water to avoid dehydration. Discussed with him concern that excessive water consumption may result in fluid retention including leg edema which he states has been struggling to control despite increasing the dose of diuretic. Vitals/I&O/Wt Last Vital Signs Temp 98.2 F 10/30/24 16:00 Pulse 60 10/30/24 19:36 Resp 18 10/30/24 19:36 BP 135/59 10/30/24 18:00 Pulse Ox 92 10/30/24 19:36 O2 Del Method Nasal Cannula 10/30/24 19:36 O2 Flow Rate 2 10/30/24 19:36 FiO2 40 10/30/24 04:13 10/30/24 10/30/24 10/30/24 06:59 14:59 22:59 Intake Total 157.112 / 157.112 750 / 750 200 / 950 Output Total 650 / 650 Balance 157.112 / 157.112 750 / 750 -450 / 300 Weight last 48 hrs Weight 100 kg Weight 100 kg Weight 100.5 kg Weight 102.058 kg Physical Exam 2 Const: COMMON NORMALS: patient oriented x3 and alert GENERAL APPEARANCE: c ooperative ORIENTATION/CONSCIOUSNESS: Yes awake HENMT: COMMON NORMALS: oropharynx normal Neck/C-Spine: COMMON NORMALS: no JVD Resp: COMMON NORMALS: normal respiratory effort AUSCULTATION: wheezes (Minimal wheezes bilateral lower lungs) Cardio: COMMON NORMALS: no JVD, regular rhythm, S1 normal heart sound present, S2 normal heart sound present and No murmurs present (Cardio) RHYTHM: regular rhythm HEART SOUNDS: S1 normal heart sound present and S2 normal heart sound present GI: COMMON NORMALS: Normal to inspection, nondistended, normoactive bowel sounds present, Soft to palpation and non-tender PALPATION: Yes Soft to palpation Extremity: COMMON NORMALS: no joint enlargement OTHER: Trace edema, right greater than the left Neuro: COMMON NORMALS: patient oriented x3 and moves all extremities S ENSORIUM/ORIENTATION: Yes alert Skin: COMMON NORMALS: no rashes or lesions noted GENERAL SKIN EXAM: no rashes or lesions noted Urinary Catheter Management: Farrell: Cath Placed During This Visit: yes Reason for Continuing Indwelling Catheter: Accurate Measurement of Urinary Output in Critically Ill Patients Urinary Catheter Date of Insertion: 10/29/24 Urinary Catheter Time of Insertion: 22:00 Data 10/30/24 05:41 10/30/24 14:24 A&P Assessment and plan (1) Acute on chronic respiratory failure with hypoxia and hypercapnia: (2) BPH with obstruction/lower urinary tract symptoms: (3) COPD with acute exacerbation: Plan Florentino Alfaro is a 78 year old male COPD, ANASTASIYA intolerant to CPAP, chronic hypoxic respiratory failure on 2L, non-IDDM2, Papillary Urothelial bladder cancer s/p TURBT in 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 #Acute on chronic hypoxic/hypercapneic respiratory failure #Acute severe COPD exacerbation with dyspnea, hypoxia, hypercapnia, productive cough #ANASTASIYA intolerant to CPAP He is feeling much better. Was able to wean off BiPAP. Down to nasal cannula support. He is awake and alert. Requesting oral diet. Requested. Still noted wheezing on exam. Continue Solu-Medrol, continue breathing treatments. Monitor for risk of hypertension, encephalopathy, gastritis with IV steroid. Weaned off Precedex. With significant hypercapnia on presentation, discussed with him avoiding hyperoxia, he states he is aware of it and does target O2 saturation 88-92%. He did do well with BiPAP. Discussed with him overnight pulse oximetry, assess need for home BiPAP. Requested. Requested morning ABG. Levofloxacin Transfer out of ICU. Discussed with nursing, respiratory therapist, caser up. Hyperkalemia: Low potassium diet. Recheck potassium level. Hypomagnesemia: Magnesium 1.1, requested supplementation. Repeat level. #non-IDDM2: Continue Lantus, SSI. Reviewed POC glucose. Monitor for hyperglycemia with IV steroid. HTN it appears that he is on lisinopril for renal protection for his diabetes. #Papillary Urothelial bladder cancer s/p TURBT in 08/2016 has not followed up with urology in 8 months. Refer to urology on discharge if he does not have an appointment with one. #BPH: Resume tamsulosin. # CLL -Previously followed by Dr. Youngblood #Complete heart block s/p PPM - Telemonitoring DVT ppx:Lovenox GI ppx: Pantoprazole Attestations 2 Medical Necessity Statement*: Continue admission for assessment management of respiratory failure, COPD exacerbation. and High MDM includes amount and/or complexity of data reviewed/ordered [ resulted lab(s)/test(s), ordered lab(s)/test(s) and other healthcare professional discussion] and described risk of complication, morbidity or mortality of management as documented Diagnoses Acute on chronic respiratory failure with hypoxia and hypercapnia J96.21; J96.22 BPH with obstruction/lower urinary tract symptoms N40.1; N13.8 COPD with acute exacerbation J44.1
[2024-10-30] MEDS: enoxaparin 40 mg/0.4 mL Syringe SUBCUT (20:26)
[2024-10-30 20:30] LABS: Glucose Point of Care 154 mg/dL (70-110)
[2024-10-30 22:18] LABS: Potassium 4.9 mmol/L (3.5-5.1)
[2024-10-30] MEDS: methylPREDNISolone sod succ 125 mg/2 mL INJ 80 MG IVP (22:47)
[2024-10-30] MEDS: levofloxacin-dextrose 5 % 750 MG/150 ML PREMIX 100 MG IV (22:47)
[2024-10-31] VITALS (15 sets, daily range): BP systolic 96–135; BP diastolic 43–68; PULSE 60–82; RESP 12–24; TEMP 36.2–36.8; O2SAT 85–94
[2024-10-31] MEDS: ipratropium-albuterol 3 mL Neb INHALATION ×2 (04:22→08:02)
[2024-10-31 05:42] LABS: Alanine Aminotransferase 7 U/L (0-41); Albumin Level 3.2 g/dL (3.5-5.2); Alkaline Phosphatase 45 U/L (40-130); Anion Gap 12.2 (5-19); Aspartate Amino Transferase 9 U/L (0-40); Blood Urea Nitrogen 29 mg/dL (8-23); Calcium 9.5 mg/dL (8.5-10.5); Carbon Dioxide 38 mmol/L (22-29); Chloride 96 mmol/L (98-107); Creatinine Clr Calc Pharmacy 84.1556; Globulin 2.8 g/dL (1.3-4.6); Glucose 219 mg/dL (65-115); Magnesium 1.4 mg/dL (1.7-2.3); Osmolality Calculated 305 mOsm/kg (285-295); Potassium 5.2 mmol/L (3.5-5.1); Sodium 141 mmol/L (136-145); Total Bilirubin 0.2 mg/dL (0.15-1.2)
[2024-10-31 06:12] LABS: ABG PH Result 7.38 (7.35-7.45); Arterial Blood Gas Hematocrit 33.5 % (42-52); Base Excess ABG 12.4 mmol/L (-2.0-2.0); Blood Gas Allen Test Pos; Blood Gas Sample Site Brachial, right; Blood Gas Sample Type Arterial; HCO3 ABG 39.9 mmol/L (22-26); Oxygen Device NC; PO2 ABG 64.5 mmHg (80.0-100.0)
--- NOTE | 2024-10-31 07:15 | PC.NURSE ---
Precedex completed off DEC. bag not hanging in pt's room at shift report.
[2024-10-31 07:35] LABS: Glucose Point of Care 345 mg/dL (70-110)
[2024-10-31] MEDS: tamsulosin 0.4 mg Capsule PO (08:33)
[2024-10-31] MEDS: magnesium sulfate premix 1 GM/100 ML PIGGYBACK IV (08:33)
[2024-10-31] MEDS: insulin lispro 100 unit/1 mL SUBCUT ×2 (08:34→12:43)
[2024-10-31] MEDS: insulin glargine 100 units/1 mL 40 UNIT SUBCUT (08:35)
[2024-10-31 10:04] LABS: Basophils % 0.1 %; Lymphocytes # 3.3 10^3/uL (0.8-4.8); Lymphocytes % 33.3 %; Mean Corpuscular HGB Conc 31.1 g/dL (30-55); Mean Corpuscular Hemoglobin 31.8 pg (27-33); Mean Platelet Volume 10.1 fL (7.4-10.4); Monocytes # 0.2 10^3/uL (0.2-0.9); Monocytes % 2.2 %; Neutrophils # 6.38 10^3/uL (1.8-7.7); Neutrophils % 63.7 %; Nucleated Red Blood Cells % 0 %; Platelet Count 170 10^3/cmm (157-399); Red Blood Count 3.43 10^6/uL (3.85-5.65); Red Cell Distribution Width 13.6 % (12.1-15.1); White Blood Count 10.02 10^3/uL (3.29-11.43)
--- NOTE | 2024-10-31 10:28 | PC.NURSE ---
Farrell cath removed. Pt tolerated well. Discharge orders ready. Will discharge after pt able to void.
[2024-10-31 11:38] LABS: Glucose Point of Care 396 mg/dL (70-110)
--- NOTE | 2024-10-31 12:46 | PC.NURSE ---
Pt just urinated. He also had a bowel movement. Will discharge pt as soon as he finishes eating his meal.
--- NOTE | 2024-10-31 13:15 | PC.NURSE ---
Discharge instructions reviewed with pt. Follow-up appts, potassium low diet, Pulse oximetry study, Lasix taken with 3 lb daily fluid gain, CHF exacerbations all discussed. pt verbalized understanding. Paper copy of in fo provided. Pt discharge via W/C to POV.
--- NOTE | 2024-10-31 20:11 | P.DS_ITS ---
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 The patient states that starting about a month ago, he can get up to go and use the restroom and when he sits down his O2 sat would be in the 80s. It would take about 15mins for his O2 to rebound to 94%. He noticed that now when he goes to use the restroom and he sits down, his O2 sat would be in the 60s and after about 30mins his O2 sat would be in the 80s, despite the NC being on 5L. For the last several weeks he increased his NC to 3L to try to keep his O2 sat at 90%. He states that on the night of 10/27, after his shower, his O2 sat was 49%. Last night, he made a sandwich and when he went to his chair his O2 sat was at 54%. He sent a message to his [employer], and his nurse referred them to the ED from the Cardiology clinic. In addition to his low O2 sats, he endorses progressively dyspenic. He endorses chronic non-productive and wheezing. He endorses dizziness when getting up, but it is chronic. He denies CP, palpitations, headaches, syncope In the ED, patient was tachypneic to 22, and hypoxic to 86 on 2L. His ProBNP was 389. His CXR showed no acute findings. His CTA chest with PE protocol was negative for PE and right heart strain, but it showed unremarkable lungs with no consolidation or masses, but a 16mm calcified granuloma in the JESSIE and new multiple enlarged mediastinal LN. his EKG showed NSR with PVCs, no ST changes, and an old LBBB noted on previous EKGs. His QTc was 432. According to the ED physician and confirmed by the patient's , the patient's wanted the patient to be sedated, because he historically did not tolerate BiPAP, so the patient was accepted for admission to the ICU for acute on chronic hypoxic/hypercapnic respiratory failure secondary to COPD exacerbation requiring BiPAP with trial of Precedex drip. On arrival to the ICU, it was noted that his heart rate was in the 60s. The patient's tells me that she has been informed that his COPD is advanced. It was explained to the patient and his that we will try Precedex drip, however if he becomes bradycardic, we will discontinue the Precedex drip, and attempt lorazepam. If he becomes too sedated with lorazepam, and blood gas worsens, he may need to be intubated. The patient and the agreed. Hospital Course Hospital Course He was admitted to intensive care unit, with BiPAP support, treatment for COPD exacerbation with steroids, DuoNeb, Precedex sedation, oxygen support, empiric antibiotic with Levaquin. He was fluid restricted during hospitalization with improvement in lower extremity edema. He is oxygenation improved he weaned off BiPAP, and down to his baseline oxygen requirement. He did reveal that he has been drinking 4-5 large mugs of water daily for fear of becoming dehydrated. Recently with diuretics with lack of response having to increase the dose, discussed with him and his risk of fluid retention, and encouraged fluid restriction. He otherwise is doing well, down to his baseline oxygenation, feels ready to return home. He knows to further monitor his oxygenation at home and avoid hyperoxia/to reduce the chance of hypercapnia. He is referred for sleep study as he may benefit from BiPAP due to hypercapnia in addition to his history of sleep apnea. ABG this morning during hospitalization with compensated hypercapnia, 7.38/67/64.5/39.9. During hospitalization was incidentally noted to have mild hyperkalemia, and is advised to discontinue potassium supplement and maintain low potassium diet. Please reassess potassium level. He is also found to have low magnesium and magnesium supplement as provided. Please follow-up COPD after exacerbation. Additionally follow-up regarding chronic problems including history of papillary RTR bladder cancer status post TURBT as well as CLL. Physical Exam Narrative: Visited by his . Const: COMMON NORMALS: patient oriented x3 and alert GENERAL APPEARANCE: cooperative ORIENTATION/CONSCIOUSNESS: Yes awake HENMT: COMMON NORMALS: oropharynx normal Neck/C-Spine: COMMON NORMALS: no JVD Resp: COMMON NORMALS: normal respiratory effort and clear to auscultation bilaterally AUSCULTATION: clear to auscultation bilaterally Cardio: COMMON NORMALS: no JVD, regular rhythm, S1 normal heart sound present, S2 normal heart sound present and No murmurs present (Cardio) RHYTHM: regular rhythm HEART SOUNDS: S1 normal heart sound present and S2 normal heart sound present GI: COMMON NORMALS: Normal to inspection, nondistended, normoactive bowel sounds present, Soft to palpation and non-tender PALPATION: Yes Soft to palpation Extremity: COMMON NORMALS: no joint enlargement and no pedal edema Neuro: COMMON NORMALS: patient oriented x3 and moves all extremities SENSORIUM/ORIENTATION: Yes alert Skin: COMMON NORMALS: no rashes or lesions noted GENERAL SKIN EXAM: no rashes or lesions noted Urinary Catheter Management: Farrell: Cath Placed During This Visit: yes, but has since been removed by the nurse Reason for Continuing Indwelling Catheter: Decision to DC Catheter Urinary Catheter Date of Insertion: 10/29/24 Urinary Catheter Time of Insertion: 22:00 Date Urinary Catheter Removed: 10/31/24 Time Urinary Catheter Discontinued: 10:28 Discharge Data Studies Completed and Pending Completed Studies During Hospitalization Category Date Time Status CT angio chest PE protcl [id number] Stat Cat Scan 10/29/24 16:03 Completed XR chest 1V portable [id number] Stat Exams 10/29/24 14:07 Completed Radiology Impressions Chest X-Ray 10/29/24 14:07 IMPRESSION: 1. No acute findings. 2. Stable cardiac device left anterior chest. 3. Stable left lower lobe granuloma 4. Stable cardiac loop recorder left hemithorax Chest CTA 10/29/24 16:03 IMPRESSION: 1. Negative for pulmonary embolism. 2. Negative for right heart strain. 3. Heavy coronary artery calcifications. 4. Calcified granuloma left upper lobe 5. Multiple enlarged mediastinal lymph nodes new since prior . 6. Normal thoracic aorta. 7. Cholecystectomy Laboratory Results WBC 10.02 10^3/uL (3.29-11.43) 10/31/24 09:56 RBC 3.43 10^6/uL (3.85-5.65) L 10/31/24 09:56 Hgb 10.90 g/dL (11.27-16.99) L 10/31/24 09:56 Hct 35.0 % (37-53) L 10/31/24 09:56 MCV 102.0 fl (82-101) H 10/31/24 09:56 MCH 31.8 pg (27-33) 10/31/24 09:56 MCHC 31.1 g/dL (30-55) 10/31/24 09:56 RDW 13.6 % (12.1-15.1) 10/31/24 09:56 Plt Count 170 10^3/cmm (157-399) 10/31/24 09:56 MPV 10.1 fL (7.4-10.4) 10/31/24 09:56 Neut % (Auto) 63.7 % 10/31/24 09:56 Lymph % (Auto) 33.3 % 10/31/24 09:56 [place] % (Auto) 2.2 % 10/31/24 09:56 Eos % (Auto) 0.0 % 10/31/24 09:56 Baso % (Auto) 0.1 % 10/31/24 09:56 Neut # (Auto) 6.38 10^3/uL (1.8-7.7) 10/31/24 09:56 Lymph # (Auto) 3.3 10^3/uL (0.8-4.8) 10/31/24 09:56 [place] # (Auto) 0.2 10^3/uL (0.2-0.9) 10/31/24 09:56 Eos # (Auto) 0.0 10^3/uL (0.0-0.8) 10/31/24 09:56 Baso # (Auto) 0.0 10^3/uL (0.0-0.1) 10/31/24 09:56 Nucleated RBC % (auto) 0 % 10/31/24 09:56 Nucleated RBCs # 0.0 /100WBC 10/31/24 09:56 Specimen Type Arterial 10/31/24 06:05 Sample Site Brachial, right 10/31/24 06:05 ABG pH 7.38 (7.35-7.45) 10/31/24 06:05 ABG pCO2 67.0 mmHg (35-45) H* 10/31/24 06:05 ABG pO2 64.5 mmHg (80.0-100.0) L 10/31/24 06:05 ABG PO2/FiO2 Ratio 245 10/29/24 18:45 ABG HCO3 39.9 mmol/L (22-26) H 10/31/24 06:05 ABG O2 Saturation 93.8 10/29/24 18:45 ABG Base Excess 12.4 mmol/L (-2.0-2.0) H 10/31/24 06:05 Remberto Test Pos 10/31/24 06:05 A-a O2 Gradient 5.3 mmHg (5-10) 10/29/24 18:45 Hematocrit 33.5 % (42-52) L 10/31/24 06:05 Hgb O2 Saturation 91.4 % (95-100) L 10/29/24 18:45 Carboxyhemoglobin 1.8 %THgb (0.4-20.1) 10/29/24 18:45 Methemoglobin 0.8 % (0.4-1.5) 10/29/24 18:45 Total Hemoglobin 11.3 g/dL (14-18) L 10/29/24 18:45 Sodium 142.0 mmol/L (131-143) 10/29/24 18:45 Potassium 4.5 mmol/L (3.5-5.0) 10/29/24 18:45 Glucose 119.0 mg/dL (70-115) H 10/29/24 18:45 Ionized Calcium 1.3 mmol/L (1.1-1.4) 10/29/24 18:45 O2 Delivery Device Nc 10/31/24 06:05 O2 Liters/Min 2.0 % 10/31/24 06:05 FiO2 28.0 % 10/29/24 18:45 Associate Professor Of Engineering ID [email or web address] 10/31/24 06:05 Sodium 141 mmol/L (136-145) 10/31/24 04:20 Potassium 5.2 mmol/L (3.5-5.1) H 10/31/24 04:20 Chloride 96 mmol/L (98-107) L 10/31/24 04:20 Carbon Dioxide 38 mmol/L (22-29) H 10/31/24 04:20 Anion Gap 12.2 (5-19) 10/31/24 04:20 BUN 29 mg/dL (8-23) H 10/31/24 04:20 Creatinine 0.9 mg/dL (0.7-1.2) 10/31/24 04:20 GFR Calculation Not Reportable 10/31/24 04:20 Glucose 219 mg/dL (65-115) H 10/31/24 04:20 POC Glucose 396 mg/dL (70-110) H 10/31/24 11:36 Calculated Osmolality 305 mOsm/kg (285-295) H 10/31/24 04:20 Calcium 9.5 mg/dL (8.5-10.5) 10/31/24 04:20 Magnesium 1.4 mg/dL (1.7-2.3) L 10/31/24 04:20 Total Bilirubin 0.2 mg/dL (0.15-1.2) 10/31/24 04:20 AST 9 U/L (0-40) 10/31/24 04:20 ALT 7 U/L (0-41) 10/31/24 04:20 Alkaline Phosphatase 45 U/L (40-130) 10/31/24 04:20 Troponin T Baseline 47 ng/L (0-15) H 10/29/24 15:18 Troponin T 120 Minute 44.03 ng/L (0-15) H 10/29/24 18:10 Delta Troponin T -2.97 ABS# (0-10) L 10/29/24 18:10 Troponin T Hi Sens 6Hr 44.89 ng/L (0-15) H 10/29/24 20:55 Troponin T Hi Sens 6Hr Delta -2.11 ng/L (0-12) L 10/29/24 20:55 NT-Pro-B Natriuret Pep 384 pg/mL (0-450) 10/29/24 15:18 Total Protein 6.0 g/dL (6.6-8.7) L 10/31/24 04:20 Albumin 3.2 g/dL (3.5-5.2) L 10/31/24 04:20 Globulin 2.8 g/dL (1.3-4.6) 10/31/24 04:20 Vitals Last Vital Signs Temp 97.1 F L 10/31/24 08:00 Pulse 82 10/31/24 13:00 Resp 19 H 10/31/24 13:00 BP 135/63 10/31/24 13:00 Pulse Ox 94 10/31/24 13:00 O2 Del Method Nasal Cannula 10/31/24 13:00 O2 Flow Rate 2 10/31/24 13:00 FiO2 40 10/30/24 04:13 Discharge Plan Discharge Patient Disposition: Home Health Service Condition: Stable Prescriptions: New magnesium L-threonate 48 mg magnesium (667 mg) capsule 48 mg PO DAILY Qty: 90 0RF Continued ascorbate calcium (vitamin C) 500 mg tablet 1,000 mg PO DAILY cholecalciferol (vitamin D3) 10 mcg (400 unit) capsule 10 mcg PO DAILY levalbuterol HCl 1.25 mg/0.5 mL solution for nebulization 1.25 mg INHALATION Q4H PRN (Reason: shortness of breath or wheezing) Qty: 100 5RF lisinopril 2.5 mg tablet 2.5 mg PO DAILY Qty: 90 1RF metformin 500 mg tablet extended release 24 hr 2,000 mg PO DAILY Qty: 360 1RF Hold Instructions: Resume on 12/01/23. B Complex Plus Vitamin C 34-08-44-5-300 mg capsule 1 cap PO DAILY Qty: 180 1RF Rx Instructions: give with food (meal/snack) zinc acetate 50 mg (zinc) capsule 50 mg PO DAILY insulin glargine [Lantus Solostar U-100 Insulin] 100 unit/mL (3 mL) insulin pen See Rx Instructions SUBCUT DAILY Qty: 15 0RF Rx Instructions: up to 50 subcutaneously daily; Hold Farxiga tamsulosin 0.4 mg capsule 0.4 mg PO BID Qty: 180 0RF (DME) Disposable nebulizer circuit See Rx Instructions .Route .MEDSUPPLY Qty: 1 0RF Rx Instructions: As directed (DME) nebulizers Misc See Rx Instructions .ROUTE .MEDSUPPLY Qty: 1 0RF Rx Instructions: As directed (DME) pen needle, diabetic 33 gauge x 5/32 needle See Rx Instructions .ROUTE .MEDSUPPLY Qty: 100 5RF Rx Instructions: 1 times day (DME) OneTouch Ultra Test Strip See Rx Instructions .Route Qty: 50 5RF Rx Instructions: use one strip daily albuterol sulfate 90 mcg/actuation HFA aerosol inhaler 2 puff INHALATION QID PRN (Reason: Shortness Of Breath) Qty: 6.7 2RF budesonide 0.5 mg/2 mL suspension for nebulization 0.5 mg inhalation QAM Qty: 60 3RF Rx Instructions: mixes with brovana liraglutide [Victoza 3-Evgeny] 0.6 mg/0.1 mL (18 mg/3 mL) pen injector 1.8 mg SUBCUT DAILY Discontinued potassium chloride 10 mEq tablet extended release 10 meq PO DAILY Discharge Orders: Discharge Order (Routine); Ordered 10/31/24 Ordered By: Alon Goodwin Other Ambulatory Orders: DME: BIPAP (Order) Location: None Selected Ordered By: Alon Goodwin Referrals: [facility] ([facility]) [Outside] Ken Escamilla, MELCHOR [Primary Care Provider] - 11/16/24 2:40 pm Discharge Diet: As Directed Patient Instructions: Prednisone (By mouth), Magnesium Oxide (By mouth) (Mag-Ox 400, [employer] [facility]..., Potassium Content of Foods List (GEN), COPD (Chronic Obstructive Pulmonary Disease) (GEN), Chronic Lung Disease and Infection Prevention (GEN), Opioid Safety Activity Restrictions/Additional Instructions: Please follow-up with your primary provider for reassessment after COPD exacerbation. Please complete overnight pulse oximetry study to allow arrangement for a BiPAP machine. Please avoid excess fluid consumption as it contributes to fluid retention and edema. Limit fluid intake to 1.5 L or less per 24 hours. Take Lasix (diuretic) in case of gaining water weight, more than 3 pounds in 2 days, worsening edema, worsening shortness of breath on exertion or lying down on your back which may indicate fluid overload. Contact your primary provider's office if you have to take Lasix so they may supervise therapy and adjust the dose if needed. Please maintain low potassium diet due to mildly elevated potassium level. Do not take potassium supplement. Avoid foods rich in potassium. Have your primary doctor recheck your potassium level. Please take magnesium supplement and magnesium rich foods due to very low magnesium level. Please follow-up with urology for reassessment after urinary bladder cancer. Please follow-up with hematology for reassessment after CLL. Seek medical attention in case of any worsening or new concerning symptoms. Discharge Attestations Time Spent in Discharge Care*: greater than 30 min Quality Metrics Clinical Quality Measures [ No reported AMI, CVA or VTE this stay] Coding Level of Care Code 48174 Total time (in minutes) for Discharge: 50 Diagnoses Acute on chronic respiratory failure with hypoxia and hypercapnia J96.21; J96.22 BPH with obstruction/lower urinary tract symptoms N40.1; N13.8 COPD with acute exacerbation J44.1
== END 2024-10-31 13:15 | disposition home health service (06) | DRG 189 ==
LOC: ER 19:43 → ICU 20:05
PROVIDERS: Emergency Medicine; Admitting Provider Internal Medicine; Emergency Provider Emergency Medicine; PCP Nurse Practitioner; Visit Provider Internal Medicine
DX: J96.21 Acute and chronic respiratory failure with hypoxia (principal); J44.1 Chronic obstructive pulmonary disease with (acute) exacerbation; C91.10 Chronic lymphocytic leukemia of B-cell type not having achieved remission; J96.22 Acute and chronic respiratory failure with hypercapnia; N40.1 Benign prostatic hyperplasia with lower urinary tract symptoms; G47.33 Obstructive sleep apnea (adult) (pediatric); E11.9 Type 2 diabetes mellitus without complications; E87.5 Hyperkalemia; I25.10 Atherosclerotic heart disease of native coronary artery without angina pectoris; K59.01 Slow transit constipation; I10 Essential (primary) hypertension; E83.42 Hypomagnesemia; Z96.612 Presence of left artificial shoulder joint; Z99.81 Dependence on supplemental oxygen; Z79.84 Long term (current) use of oral hypoglycemic drugs; Z79.4 Long term (current) use of insulin; I25.2 Old myocardial infarction; Z90.49 Acquired absence of other specified parts of digestive tract; Z95.0 Presence of cardiac pacemaker; Z85.51 Personal history of malignant neoplasm of bladder; Z87.891 Personal history of nicotine dependence
CPT/HCPCS: 36415; 36416; 36600; 51702; 71045; 71275; 80051; 80053; 82330; 82803; 82805; 82962; 83735; 83880; 84132; 84484; 85025; 93005; 94640; 94660; 94664; 96372; 96374; 96376; 97110; 97116; 97161; 99285; J1650; J1815; J1956; J2470; J2919; J3475

== ENCOUNTER → 2024-11-09 14:27 | Outpatient (BNVA) | payer MEDICARE, SELFPAY | PROVIDERS: PCP Nurse Practitioner; Visit Provider Nurse Practitioner Family | DX: J44.89 Other specified chronic obstructive pulmonary disease (principal); I25.10 Atherosclerotic heart disease of native coronary artery without angina pectoris; I50.20 Unspecified systolic (congestive) heart failure; Z95.0 Presence of cardiac pacemaker; E11.65 Type 2 diabetes mellitus with hyperglycemia; Z79.4 Long term (current) use of insulin; Z99.81 Dependence on supplemental oxygen; M79.89 Other specified soft tissue disorders; Z87.891 Personal history of nicotine dependence | CPT/HCPCS: 80048; 99214 ==

== ENCOUNTER → 2024-11-16 15:30 | Outpatient (BNVA) | payer MEDICARE, SELFPAY | PROVIDERS: PCP Nurse Practitioner; Visit Provider Nurse Practitioner | DX: E87.5 Hyperkalemia (principal); E11.9 Type 2 diabetes mellitus without complications | CPT/HCPCS: 80048; 83036 ==

== ENCOUNTER 2024-12-06 14:28 | Outpatient (CLI) | payer MEDICARE, SELFPAY ==
--- NOTE | 2024-12-06 15:00 | USCV_ITS ---
Florentino Alfaro Age: 79 Gender: M : 1945 Exam Date: 12/06/2024 14:58 Ordering Phys: Dipti Gavin NP Technologist: CT Exam Location: [facility] [place] Indication: sys hf BP: 118 / 66 HR: 72 Rhythm: Sinus Technical Quality: Adequate MEASUREMENTS (Male / Female) Normal Values 2D ECHO LVOT Diameter 2.0 cm LV Ejection Fraction MOD 4C 59.9 % LV Ejection Fraction MOD 2C 46.2 % LV Ejection Fraction 2C AL 46.7 % LA Diameter 3.0 cm RA Systolic Volume 4C AL 38.7 ml RA Systolic Volume 4C MOD 36.8 ml LA Sys Volume AL 57.7 cm cubed LA Sys Volume Index AL 25.1 cm cubed/m squared Aorta at Sinotubular Diameter 2.3 cm M-MODE LA Ao Ratio MM 1.1 AV Cusp Separation MM 1.6 cm DOPPLER AV Peak Velocity 224.0 cm/s LVOT Peak Velocity 126.0 cm/s AV Area Cont Eq vti 1.7 cm squared AV Area Cont Eq pk 1.8 cm squared MV Peak Velocity 101.0 cm/s MV Area PHT 4.4 cm squared Mitral E to A Ratio 0.7 TR Peak Velocity 243.0 cm/s TR Peak Gradient 23.6 mmHg TV Peak E Velocity 47.0 cm/s PV Peak Velocity 83.5 cm/s FINDINGS Left Ventricle Left ventricle is normal in size. LV systolic function is mildly reduced with EF of 40-45%. Mild global hypokinesis with septal motion consistent with paced rhythm. Right Ventricle Normal in size and function Right Atrium Normal in size Left Atrium Normal in size Mitral Valve Structurally normal mitral valve. Trace mitral regurgitation Aortic Valve Aortic valve is thickened. Mild aortic stenosis with aortic valve of 1.65cm2 and mean gradient across aortic valve of 11mmHg. Tricuspid Valve Mild tricuspid regurgitation. Pulmonary artery systolic pressure is normal Pulmonic Valve Not well visualized Pericardium Normal Aorta Normal in size IVC Not well visualized CONCLUSIONS LV systolic function is mildly reduced with EF of 40-45% Trace mitral regurgitation Mild aortic stenosis with aortic valve of 1.65cm2 and mean gradient across aortic valve of 11mmHg. Mild tricuspid regurgitation. Compared to prior echocardiogram from 2021, patient now has mildly reduced LV systolic function and has mild aortic stenosis. Eduardo Dewey MD (Electronically Signed) Final Date: 07 December 2024 08:49 S
== END 2024-12-06 14:29 | disposition home or self-care (01) ==
PROVIDERS: PCP Nurse Practitioner; Visit Provider Nurse Practitioner Family
DX: I50.20 Unspecified systolic (congestive) heart failure (principal); R93.1 Abnormal findings on diagnostic imaging of heart and coronary circulation; I35.8 Other nonrheumatic aortic valve disorders; I35.0 Nonrheumatic aortic (valve) stenosis; I07.1 Rheumatic tricuspid insufficiency
CPT/HCPCS: 93306

== ENCOUNTER → 2025-01-18 13:45 | Outpatient (BNVA) | payer MEDICARE, SELFPAY | PROVIDERS: PCP Nurse Practitioner; Visit Provider Internal Medicine Cardiovascular Disease | DX: I12.9 Hypertensive chronic kidney disease with stage 1 through stage 4 chronic kidney disease, or unspecified chronic kidney disease (principal); N18.9 Chronic kidney disease, unspecified; N17.9 Acute kidney failure, unspecified; J44.9 Chronic obstructive pulmonary disease, unspecified; E11.65 Type 2 diabetes mellitus with hyperglycemia; Z79.4 Long term (current) use of insulin; E78.5 Hyperlipidemia, unspecified; Z99.81 Dependence on supplemental oxygen; Z95.0 Presence of cardiac pacemaker; I25.2 Old myocardial infarction; Z87.891 Personal history of nicotine dependence; R06.02 Shortness of breath; M79.89 Other specified soft tissue disorders | CPT/HCPCS: 36415; 80048; 83880; 99214 ==

== ENCOUNTER → 2025-01-24 14:31 | Outpatient (BNVA) | payer MEDICARE, SELFPAY | PROVIDERS: PCP Nurse Practitioner; Visit Provider Nurse Practitioner | DX: E11.65 Type 2 diabetes mellitus with hyperglycemia (principal); Z79.4 Long term (current) use of insulin | CPT/HCPCS: 80053; 80061; 83036; 83735 ==

== ENCOUNTER → 2025-02-01 13:55 | Outpatient (BNVA) | payer MEDICARE, SELFPAY | PROVIDERS: PCP Nurse Practitioner; Visit Provider Dermatology | DX: L82.1 Other seborrheic keratosis (principal); A63.0 Anogenital (venereal) warts; L82.0 Inflamed seborrheic keratosis; D48.5 Neoplasm of uncertain behavior of skin; L57.0 Actinic keratosis | CPT/HCPCS: 11102; 17000; 17110; 99213 ==

== ENCOUNTER 2025-02-28 09:30 | Oncology outpatient (recurring) (ONCR) | payer MEDICARE, SELFPAY ==
--- NOTE | 2025-02-14 15:00 | USR_ITS ---
PROCEDURE INFORMATION: Exam: US Duplex Right Lower Extremity Veins, Limited Exam date and time: 02/14/2025 3:17 PM Age: 79 years old Clinical indication: Swelling (edema) of limb; Lower extremity, right; Additional info: Leg swelling TECHNIQUE: Imaging protocol: Real-time duplex ultrasound of the right extremity with 2-D rosario scale, color Doppler flow and spectral waveform analysis including responses to compression and other maneuvers (when performed) with image documentation. Limited exam was focused on the right lower extremity veins. COMPARISON: No relevant prior studies available. FINDINGS: Right deep veins: Unremarkable. The common femoral, femoral, proximal profunda femoral and popliteal veins are patent without thrombus. Normal Doppler waveforms. Normal compressibility and/or augmentation response. Reflux time common femoral vein 0.53 seconds. Reflux time femoral vein 0.38 seconds. Reflux time popliteal vein 1.69 seconds. Reflux time GSV distal to SFJ 1.26 seconds. Reflux time GSV distal 0.22 seconds. Reflux time SSV proximal 0.62 seconds. Reflux time SSV mid 0.84 seconds. Superficial veins: Greater saphenous vein at the saphenofemoral junction is patent without thrombus. Soft tissues: Unremarkable. US/[place] [id number] IMPRESSION: No evidence of deep vein thrombosis.
== END 2025-02-28 23:59 | disposition home or self-care (01) ==
LOC: RAD 03-01 00:01 → ONCMED 03-01 09:13
PROVIDERS: PCP Nurse Practitioner; Visit Provider Nurse Practitioner
DX: C91.10 Chronic lymphocytic leukemia of B-cell type not having achieved remission (principal); R55 Syncope and collapse; R59.0 Localized enlarged lymph nodes; G31.9 Degenerative disease of nervous system, unspecified; M79.661 Pain in right lower leg; M79.89 Other specified soft tissue disorders
CPT/HCPCS: 93971

== ENCOUNTER → 2025-03-14 10:35 | Outpatient (BNVA) | payer MEDICARE, SELFPAY | PROVIDERS: PCP Nurse Practitioner; Visit Provider Internal Medicine Cardiovascular Disease | DX: Z45.018 Encounter for adjustment and management of other part of cardiac pacemaker (principal) | CPT/HCPCS: 93296 ==

== ENCOUNTER 2025-03-20 13:30 | Emergency (ER) | payer MEDICARE, SELFPAY ==
[2025-03-20 13:37] VITALS: BP 116/63; PULSE 81; RESP 19; TEMP 36.7; O2SAT 89; BMI 30.1
[2025-03-20 14:09] LABS: Basophils # 0.1 10^3/uL (0.0-0.1); Basophils % 0.5 %; Eosinophils # 0.1 10^3/uL (0.0-0.8); Eosinophils % 0.4 %; Hematocrit 43.1 % (37-53); Lymphocytes # 3.6 10^3/uL (0.8-4.8); Lymphocytes % 26.8 %; Mean Corpuscular Hemoglobin 30.9 pg (27-33); Mean Corpuscular Volume 96.6 fl (82-101); Monocytes # 0.9 10^3/uL (0.2-0.9); Monocytes % 6.6 %; Neutrophils # 8.64 10^3/uL (1.8-7.7); Neutrophils % 65.1 %; Nucleated Red Blood Cells % 0 %; Platelet Count 161 10^3/cmm (157-399); Red Blood Count 4.46 10^6/uL (3.85-5.65); White Blood Count 13.26 10^3/uL (3.29-11.43)
[2025-03-20 14:34] LABS: Alanine Aminotransferase 11 U/L (0-41); Alkaline Phosphatase 66 U/L (40-130); Anion Gap 12.1 (5-19); Aspartate Amino Transferase 11 U/L (0-40); Blood Urea Nitrogen 18 mg/dL (8-23); Calcium 8.7 mg/dL (8.5-10.5); Carbon Dioxide 36 mmol/L (22-29); Chloride 93 mmol/L (98-107); Creatinine Clr Calc Pharmacy 93.4728; Globulin 2.5 g/dL (1.3-4.6); Glucose 304 mg/dL (65-115); Lipase 18 U/L (13-60); Osmolality Calculated 297 mOsm/kg (285-295); Potassium 4.1 mmol/L (3.5-5.1); Sodium 137 mmol/L (136-145); Total Bilirubin 0.4 mg/dL (0.15-1.2); Total Protein 5.5 g/dL (6.6-8.7)
--- NOTE | 2025-03-20 14:46 | CTR_ITS ---
PROCEDURE INFORMATION: Exam: CT Abdomen And Pelvis With Contrast Exam date and time: 03/20/2025 3:15 PM Age: 79 years old Clinical indication: Abdominal pain; Generalized; Prior surgery; Surgery date: 6+ months; Surgery type: 5 umbilical hernia, 2 inguinal hernia, gb; Additional info: Abd pain TECHNIQUE: Imaging protocol: Computed tomography of the abdomen and pelvis with contrast. Radiation optimization: All CT scans at this facility use at least one of these dose optimization techniques: automated exposure control; mA and/or kV adjustment per patient size (includes targeted exams where dose is matched to clinical indication); or iterative reconstruction. Contrast material: OMNIPAQUE 350; Contrast volume: 100 ml; Contrast route: INTRAVENOUS (IV); COMPARISON: CT angio chest PE protcl [id number] 10/29/2024 4:43 PM RADIATION DOSE METRICS: Total DLP (mGy-cm): 989.9 FINDINGS: Liver: Normal. No mass. Gallbladder and biliary ducts: Cholecystectomy. Pancreas: Normal. No ductal dilation. Spleen: 15 cm splenomegaly. Adrenal glands: Normal. No mass. Kidneys and ureters: Normal. No hydronephrosis. Stomach and bowel: There is [id number] thickening of the wall of the colon in multiple locations, greatest in the ascending colon. Colitis may be present. Appendix: No evidence of appendicitis. Intraperitoneal space: There is a small amount of free intra-abdominal fluid which has developed since the prior study. Vasculature: Unremarkable. No abdominal aortic aneurysm. Lymph nodes: Visible adenopathy includes the left upper abdomen, retroperitoneum, mesentery, periaortic region, pelvic sidewalls, and inguinal regions. All appear unchanged. Patient has a history of lymphoma. Urinary bladder: The urinary bladder is low volume, the wall does appear to be thickened however. Reproductive: Unremarkable as visualized. Bones/joints: Unremarkable. No acute fracture. Soft tissues: Unremarkable. CT/CT abdomen pelvis w con* [id number] IMPRESSION: 1. Multifocal colitis greatest in the ascending colon. 2. A small amount of ascites is present. 3. Widespread moderate adenopathy unchanged.
--- NOTE | 2025-03-20 14:54 | ED_ITS ---
HPI - Abdominal Pain 2 General: Chief Complaint: Abdominal Pain Stated Complaint: abd pain / diarhea Time Seen by Provider: 03/20/25 14:38 History of Present Illness: 79-year-old male presents emergency room abdominal pain intermittently diarrhea for 1 week. He tried a clear liquid diet did not seem to improve at all. May have taken some Imodium which just seems to have increased bloating. No hematochezia or melena no fever sweats chills no dysuria urgency or frequency. He has been very nauseous. No significant amounts of vomiting. Associated Symptoms: Reports bloating, GI cramping and nausea; Denies chills, coffee ground emesis, dysuria, fever(s), hematochezia, hematemesis, melena and vomiting Related Data Home Medications ?Medication ?Instructions ?Recorded ?Confirmed ascorbate calcium (vitamin C) 500 1,000 mg PO DAILY 03/20/25 mg tablet cholecalciferol (vitamin D3) 10 10 mcg PO DAILY 03/20/25 mcg (400 unit) capsule zinc acetate 50 mg (zinc) capsule 50 mg PO DAILY 03/0903/20/25 Previous Rx's ?Medication ?Instructions ?Recorded Disposable nebulizer circuit #1 ea 03/02/22 nebulizers #1 ea 03/02/22 pen needle, diabetic 33 gauge x #100 ea 08/29/24 vitamin B comp and C no.3 15 mg-10 1 cap PO DAILY #180 caps 09/18/24 mg-50 mg-5 mg-300 mg capsule (B Complex Plus Vitamin C) magnesium L-threonate 48 mg 48 mg PO DAILY #90 caps magnesium (667 mg) capsule blood-glucose meter (Accu-Chek #1 ea 11/15/24 Guide Glucose Meter) Oxygen concentrator NC up to 5L #1 ea 01/24/25 albuterol sulfate 90 mcg/actuation 2 puff inhalation Q ID PRN 02/08/25 aerosol inhaler Shortness Of Breath #6.7 gra ms blood sugar diagnostic (Accu-Chek #100 ea 02/08/25 Guide test strips) hydralazine 25 mg tablet 25 mg PO Q12H #180 tabs 01/30 0 insulin glargine 100 unit/mL (3 See Rx Instructions MALLOY BCUT DAILY 02/08/25 mL) subcutaneous pen (Lantus #15 mL Solostar U-100 Insulin) tamsulosin 0.4 mg capsule 0.4 mg PO BID #180 caps 01/30 arformoterol 15 mcg/2 mL solution 2 ml inhalation Q12H #120 mL 03/13/25 for nebulization (Brovana) budesonide 0.5 mg/2 mL suspension 0.5 mg (2 mL) inhala tion QAM #120 03/13/25 for nebulization mL amoxicillin 875 mg-potassium 1 tab PO BID #14 tabs clavulanate 125 mg tablet hydrocodone 5 mg-acetaminophen 325 1 tab PO Q6H PRN pa in #10 tabs 03/20/25 mg tablet promethazine 25 mg tablet 25 mg PO Q6H PRN nausea and 03/20/25 vomiting #20 tabs Allergies Allergy/AdvReac Type Severity Reaction Status Date / Time No Known Allergies Allergy Verified 03/13/25 17:31 Review of Systems 2 Const: Denies: fever(s) or chills Card: Denies: chest pain Resp: Denies: dyspnea GI: Reports: abdominal pain, nausea, bloating and GI cramping; Denies: vomiting, hematemesis, coffee ground emesis, hematochezia or melena : Denies: dysuria, urinary frequency or urinary urgency Musc: Denies: neck pain or back pain Skin/Breast: Denies: rash PFSH ED 2 PFSH: Medical History (Updated 03/20/25 @ 17:21 by Carter العلي DO) History of bladder carcinoma Essential hypertension Atherosclerosis of coronary artery Intermittent complete heart block Chronic hypoxic respiratory failure Diabetes mellitus with hyperglycemia, with long-term current use of insulin Advanced chronic obstructive pulmonary disease Lymphoplasmacytoid lymphoma, 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 History of local excision of skin lesion H/O transurethral destruction of bladder lesion History of condyloma acuminatum removal surgical December 2014 History of arthroplasty of left shoulder tendon 1969' Hx of vasectomy H/O hernia repair umbilical and bilateral inguinal History of cholecystectomy Family History Mother , at age 73 Diabetes Lung disease Father , at age 75 Cancer blood Lung disease Social History Smoking and tobacco/nicotine status: never used tobacco/nicotine Quit status (tobacco/nicotine): has quit using Year quit tobacco: 2002 Former quit date comment: smoked 47 years Second hand smoke exposure: No Alcohol intake: current Alcohol intake frequency: holidays/special occasions only Substance/Drug Use: never Adopted: No Caregiver/support person: No Lives independently: Yes Household members: spouse Housing: House Marital status: Number of children: 5 Number of grandchildren: 7 service: Yes branch: [employer] Current occupational status: disabled Pets and animals: Yes Pets & animals: cat(s) and dog(s) Do you think of yourself as: Straight/Heterosexual Current gender identity: Male Special luis needs: No Physical Exam 2 Const: COMMON NORMALS: no acute distress GENERAL APPEARANCE: cooperative and comfortable ORIENTATION/CONSCIOUSNESS: Yes awake, Yes oriented to person, Yes oriented to place and Yes oriented to time HENMT: COMMON NORMALS: normocephalic, atraumatic and hearing grossly normal bilaterally HEAD & SCALP: normocephalic and atraumatic Resp: COMMON NORMALS: normal respiratory effort, No retractions, No use of accessory muscles and clear to auscultation bilaterally AUSCULTATION: clear to auscultation bilaterally Cardio: COMMON NORMALS: regular rate, regular rhythm and No murmurs present (Cardio) RATE: regular rate RHYTHM: regular rhythm GI: COMMON NORMALS: Soft to palpation and No hepatosplenomegaly present A USCULTATION: Yes normoactive bowel sounds PALPATION: Yes Soft to palpation, No Tenderness to palpation present (GI), No Guarding due to palpation present (GI) and Yes No hepatosplenomegaly present Extremity: COMMON NORMALS: normal to inspection, capillary refill normal, no clubbing, cyanosis or edema, no calf tenderness and no pedal edema Neuro: SENSORIUM/ORIENTATION: Yes oriented to person, Yes oriented to place and Yes oriented to time Skin: COMMON NORMALS: no rashes or lesions noted GENERAL SKIN EXAM: no rashes or lesions noted Course 2 Vital Signs: Vital signs: Vital Signs Temperature 98.0 F 03/20/25 13:37 Pulse Rate 71 03/20/25 17:45 Respiratory Rate 19 H 03/20/25 13:37 Blood Pressure 111/46 03/20/25 17:45 Pulse Oximetry 90 03/20/25 17:45 Oxygen Delivery Me thod Nasal Cannula 03/20/25 13:37 Oxygen Flow Rate 3 03/20/25 13:37 MDM - Abdominal Pain Medical Decision Making CT shows colitis mild elevation white count will start on Augmentin 1 tablet twice a day for 7 days hydrocodone promethazine as needed as needed and follow- up with primary care return if has further problems. Should follow-up with primary care for consideration of possible colonoscopy at some point in the near future. Lab Data 03/20/25 14:02 03/20/25 14:02 Labs/Radiology: Radiology Impressions Abdomen/Pelvis CT 03/20/25 14:46 IMPRESSION: 1. Multifocal colitis greatest in the ascending colon. 2. A small amount of ascites is present. 3. Widespread moderate adenopathy unchanged. Laboratory Results WBC 13.26 10^3/uL (3.29-11.43) H 03/20/25 14:02 RBC 4.46 10^6/uL (3.85-5.65) 03/20/25 14:02 Hgb 13.80 g/dL (11.27-16.99) 03/20/25 14:02 Hct 43.1 % (37-53) 03/20/25 14:02 MCV 96.6 fl (82-101) 03/20/25 14:02 MCH 30.9 pg (27-33) 03/20/25 14:02 MCHC 32.0 g/dL (30-55) 03/20/25 14:02 RDW 14.0 % (12.1-15.1) 03/20/25 14:02 Plt Count 161 10^3/cmm (157-399) 03/20/25 14:02 MPV 10.0 fL (7.4-10.4) 03/20/25 14:02 Neut % (Auto) 65.1 % 03/20/25 14:02 Lymph % (Auto) 26.8 % 03/20/25 14:02 [place] % (Auto) 6.6 % 03/20/25 14:02 Eos % (Auto) 0.4 % 03/20/25 14:02 Baso % (Auto) 0.5 % 03/20/25 14:02 Neut # (Auto) 8.64 10^3/uL (1.8-7.7) H 03/20/25 14:02 Lymph # (Auto) 3.6 10^3/uL (0.8-4.8) 03/20/25 14:02 [place] # (Auto) 0.9 10^3/uL (0.2-0.9) 03/20/25 14:02 Eos # (Auto) 0.1 10^3/uL (0.0-0.8) 03/20/25 14:02 Baso # (Auto) 0.1 10^3/uL (0.0-0.1) 03/20/25 14:02 Nucleated RBC % (auto) 0 % 03/20/25 14:02 Nucleated RBCs # 0.0 /100WBC 03/20/25 14:02 Sodium 137 mmol/L (136-145) 03/20/25 14:02 Potassium 4.1 mmol/L (3.5-5.1) 03/20/25 14:02 Chloride 93 mmol/L (98-107) L 03/20/25 14:02 Carbon Dioxide 36 mmol/L (22-29) H 03/20/25 14:02 Anion Gap 12.1 (5-19) 03/20/25 14:02 BUN 18 mg/dL (8-23) 03/20/25 14:02 Creatinine 0.8 mg/dL (0.7-1.2) 03/20/25 14:02 GFR Calculation Not Reportable 03/20/25 14:02 Glucose 304 mg/dL (65-115) H 03/20/25 14:02 Calculated Osmolality 297 mOsm/kg (285-295) H 03/20/25 14:02 Calcium 8.7 mg/dL (8.5-10.5) 03/20/25 14:02 Total Bilirubin 0.4 mg/dL (0.15-1.2) 03/20/25 14:02 AST 11 U/L (0-40) 03/20/25 14:02 ALT 11 U/L (0-41) 03/20/25 14:02 Alkaline Phosphatase 66 U/L (40-130) 03/20/25 14:02 Total Protein 5.5 g/dL (6.6-8.7) L 03/20/25 14:02 Albumin 3.0 g/dL (3.5-5.2) L 03/20/25 14:02 Globulin 2.5 g/dL (1.3-4.6) 03/20/25 14:02 Lipase 18 U/L (13-60) 03/20/25 14:02 Urine Color Dark yellow (Yellow) A 03/20/25 16:24 Urine Appearance Clear (CLEAR) 03/20/25 16:24 Urine pH 6.0 (5-7) 03/20/25 16:24 Ur Specific [place] 1.051 (1.005-1.030) H 03/20/25 16:24 Urine Protein 3+ (Negative) A 03/20/25 16:24 Urine Glucose (UA) Trace (Normal) H 03/20/25 16:24 Urine Ketones Trace (Negative) 03/20/25 16:24 Urine Blood Negative (Negative) 03/20/25 16:24 Urine Nitrate Negative (Negative) 03/20/25 16:24 Urine Bilirubin 1+ (Negative) H 03/20/25 16:24 Urine Urobilinogen 1.0 mg/dL (Negative) 03/20/25 16:24 Ur Leukocyte Esterase Negative (Negative) 03/20/25 16:24 Urine RBC 0-2 /hpf (0-2) 03/20/25 16:24 Urine WBC 11-20 /hpf (0-5) H 03/20/25 16:24 Ur Squamous Epith Cells 0-5 /hpf (0-5) 03/20/25 16:24 Amorphous Sediment Not Reportable 03/20/25 16:24 Urine Bacteria None seen /hpf (NONE) 03/20/25 16:24 Hyaline Casts 20.27 /lpf 03/20/25 16:24 All radiology interpretation(s) finalized by discharge Discharge Plan Discharge Patient Disposition: Home Clinical Impression: Colitis Condition: Stable Prescriptions: New amoxicillin-pot clavulanate 875-125 mg tablet 1 tab PO BID Qty: 14 0RF hydrocodone-acetaminophen 5-325 mg tablet 1 tab PO Q6H PRN (Reason: pain) Qty: 10 0RF promethazine 25 mg tablet 25 mg PO Q6H PRN (Reason: nausea and vomiting) Qty: 20 0RF No Action ascorbate calcium (vitamin C) 500 mg tablet 1,000 mg PO DAILY cholecalciferol (vitamin D3) 10 mcg (400 unit) capsule 10 mcg PO DAILY B Complex Plus Vitamin C 55-72-01-5-300 mg capsule 1 cap PO DAILY Qty: 180 1RF Rx Instructions: give with food (meal/snack) (DME) Oxygen concentrator NC up to 5L See Rx Instructions .ROUTE .MEDSUPPLY Qty: 1 0RF Rx Instructions: Use 2L NC 24 hours for 99 months arformoterol [Brovana] 15 mcg/2 mL solution for nebulization 2 ml inhalation Q12H Qty: 120 2RF budesonide 0.5 mg/2 mL suspension for nebulization 0.5 mg inhalation QAM Qty: 120 2RF Rx Instructions: mixes with brovana zinc acetate 50 mg (zinc) capsule 50 mg PO DAILY albuterol sulfate 90 mcg/actuation HFA aerosol inhaler 2 puff INHALATION QID PRN (Reason: Shortness Of Breath) Qty: 6.7 2RF (DME) Accu-Chek Guide test strips Strip See Rx Instructions .Route Qty: 100 5RF Rx Instructions: check 3 times day as needed insulin glargine [Lantus Solostar U-100 Insulin] 100 unit/mL (3 mL) insulin pen See Rx Instructions SUBCUT DAILY Qty: 15 2RF Rx Instructions: up to 50 subcutaneously daily; Hold Farxiga tamsulosin 0.4 mg capsule 0.4 mg PO BID Qty: 180 1RF hydralazine 25 mg tablet 25 mg PO Q12H Qty: 180 0RF (DME) Disposable nebulizer circuit See Rx Instructions .Route .MEDSUPPLY Qty: 1 0RF Rx Instructions: As directed (DME) nebulizers Misc See Rx Instructions .ROUTE .MEDSUPPLY Qty: 1 0RF Rx Instructions: As directed (DME) pen needle, diabetic 33 gauge x 5/32 needle See Rx Instructions .ROUTE .MEDSUPPLY Qty: 100 5RF Rx Instructions: 1 times day (DME) blood-glucose meter [Accu-Chek Guide Glucose Meter] Misc See Rx Instructions .Route Qty: 1 0RF Rx Instructions: As directed magnesium L-threonate 48 mg magnesium (667 mg) capsule 48 mg PO DAILY Qty: 90 0RF Discharge Orders: Discharge ED (Routine); Ordered 03/20/25 Ordered By: Carter العلي Referrals: Ken Escamilla, [facility] [Primary Care Provider, Family Practice] Discharge Diet: Clear Liquid Discharge Activity: Increase activity as tolerated Patient Instructions: Opioid Safety, Pain Management Activity Restrictions/Additional Instructions: Thank you for choosing [facility] for your healthcare needs today. It is very important that you follow up as instructed or that you return to the Emergency Department should you have concerns or if your condition changes or worsens in any way. You were seen today for colitis. Recommend starting oral antibiotics 1 pill twice a day for 7 days. You are given hydrocodone promethazine for pain and nausea and vomiting follow-up with your primary care doctor return if you have further problems. 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
[2025-03-20] MEDS: iohexol 350 mg/mL 500 mL Btl (per mL) IV (15:16)
[2025-03-20 16:10] VITALS: BP 108/65; PULSE 78; O2SAT 91
[2025-03-20 16:45] VITALS: BP 111/53; PULSE 76; O2SAT 90
[2025-03-20 16:49] LABS: Bilirubin Urine 1+ (Negative); Blood Urine Negative (Negative); Glucose Urine UA Trace (Normal); Ketones Urine Trace (Negative); Leukocyte Esterase Urine Negative (Negative); Nitrate Urine Negative (Negative); Protein Urine 3+ (Negative); Urine Appearance Clear (CLEAR); Urine Color Dark Yellow (Yellow)
[2025-03-20 16:54] LABS: Add Urine Microscopic? YES; Bacteria Urine None Seen /hpf; Hyaline Casts Urine 20.27 /lpf; RBC Urine 0-2 /hpf (0-2); Squamous Epithelial Cell Urine 0-5 /hpf (0-5)
[2025-03-20 17:00] VITALS: BP 110/49; PULSE 69; O2SAT 89
[2025-03-20 17:22] LABS: Specific Gravity, Urine 1.051 (1.005-1.030); UA Slide Review UA Slide Review Perf
[2025-03-20 17:23] LABS: Add Urine Culture? No
[2025-03-20 17:45] VITALS: BP 111/46; PULSE 71; O2SAT 90
== END 2025-03-20 17:45 | disposition home or self-care (01) ==
PROVIDERS: Emergency Medicine; Emergency Provider Family Medicine; PCP Nurse Practitioner
DX: K52.9 Noninfective gastroenteritis and colitis, unspecified (principal); Z79.4 Long term (current) use of insulin; Z87.891 Personal history of nicotine dependence; E11.9 Type 2 diabetes mellitus without complications; I10 Essential (primary) hypertension; I25.10 Atherosclerotic heart disease of native coronary artery without angina pectoris
CPT/HCPCS: 36415; 74177; 80053; 81001; 83690; 85025; 99285

== ENCOUNTER 2025-03-26 13:48 | Inpatient (IN) | payer MEDICARE, SELFPAY ==
[2025-03-26] VITALS (10 sets, daily range): BP systolic 113–122; BP diastolic 45–70; PULSE 61–69; RESP 14–18; TEMP 36.7; O2SAT 90–97; BMI 30.1; BMI 30.9
[2025-03-26 14:44] LABS: Basophils # 0.1 10^3/uL (0.0-0.1); Basophils % 0.4 %; Eosinophils # 0.1 10^3/uL (0.0-0.8); Eosinophils % 0.6 %; Hematocrit 42.6 % (37-53); Lymphocytes # 3.6 10^3/uL (0.8-4.8); Lymphocytes % 25.6 %; Mean Corpuscular HGB Conc 31.5 g/dL (30-55); Mean Corpuscular Hemoglobin 30.6 pg (27-33); Mean Corpuscular Volume 97.3 fl (82-101); Mean Platelet Volume 9.5 fL (7.4-10.4); Monocytes # 0.9 10^3/uL (0.2-0.9); Monocytes % 6.8 %; Neutrophils # 9.16 10^3/uL (1.8-7.7); Nucleated Red Blood Cells % 0 %; Platelet Count 224 10^3/cmm (157-399); Red Blood Count 4.38 10^6/uL (3.85-5.65); Red Cell Distribution Width 13.5 % (12.1-15.1); White Blood Count 13.89 10^3/uL (3.29-11.43)
--- NOTE | 2025-03-26 14:49 | ED_ITS ---
HPI - Nausea/Vomiting/Diarrhea 2 General: Chief complaint: Nausea/Vomiting/Diarrhea Stated complaint: weakness, diarrhea, abd pain Time Seen by Provider: 03/26/25 14:49 History of Present Illness: 71-year-old male who was seen 1 week ago with abdominal pain with diarrhea CT showed colitis there is also significant amount of abdominal and retroperitoneal lymphadenopathy which according to CT report had not changed significantly patient has a known history of CLL according to oncology notes he has not required treatment. He also has a history of bladder cancer which has been being followed by Dr. Wilcox prior to his long term. Patient was treated with Augmentin he states he seemed to get better first and now is having worsening symptoms again. States he has not been able to eat. Patient has a history of his COPD and is chronically on 3 to 5 L by nasal cannula. His oxygen need has not changed. He had some mild leukocytosis last time which was thought to be related to his CLL. No chest pain at this time generalized mild abdominal discomfort. Associated nausea: Yes Associated symtoms: Reports nausea; Denies chest pain or dysuria Related Data Home Medications ?Medication ?Instructions ?Recorded ?Confirmed ascorbate calcium (vitamin C) 500 1,000 mg PO DAILY 03/21/25 mg tablet cholecalciferol (vitamin D3) 10 10 mcg PO DAILY 03/21/25 mcg (400 unit) capsule zinc acetate 50 mg (zinc) capsule 50 mg PO DAILY 03/0903/21/25 Previous Rx's ?Medication ?Instructions ?Recorded Disposable nebulizer circuit #1 ea 03/02/22 nebulizers #1 ea 03/02/22 pen needle, diabetic 33 gauge x #100 ea 08/29/24 vitamin B comp and C no.3 15 mg-10 1 cap PO DAILY #180 caps 09/18/24 mg-50 mg-5 mg-300 mg capsule (B Complex Plus Vitamin C) magnesium L-threonate 48 mg 48 mg PO DAILY #90 caps magnesium (667 mg) capsule blood-glucose meter (Accu-Chek #1 ea 11/15/24 Guide Glucose Meter) Oxygen concentrator NC up to 5L #1 ea 01/24/25 albuterol sulfate 90 mcg/actuation 2 puff inhalation Q ID PRN 02/08/25 aerosol inhaler Shortness Of Breath #6.7 gra ms blood sugar diagnostic (Accu-Chek #100 ea 02/08/25 Guide test strips) hydralazine 25 mg tablet 25 mg PO Q12H #180 tabs 01/30 insulin glargine 100 unit/mL (3 See Rx Instructions MALLOY BCUT DAILY 02/08/25 mL) subcutaneous pen (Lantus #15 mL Solostar U-100 Insulin) tamsulosin 0.4 mg capsule 0.4 mg PO BID #180 caps 01/30 arformoterol 15 mcg/2 mL solution 2 ml inhalation Q12H #120 mL 03/13/25 for nebulization (Brovana) budesonide 0.5 mg/2 mL suspension 0.5 mg (2 mL) inhala tion QAM #120 03/13/25 for nebulization mL amoxicillin 875 mg-potassium 1 tab PO BID #14 tabs clavulanate 125 mg tablet hydrocodone 5 mg-acetaminophen 325 1 tab PO Q6H PRN pa in #10 tabs 03/20/25 mg tablet promethazine 25 mg tablet 25 mg PO Q6H PRN nausea and 03/20/25 vomiting #20 tabs Allergies Allergy/AdvReac Type Severity Reaction Status Date / Time No Known Allergies Allergy Verified 03/26/25 14:06 Review of Systems 2 Const: Denies: fever(s) or chills Card: Denies: chest pain Resp: Denies: dyspnea GI: Reports: abdominal pain, nausea, vomiting and diarrhea; Denies: hematemesis, coffee ground emesis, hematochezia or melena : Denies: dysuria, urinary frequency or urinary urgency Musc: Denies: neck pain or back pain Skin/Breast: Denies: rash PFSH ED 2 PFSH: Medical History History of bladder carcinoma Essential hypertension Atherosclerosis of coronary artery Intermittent complete heart block Chronic hypoxic respiratory failure Diabetes mellitus with hyperglycemia, with long-term current use of insulin Advanced chronic obstructive pulmonary disease Lymphoplasmacytoid lymphoma, 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 History of local excision of skin lesion H/O transurethral destruction of bladder lesion History of condyloma acuminatum removal surgical December 2014 History of arthroplasty of left shoulder tendon Hx of vasectomy H/O hernia repair umbilical and bilateral inguinal History of cholecystectomy Family History Mother , at age 73 Diabetes Lung disease Father , at age 75 Cancer blood Lung disease Social History Smoking and tobacco/nicotine status: never used tobacco/nicotine Quit status (tobacco/nicotine): has quit using Year quit tobacco: 2002 Former quit date comment: smoked 47 years Second hand smoke exposure: No Alcohol intake: current Alcohol intake frequency: holidays/special occasions only Substance/Drug Use: never Adopted: No Caregiver/support person: No Lives independently: Yes Household members: spouse Housing: House Marital status: Number of children: 5 Number of grandchildren: 7 service: Yes branch: [employer] Current occupational status: disabled Pets and animals: Yes Pets & animals: cat(s) and dog(s) Do you think of yourself as: Straight/Heterosexual Current gender identity: Male Special luis needs: No Physical Exam 2 Const: COMMON NORMALS: no acute distress GENERAL APPEARANCE: cooperative and comfortable ORIENTATION/CONSCIOUSNESS: Yes awake, Yes oriented to person, Yes oriented to place and Yes oriented to time HENMT: COMMON NORMALS: normocephalic, atraumatic and hearing grossly normal bilaterally HEAD & SCALP: normocephalic and atraumatic Resp: COMMON NORMALS: normal respiratory effort, No retractions, No use of accessory muscles and clear to auscultation bilaterally AUSCULTATION: clear to auscultation bilaterally Cardio: COMMON NORMALS: regular rate, regular rhythm and No murmurs present (Cardio) RATE: regular rate RHYTHM: regular rhythm GI: COMMON NORMALS: Soft to palpation and No hepatosplenomegaly present A USCULTATION: Yes normoactive bowel sounds PALPATION: Yes Soft to palpation, No Tenderness to palpation present (GI), No Guarding due to palpation present (GI) and Yes No hepatosplenomegaly present Extremity: COMMON NORMALS: normal to inspection, capillary refill normal, no clubbing, cyanosis or edema, no calf tenderness and no pedal edema Neuro: SENSORIUM/ORIENTATION: Yes oriented to person, Yes oriented to place and Yes oriented to time Skin: COMMON NORMALS: no rashes or lesions noted GENERAL SKIN EXAM: no rashes or lesions noted Course 2 Vital Signs: Vital signs: Vital Signs Temperature 98.0 F 03/26/25 13:59 Pulse Rate 61 03/26/25 17:35 Respiratory Rate 18 03/26/25 17:35 Blood Pressure 117/52 03/26/25 17:35 Pulse Oximetry 97 03/26/25 17:35 Oxygen Delivery Me thod Room Air 03/26/25 17:35 Oxygen Flow Rate 3 03/26/25 13:59 MDM - Nausea/Vomiting/Diarrhea Medical Decision Making His pCO2 is elevated but he is well compensated reported on believe he is not hypercapnic at this time believe he just is chronically this hypercapnic. Reviewing his old chart it looks like it has been trending up for some time. He is not acidotic at this time. When we had seen him previously there is signs of colitis on the CT he had not been on antibiotics prior to that we started him on Augmentin. reported did get better for a while and then he began to have diarrhea again C. difficile is positive. He will need to be placed in observation only give able to keep any oral antibiotics down to treat this and give IV fluids. Antiemetics as needed. Discussed with hospitalist orders written Lab Data 03/26/25 14:33 03/26/25 14:33 Radiology Impressions Abdomen/Pelvis CT 03/26/25 14:50 IMPRESSION: 1. Previous cholecystectomy. Postsurgical changes anterior abdominal and pelvic wall around the umbilical and inguinal regions in this patient with previous hernia repairs. 2. Small hypodense renal cysts suggested, unchanged with prior exam. 3. Mild hepatosplenomegaly, unchanged with prior exam. 4. Mildly enlarged prostate with component of calcifications, unchanged with prior exam. 5. Low volume urinary bladder though with suggestion of generalized wall thickening. This is similar to prior exam. 6. Moderate adenopathy, as noted with prior exam. 7. Mild sigmoid colon diverticulosis. 8. [id number] colonic thickening is similar to prior exam. This could be related to inflammation/infection or infiltration. 9. Small amount of free fluid within the abdomen and pelvis, as noted with prior exam. Chest X-Ray 03/26/25 15:04 IMPRESSION: Stable appearance of the chest with prior exam 10/29/2024. No acute findings. Laboratory Results WBC 13.89 10^3/uL (3.29-11.43) H 03/26/25 14:33 RBC 4.38 10^6/uL (3.85-5.65) 03/26/25 14:33 Hgb 13.40 g/dL (11.27-16.99) 03/26/25 14:33 Hct 42.6 % (37-53) 03/26/25 14:33 MCV 97.3 fl (82-101) 03/26/25 14:33 MCH 30.6 pg (27-33) 03/26/25 14:33 MCHC 31.5 g/dL (30-55) 03/26/25 14:33 RDW 13.5 % (12.1-15.1) 03/26/25 14:33 Plt Count 224 10^3/cmm (157-399) 03/26/25 14:33 MPV 9.5 fL (7.4-10.4) 03/26/25 14:33 Neut % (Auto) 66.0 % 03/26/25 14:33 Lymph % (Auto) 25.6 % 03/26/25 14:33 Cochran % (Auto) 6.8 % 03/26/25 14:33 Eos % (Auto) 0.6 % 03/26/25 14:33 Baso % (Auto) 0.4 % 03/26/25 14:33 Neut # (Auto) 9.16 10^3/uL (1.8-7.7) H 03/26/25 14:33 Lymph # (Auto) 3.6 10^3/uL (0.8-4.8) 03/26/25 14:33 Cochran # (Auto) 0.9 10^3/uL (0.2-0.9) 03/26/25 14:33 Eos # (Auto) 0.1 10^3/uL (0.0-0.8) 03/26/25 14:33 Baso # (Auto) 0.1 10^3/uL (0.0-0.1) 03/26/25 14:33 Nucleated RBC % (auto) 0 % 03/26/25 14:33 Nucleated RBCs # 0.0 /100WBC 03/26/25 14:33 Specimen Type Arterial 03/26/25 15:12 Sample Site Brachial, right 03/26/25 15:12 ABG pH 7.42 (7.35-7.45) 03/26/25 15:12 ABG pCO2 75.2 mmHg (35-45) H* 03/26/25 15:12 ABG pO2 77.1 mmHg (80.0-100.0) L 03/26/25 15:12 ABG PO2/FiO2 Ratio 257 03/26/25 15:12 ABG HCO3 48.6 mmol/L (22-26) H 03/26/25 15:12 ABG O2 Saturation 96.4 03/26/25 15:12 ABG Base Excess 19.9 mmol/L (-2.0-2.0) H 03/26/25 15:12 Remberto Test Pos 03/26/25 15:12 A-a O2 Gradient 6.1 mmHg (5-10) 03/26/25 15:12 Hematocrit 39.9 % (42-52) L 03/26/25 15:12 Hgb O2 Saturation 94.7 % (95-100) L 03/26/25 15:12 Carboxyhemoglobin 1.5 %THgb (0.4-20.1) 03/26/25 15:12 Methemoglobin 0.2 % (0.4-1.5) L 03/26/25 15:12 Total Hemoglobin 13.0 g/dL (14-18) L 03/26/25 15:12 Sodium 135.0 mmol/L (131-143) 03/26/25 15:12 Potassium 4.4 mmol/L (3.5-5.0) 03/26/25 15:12 Glucose 255.0 mg/dL (70-115) H 03/26/25 15:12 Ionized Calcium 1.2 mmol/L (1.1-1.4) 03/26/25 15:12 O2 Delivery Device Nc 03/26/25 15:12 O2 Liters/Min 2.5 % 03/26/25 15:12 FiO2 30.0 % 03/26/25 15:12 Paraprofessional Aide ID Juventino 03/26/25 15:12 Sodium 136 mmol/L (136-145) 03/26/25 14:33 Potassium 4.7 mmol/L (3.5-5.1) 03/26/25 14:33 Chloride 88 mmol/L (98-107) L 03/26/25 14:33 Carbon Dioxide 43 mmol/L (22-29) H* 03/26/25 14:33 Anion Gap 9.7 (5-19) 03/26/25 14:33 BUN 25 mg/dL (8-23) H 03/26/25 14:33 Creatinine 1.0 mg/dL (0.7-1.2) 03/26/25 14:33 GFR Calculation Not Reportable 03/26/25 14:33 Glucose 262 mg/dL (65-115) H 03/26/25 14:33 Calculated Osmolality 295 mOsm/kg (285-295) 03/26/25 14:33 Calcium 8.9 mg/dL (8.5-10.5) 03/26/25 14:33 Total Bilirubin 0.3 mg/dL (0.15-1.2) 03/26/25 14:33 AST 12 U/L (0-40) 03/26/25 14:33 ALT 11 U/L (0-41) 03/26/25 14:33 Alkaline Phosphatase 68 U/L (40-130) 03/26/25 14:33 Total Protein 5.5 g/dL (6.6-8.7) L 03/26/25 14:33 Albumin 2.8 g/dL (3.5-5.2) L 03/26/25 14:33 Globulin 2.7 g/dL (1.3-4.6) 03/26/25 14:33 Lipase 38 U/L (13-60) 03/26/25 14:33 Urine Color Dark yellow (Yellow) A 03/26/25 15:18 Urine Appearance Clear (CLEAR) 03/26/25 15:18 Urine pH 5.5 (5-7) 03/26/25 15:18 Ur Specific He[place]in 1.021 (1.005-1.030) 03/26/25 15:18 Urine Protein 2+ (Negative) A 03/26/25 15:18 Urine Glucose (UA) Negative (Normal) 03/26/25 15:18 Urine Ketones Trace (Negative) 03/26/25 15:18 Urine Blood Negative (Negative) 03/26/25 15:18 Urine Nitrate Negative (Negative) 03/26/25 15:18 Urine Bilirubin Negative (Negative) 03/26/25 15:18 Urine Urobilinogen 1.0 mg/dL (Negative) 03/26/25 15:18 Ur Leukocyte Esterase Negative (Negative) 03/26/25 15:18 Urine RBC 0-2 /hpf (0-2) 03/26/25 15:18 Urine WBC 0-5 /hpf (0-5) 03/26/25 15:18 Ur Squamous Epith Cells 0-5 /hpf (0-5) 03/26/25 15:18 Amorphous Sediment Not Reportable 03/26/25 15:18 Urine Bacteria None seen /hpf (NONE) 03/26/25 15:18 Hyaline Casts 14.47 /lpf 03/26/25 15:18 Fine Granular Casts 0-4 /lpf H 03/26/25 15:18 C. difficile (PCR) Positive (Negative) H 03/26/25 15:44 C.difficile Tox Confrm Negative (Negative) 03/26/25 15:44 All radiology interpretation(s) finalized by discharge Discharge Plan Discharge Patient Disposition: Placed in Observation Admit Provider: Josh Parry Clinical Impression: C. difficile colitis, Chronic lymphocytic leukemia not having achieved remission, History of bladder carcinoma, Chronic hypercapnic respiratory failure Coding Level of Care Code ED Info Print Press Operator for Brandon Paredes
--- NOTE | 2025-03-26 14:50 | CTR_ITS ---
PROCEDURE INFORMATION: Exam: CT Abdomen And Pelvis With Contrast Exam date and time: 03/26/2025 3:46 PM Age: 79 years old Clinical indication: Abdominal pain; Acute; Prior surgery; Surgery date: 6+ months; Surgery type: Multiple hernia surgeries; Additional info: Abd pain TECHNIQUE: Imaging protocol: Computed tomography of the abdomen and pelvis with contrast. Radiation optimization: All CT scans at this facility use at least one of these dose optimization techniques: automated exposure control; mA and/or kV adjustment per patient size (includes targeted exams where dose is matched to clinical indication); or iterative reconstruction. Contrast material: OMNI 350; Contrast volume: 100 ml; Contrast route: INTRAVENOUS (IV); COMPARISON: CT abdomen pelvis w con* [id number] 03/20/2025 3:15 PM RADIATION DOSE METRICS: Total DLP (mGy-cm): 987.53 FINDINGS: Lungs: No significant infiltrate or effusion within the visualized lung bases. Liver: Anterior to posterior diameter of the right lobe of the liver is 21 cm, suggesting mild enlargement. Liver shows no significant focal abnormality. Gallbladder and biliary ducts: Previous cholecystectomy. No significant biliary ductal dilatation. Pancreas: Normal. No ductal dilation. Spleen: Anterior to posterior diameter of the spleen near 15 cm, suggesting mild splenomegaly. No significant focal abnormality. Adrenal glands: Normal. No mass. Kidneys and ureters: Small rounded hypodense renal cysts suggested bilaterally, largest on the left of near 2 cm. Findings are unchanged with prior exam. Small amount of chronic perinephric stranding, likely age related unchanged with prior exam. No findings of hydronephrosis or obstruction. Stomach and bowel: [id number] colonic thickening, as noted with prior exam. Mild sigmoid colon diverticulosis without focal diverticulitis. No small bowel dilatation or obstruction. Incomplete gastric distension. Appendix: No evidence of appendicitis. Intraperitoneal space: Small amount of free fluid within the abdomen and pelvis, similar to prior exam. No free air. Vasculature: Atherosclerotic vascular disease without aneurysmal dilatation of the abdominal aorta. Lymph nodes: Moderate adenopathy, as noted with previous exam. Urinary bladder: Low volume urinary bladder though with suggestion of generalized wall thickening. This is similar to prior exam. Reproductive: Mildly enlarged prostate with chronic appearing calcification, as noted with prior exam. Bones/joints: Mild degenerative bony change, without acute findings. Soft tissues: Postsurgical changes anterior abdominal wall around the umbilical region and postsurgical changes anterior pelvic wall or inguinal region. CT/CT abdomen pelvis w con* [id number] IMPRESSION: 1. Previous cholecystectomy. Postsurgical changes anterior abdominal and pelvic wall around the umbilical and inguinal regions in this patient with previous hernia repairs. 2. Small hypodense renal cysts suggested, unchanged with prior exam. 3. Mild hepatosplenomegaly, unchanged with prior exam. 4. Mildly enlarged prostate with component of calcifications, unchanged with prior exam. 5. Low volume urinary bladder though with suggestion of generalized wall thickening. This is similar to prior exam. 6. Moderate adenopathy, as noted with prior exam. 7. Mild sigmoid colon diverticulosis. 8. [id number] colonic thickening is similar to prior exam. This could be related to inflammation/infection or infiltration. 9. Small amount of free fluid within the abdomen and pelvis, as noted with prior exam.
[2025-03-26 15:02] LABS: Alanine Aminotransferase 11 U/L (0-41); Albumin Level 2.8 g/dL (3.5-5.2); Alkaline Phosphatase 68 U/L (40-130); Anion Gap 9.7 (5-19); Aspartate Amino Transferase 12 U/L (0-40); Blood Urea Nitrogen 25 mg/dL (8-23); Calcium 8.9 mg/dL (8.5-10.5); Chloride 88 mmol/L (98-107); Creatinine Clr Calc Pharmacy 74.7782; Globulin 2.7 g/dL (1.3-4.6); Glucose 262 mg/dL (65-115); Lipase 38 U/L (13-60); Osmolality Calculated 295 mOsm/kg (285-295); Potassium 4.7 mmol/L (3.5-5.1); Sodium 136 mmol/L (136-145); Total Bilirubin 0.3 mg/dL (0.15-1.2); Total Protein 5.5 g/dL (6.6-8.7)
[2025-03-26 15:03] LABS: Carbon Dioxide 43 mmol/L (22-29)
--- NOTE | 2025-03-26 15:04 | XRR_ITS ---
PROCEDURE INFORMATION: Exam: XR Chest Exam date and time: 03/26/2025 3:09 PM Age: 79 years old Clinical indication: Other: Weakness; Prior surgery; Surgery date: 6+ months; Surgery type: Pacer; Additional info: Dyspnea/cough TECHNIQUE: Imaging protocol: Radiologic exam of the chest. Views: 1 view. COMPARISON: CT angio chest PE protcl [id number] 10/29/2024 4:43 PM FINDINGS: Tubes, catheters and devices: Dual lead pacemaker on the left and cardiac loop recorder overlying the left chest, unchanged with prior exam. Lungs: Stable calcified granuloma mid to lower left lung with prior exam. No infiltrate or edema. No consolidation. Pleural spaces: No significant pleural effusion. No pneumothorax. Heart/Mediastinum: No significant cardiomegaly. Bones/joints: Postsurgical change left shoulder, unchanged with prior exam. Chronic spondylotic change thoracic spine. Other findings: No significant change with prior chest radiograph exam 10/29/2024. XR/XR chest 1V portable [id number] IMPRESSION: Stable appearance of the chest with prior exam 10/29/2024. No acute findings.
[2025-03-26 15:24] LABS: ABG PH Result 7.42 (7.35-7.45); Arterial Blood Gas Hematocrit 39.9 % (42-52); Base Excess ABG 19.9 mmol/L (-2.0-2.0); Blood Gas Allen Test Pos; Blood Gas Sample Type Arterial; Carboxyhemoglobin 1.5 %THgb (0.4-20.1); HCO3 ABG 48.6 mmol/L (22-26); HGB O2 Sat 94.7 % (95-100); Ionized Calcium Level - ABG 1.2 mmol/L (1.1-1.4); Methemoglobin 0.2 % (0.4-1.5); Oxygen Saturation ABG 96.4; PO2 ABG 77.1 mmHg (80.0-100.0); Potassium Level - ABG 4.4 mmol/L (3.5-5.0)
[2025-03-26 15:25] LABS: Bilirubin Urine Negative (Negative); Blood Urine Negative (Negative); Glucose Urine UA Negative (Normal); Ketones Urine Trace (Negative); Leukocyte Esterase Urine Negative (Negative); Nitrate Urine Negative (Negative); Protein Urine 2+ (Negative); Specific Gravity, Urine 1.021 (1.005-1.030); Urine Appearance Clear (CLEAR); Urine Color Dark Yellow (Yellow); pH Urine 5.5 (5-7)
[2025-03-26 15:25] LABS: ABG PCO2 75.2 mmHg (35-45); Alveolar-Arterial Oxygen Gradi 6.1 mmHg (5-10); Blood Gas LPM 2.5 %; Blood Gas Operator Identificat MONRO; Blood Gas Sample Site Brachial, right; Oxygen Device NC; PO2 FiO2 Ratio Arterial Blood 257
[2025-03-26 15:30] LABS: Add Urine Microscopic? YES; Bacteria Urine None Seen /hpf; Hyaline Casts Urine 14.47 /lpf; RBC Urine 0-2 /hpf (0-2); Squamous Epithelial Cell Urine 0-5 /hpf (0-5); WBC Urine 0-5 /hpf (0-5)
[2025-03-26 15:44] LABS: Add Urine Culture? No; Fine Granular Casts Urine 0-4 /lpf; UA Slide Review UA Slide Review Perf
[2025-03-26] MEDS: sodium chloride 0.9% 1,000 ML 999 ML IV (15:47)
[2025-03-26] MEDS: iohexol 350 mg/mL 500 mL Btl (per mL) IV (15:48)
[2025-03-26 17:12] LABS: C.Diff PCR (Lab) POSITIVE (Negative)
[2025-03-26 17:13] LABS: Clostridioides Difficile Toxin NEGATIVE (Negative)
--- NOTE | 2025-03-26 18:07 | PM.HP ---
Providers/Chief Complaint Admitting Physician: Josh Parry MD Primary Care Provider: Ken Escamilla, [employer] Chief Complaint: weakness, diarrhea, abd pain History of Present Illness Florentino Alfaro is a 79 year old male with a past medical history of COPD, history of ANASTASIYA/COPD on BiPAP, insulin-dependent type 2 diabetes, history of bladder cancer status post TURP BT, CLL, complete heart block status post pacemaker placement, who presents [facility] for abdominal pain and diarrhea, poor appetite, shortness of breath. Currently patient is alert oriented x 3, following all commands, he reports that for the last week, he has had poor appetite, nausea, vomiting, abdominal pain, diarrhea, no fevers, no chills, he was given Augmentin, he also tells me that he has a BiPAP at home, but he is unable to use it, as he does not have oxygen for his BiPAP, and [facility] is trying to obtain that for him. He denies any smoking, no chest pain, no shortness of breath Review of Systems Const: Denies: fever(s) Card: Denies: chest pain Resp: Denies: dyspnea GI: Denies: abdominal pain Medications/Allergies Home Medications ?Medication ?Instructions ?Recorded ?Confirmed ?Last Taken ?Type Disposable nebulizer circuit #1 ea 03/02/22 03/21/25 Unknown Rx nebulizers #1 ea 03/02/22 03/21/25 Unknown Rx ascorbate calcium (vitamin C) 500 1,000 mg PO DAILY 04/09/22 03/21/25 03/19/25 History mg tablet cholecalciferol (vitamin D3) 10 10 mcg PO DAILY 04/09/22 03/21/25 03/19/25 History mcg (400 unit) capsule zinc acetate 50 mg (zinc) capsule 50 mg PO DAILY 03/09/23 03/21/25 03/19/25 History pen needle, diabetic 33 gauge x #100 ea 08/29/24 03/21/25 Unknown Rx vitamin B comp and C no.3 15 mg-10 1 cap PO DAILY #180 caps 09/18/24 03/21/25 03/19/25 Rx mg-50 mg-5 mg-300 mg capsule (B Complex Plus Vitamin C) magnesium L-threonate 48 mg 48 mg PO DAILY #90 caps 10/31/24 03/21/25 03/19/25 Rx magnesium (667 mg) capsule blood-glucose meter (Accu-Chek #1 ea 11/15/24 03/21/25 Unknown Rx Guide Glucose Meter) Oxygen concentrator NC up to 5L #1 ea 01/24/25 03/21/25 Unknown Rx albuterol sulfate 90 mcg/actuation 2 puff inhalation QID PRN 02/08/25 03/21/25 03/19/25 Rx aerosol inhaler Shortness Of Breath #6.7 grams blood sugar diagnostic (Accu-Chek #100 ea 02/08/25 03/21/25 Unknown Rx Guide test strips) hydralazine 25 mg tablet 25 mg PO Q12H #180 tabs 02/08/25 03/21/25 03/19/25 Rx insulin glargine 100 unit/mL (3 See Rx Instructions SUBCUT DAILY 02/08/25 03/21/25 03/19/25 Rx mL) subcutaneous pen (Lantus #15 mL Solostar U-100 Insulin) tamsulosin 0.4 mg capsule 0.4 mg PO BID #180 caps 02/08/25 03/21/25 03/19/25 Rx arformoterol 15 mcg/2 mL solution 2 ml inhalation Q12H #120 mL 03/13/25 03/21/25 03/19/25 Rx for nebulization (Obdulio) budesonide 0.5 mg/2 mL suspension 0.5 mg (2 mL) inhalation QAM #120 03/13/25 03/21/25 03/19/25 Rx for nebulization mL amoxicillin 875 mg-potassium 1 tab PO BID #14 tabs 03/20/25 03/21/25 Unknown Rx clavulanate 125 mg tablet hydrocodone 5 mg-acetaminophen 325 1 tab PO Q6H PRN pain #10 tabs 03/20/25 03/21/25 Unknown Rx mg tablet promethazine 25 mg tablet 25 mg PO Q6H PRN nausea and 03/20/25 03/21/25 Unknown Rx vomiting #20 tabs Allergies Allergy/AdvReac Type Severity Reaction Status Date / Time No Known Allergies Allergy Verified 03/26/25 14:06 PFSH Acute PFSH: Medical History History of bladder carcinoma Essential hypertension Atherosclerosis of coronary artery Intermittent complete heart block Chronic hypoxic respiratory failure Diabetes mellitus with hyperglycemia, with long-term current use of insulin Advanced chronic obstructive pulmonary disease Lymphoplasmacytoid lymphoma, 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 History of local excision of skin lesion H/O transurethral destruction of bladder lesion History of condyloma acuminatum removal surgical December 2014 History of arthroplasty of left shoulder tendon Hx of vasectomy H/O hernia repair umbilical and bilateral inguinal History of cholecystectomy Family History Mother , at age 73 Diabetes Lung disease Father , at age 75 Cancer blood Lung disease Social History Smoking and tobacco/nicotine status: never used tobacco/nicotine Quit status (tobacco/nicotine): has quit using Year quit tobacco: 2002 Former quit date comment: smoked 47 years Second hand smoke exposure: No Alcohol intake: current Alcohol intake frequency: holidays/special occasions only Substance/Drug Use: never Adopted: No Caregiver/support person: No Lives independently: Yes Household members: spouse Housing: House Marital status: Number of children: 5 Number of grandchildren: 7 service: Yes branch: [employer] Current occupational status: disabled Pets and animals: Yes Pets & animals: cat(s) and dog(s) Do you think of yourself as: Straight/Heterosexual Current gender identity: Male Special luis needs: No Vitals/I&O/Wt Last Vital Signs Temp 98.0 F 03/26/25 13:59 Pulse 61 03/26/25 17:35 Resp 18 03/26/25 17:35 BP 117/52 03/26/25 17:35 Pulse Ox 97 03/26/25 17:35 O2 Del Method Room Air 03/26/25 17:35 O2 Flow Rate 3 03/26/25 13:59 Weight last 48 hrs Weight 100.698 kg Physical Exam Const: COMMON NORMALS: no acute distress and patient oriented x3 Eye: COMMON NORMALS: Equal, round and reactive pupils present and EOMs intact bilaterally Resp: COMMON NORMALS: normal respiratory effort, No retractions, No use of accessory muscles and clear to auscultation bilaterally AUSCULTATION: clear to auscultation bilaterally Cardio: COMMON NORMALS: no JVD, regular rate, regular rhythm, S1 normal heart sound present and S2 normal heart sound present RATE: regular rate RHYTHM: regular rhythm HEART SOUNDS: S1 normal heart sound present and S2 normal heart sound present GI: COMMON NORMALS: Normal to inspection, nondistended, normoactive bowel sounds present, Soft to palpation and non-tender Extremity: COMMON NORMALS: no pedal edema Neuro: COMMON NORMALS: patient oriented x3, CN's II-XII intact bilaterally and moves all extremities Psych: COMMON NORMALS: mental status grossly normal Data 03/26/25 14:33 03/26/25 14:33 A&P Assessment and plan (1) C. difficile colitis: (2) Dehydration: (3) SOB (shortness of breath): Plan C. difficile colitis - Isolation precautions - Start p.o. vancomycin Dehydration - IV fluids Shortness of breath - No wheezing on examination - Will hold off on steroids - DuoNeb, budesonide - Does have hypercarbia, but compensated start BiPAP tonight Full code Lovenox for DVT prophylaxis PDMP PDMP Reviewed: Last Reviewed 03/26/25 18:01 by Josh Parry MD Attestations Medical Necessity Statement*: Patient requires hospitalization, outpatient observation, for C. difficile colitis, dehydration Diagnoses C. difficile colitis A04.72 Dehydration E86.0 SOB (shortness of breath) R06.02
[2025-03-26 18:37] LABS: Procalcitonin 0.13 ng/mL (0-0.5)
--- NOTE | 2025-03-26 18:40 | PC.NURSE ---
RN attempts to administer fluids as ordered; however pt on the commode states, I need to poop first. Notified oncoming nurse of medication delay.
[2025-03-26 18:50] LABS: C Reactive Protein 31.9 mg/L (0.0-4.9); Thyroid Stimulating Hormone 5.12 uIU/mL (0.27-4.20)
[2025-03-26 19:49] LABS: Lactic Sepsis W/Reflex 0.7 mmol/L (0.5-2.2)
[2025-03-26] MEDS: sodium chloride 0.9% 1,000 ML 100 ML IV (19:49)
[2025-03-26] MEDS: ipratropium-albuterol 3 mL Neb INHALATION ×2 (19:57→23:18)
[2025-03-26] MEDS: pantoprazole 40 mg SDV IVP (20:41)
[2025-03-26] MEDS: enoxaparin 40 mg/0.4 mL Syringe SUBCUT (20:41)
[2025-03-26] MEDS: vancomycin 125 mg Capsule PO (20:41)
[2025-03-26 23:03] LABS: Glucose Point of Care 234 mg/dL (70-110)
[2025-03-26] MEDS: insulin lispro 100 unit/1 mL SUBCUT (23:09)
[2025-03-27] VITALS (12 sets, daily range): BP systolic 102–138; BP diastolic 50–64; PULSE 60–79; RESP 16–22; TEMP 36.6–36.8; O2SAT 91–97
[2025-03-27] MEDS: ipratropium-albuterol 3 mL Neb INHALATION ×5 (03:15→23:50)
[2025-03-27] MEDS: sodium chloride 0.9% 1,000 ML 100 ML IV ×3 (03:31→21:22)
[2025-03-27] MEDS: hyDRALAzine 25 mg Tablet PO (05:29)
[2025-03-27 05:57] LABS: Basophils % 0.3 %; Eosinophils # 0.1 10^3/uL (0.0-0.8); Eosinophils % 0.6 %; Hematocrit 38.9 % (37-53); Lymphocytes # 3.4 10^3/uL (0.8-4.8); Lymphocytes % 28.9 %; Mean Corpuscular HGB Conc 30.8 g/dL (30-55); Mean Corpuscular Hemoglobin 31.3 pg (27-33); Mean Corpuscular Volume 101.3 fl (82-101); Mean Platelet Volume 9.6 fL (7.4-10.4); Monocytes # 0.6 10^3/uL (0.2-0.9); Monocytes % 4.7 %; Neutrophils # 7.57 10^3/uL (1.8-7.7); Neutrophils % 65.1 %; Nucleated Red Blood Cells % 0 %; Platelet Count 206 10^3/cmm (157-399); Red Blood Count 3.84 10^6/uL (3.85-5.65); Red Cell Distribution Width 13.5 % (12.1-15.1); White Blood Count 11.64 10^3/uL (3.29-11.43)
[2025-03-27 06:17] LABS: Anion Gap 6.1 (5-19); Blood Urea Nitrogen 22 mg/dL (8-23); Calcium 8.4 mg/dL (8.5-10.5); Chloride 96 mmol/L (98-107); Creatinine Clr Calc Pharmacy 75.5591; Glucose 131 mg/dL (65-115); Osmolality Calculated 299 mOsm/kg (285-295); Potassium 4.1 mmol/L (3.5-5.1); Sodium 142 mmol/L (136-145)
[2025-03-27 06:21] LABS: Carbon Dioxide 44 mmol/L (22-29)
[2025-03-27 06:34] LABS: Glucose Point of Care 150 mg/dL (70-110)
[2025-03-27] MEDS: insulin lispro 100 unit/1 mL SUBCUT ×4 (07:56→21:20)
[2025-03-27] MEDS: tamsulosin 0.4 mg Capsule PO ×2 (07:56→17:16)
[2025-03-27] MEDS: vancomycin 125 mg Capsule PO ×4 (07:56→20:53)
--- NOTE | 2025-03-27 10:22 | PC.CHAP ---
Pastoral Care Encounter/Spiritual Assessment Type of Contact [] Declined panel saw operator visit [] Patient/Family/Request visit [] Outpatient visit [] Follow-up visit [] Physician referral [] Code/Alert [] Routine visit [] Staff referral [] Actively dying [] Patient sleeping [] Family support [] [] Out of room [] Palliative care [] [] Receiving care in room [] Pre-surgical visit [] Trauma [] Long length of stay [] ICU visit [x] Other:Contact precautions. No visit. Relational/Emotional Strength [] Patient feels connected with others/family/visitors/staff [] Distress [] Loneliness/isolation [] Abandonment Spirituality of Patient [] Person of Latonia [] Attends Church of their Latonia [] Believes in Prayer [] Reads Bible or Synagogue materials [] There are Spiritual issues to be addressed Recycling Coordinator Interventions [] Prayer [] Active listening [] Non-anxious presence [] Spiritual/emotional support [] Crisis/trauma care [] Spiritual counseling [] Bereavement support [] Provided bereavement packet [] Provided Bible/devotional materials [] Provided toy/stuffed animal, coloring book to patient or family member [] Provided Communion [] Anointing/[place] [] Salvation [] Completed spiritual assessment [] Other: Impact on Illness or Injury [] Angry [] Fearful [] Anxious [] Often cries [] Exhaustion [] Unable to work [] Unable to attend latter-day [] Unable to walk/stand [] Unable to read [] Unable to drive [] Unable to eat/drink [] Unable to sleep [] Unable to be with family [] Patient intubated [] Other: Summary Time spent with patient
[2025-03-27 11:28] LABS: Glucose Point of Care 286 mg/dL (70-110)
--- NOTE | 2025-03-27 13:02 | P.PN_ITS ---
Subjective 2 Subjective: Patient was seen this morning, he continues to have watery diarrhea, multiple bowel movements throughout the night, reports fatigue, malaise, no fevers, no chills, Vitals/I&O/Wt Last Vital Signs Temp 98.0 F 03/27/25 12:00 Pulse 63 03/27/25 12:00 Resp 18 03/27/25 12:00 BP 103/50 03/27/25 12:00 Pulse Ox 94 03/27/25 12:00 O2 Del Method Nasal Cannula 03/27/25 12:00 O2 Flow Rate 2 03/27/25 11:52 FiO2 40 03/26/25 20:10 03/26/25 03/27/25 03/27/25 22:59 06:59 14:59 Intake Total 999 / 999 1521.667 / 1521.667 Balance 999 / 999 1521.667 / 1521.667 Weight last 48 hrs Weight 102.965 kg Weight 103.238 kg Weight 100.698 kg Physical Exam 2 Const: COMMON NORMALS: no acute distress and patient oriented x3 Resp: COMMON NORMALS: normal respiratory effort, No retractions, No use of accessory muscles and clear to auscultation bilaterally AUSCULTATION: clear to auscultation bilaterally Cardio: COMMON NORMALS: regular rate, regular rhythm, S1 normal heart sound present and S2 normal heart sound present RATE: regular rate RHYTHM: r egular rhythm HEART SOUNDS: S1 normal heart sound present and S2 normal heart sound present GI: OTHER: Abdomen is soft, distended, diffuse bowel sounds, no guarding, no rebound, no rigidity, does have diffuse tenderness Extremity: COMMON NORMALS: no pedal edema Neuro: COMMON NORMALS: patient oriented x3 Psych: COMMON NORMALS: mental status grossly normal Data 03/27/25 05:35 03/27/25 05:35 A&P Assessment and plan (1) C. difficile colitis: (2) Dehydration: (3) SOB (shortness of breath): Plan C. difficile colitis - Isolation precautions - Continue p.o. vancomycin Dehydration - IV fluids Shortness of breath - No wheezing on examination - Will hold off on steroids - DuoNeb, budesonide - Does have hypercarbia, but compensated start BiPAP tonight Full code Lovenox for DVT prophylaxis PDMP PDMP Reviewed: Last Reviewed 03/26/25 18:01 by Josh aPrry MD Attestations 2 Medical Necessity Statement*: Patient requires hospitalization for C. difficile colitis, dehydration, shortness of breath Diagnoses C. difficile colitis A04.72 Dehydration E86.0 SOB (shortness of breath) R06.02
[2025-03-27 16:18] LABS: Glucose Point of Care 248 mg/dL (70-110)
--- NOTE | 2025-03-27 16:47 | PC.RESP ---
Inogen use with Bipap. pts concerned that home oxygen company has supplied inogen to be used as a bleed-in source of oxygen for home unit. The use of an Inogen, when the researched use, is inappropriate d/t the inability of machine to be triggered by patient. Patient has not used his home unit because he needs o2.
[2025-03-27] MEDS: enoxaparin 40 mg/0.4 mL Syringe SUBCUT (20:53)
[2025-03-27] MEDS: pantoprazole 40 mg SDV IVP (20:53)
[2025-03-27 20:57] LABS: Glucose Point of Care 220 mg/dL (70-110)
[2025-03-28] VITALS (19 sets, daily range): BP systolic 108–125; BP diastolic 48–61; PULSE 61–80; RESP 16–22; TEMP 36.4–36.9; O2SAT 91–96
[2025-03-28] MEDS: ipratropium-albuterol 3 mL Neb INHALATION ×6 (04:11→23:38)
[2025-03-28 05:27] LABS: Basophils % 0.3 %; Eosinophils # 0.1 10^3/uL (0.0-0.8); Eosinophils % 0.5 %; Hematocrit 36.9 % (37-53); Lymphocytes # 4.3 10^3/uL (0.8-4.8); Lymphocytes % 31.9 %; Mean Corpuscular HGB Conc 30.4 g/dL (30-55); Mean Corpuscular Hemoglobin 30.9 pg (27-33); Mean Corpuscular Volume 101.9 fl (82-101); Mean Platelet Volume 9.9 fL (7.4-10.4); Monocytes # 0.5 10^3/uL (0.2-0.9); Monocytes % 3.9 %; Neutrophils # 8.41 10^3/uL (1.8-7.7); Neutrophils % 62.7 %; Nucleated Red Blood Cells % 0 %; Platelet Count 195 10^3/cmm (157-399); Red Blood Count 3.62 10^6/uL (3.85-5.65); Red Cell Distribution Width 13.6 % (12.1-15.1); White Blood Count 13.41 10^3/uL (3.29-11.43)
[2025-03-28] MEDS: hyDRALAzine 25 mg Tablet PO ×2 (05:49→17:06)
[2025-03-28 05:52] LABS: Anion Gap 7.8 (5-19); Blood Urea Nitrogen 15 mg/dL (8-23); Calcium 8.3 mg/dL (8.5-10.5); Carbon Dioxide 40 mmol/L (22-29); Chloride 97 mmol/L (98-107); Creatinine Clr Calc Pharmacy 76.7154; Glucose 209 mg/dL (65-115); Osmolality Calculated 299 mOsm/kg (285-295); Potassium 3.8 mmol/L (3.5-5.1); Sodium 141 mmol/L (136-145)
[2025-03-28] MEDS: sodium chloride 0.9% 1,000 ML 100 ML IV ×2 (06:23→17:18)
[2025-03-28 06:30] LABS: Glucose Point of Care 239 mg/dL (70-110)
[2025-03-28] MEDS: vancomycin 125 mg Capsule PO ×4 (07:24→21:55)
[2025-03-28] MEDS: fluticasone nasal spray 16gm Btl 1 SPRAY NASAL ×2 (07:24→17:08)
[2025-03-28] MEDS: tamsulosin 0.4 mg Capsule PO ×2 (07:24→17:06)
[2025-03-28] MEDS: insulin lispro 100 unit/1 mL SUBCUT ×4 (07:25→21:54)
[2025-03-28] MEDS: budesonide 0.5 mg/2 mL Neb INHALATION (08:26)
--- NOTE | 2025-03-28 10:07 | PC.CHAP ---
Pastoral Care Encounter/Spiritual Assessment Type of Contact [] Declined electrical engineering draftsperson visit [] Patient/Family/Request visit [] Outpatient visit [] Follow-up visit [] Physician referral [] Code/Alert [] Routine visit [] Staff referral [] Actively dying [] Patient sleeping [] Family support [] [] Out of room [] Palliative care [] [] Receiving care in room [] Pre-surgical visit [] Trauma [] Long length of stay Contact precautions. No visit. Relational/Emotional Strength [] Patient feels connected with others/family/visitors/staff [] Distress [] Loneliness/isolation [] Abandonment Spirituality of Patient [] Person of [place] [] Attends Restorationism of their [place] [] Believes in Prayer [] Reads Bible or Christianity materials [] There are Spiritual issues to be addressed Environmental Officer Interventions [] Prayer [] Active listening [] Non-anxious presence [] Spiritual/emotional support [] Crisis/trauma care [] Spiritual counseling [] Bereavement support [] Provided bereavement packet [] Provided Bible/devotional materials [] Provided toy/stuffed animal, coloring book to patient or family member [] Provided Communion [] Anointing/[place] [] Salvation [] Completed spiritual assessment [] Other: Impact on Illness or Injury [] Angry [] Fearful [] Anxious [] Often cries [] Exhaustion [] Unable to work [] Unable to attend jew [] Unable to walk/stand [] Unable to read [] Unable to drive [] Unable to eat/drink [] Unable to sleep [] Unable to be with family [] Patient intubated [] Other: Summary Time spent with patient
[2025-03-28] MEDS: methylPREDNISolone sod succ 125 mg/2 mL INJ IVP (10:37)
[2025-03-28 11:25] LABS: Glucose Point of Care 282 mg/dL (70-110)
[2025-03-28 15:59] LABS: Glucose Point of Care 361 mg/dL (70-110)
--- NOTE | 2025-03-28 17:52 | P.PN_ITS ---
Subjective 2 Subjective: Patient was seen this morning, currently alert oriented x 3, following all commands does report shortness of breath reports wheezing continues to have complaints of diarrhea but having more well-formed stools today, does report generalized weakness Vitals/I&O/Wt Last Vital Signs Temp 98.0 F 03/28/25 16:00 Pulse 80 03/28/25 16:00 Resp 18 03/28/25 16:00 BP 119/61 03/28/25 16:00 Pulse Ox 96 03/28/25 16:00 O2 Del Method Nasal Cannula 03/28/25 16:00 O2 Flow Rate 4 03/28/25 16:00 FiO2 36 03/28/25 00:05 03/28/25 03/28/25 03/28/25 06:59 14:59 22:59 Intake Total 1141.667 / 3646.667 600 / 600 1000 / 1600 Balance 1141.667 / 3221.667 600 / 600 1000 / 1600 Weight last 48 hrs Weight 106.322 kg Weight 102.965 kg Weight 103.238 kg Physical Exam 2 Const: COMMON NORMALS: no acute distress and patient oriented x3 Resp: COMMON NORMALS: normal respiratory effort, No retractions, No use of accessory muscles and clear to auscultation bilaterally AUSCULTATION: clear to auscultation bilaterally Cardio: COMMON NORMALS: regular rate, regular rhythm, S1 normal heart sound present and S2 normal heart sound present RATE: regular rate RHYTHM: r egular rhythm HEART SOUNDS: S1 normal heart sound present and S2 normal heart sound present GI: COMMON NORMALS: Normal to inspection, nondistended, normoactive bowel sounds present and non-tender Extremity: COMMON NORMALS: no pedal edema Neuro: COMMON NORMALS: patient oriented x3 Psych: COMMON NORMALS: mental status grossly normal Data 03/28/25 04:30 03/28/25 04:30 A&P Assessment and plan (1) C. difficile colitis: (2) Dehydration: (3) SOB (shortness of breath): Plan C. difficile colitis - Isolation precautions - Continue p.o. vancomycin Dehydration - IV fluids Shortness of breath, concern for COPD exacerbation - No wheezing on examination - Start IV steroids today - DuoNeb, budesonide - Does have hypercarbia, but compensated start BiPAP tonight Full code Lovenox for DVT prophylaxis PDMP PDMP Reviewed: Last Reviewed 03/26/25 18:01 by Josh Parry MD Attestations 2 Medical Necessity Statement*: Patient requires hospitalization for COPD exacerbation, C. difficile colitis Diagnoses C. difficile colitis A04.72 Dehydration E86.0 SOB (shortness of breath) R06.02
--- NOTE | 2025-03-28 18:26 | PC.NURSE ---
Addendum entered by Mckenna Kenyon LPN 03/28/25 18:39: This nurse called [facility] to see if pharmacy left early today in which they have. Hope or night stocker [facility] will pull medication and deliver to med surg floor for pt administration. Info relayed to JESSI Kulkarni on nights who assumed care of pt at this time. Original Note: one time order of lantus 10 units ordered 1755. still unverified by pharmacy. attempted to call pharmacy X 2 with no answer . med not administered at this time due to pharmacy delay. will pass on to Cayla in report.
[2025-03-28 20:42] LABS: Glucose Point of Care 367 mg/dL (70-110)
[2025-03-28] MEDS: insulin glargine 100 units/1 mL 10 UNIT SUBCUT (21:54)
[2025-03-28] MEDS: enoxaparin 40 mg/0.4 mL Syringe SUBCUT (21:55)
[2025-03-28] MEDS: pantoprazole 40 mg SDV IVP (21:55)
[2025-03-29] VITALS (8 sets, daily range): BP systolic 110–120; BP diastolic 55–68; PULSE 60–70; RESP 17–18; TEMP 36.4–36.7; O2SAT 91–96
[2025-03-29] MEDS: ipratropium-albuterol 3 mL Neb INHALATION ×3 (03:32→12:58)
[2025-03-29 05:09] LABS: Basophils % 0.2 %; Hematocrit 35.7 % (37-53); Lymphocytes # 3.8 10^3/uL (0.8-4.8); Lymphocytes % 30.5 %; Mean Corpuscular HGB Conc 30.8 g/dL (30-55); Mean Corpuscular Hemoglobin 30.4 pg (27-33); Mean Corpuscular Volume 98.6 fl (82-101); Monocytes # 0.2 10^3/uL (0.2-0.9); Monocytes % 1.9 %; Neutrophils # 8.27 10^3/uL (1.8-7.7); Neutrophils % 66.4 %; Nucleated Red Blood Cells % 0 %; Platelet Count 198 10^3/cmm (157-399); Red Blood Count 3.62 10^6/uL (3.85-5.65); Red Cell Distribution Width 13.4 % (12.1-15.1); White Blood Count 12.46 10^3/uL (3.29-11.43)
[2025-03-29 05:29] LABS: Anion Gap 9.6 (5-19); Blood Urea Nitrogen 14 mg/dL (8-23); Calcium 8.3 mg/dL (8.5-10.5); Carbon Dioxide 36 mmol/L (22-29); Chloride 97 mmol/L (98-107); Glucose 274 mg/dL (65-115); Osmolality Calculated 296 mOsm/kg (285-295); Potassium 4.6 mmol/L (3.5-5.1); Sodium 138 mmol/L (136-145)
[2025-03-29] MEDS: hyDRALAzine 25 mg Tablet PO (06:11)
[2025-03-29 06:19] LABS: Glucose Point of Care 287 mg/dL (70-110)
[2025-03-29] MEDS: budesonide 0.5 mg/2 mL Neb INHALATION (07:35)
[2025-03-29] MEDS: tamsulosin 0.4 mg Capsule PO (08:11)
[2025-03-29] MEDS: insulin lispro 100 unit/1 mL SUBCUT ×2 (08:11→12:20)
[2025-03-29] MEDS: vancomycin 125 mg Capsule PO ×2 (08:11→12:20)
[2025-03-29] MEDS: fluticasone nasal spray 16gm Btl 1 SPRAY NASAL (08:15)
[2025-03-29] MEDS: insulin glargine 100 units/1 mL 25 UNIT SUBCUT (09:39)
--- NOTE | 2025-03-29 10:53 | PC.NURSE ---
patient to dc this shift awaiting transport and meds to bed.
--- NOTE | 2025-03-29 11:05 | PC.NURSE ---
Addendum entered by Mckenna Kenyon LPN 03/29/25 13:23: This nurse called patients to get an ETA. Lolita is still at home in [place], [place], but says she is currently heading out the door to head this way to get him. Original Note: meds to bed delivered awaiting transport home.
--- NOTE | 2025-03-29 11:55 | P.DS_ITS ---
Discharge Providers Date of Admission: 03/27/25 10:28 Date of Discharge: March 29, 2025 Attending Provider at Admission: Josh Parry MD Attending Provider at Discharge: Josh Parry MD Primary Care Provider: MELCHOR Lange Diagnoses at Discharge Discharge Diagnosis (1) C. difficile colitis: Status: Acute (2) Dehydration: Status: Acute (3) SOB (shortness of breath): Status: Acute Reason for Visit Reason for Visit: weakness, diarrhea, abd pain Hospital Course Hospital Course Florentino Alfaro is a 79 year old male with a past medical history of COPD, history of ANASTASIYA/COPD on BiPAP, insulin-dependent type 2 diabetes, history of bladder cancer status post TURP BT, CLL, complete heart block status post pacemaker placement, who presents [facility] for abdominal pain and diarrhea, poor appetite, shortness of breath. Currently patient is alert oriented x 3, following all commands, he reports that for the last week, he has had poor appetite, nausea, vomiting, abdominal pain, diarrhea, no fevers, no chills, he was given Augmentin, he also tells me that he has a BiPAP at home, but he is unable to use it, as he does not have oxygen for his BiPAP, and [facility] is trying to obtain that for him. He denies any smoking, no chest pain, no shortness of breath Patient was admitted to [facility] for C. difficile colitis, received IV fluids, p.o. vancomycin, overall clinically improved, will be discharged on p.o. vancomycin. Patient was instructed to continue to hand wash, to decrease risk of fecal oral transmission. For shortness of breath concerns of COPD exacerbation, received IV steroids during his hospitalization, nebulizer treatments, overall clinically improved Physical Exam Const: COMMON NORMALS: no acute distress and patient oriented x3 Resp: COMMON NORMALS: normal respiratory effort, No retractions, No use of accessory muscles and clear to auscultation bilaterally AUSCULTATION: clear to auscultation bilaterally Cardio: COMMON NORMALS: regular rate, regular rhythm, S1 normal heart sound present and S2 normal heart sound present RATE: regular rate RHYTHM: regular rhythm HEART SOUNDS: S1 normal heart sound present and S2 normal heart sound present GI: COMMON NORMALS: Normal to inspection, nondistended, normoactive bowel sounds present and non-tender Extremity: COMMON NORMALS: no pedal edema Neuro: COMMON NORMALS: patient oriented x3 Psych: COMMON NORMALS: mental status grossly normal Discharge Data Studies Completed and Pending Completed Studies During Hospitalization Category Date Time Status CT abdomen pelvis w con* [id number] Stat Cat Scan 03/26/25 14:50 Completed XR chest 1V portable [id number] Stat Exams 03/26/25 15:04 Completed Radiology Impressions Abdomen/Pelvis CT 03/26/25 14:50 IMPRESSION: 1. Previous cholecystectomy. Postsurgical changes anterior abdominal and pelvic wall around the umbilical and inguinal regions in this patient with previous hernia repairs. 2. Small hypodense renal cysts suggested, unchanged with prior exam. 3. Mild hepatosplenomegaly, unchanged with prior exam. 4. Mildly enlarged prostate with component of calcifications, unchanged with prior exam. 5. Low volume urinary bladder though with suggestion of generalized wall thickening. This is similar to prior exam. 6. Moderate adenopathy, as noted with prior exam. 7. Mild sigmoid colon diverticulosis. 8. [id number] colonic thickening is similar to prior exam. This could be related to inflammation/infection or infiltration. 9. Small amount of free fluid within the abdomen and pelvis, as noted with prior exam. Chest X-Ray 03/26/25 15:04 IMPRESSION: Stable appearance of the chest with prior exam 10/29/2024. No acute findings. Laboratory Results WBC 12.46 10^3/uL (3.29-11.43) H 03/29/25 04:34 RBC 3.62 10^6/uL (3.85-5.65) L 03/29/25 04:34 Hgb 11.00 g/dL (11.27-16.99) L 03/29/25 04:34 Hct 35.7 % (37-53) L 03/29/25 04:34 MCV 98.6 fl (82-101) 03/29/25 04:34 MCH 30.4 pg (27-33) 03/29/25 04:34 MCHC 30.8 g/dL (30-55) 03/29/25 04:34 RDW 13.4 % (12.1-15.1) 03/29/25 04:34 Plt Count 198 10^3/cmm (157-399) 03/29/25 04:34 MPV 10.0 fL (7.4-10.4) 03/29/25 04:34 Neut % (Auto) 66.4 % 03/29/25 04:34 Lymph % (Auto) 30.5 % 03/29/25 04:34 Garvin % (Auto) 1.9 % 03/29/25 04:34 Eos % (Auto) 0.0 % 03/29/25 04:34 Baso % (Auto) 0.2 % 03/29/25 04:34 Neut # (Auto) 8.27 10^3/uL (1.8-7.7) H 03/29/25 04:34 Lymph # (Auto) 3.8 10^3/uL (0.8-4.8) 03/29/25 04:34 Garvin # (Auto) 0.2 10^3/uL (0.2-0.9) 03/29/25 04:34 Eos # (Auto) 0.0 10^3/uL (0.0-0.8) 03/29/25 04:34 Baso # (Auto) 0.0 10^3/uL (0.0-0.1) 03/29/25 04:34 Nucleated RBC % (auto) 0 % 03/29/25 04:34 Nucleated RBCs # 0.0 /100WBC 03/29/25 04:34 Specimen Type Arterial 03/26/25 15:12 Sample Site Brachial, right 03/26/25 15:12 ABG pH 7.42 (7.35-7.45) 03/26/25 15:12 ABG pCO2 75.2 mmHg (35-45) H* 03/26/25 15:12 ABG pO2 77.1 mmHg (80.0-100.0) L 03/26/25 15:12 ABG PO2/FiO2 Ratio 257 03/26/25 15:12 ABG HCO3 48.6 mmol/L (22-26) H 03/26/25 15:12 ABG O2 Saturation 96.4 03/26/25 15:12 ABG Base Excess 19.9 mmol/L (-2.0-2.0) H 03/26/25 15:12 Remberto Test Pos 03/26/25 15:12 A-a O2 Gradient 6.1 mmHg (5-10) 03/26/25 15:12 Hematocrit 39.9 % (42-52) L 03/26/25 15:12 Hgb O2 Saturation 94.7 % (95-100) L 03/26/25 15:12 Carboxyhemoglobin 1.5 %THgb (0.4-20.1) 03/26/25 15:12 Methemoglobin 0.2 % (0.4-1.5) L 03/26/25 15:12 Total Hemoglobin 13.0 g/dL (14-18) L 03/26/25 15:12 Sodium 135.0 mmol/L (131-143) 03/26/25 15:12 Potassium 4.4 mmol/L (3.5-5.0) 03/26/25 15:12 Glucose 255.0 mg/dL (70-115) H 03/26/25 15:12 Ionized Calcium 1.2 mmol/L (1.1-1.4) 03/26/25 15:12 O2 Delivery Device Nc 03/26/25 15:12 O2 Liters/Min 2.5 % 03/26/25 15:12 FiO2 30.0 % 03/26/25 15:12 Multiple Punch Press Operator ID Monro 03/26/25 15:12 Sodium 138 mmol/L (136-145) 03/29/25 04:34 Potassium 4.6 mmol/L (3.5-5.1) 03/29/25 04:34 Chloride 97 mmol/L (98-107) L 03/29/25 04:34 Carbon Dioxide 36 mmol/L (22-29) H 03/29/25 04:34 Anion Gap 9.6 (5-19) 03/29/25 04:34 BUN 14 mg/dL (8-23) 03/29/25 04:34 Creatinine 0.9 mg/dL (0.7-1.2) 03/29/25 04:34 GFR Calculation Not Reportable 03/29/25 04:34 Glucose 274 mg/dL (65-115) H 03/29/25 04:34 POC Glucose 287 mg/dL (70-110) H 03/29/25 06:08 Calculated Osmolality 296 mOsm/kg (285-295) H 03/29/25 04:34 Lactic Acid 0.7 mmol/L (0.5-2.2) 03/26/25 19:20 Calcium 8.3 mg/dL (8.5-10.5) L 03/29/25 04:34 Total Bilirubin 0.3 mg/dL (0.15-1.2) 03/26/25 14:33 AST 12 U/L (0-40) 03/26/25 14:33 ALT 11 U/L (0-41) 03/26/25 14:33 Alkaline Phosphatase 68 U/L (40-130) 03/26/25 14:33 C-Reactive Protein 31.9 mg/L (0.0-4.9) H 03/26/25 14:33 Total Protein 5.5 g/dL (6.6-8.7) L 03/26/25 14:33 Albumin 2.8 g/dL (3.5-5.2) L 03/26/25 14:33 Globulin 2.7 g/dL (1.3-4.6) 03/26/25 14:33 Lipase 38 U/L (13-60) 03/26/25 14:33 Procalcitonin 0.13 ng/mL (0-0.5) 03/26/25 14:33 TSH 5.12 uIU/mL (0.27-4.20) H 03/26/25 14:33 Urine Color Dark yellow (Yellow) A 03/26/25 15:18 Urine Appearance Clear (CLEAR) 03/26/25 15:18 Urine pH 5.5 (5-7) 03/26/25 15:18 Ur Specific [place] 1.021 (1.005-1.030) 03/26/25 15:18 Urine Protein 2+ (Negative) A 03/26/25 15:18 Urine Glucose (UA) Negative (Normal) 03/26/25 15:18 Urine Ketones Trace (Negative) 03/26/25 15:18 Urine Blood Negative (Negative) 03/26/25 15:18 Urine Nitrate Negative (Negative) 03/26/25 15:18 Urine Bilirubin Negative (Negative) 03/26/25 15:18 Urine Urobilinogen 1.0 mg/dL (Negative) 03/26/25 15:18 Ur Leukocyte Esterase Negative (Negative) 03/26/25 15:18 Urine RBC 0-2 /hpf (0-2) 03/26/25 15:18 Urine WBC 0-5 /hpf (0-5) 03/26/25 15:18 Ur Squamous Epith Cells 0-5 /hpf (0-5) 03/26/25 15:18 Amorphous Sediment Not Reportable 03/26/25 15:18 Urine Bacteria None seen /hpf (NONE) 03/26/25 15:18 Hyaline Casts 14.47 /lpf 03/26/25 15:18 Fine Granular Casts 0-4 /lpf H 03/26/25 15:18 C. difficile (PCR) Positive (Negative) H 03/26/25 15:44 C.difficile Tox Confrm Negative (Negative) 03/26/25 15:44 Vitals Last Vital Signs Temp 97.5 F L 03/29/25 08:00 Pulse 70 03/29/25 08:00 Resp 18 03/29/25 08:00 BP 120/62 03/29/25 08:00 Pulse Ox 91 03/29/25 08:00 O2 Del Method Nasal Cannula 03/29/25 08:00 O2 Flow Rate 3 03/29/25 08:00 FiO2 40 03/28/25 23:42 Discharge Plan Discharge Patient Disposition: Home Condition: Stable Prescriptions: New vancomycin 125 mg Capsule 125 mg PO QID 7 Days Qty: 28 0RF insulin aspart U-100 [Novolog FlexPen U-100 Insulin] 100 unit/mL (3 mL) insulin pen See Rx Instructions .ROUTE .COMPLEX Qty: 15 0RF Rx Instructions: Inject, subcut, 3 times daily, after meals, based on low-dose insulin sliding scale Continued ascorbate calcium (vitamin C) 500 mg tablet 1,000 mg PO DAILY cholecalciferol (vitamin D3) 10 mcg (400 unit) capsule 10 mcg PO DAILY B Complex Plus Vitamin C [id number] mg capsule 1 cap PO DAILY Qty: 180 1RF Rx Instructions: give with food (meal/snack) (DME) Oxygen concentrator NC up to 5L See Rx Instructions .ROUTE .MEDSUPPLY Qty: 1 0RF Rx Instructions: Use 2L NC 24 hours for 99 months arformoterol [Brovana] 15 mcg/2 mL solution for nebulization 2 ml inhalation Q12H Qty: 120 2RF budesonide 0.5 mg/2 mL suspension for nebulization 0.5 mg inhalation QAM Qty: 120 2RF Rx Instructions: mixes with brovana zinc acetate 50 mg (zinc) capsule 50 mg PO DAILY albuterol sulfate 90 mcg/actuation HFA aerosol inhaler 2 puff INHALATION QID PRN (Reason: Shortness Of Breath) Qty: 6.7 2RF (DME) Accu-Chek Guide test strips Strip See Rx Instructions .Route Qty: 100 5RF Rx Instructions: check 3 times day as needed tamsulosin 0.4 mg capsule 0.4 mg PO BID Qty: 180 1RF hydralazine 25 mg tablet 25 mg PO Q12H Qty: 180 0RF (DME) Disposable nebulizer circuit See Rx Instructions .Route .MEDSUPPLY Qty: 1 0RF Rx Instructions: As directed (DME) nebulizers Misc See Rx Instructions .ROUTE .MEDSUPPLY Qty: 1 0RF Rx Instructions: As directed (DME) pen needle, diabetic 33 gauge x 5/32 needle See Rx Instructions .ROUTE .MEDSUPPLY Qty: 100 5RF Rx Instructions: 1 times day (DME) blood-glucose meter [Accu-Chek Guide Glucose Meter[place] [facility] [place] .[place] Qty: 1 0RF Rx Instructions: As directed hydrocodone-acetaminophen 5-325 mg tablet 1 tab PO Q6H PRN (Reason: pain) Qty: 10 0RF promethazine 25 mg tablet 25 mg PO Q6H PRN (Reason: nausea and vomiting) Qty: 20 0RF magnesium L-threonate 48 mg magnesium (667 mg) capsule 48 mg PO DAILY Qty: 90 0RF Changed insulin glargine 100 unit/mL (3 mL) insulin pen See Rx Instructions SUBCUT DAILY Qty: 15 2RF Rx Instructions: up to 25 subcutaneously daily Discontinued amoxicillin-pot clavulanate 875-125 mg tablet 1 tab PO BID Qty: 14 0RF Discharge Orders: Discharge Order (Routine); Ordered 03/29/25 Ordered By: Josh Parry Other Ambulatory Orders: DME: Oxygen (Order) Location: None Selected Ordered By: Josh Parry Referrals: [facility] [Outside, Home Health] Referral Note: If you have not heard from them within the next 2 business days, please call them directly. Ken Escamilla, WEB MANAGER-C [Primary Care Provider, Family Practice] - 04/09/25 3:20 pm Discharge Diet: Cardiac Discharge Activity: Resume usual activity Patient Instructions: Diabetes and Diet, Vancomycin (By mouth), Insulin Aspart, Recombinant (By injection) (Novolog, Novolog..., C. Diff (Clostridioides Difficile) Infection (GEN), Opioid Safety Discharge Attestations Time Spent in Discharge Care*: greater than 30 min Quality Metrics Clinical Quality Measures [ No reported AMI, CVA or VTE this stay] Coding Level of Care Code 50050 Total time (in minutes) for Discharge: 45 Diagnoses C. difficile colitis A04.72 Dehydration E86.0 SOB (shortness of breath) R06.02
[2025-03-29 12:16] LABS: Glucose Point of Care 243 mg/dL (70-110)
== END 2025-03-29 14:58 | disposition home or self-care (01) | DRG 372 ==
LOC: ER 15:42 → MEDSURG 18:00
PROVIDERS: Emergency Medicine; Admitting Provider Family Medicine; Emergency Provider Family Medicine; PCP Nurse Practitioner; Visit Provider Family Medicine
DX: A04.72 Enterocolitis due to Clostridium difficile, not specified as recurrent (principal); C91.10 Chronic lymphocytic leukemia of B-cell type not having achieved remission; J44.1 Chronic obstructive pulmonary disease with (acute) exacerbation; I44.2 Atrioventricular block, complete; J96.12 Chronic respiratory failure with hypercapnia; E86.0 Dehydration; G47.33 Obstructive sleep apnea (adult) (pediatric); E11.9 Type 2 diabetes mellitus without complications; I10 Essential (primary) hypertension; N40.1 Benign prostatic hyperplasia with lower urinary tract symptoms; I25.2 Old myocardial infarction; Z99.89 Dependence on other enabling machines and devices; Z85.51 Personal history of malignant neoplasm of bladder; Z95.0 Presence of cardiac pacemaker; Z79.4 Long term (current) use of insulin; Z79.891 Long term (current) use of opiate analgesic; Z99.81 Dependence on supplemental oxygen
CPT/HCPCS: 36415; 36416; 36600; 71045; 74177; 80048; 80051; 80053; 81001; 82330; 82805; 82962; 83605; 83690; 84145; 84443; 85025; 86140; 87324; 87493; 94640; 94660; 94664; 96372; 99285; G0378; J1650; J1815; J2470; J2919; J7030; J7626; J9999

== ENCOUNTER 2025-04-09 11:42 | Oncology outpatient (recurring) (ONCR) | payer MEDICARE, SELFPAY ==
[2025-04-09 12:15] LABS: Basophils % 0.3 %; Eosinophils # 0.1 10^3/uL (0.0-0.8); Eosinophils % 0.8 %; Hematocrit 37.2 % (37-53); Lymphocytes # 2.8 10^3/uL (0.8-4.8); Lymphocytes % 43.2 %; Mean Corpuscular HGB Conc 29.8 g/dL (30-55); Mean Corpuscular Hemoglobin 30.2 pg (27-33); Mean Corpuscular Volume 101.4 fl (82-101); Mean Platelet Volume 9.3 fL (7.4-10.4); Monocytes # 0.3 10^3/uL (0.2-0.9); Monocytes % 4.5 %; Neutrophils % 50.6 %; Nucleated Red Blood Cells % 0 %; Platelet Count 124 10^3/cmm (157-399); Red Blood Count 3.67 10^6/uL (3.85-5.65); Red Cell Distribution Width 14.1 % (12.1-15.1); White Blood Count 6.51 10^3/uL (3.29-11.43)
[2025-04-09 12:33] LABS: Alanine Aminotransferase 13 U/L (0-41); Albumin Level 3.1 g/dL (3.5-5.2); Alkaline Phosphatase 52 U/L (40-130); Anion Gap 7.2 (5-19); Aspartate Amino Transferase 18 U/L (0-40); Blood Urea Nitrogen 12 mg/dL (8-23); Calcium 8.8 mg/dL (8.5-10.5); Chloride 94 mmol/L (98-107); Globulin 2.3 g/dL (1.3-4.6); Glucose 176 mg/dL (65-115); Osmolality Calculated 298 mOsm/kg (285-295); Potassium 4.2 mmol/L (3.5-5.1); Sodium 142 mmol/L (136-145); Total Bilirubin 0.2 mg/dL (0.15-1.2); Total Protein 5.4 g/dL (6.6-8.7)
[2025-04-09 12:44] LABS: Carbon Dioxide 45 mmol/L (22-29)
== END 2025-04-30 23:59 | disposition home or self-care (01) ==
PROVIDERS: Nurse Practitioner Family; PCP Nurse Practitioner; Visit Provider Nurse Practitioner
DX: Z08 Encounter for follow-up examination after completed treatment for malignant neoplasm (principal); Z85.6 Personal history of leukemia; C68.0 Malignant neoplasm of urethra; J96.12 Chronic respiratory failure with hypercapnia; Z87.891 Personal history of nicotine dependence; Z79.899 Other long term (current) drug therapy
CPT/HCPCS: 36415; 80053; 85025; 99214

== ENCOUNTER 2025-04-13 13:18 | Inpatient (IN) | payer MEDICARE, SELFPAY ==
[2025-04-13] VITALS (7 sets, daily range): BP systolic 92–117; BP diastolic 46–61; PULSE 64–95; RESP 15–18; TEMP 36.8–36.9; O2SAT 91–97; BMI 30.7; BMI 30.8
[2025-04-13] MEDS: sodium chloride 0.9% 1,000 ML 999 ML IV ×2 (14:25→18:22)
[2025-04-13] MEDS: ondansetron 2 mg/ML SDV 2 mL 4 MG IVP (14:25)
[2025-04-13 14:29] LABS: Basophils # 0.1 10^3/uL (0.0-0.1); Basophils % 0.3 %; Eosinophils % 0.2 %; Hematocrit 40.9 % (37-53); Lymphocytes # 4.9 10^3/uL (0.8-4.8); Lymphocytes % 26.8 %; Mean Corpuscular HGB Conc 31.1 g/dL (30-55); Mean Corpuscular Hemoglobin 30.3 pg (27-33); Mean Corpuscular Volume 97.6 fl (82-101); Mean Platelet Volume 10.2 fL (7.4-10.4); Monocytes # 0.6 10^3/uL (0.2-0.9); Nucleated Red Blood Cells % 0 %; Platelet Count 128 10^3/cmm (157-399); Red Blood Count 4.19 10^6/uL (3.85-5.65); Red Cell Distribution Width 14.9 % (12.1-15.1); White Blood Count 18.15 10^3/uL (3.29-11.43)
[2025-04-13 14:41] LABS: Lactic Sepsis W/Reflex 1.3 mmol/L (0.5-2.2)
[2025-04-13 14:42] LABS: Alanine Aminotransferase 13 U/L (0-41); Alkaline Phosphatase 56 U/L (40-130); Aspartate Amino Transferase 15 U/L (0-40); Blood Urea Nitrogen 23 mg/dL (8-23); Calcium 8.6 mg/dL (8.5-10.5); Carbon Dioxide 35 mmol/L (22-29); Chloride 93 mmol/L (98-107); Creatinine Clr Calc Pharmacy 68.6901; Globulin 2.6 g/dL (1.3-4.6); Glucose 180 mg/dL (65-115); Lipase 16 U/L (13-60); Osmolality Calculated 290 mOsm/kg (285-295); Sodium 136 mmol/L (136-145); Total Bilirubin 0.7 mg/dL (0.15-1.2); Total Protein 5.6 g/dL (6.6-8.7)
[2025-04-13 14:43] LABS: Anion Gap 12.6 (5-19); Potassium 4.6 mmol/L (3.5-5.1)
--- NOTE | 2025-04-13 14:50 | CTR_ITS ---
PROCEDURE INFORMATION: Exam: CT Abdomen And Pelvis With Contrast Exam date and time: 04/13/2025 3:15 PM Age: 79 years old Clinical indication: Abdominal pain; Additional info: Low abdominal pain, constipation TECHNIQUE: Imaging protocol: Computed tomography of the abdomen and pelvis with contrast. Radiation optimization: All CT scans at this facility use at least one of these dose optimization techniques: automated exposure control; mA and/or kV adjustment per patient size (includes targeted exams where dose is matched to clinical indication); or iterative reconstruction. Contrast material: OMNI 350; Contrast volume: 100 ml; Contrast route: INTRAVENOUS (IV); COMPARISON: CT abdomen pelvis w con* [id number] 03/26/2025 3:46 PM RADIATION DOSE METRICS: Total DLP (mGy-cm): 937.33 FINDINGS: Tubes, catheters and devices: Cardiac pacemaker, unchanged. Liver: Normal. No mass. Gallbladder and biliary ducts: Status post cholecystectomy. No evidence of significant biliary obstruction. Pancreas: Normal. No ductal dilation. Spleen: Normal. No splenomegaly. Adrenal glands: Normal. No mass. Kidneys and ureters: Bilateral renal cysts measuring up to 2.1 cm on the left. Stomach and bowel: Diffuse moderate circumferential wall thickening of the colon and rectum. Appendix: No evidence of appendicitis. Intraperitoneal space: Trace perihepatic ascites. Vasculature: Unremarkable. No abdominal aortic aneurysm. Lymph nodes: Unremarkable. No enlarged lymph nodes. Urinary bladder: There is possible diffuse urinary bladder wall thickening, although the bladder is incompletely distended. Reproductive: Unremarkable as visualized. Bones/joints: Unremarkable. No acute fracture. Soft tissues: Unremarkable. CT/CT abdomen pelvis w con* [id number] IMPRESSION: 1. Diffuse moderate circumferential wall thickening of the colon and rectum. Pancolitis. 2. There is possible diffuse urinary bladder wall thickening, although the bladder is incompletely distended. Possible acute cystitis versus underdistention of the bladder. Consider urinalysis if clinically indicated. 3. Trace perihepatic ascites. COMMENTS: Consistent with the [employer]'s Incidental Findings Committee white paper (J Am Mady Radiol 2018): Any incidental renal lesion less than 1 cm or classified as too small to characterize, or any incidental cystic renal lesion characterized as simple-appearing, is likely benign. No follow-up imaging is recommended for these lesions per consensus recommendations based on imaging criteria.
--- NOTE | 2025-04-13 14:51 | W.ED.NAVMDI ---
HPI - Nausea/Vomiting/Diarrhea General: Chief complaint: Nausea/Vomiting/Diarrhea Stated complaint: diaherra/abdominal pain Time Seen by Provider: 04/13/25 14:04 History of Present Illness: 79-year-old man with history of hypertension, bladder cancer, coronary artery disease, chronic hypoxemic respiratory failure, diabetes, obesity, obstructive sleep apnea and CLL who presents the emergency room with abdominal issues. He was recently admitted and treated for C. difficile colitis. Today he says he is been having issues with bowel movements. He says he feels like he has a bag in his rectum that when I try to have a bowel movement it comes down and blocks the stool from coming out . On exam I do not find any hemorrhoids or masses externally or internally. He is had no nausea or vomiting. He says whenever he has issues with this he does have low abdominal pain. Related Data Home Medications ?Medication ?Instructions ?Recorded ?Confirmed ascorbate calcium (vitamin C) 500 1,000 mg PO DAILY 04/09/22 04/13/25 mg tablet cholecalciferol (vitamin D3) 10 10 mcg PO DAILY 04/09/22 04/13/25 mcg (400 unit) capsule zinc acetate 50 mg (zinc) capsule 50 mg PO DAILY 03/09/23 04/13/25 furosemide 40 mg tablet See Rx Instructions .Route .COMPLEX 04/13/25 04/13/25 insulin glargine 100 unit/mL (3 20 - 25 unit SUBCUT QAM 04/13/25 04/13/25 mL) subcutaneous pen (Lantus Solostar U-100 Insulin) potassium chloride 10 mEq See Rx Instructions .Route .COMPLEX 04/13/25 04/13/25 tablet,extended release Previous Rx's ?Medication ?Instructions ?Recorded Disposable nebulizer circuit #1 ea 03/02/22 nebulizers #1 ea 03/02/22 pen needle, diabetic 33 gauge x #100 ea 08/29/24 vitamin B comp and C no.3 15 mg-10 1 cap PO DAILY #180 caps 09/18/24 mg-50 mg-5 mg-300 mg capsule (B Complex Plus Vitamin C) magnesium L-threonate 48 mg 48 mg PO DAILY #90 caps 10/31/24 magnesium (667 mg) capsule blood-glucose meter (Accu-Chek #1 ea 11/15/24 Guide Glucose Meter) Oxygen concentrator NC up to 5L #1 ea 01/24/25 albuterol sulfate 90 mcg/actuation 2 puff inhalation QID PRN 02/08/25 aerosol inhaler Shortness Of Breath #6.7 grams blood sugar diagnostic (Accu-Chek #100 ea 02/08/25 Guide test strips) hydralazine 25 mg tablet 25 mg PO Q12H #180 tabs 02/08/25 tamsulosin 0.4 mg capsule 0.4 mg PO BID #180 caps 02/08/25 arformoterol 15 mcg/2 mL solution 2 ml inhalation Q12H #120 mL 03/13/25 for nebulization (Brovana) budesonide 0.5 mg/2 mL suspension 0.5 mg (2 mL) inhalation QAM #120 03/13/25 for nebulization mL hydrocodone 5 mg-acetaminophen 325 1 tab PO Q6H PRN pain #10 tabs 03/20/25 mg tablet promethazine 25 mg tablet 25 mg PO Q6H PRN nausea and 03/20/25 vomiting #20 tabs insulin aspart U-100 100 unit/mL See Rx Instructions .Route 03/29/25 (3 mL) subcutaneous pen (Novolog .COMPLEX #15 mL FlexPen U-100 Insulin aspart) blood-glucose sensor (Dexcom G7 #12 ea 04/09/25 Sensor device) blood-glucose,production cost estimator,cont #1 ea 04/09/25 (Dexcom G7 Senior Product Marketing Manager) Allergies Allergy/AdvReac Type Severity Reaction Status Date / Time amoxicillin Allergy ADR-Diarrhe Verified 04/13/25 13:32 a Review of Systems Narrative: Constitutional symptoms: Negative except as documented in HPI. Skin symptoms: Negative except as documented in HPI. Eye symptoms: Negative except as documented in HPI. ENMT symptoms: Negative except as documented in HPI. Respiratory symptoms: Negative except as documented in HPI. Cardiovascular symptoms: Negative except as documented in HPI. Gastrointestinal symptoms: Negative except as documented in HPI. Genitourinary symptoms: Negative except as documented in HPI. Musculoskeletal symptoms: Negative except as documented in HPI. Neurologic symptoms: Negative except as documented in HPI. Psychiatric symptoms: Negative except as documented in HPI. Endocrine symptoms: Negative except as documented in HPI. 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 in [place], [place]. History of local excision of skin lesion H/O transurethral destruction of bladder lesion History of condyloma acuminatum removal surgical December 2014 History of arthroplasty of left shoulder tendon 1969' Hx of vasectomy H/O hernia repair umbilical and bilateral inguinal History of cholecystectomy Family History Mother , at age 73 Diabetes Lung disease Father , at age 75 Cancer blood Lung disease Social History Smoking and tobacco/nicotine status: former use of tobacco/nicotine Quit status (tobacco/nicotine): has quit using Year quit tobacco: 2002 Former quit date comment: smoked 47 years Second hand smoke exposure: No Alcohol intake: current Alcohol intake frequency: holidays/special occasions only Substance/Drug Use: never Adopted: No Caregiver/support person: No Lives independently: Yes Household members: spouse Housing: House Marital status: Number of children: 5 Number of grandchildren: 7 service: Yes branch: [employer] Current occupational status: disabled Pets and animals: Yes Pets & animals: cat(s) and dog(s) Do you think of yourself as: Straight/Heterosexual Current gender identity: Male Special luis needs: No Physical Exam Narrative: EXAM NARRATIVE: General: Alert, no acute distress. Skin: Warm, dry. Head: Normocephalic, atraumatic. Neck: Supple, trachea midline. Eye: Extraocular movements are intact. Ears, nose, mouth and throat: mucosa moist. Cardiovascular: Regular, Normal peripheral perfusion. Respiratory: Lungs are clear to auscultation, respirations are non-labored, breath sounds are equal, Symmetrical chest wall expansion. Gastrointestinal: Soft, Nontender, Non distended Musculoskeletal: Normal ROM, no deformity. Neurological: Alert and oriented, No focal neurological deficit observed. Psychiatric: Cooperative, appropriate mood & affect. Rectal exam: Rectum appears normal. Sphincter tone is normal. There are no masses or hemorrhoids in the rectal vault. Course Vital Signs: Vital signs: Vital Signs Temperature 98.3 F 04/13/25 13:25 Pulse Rate 76 04/13/25 16:26 Respiratory Rate 18 04/13/25 13:25 Blood Pressure 92/52 04/13/25 16:26 Pulse Oximetry 92 04/13/25 16:26 Oxygen Delivery Me thod Room Air 04/13/25 16:26 Oxygen Flow Rate 3 04/13/25 13:25 MDM - Nausea/Vomiting/Diarrhea Medical Decision Making Medical decision making: Differential diagnosis including but not limited to and based on the above HPI, review of systems and physical exam: - patient with complaint of constipation: Small bowel obstruction. Gastroparesis. Constipation. Also evaluation for urinary retention, liver disease, renal failure. Orders placed to evaluate differential diagnosis based on the above differential, HPI and physical exam Lab Review: Laboratory results were reviewed and interpreted by myself the emergency room physician. Leukocytosis with a white count of 18,000. No anemia. Mild renal insufficiency. BUN and creatinine at 23 and 1.1 which is definitely above his baseline. CT of the abdomen pelvis: Diffuse moderate circumferential wall thickening of the colon and rectum. Pancolitis. Also possible diffuse urinary bladder thickening which might indicate a cystitis. A urinalysis has been ordered. This was reviewed and interpreted by myself the emergency room physician. I also reviewed the radiology report. I reviewed the patient's medical record. 79-year-old man with history of hypertension, bladder cancer, coronary artery disease, chronic hypoxemic respiratory failure on 3 L nasal cannula at all times, diabetes, obesity, obstructive sleep apnea and CLL Reexamination: Patient remains with a soft blood pressure which is then indicate some dehydration. We have not been able to obtain a C. difficile. No altered mental status. He is on his home 3 L nasal cannula. Consultation: I spoke with Dr. Rodriguez who is on-call for the hospitalist service who agrees to admission. Assessment and plan: Colitis, possibly C. difficile Possible cystitis Dehydration Acute renal insufficiency Chronic hypoxemic respiratory failure ?IV Cipro and Flagyl to cover urinary tract infection and possible colitis that might not be C. difficile. Oral vancomycin for possible C. difficile. Given his leukocytosis and CT findings this likely is recurrent C. difficile. ?2 L normal saline bolus. ?Patient stable on his home 3 L nasal cannula. -I discussed the patient with the hospitalist on-call who is admitting the patient. - Discussed findings and plan with patient. Answered any questions. - All laboratory values were reviewed and interpreted personally by myself, the ER physician - All imaging was reviewed and interpreted personally by myself, the ER physician. - Evaluation and treatment of this problem were appropriate in the emergency setting Lab Data 04/13/25 14:16 04/13/25 14:16 Radiology Impressions Abdomen/Pelvis CT 04/13/25 14:50 IMPRESSION: 1. Diffuse moderate circumferential wall thickening of the colon and rectum. Pancolitis. 2. There is possible diffuse urinary bladder wall thickening, although the bladder is incompletely distended. Possible acute cystitis versus underdistention of the bladder. Consider urinalysis if clinically indicated. 3. Trace perihepatic ascites. COMMENTS: Consistent with the [employer]'s Incidental Findings Committee white paper (J Am Mady Radiol 2018): Any incidental renal lesion less than 1 cm or classified as too small to characterize, or any incidental cystic renal lesion characterized as simple-appearing, is likely benign. No follow-up imaging is recommended for these lesions per consensus recommendations based on imaging criteria. Laboratory Results WBC 18.15 10^3/uL (3.29-11.43) H 04/13/25 14:16 RBC 4.19 10^6/uL (3.85-5.65) 04/13/25 14:16 Hgb 12.70 g/dL (11.27-16.99) 04/13/25 14:16 Hct 40.9 % (37-53) 04/13/25 14:16 MCV 97.6 fl (82-101) 04/13/25 14:16 MCH 30.3 pg (27-33) 04/13/25 14:16 MCHC 31.1 g/dL (30-55) 04/13/25 14:16 RDW 14.9 % (12.1-15.1) 04/13/25 14:16 Plt Count 128 10^3/cmm (157-399) L 04/13/25 14:16 MPV 10.2 fL (7.4-10.4) 04/13/25 14:16 Neut % (Auto) 69.0 % 04/13/25 14:16 Lymph % (Auto) 26.8 % 04/13/25 14:16 [place] % (Auto) 3.0 % 04/13/25 14:16 Eos % (Auto) 0.2 % 04/13/25 14:16 Baso % (Auto) 0.3 % 04/13/25 14:16 Neut # (Auto) 12.50 10^3/uL (1.8-7.7) H 04/13/25 14:16 Lymph # (Auto) 4.9 10^3/uL (0.8-4.8) H 04/13/25 14:16 [place] # (Auto) 0.6 10^3/uL (0.2-0.9) 04/13/25 14:16 Eos # (Auto) 0.0 10^3/uL (0.0-0.8) 04/13/25 14:16 Baso # (Auto) 0.1 10^3/uL (0.0-0.1) 04/13/25 14:16 Nucleated RBC % (auto) 0 % 04/13/25 14:16 Nucleated RBCs # 0.0 /100WBC 04/13/25 14:16 Sodium 136 mmol/L (136-145) 04/13/25 14:16 Potassium 4.6 mmol/L (3.5-5.1) 04/13/25 14:16 Chloride 93 mmol/L (98-107) L 04/13/25 14:16 Carbon Dioxide 35 mmol/L (22-29) H 04/13/25 14:16 Anion Gap 12.6 (5-19) 04/13/25 14:16 BUN 23 mg/dL (8-23) 04/13/25 14:16 Creatinine 1.1 mg/dL (0.7-1.2) 04/13/25 14:16 GFR Calculation Not Reportable 04/13/25 14:16 Glucose 180 mg/dL (65-115) H 04/13/25 14:16 Calculated Osmolality 290 mOsm/kg (285-295) 04/13/25 14:16 Lactic Acid 1.3 mmol/L (0.5-2.2) 04/13/25 14:16 Calcium 8.6 mg/dL (8.5-10.5) 04/13/25 14:16 Total Bilirubin 0.7 mg/dL (0.15-1.2) 04/13/25 14:16 AST 15 U/L (0-40) 04/13/25 14:16 ALT 13 U/L (0-41) 04/13/25 14:16 Alkaline Phosphatase 56 U/L (40-130) 04/13/25 14:16 Total Protein 5.6 g/dL (6.6-8.7) L 04/13/25 14:16 Albumin 3.0 g/dL (3.5-5.2) L 04/13/25 14:16 Globulin 2.6 g/dL (1.3-4.6) 04/13/25 14:16 Lipase 16 U/L (13-60) 04/13/25 14:16 Urine Color Dark yellow (Yellow) A 04/13/25 17:18 Urine Appearance Clear (CLEAR) 04/13/25 17:18 Urine pH 5.0 (5-7) 04/13/25 17:18 Ur Specific Lucien 1.074 (1.005-1.030) H 04/13/25 17:18 Urine Protein 1+ (Negative) A 04/13/25 17:18 Urine Glucose (UA) Negative (Normal) 04/13/25 17:18 Urine Ketones Trace (Negative) 04/13/25 17:18 Urine Blood Negative (Negative) 04/13/25 17:18 Urine Nitrate Negative (Negative) 04/13/25 17:18 Urine Bilirubin 1+ (Negative) H 04/13/25 17:18 Urine Urobilinogen 1.0 mg/dL (Negative) 04/13/25 17:18 Ur Leukocyte Esterase Negative (Negative) 04/13/25 17:18 Urine RBC 0-2 /hpf (0-2) 04/13/25 17:18 Urine WBC 0-5 /hpf (0-5) 04/13/25 17:18 Ur Squamous Epith Cells 0-5 /hpf (0-5) 04/13/25 17:18 Amorphous Sediment Not Reportable 04/13/25 17:18 Urine Bacteria None seen /hpf (NONE) 04/13/25 17:18 Hyaline Casts 44.25 /lpf 04/13/25 17:18 All radiology interpretation(s) finalized by discharge Discharge Plan Discharge Patient Disposition: Admitted As Inpatient Clinical Impression: Colitis, Dehydration, Acute renal insufficiency, Chronic hypoxemic respiratory failure Condition: Stable Coding Level of Care Code ED Complex Human Resources Manager for Brandon Paredes
[2025-04-13] MEDS: iohexol 350 mg/mL 500 mL Btl (per mL) IV (15:18)
[2025-04-13 17:26] LABS: Bilirubin Urine 1+ (Negative); Blood Urine Negative (Negative); Glucose Urine UA Negative (Normal); Ketones Urine Trace (Negative); Leukocyte Esterase Urine Negative (Negative); Nitrate Urine Negative (Negative); Protein Urine 1+ (Negative); Urine Appearance Clear (CLEAR); Urine Color Dark Yellow (Yellow)
[2025-04-13 17:32] LABS: Bacteria Urine None Seen /hpf; Hyaline Casts Urine 44.25 /lpf; RBC Urine 0-2 /hpf (0-2); Squamous Epithelial Cell Urine 0-5 /hpf (0-5); WBC Urine 0-5 /hpf (0-5)
--- NOTE | 2025-04-13 17:37 | PM.CONSULT ---
Providers/Reason For Consult Primary Care Provider: Ken Escamilla, GISELEC History of Present Illness History of Present Illness Florentino Alfaro is a 79 year old male Medications/Allergies Home Medications ?Medication ?Instructions ?Recorded ?Confirmed ?Last Taken ?Type Disposable nebulizer circuit #1 ea 03/02/22 04/13/25 Unknown Rx nebulizers #1 ea 03/02/22 04/13/25 Unknown Rx ascorbate calcium (vitamin C) 500 1,000 mg PO DAILY 04/09/22 04/13/25 04/13/25 History mg tablet cholecalciferol (vitamin D3) 10 10 mcg PO DAILY 04/09/22 04/13/25 04/13/25 History mcg (400 unit) capsule zinc acetate 50 mg (zinc) capsule 50 mg PO DAILY 03/09/23 04/13/25 04/13/25 History pen needle, diabetic 33 gauge x #100 ea 08/29/24 04/13/25 Unknown Rx vitamin B comp and C no.3 15 mg-10 1 cap PO DAILY #180 caps 09/18/24 04/13/25 04/13/25 Rx mg-50 mg-5 mg-300 mg capsule (B Complex Plus Vitamin C) magnesium L-threonate 48 mg 48 mg PO DAILY #90 caps 10/31/24 04/13/25 04/13/25 Rx magnesium (667 mg) capsule blood-glucose meter (Accu-Chek #1 ea 11/15/24 04/13/25 Unknown Rx Guide Glucose Meter) Oxygen concentrator NC up to 5L #1 ea 01/24/25 04/13/25 Unknown Rx albuterol sulfate 90 mcg/actuation 2 puff inhalation QID PRN 02/08/25 04/13/25 03/19/25 Rx aerosol inhaler Shortness Of Breath #6.7 grams blood sugar diagnostic (Accu-Chek #100 ea 02/08/25 04/13/25 Unknown Rx Guide test strips) hydralazine 25 mg tablet 25 mg PO Q12H #180 tabs 02/08/25 04/13/25 03/19/25 Rx tamsulosin 0.4 mg capsule 0.4 mg PO BID #180 caps 02/08/25 04/13/25 04/13/25 Rx arformoterol 15 mcg/2 mL solution 2 ml inhalation Q12H #120 mL 03/13/25 04/13/25 04/12/25 Rx for nebulization (Brovana) budesonide 0.5 mg/2 mL suspension 0.5 mg (2 mL) inhalation QAM #120 03/13/25 04/13/25 04/12/25 Rx for nebulization mL hydrocodone 5 mg-acetaminophen 325 1 tab PO Q6H PRN pain #10 tabs 03/20/25 04/13/25 Unknown Rx mg tablet promethazine 25 mg tablet 25 mg PO Q6H PRN nausea and 03/20/25 04/13/25 Unknown Rx vomiting #20 tabs insulin aspart U-100 100 unit/mL See Rx Instructions .Route 03/29/25 04/13/25 04/12/25 Rx (3 mL) subcutaneous pen (Novolog .COMPLEX #15 mL FlexPen U-100 Insulin aspart) blood-glucose sensor (Dexcom G7 #12 ea 04/09/25 04/13/25 Unknown Rx Sensor device) blood-glucose,scrap preparer,cont #1 ea 04/09/25 04/13/25 Unknown Rx (Dexcom G7 Oil Filters Inspector) furosemide 40 mg tablet See Rx Instructions .Route .COMPLEX 04/13/25 04/13/25 Unknown History insulin glargine 100 unit/mL (3 20 - 25 unit SUBCUT QAM 04/13/25 04/13/25 04/13/25 History mL) subcutaneous pen (Lantus Solostar U-100 Insulin) potassium chloride 10 mEq See Rx Instructions .Route .COMPLEX 04/13/25 04/13/25 Unknown History tablet,extended release Allergies Allergy/AdvReac Type Severity Reaction Status Date / Time amoxicillin Allergy ADR-Diarrhe Verified 04/13/25 13:32 a PFSH Acute PFSH: Medical History History of bladder carcinoma Essential hypertension Atherosclerosis of coronary artery Intermittent complete heart block Chronic hypoxic respiratory failure Diabetes mellitus with hyperglycemia, with long-term current use of insulin Advanced chronic obstructive pulmonary disease Lymphoplasmacytoid lymphoma, 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 History of local excision of skin lesion H/O transurethral destruction of bladder lesion History of condyloma acuminatum removal surgical December 2014 History of arthroplasty of left shoulder tendon Hx of vasectomy H/O hernia repair umbilical and bilateral inguinal History of cholecystectomy Family History Mother , at age 73 Diabetes Lung disease Father , at age 75 Cancer blood Lung disease Social History Smoking and tobacco/nicotine status: former use of tobacco/nicotine Quit status (tobacco/nicotine): has quit using Year quit tobacco: 2002 Former quit date comment: smoked 47 years Second hand smoke exposure: No Alcohol intake: current Alcohol intake frequency: holidays/special occasions only Substance/Drug Use: never Adopted: No Caregiver/support person: No Lives independently: Yes Household members: spouse Housing: House Marital status: Number of children: 5 Number of grandchildren: 7 service: Yes branch: [employer] Current occupational status: disabled Pets and animals: Yes Pets & animals: cat(s) and dog(s) Do you think of yourself as: Straight/Heterosexual Current gender identity: Male Special luis needs: No Vitals/I&O/Wt Last Vital Signs Temp 98.3 F 04/13/25 13:25 Pulse 76 04/13/25 16:26 Resp 18 04/13/25 13:25 BP 92/52 04/13/25 16:26 Pulse Ox 92 04/13/25 16:26 O2 Del Method Room Air 04/13/25 16:26 O2 Flow Rate 3 04/13/25 13:25 04/13/25 04/13/25 04/13/25 06:59 14:59 22:59 Intake Total 0 / 0 Balance 0 / 0 Weight last 48 hrs Weight 102.965 kg Data 04/13/25 14:16 04/13/25 14:16 Micro: Microbiology 04/13/25 14:15 Blood Culture - Preliminary Blood SPECIMEN COLLECTED 04/13/25 14:16 Blood Culture - Preliminary Blood SPECIMEN COLLECTED A&P PDMP PDMP Reviewed: Not Reviewed Coding Level of Care Code Acute Code for Chg Fwd
[2025-04-13 17:39] LABS: Specific Gravity, Urine 1.074 (1.005-1.030)
[2025-04-13 18:05] LABS: UA Slide Review UA Slide Review Perf
[2025-04-13] MEDS: ciprofloxacin 400 MG/200 ML PREMIX 200 MG IV (18:19)
[2025-04-13] MEDS: metroNIDAZOLE IV 500 MG/100 ML PREMIX 100 MG IV (18:19)
[2025-04-13] MEDS: vancomycin 125 mg Capsule PO (18:24)
--- NOTE | 2025-04-13 19:04 | PM.HP ---
Providers/Chief Complaint Admitting Physician: Sinai Rodriguez MD Primary Care Provider: Ken Escamilla, [employer] QUALITY TECHNICIAN-C Chief Complaint: diaherra/abdominal pain History of Present Illness Florentino Alfaro is a 79 year old male with past medical history of recent C. difficile infection at which point he was discharged on the hospital 03/29, obstructive sleep apnea, COPD, type 2 diabetes, bladder cancer status post TURP, CLL, complete heart block status post pacemaker placement presented to the hospital for diarrhea. He states he was recently treated for C. difficile and sent home with vancomycin. He completed the medication and felt good for 2 to 3 days however yesterday the diarrhea returned and he has probably gone to the bathroom 20 times. It is foul-smelling and watery. Abdominal pain has also returned. He also states that when he tries to use the bathroom he feels there is a balloon in his rectum and is unable to void. He has loss of appetite. Last colonoscopy was 3 to 4 years ago. He has never had this infection before. Previous hospitalization he was also treated for COPD exacerbation with IV steroids. Medications/Allergies Home Medications ?Medication ?Instructions ?Recorded ?Confirmed ?Last Taken ?Type Disposable nebulizer circuit #1 ea 03/02/22 04/13/25 Unknown Rx nebulizers #1 ea 03/02/22 04/13/25 Unknown Rx ascorbate calcium (vitamin C) 500 1,000 mg PO DAILY 04/09/22 04/13/25 04/13/25 History mg tablet cholecalciferol (vitamin D3) 10 10 mcg PO DAILY 04/09/22 04/13/25 04/13/25 History mcg (400 unit) capsule zinc acetate 50 mg (zinc) capsule 50 mg PO DAILY 03/09/23 04/13/25 04/13/25 History pen needle, diabetic 33 gauge x #100 ea 08/29/24 04/13/25 Unknown Rx vitamin B comp and C no.3 15 mg-10 1 cap PO DAILY #180 caps 09/18/24 04/13/25 04/13/25 Rx mg-50 mg-5 mg-300 mg capsule (B Complex Plus Vitamin C) magnesium L-threonate 48 mg 48 mg PO DAILY #90 caps 10/31/24 04/13/25 04/13/25 Rx magnesium (667 mg) capsule blood-glucose meter (Accu-Chek #1 ea 11/15/24 04/13/25 Unknown Rx Guide Glucose Meter) Oxygen concentrator NC up to 5L #1 ea 01/24/25 04/13/25 Unknown Rx albuterol sulfate 90 mcg/actuation 2 puff inhalation QID PRN 02/08/25 04/13/25 03/19/25 Rx aerosol inhaler Shortness Of Breath #6.7 grams blood sugar diagnostic (Accu-Chek #100 ea 02/08/25 04/13/25 Unknown Rx Guide test strips) hydralazine 25 mg tablet 25 mg PO Q12H #180 tabs 02/08/25 04/13/25 03/19/25 Rx tamsulosin 0.4 mg capsule 0.4 mg PO BID #180 caps 02/08/25 04/13/25 04/13/25 Rx arformoterol 15 mcg/2 mL solution 2 ml inhalation Q12H #120 mL 03/13/25 04/13/25 04/12/25 Rx for nebulization (Obdulio) budesonide 0.5 mg/2 mL suspension 0.5 mg (2 mL) inhalation QAM #120 03/13/25 04/13/25 04/12/25 Rx for nebulization mL hydrocodone 5 mg-acetaminophen 325 1 tab PO Q6H PRN pain #10 tabs 03/20/25 04/13/25 Unknown Rx mg tablet promethazine 25 mg tablet 25 mg PO Q6H PRN nausea and 03/20/25 04/13/25 Unknown Rx vomiting #20 tabs insulin aspart U-100 100 unit/mL See Rx Instructions .Route 03/29/25 04/13/25 04/12/25 Rx (3 mL) subcutaneous pen (Novolog .COMPLEX #15 mL FlexPen U-100 Insulin aspart) blood-glucose sensor (Dexcom G7 #12 ea 04/09/25 04/13/25 Unknown Rx Sensor device) blood-glucose,billboard poster helper,cont #1 ea 04/09/25 04/13/25 Unknown Rx (Dexcom G7 Green Plumber) furosemide 40 mg tablet See Rx Instructions .Route .COMPLEX 04/13/25 04/13/25 Unknown History insulin glargine 100 unit/mL (3 20 - 25 unit SUBCUT QAM 04/13/25 04/13/2525 History mL) subcutaneous pen (Lantus Solostar U-100 Insulin) potassium chloride 10 mEq See Rx Instructions .Route .COMPLEX 04/13/25 04/13/25 Unknown History tablet,extended release Allergies Allergy/AdvReac Type Severity Reaction Status Date / Time amoxicillin Allergy ADR-Diarrhe Verified 04/13/25 13:32 a PFSH Acute PFSH: Medical History History of bladder carcinoma Essential hypertension Atherosclerosis of coronary artery Intermittent complete heart block Chronic hypoxic respiratory failure Diabetes mellitus with hyperglycemia, with long-term current use of insulin Advanced chronic obstructive pulmonary disease Lymphoplasmacytoid lymphoma, 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 History of local excision of skin lesion H/O transurethral destruction of bladder lesion History of condyloma acuminatum removal surgical December 2014 History of arthroplasty of left shoulder tendon 1969' Hx of vasectomy H/O hernia repair umbilical and bilateral inguinal 1979' History of cholecystectomy Family History Mother , at age 73 Diabetes Lung disease Father , at age 75 Cancer blood Lung disease Social History Smoking and tobacco/nicotine status: former use of tobacco/nicotine Quit status (tobacco/nicotine): has quit using Year quit tobacco: 2002 Former quit date comment: smoked 47 years Second hand smoke exposure: No Alcohol intake: current Alcohol intake frequency: holidays/special occasions only Substance/Drug Use: never Adopted: No Caregiver/support person: No Lives independently: Yes Household members: spouse Housing: House Marital status: Number of children: 5 Number of grandchildren: 7 service: Yes branch: [employer] Current occupational status: disabled Pets and animals: Yes Pets & animals: cat(s) and dog(s) Do you think of yourself as: Straight/Heterosexual Current gender identity: Male Special luis needs: No Vitals/I&O/Wt Last Vital Signs Temp 98.3 F 04/13/25 13:25 Pulse 87 04/13/25 18:35 Resp 18 04/13/25 13:25 BP 114/57 04/13/25 18:35 Pulse Ox 91 04/13/25 18:35 O2 Del Method Nasal Cannula 04/13/25 18:35 O2 Flow Rate 3 04/13/25 18:35 04/13/25 04/13/25 04/13/25 06:59 14:59 22:59 Intake Total 0 / 0 Balance 0 / 0 Weight last 48 hrs Weight 102.965 kg Physical Exam Narrative: General: Alert oriented x3, patient seen in operative bed with at bedside. Currently on 3 L nasal cannula. HEENT: Normocephalic, atraumatic, EOMI, Cardio: Male clear to auscultation bilaterally with mild rhonchi at bases Respiratory: Good bilateral air entry, no wheezes no rhonchi appreciated GI: Abdomen soft, mildly tender to palpation in various areas, no guarding present. Extremities: No edema bilateral lower extremities Data 04/14/25 02:57 04/14/25 02:57 Micro: Microbiology 04/13/25 14:15 Blood Culture - Preliminary Blood SPECIMEN COLLECTED 04/13/25 14:16 Blood Culture - Preliminary Blood SPECIMEN COLLECTED A&P Assessment and plan (1) Essential hypertension: (2) History of permanent cardiac pacemaker placement: (3) Colitis: (4) Dehydration: (5) Advanced chronic obstructive pulmonary disease: (6) Chronic hypercapnic respiratory failure: (7) C. difficile diarrhea: Plan #Recurrent C. difficile infection #Recently treated for C. difficile #Obstructive sleep apnea/COPD #Complete heart block status post pacemaker #Bladder cancer status post TURP #Type 2 diabetes mellitus #History of CLL - treatment not required per oncology - Will place on IV metronidazole 500 3 times daily ? Will place on oral vancomycin 500 every 6 hours ? CT abdomen pelvis reviewed. No evidence of toxic megacolon at this time. ? Check C. difficile PCR ? Will repeat chest x-ray KUB in a.m. ? Will place on Solu-Medrol 40 twice daily. He has been coughing and needing 3 L nasal cannula recently prior to that he was on 2 L. Does have diffuse rhonchi slightly decreased air entry. Will de-escalate to Solu-Medrol 40 every 24 hours starting tomorrow and do a short 3-day course. ? Continue on famotidine 20 every 12 hours ? Placed on moderate dose intensity sliding scale insulin ? Patient did receive a dose of ciprofloxacin and Flagyl in the ER. I will hold off on giving further ciprofloxacin at this point. ? If patient does not continue to improve in next 48 to 72 hours may consider GI evaluation. ? Check phosphorus magnesium ? Continue on normal saline 100 cc/h as patient was dehydrated upon arriving to the ER. Will reassess tomorrow and turn off IV fluids. ? Last echo done in December 2024 showed EF of 40 to 45% which was a new finding from 2021. - Full code DVT PPX: heparin subcu bid PDMP PDMP Reviewed: Not Reviewed Attestations Medical Necessity Statement*: > 2 midnight stay for mgmt of c.diff Diagnoses Essential hypertension I10 History of permanent cardiac pacemaker placement Z95.0 Colitis K52.9 Dehydration E86.0 Advanced chronic obstructive pulmonary disease J44.9 Chronic hypercapnic respiratory failure J96.12 C. difficile diarrhea A04.72
[2025-04-13] MEDS: famotidine 20 mg/2 mL INJ IVP (20:39)
[2025-04-13] MEDS: vancomycin 125 mg Capsule 500 MG PO (20:39)
[2025-04-13] MEDS: sodium chloride 0.9% 1,000 ML 75 ML IV (20:39)
[2025-04-13] MEDS: heparin 5,000 unit/mL INJ 1 mL 5000 UNIT SUBCUT (20:40)
[2025-04-13] MEDS: methylPREDNISolone sod succ 40 mg/mL INJ IVP (20:40)
--- NOTE | 2025-04-13 21:33 | PC.NURSE ---
BP 105/[address] Zhou verbally
[2025-04-13 21:55] LABS: Glucose Point of Care 194 mg/dL (70-110)
[2025-04-13] MEDS: insulin lispro 100 unit/1 mL SUBCUT (22:00)
[2025-04-14] VITALS (16 sets, daily range): BP systolic 96–112; BP diastolic 47–64; PULSE 60–83; RESP 16–26; TEMP 36.4–36.8; O2SAT 77–96
[2025-04-14] MEDS: vancomycin 125 mg Capsule 500 MG PO ×4 (01:26→18:32)
[2025-04-14] MEDS: metroNIDAZOLE IV 500 MG/100 ML PREMIX 100 MG IV ×3 (03:18→18:33)
[2025-04-14 04:44] LABS: Basophils % 0.2 %; Lymphocytes % 20.4 %; Mean Corpuscular HGB Conc 30.8 g/dL (30-55); Mean Corpuscular Hemoglobin 31.4 pg (27-33); Mean Corpuscular Volume 101.9 fl (82-101); Mean Platelet Volume 10.6 fL (7.4-10.4); Monocytes # 0.2 10^3/uL (0.2-0.9); Monocytes % 1.4 %; Neutrophils # 11.19 10^3/uL (1.8-7.7); Neutrophils % 77.2 %; Nucleated Red Blood Cells % 0 %; Platelet Count 102 10^3/cmm (157-399); Red Blood Count 3.63 10^6/uL (3.85-5.65)
[2025-04-14 04:53] LABS: Alanine Aminotransferase 12 U/L (0-41); Albumin Level 2.7 g/dL (3.5-5.2); Alkaline Phosphatase 72 U/L (40-130); Aspartate Amino Transferase 12 U/L (0-40); Blood Urea Nitrogen 25 mg/dL (8-23); Carbon Dioxide 34 mmol/L (22-29); Chloride 99 mmol/L (98-107); Creatinine Clr Calc Pharmacy 69.3576; Globulin 2.5 g/dL (1.3-4.6); Glucose 147 mg/dL (65-115); Magnesium 1.4 mg/dL (1.7-2.3); Osmolality Calculated 297 mOsm/kg (285-295); Phosphorus 4.4 mg/dL (2.5-4.5); Sodium 140 mmol/L (136-145); Total Bilirubin 0.3 mg/dL (0.15-1.2); Total Protein 5.2 g/dL (6.6-8.7)
[2025-04-14 05:48] LABS: Slide Review Slide Review Perform
[2025-04-14 06:29] LABS: Glucose Point of Care 83 mg/dL (70-110)
[2025-04-14 06:29] LABS: Glucose Point of Care 240 mg/dL (70-110)
[2025-04-14 06:29] LABS: Glucose Point of Care 210 mg/dL (70-110)
[2025-04-14 06:29] LABS: Glucose Point of Care 225 mg/dL (70-110)
[2025-04-14] MEDS: heparin 5,000 unit/mL INJ 1 mL 5000 UNIT SUBCUT ×2 (06:35→18:32)
[2025-04-14] MEDS: famotidine 20 mg/2 mL INJ IVP ×2 (06:36→18:33)
--- NOTE | 2025-04-14 07:00 | XRR_ITS ---
PROCEDURE INFORMATION: Exam: XR Abdomen Exam date and time: 04/14/2025 8:41 AM Age: 79 years old Clinical indication: Constipation; C-diff; Possible bowel blockage TECHNIQUE: Imaging protocol: Radiologic exam of the abdomen. Views: Frontal supine view of the abdomen. 1 View. COMPARISON: CT abdomen pelvis w con* [id number] 04/13/2025 3:15 PM FINDINGS: Gastrointestinal tract: Thumbprinting of the colon, consistent with colitis. Organs: Contrast is seen in the bladder. There has been a cholecystectomy. Bones/joints: There are mild degenerative changes of the hip joints. The pubic symphysis demonstrates mild degenerative changes. There are mild degenerative changes of the sacroiliac joints. XR/XR KUB portable [id number] IMPRESSION: 1. Nonobstructive bowel gas pattern. 2. Findings of colitis.
--- NOTE | 2025-04-14 07:00 | XRR_ITS ---
PROCEDURE INFORMATION: Exam: XR Chest Exam date and time: 04/14/2025 8:41 AM Age: 79 years old Clinical indication: Other: Pulmonary edema; Prior surgery; Surgery date: 6+ months; Surgery type: Pacemaker, loop recorder; Additional info: Constipation; C-diff; Possible bowel blockage TECHNIQUE: Imaging protocol: Radiologic exam of the chest. Views: 1 view. COMPARISON: CR (CHEST, ) 03/26/2025 3:09 PM FINDINGS: Tubes, catheters and devices: Implantable loop recorder overlies the left side of the chest.A pacemaker device is present, and its leads are in appropriate position. Lungs: Similar calcified granulomas in both lungs. There is no evidence of focal pulmonary consolidation. Pleural spaces: Unremarkable. No pleural effusion. No pneumothorax. Heart/Mediastinum: Unremarkable. No cardiomegaly. Bones/joints: Mild degenerative disease of bilateral acromioclavicular joints. There are mild degenerative changes of the glenohumeral joint. The thoracic spine demonstrates mild degenerative changes at multiple levels. XR/XR chest 1V portable [id number] IMPRESSION: No acute cardiopulmonary process.
[2025-04-14] MEDS: insulin lispro 100 unit/1 mL SUBCUT ×4 (08:54→21:08)
[2025-04-14] MEDS: budesonide 0.5 mg/2 mL Neb INHALATION ×2 (09:06→21:10)
[2025-04-14] MEDS: FUROsemide 10 mg/mL SDV 2mL 20 MG IVP (10:39)
--- NOTE | 2025-04-14 10:44 | USCV_ITS ---
Florentino Alfaro Age: 79 Gender: M : 1945 Exam Date: 04/14/2025 13:46 Ordering Phys: Sinai Rodriguez MD Technologist: Elio Kaba Exam Location: [facility] [place] Indication: hypoxia BP: 108 / 58 HR: 72 Rhythm: Sinus Technical Quality: Adequate MEASUREMENTS (Male / Female) Normal Values 2D ECHO LV Diastolic Diameter PLAX 4.9 cm 4.2 - 5.9 / 3.9 - 5.3 cm IVS Diastolic Thickness 2.0 cm 0.6 - 1.0 / 0.6 - 0.9 cm IVS Systolic Thickness 2.0 cm LVPW Diastolic Thickness 1.6 cm 0.6 - 1.0 / 0.6 - 0.9 cm LVPW Systolic Thickness 2.1 cm LVOT Diameter 2.0 cm LV Ejection Fraction 2D Teich 62.3 % LV Ejection Fraction MOD 4C 72.9 % LV Ejection Fraction MOD 2C 58.4 % LV Ejection Fraction 2C AL 57.1 % LA Diameter 3.6 cm RA Systolic Volume 4C AL 47.6 ml RA Systolic Volume 4C MOD 46.3 ml LA Sys Volume AL 46.0 cm cubed LA Sys Volume Index AL 19.7 cm cubed/m squared Aorta at Sinotubular Diameter 2.2 cm IVC Diameter 1.8 cm M-MODE LA Ao Ratio MM 1.4 AV Cusp Separation MM 1.3 cm DOPPLER AV Peak Velocity 213.7 cm/s LVOT Peak Velocity 101.0 cm/s AV Area Cont Eq vti 1.5 cm squared AV Area Cont Eq pk 1.5 cm squared MV Peak Velocity 126.0 cm/s MV Area PHT 8.0 cm squared Mitral E to A Ratio 0.8 TR Peak Velocity 253.0 cm/s TR Peak Gradient 25.6 mmHg TR Mean Velocity 205.0 cm/s TR Mean Gradient 17.4 mmHg TR Velocity Time Integral 74.6 cm RV Ejection Time 0.2 s FINDINGS Left Ventricle Normal LV size ejection fraction 57%.abnormal septal motion consistent with conduction abnormality. Moderate left ventricular hypertrophy. Grade I/IV diastolic dysfunction (abnormal relaxation filling pattern), normal to mildly elevated filling pressures. Right Ventricle The right ventricle is normal in size and function. Right Atrium The right atrium is normal in size. Left Atrium The left atrium is normal in size. Mitral Valve Mild mitral valve regurgitation. Aortic Valve Thickened aortic valve. Aortic valve stenosis. Tricuspid Valve No gross abnormalities noted Pulmonic Valve Pulmonic valve not well visualized. Pericardium Normal pericardium without effusion. Aorta Normal aortic annulus size. IVC Normal inferior vena cava. CONCLUSIONS Normal LV size ejection fraction 57%.abnormal septal motion consistent with conduction abnormality. Moderate left ventricular hypertrophy. Grade I/IV diastolic dysfunction (abnormal relaxation filling pattern), normal to mildly elevated filling pressures. Mild mitral valve regurgitation. Features of aortic valve sclerosis There is no pericardial effusion. There are no intracardiac masses. Compared to the study from 12/06/2024 there is some improvement in the LV ejection fraction Dr Pilar Harris MD FACC (Electronically Signed) Final Date: 14 April 2025 15:27 S
--- NOTE | 2025-04-14 10:44 | CTR_ITS ---
PROCEDURE INFORMATION: Exam: CTA Chest With Contrast Exam date and time: 04/14/2025 12:37 PM Age: 79 years old Clinical indication: Shortness of breath; Additional info: Hypoxia, TECHNIQUE: Imaging protocol: Computed tomographic angiography of the chest with contrast. Exam focused on the arteries. 3D rendering (Not supervised by radiologist): MIP and/or 3D reconstructed images were created by the technologist. Radiation optimization: All CT scans at this facility use at least one of these dose optimization techniques: automated exposure control; mA and/or kV adjustment per patient size (includes targeted exams where dose is matched to clinical indication); or iterative reconstruction. Contrast material: OMNI 350; Contrast volume: 85 ml; Contrast route: INTRAVENOUS (IV); COMPARISON: CT angio chest PE protcl [id number] 10/29/2024 4:43 PM RADIATION DOSE METRICS: Total DLP (mGy-cm): 466.6 FINDINGS: Tubes, catheters and devices: A pacemaker device is present, and its leads are in appropriate position. Implantable loop recorder overlies the left side of the chest. Pulmonary arteries: Normal. No pulmonary emboli. Aorta: Mild atheromatous disease. No aortic aneurysm. No aortic dissection. Lungs: Moderate centrilobular emphysematous changes are present. Bilateral dependent atelectasis. Calcified pulmonary granulomas. Pleural spaces: Unremarkable. No pneumothorax. No pleural effusion. Heart: Unremarkable. No cardiomegaly. No pericardial effusion. Coronary arteries: There is severe atherosclerotic calcification of the coronary arteries. Lymph nodes: Enlarged left axillary and left retropectoral lymph nodes measuring up to 2.6 x 1.7 cm in the left retro pectoralis space. Multiple prominent mediastinal lymph nodes measuring up to 3.4 x 1.6 cm in the subcarinal space. Enlarged right hilar lymph nodes measuring up to 3 x 3 cm. Liver: There are calcified granulomas in the liver. Bones/joints: Mild curvature of the thoracic spine convex to the right. There are diffuse enthesopathic changes consistent with benign diffuse idiopathic skeletal hyperostosis (DISH). Soft tissues: Unremarkable. Other findings: The vasculature demonstrates diffuse mild atherosclerotic calcification. CT/CT angio chest PE protcl [id number] IMPRESSION: 1. No pulmonary embolism 2. No focal infiltrates. 3. Multiple enlarged mediastinal and right hilar and left axillary lymph nodes, similar to prior study.
[2025-04-14 11:13] LABS: Glucose Point of Care 256 mg/dL (70-110)
[2025-04-14 11:15] LABS: C.Diff PCR (Lab) POSITIVE (Negative)
[2025-04-14 11:17] LABS: Clostridioides Difficile Toxin NEGATIVE (Negative)
[2025-04-14] MEDS: albuterol 2.5 MG/0.5 ML NEB INHALATION ×3 (11:31→21:10)
--- NOTE | 2025-04-14 11:31 | PC.CHAP ---
Pastoral Care Encounter/Spiritual Assessment Type of Contact [] Declined teacher aide visit [] Patient/Family/Request visit [] Outpatient visit [] Follow-up visit [] Physician referral [] Code/Alert [x] Routine visit [] Staff referral [] Actively dying [] Patient sleeping [] Family support [] [] Out of room [] Palliative care [] [] Receiving care in room [] Pre-surgical visit [] Trauma [] Long length of stay [] ICU visit [x] Other: Stop Relational/Emotional Strength [] Patient feels connected with others/family/visitors/staff [] Distress [] Loneliness/isolation [] Abandonment Spirituality of Patient [] Person of [place] [] Attends Hinduism of their [place] [] Believes in Prayer [] Reads Bible or Yazdanism materials [] There are Spiritual issues to be addressed 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 Interventions [] Prayer [] Active listening [] Non-anxious presence [] Spiritual/emotional support [] Crisis/trauma care [] Spiritual counseling [] Bereavement support [] Provided bereavement packet [] Provided Bible/devotional materials [] Provided toy/stuffed animal, coloring book to patient or family member [] Provided Communion [] Anointing/[place] [] Salvation [] Completed spiritual assessment [] Other: Impact on Illness or Injury [] Angry [] Fearful [] Anxious [] Often cries [] Exhaustion [] Unable to work [] Unable to attend presybeterian [] Unable to walk/stand [] Unable to read [] Unable to drive [] Unable to eat/drink [] Unable to sleep [] Unable to be with family [] Patient intubated [] Other: Summary Time spent with patient
[2025-04-14] MEDS: methylPREDNISolone sod succ 40 mg/mL INJ IVP (11:39)
--- NOTE | 2025-04-14 15:39 | P.PN_ITS ---
Subjective 2 Subjective: Seen this morning. He states abdominal pain is slightly improved however diarrhea still occurring. Leukocytosis improving Vitals/I&O/Wt Last Vital Signs Temp 97.6 F 04/14/25 15:34 Pulse 74 04/14/25 15:34 Resp 18 04/14/25 15:34 BP 102/62 04/14/25 15:34 Pulse Ox 91 04/14/25 15:34 O2 Del Method Nasal Cannula 04/14/25 15:34 O2 Flow Rate 4 04/14/25 11:32 04/14/25 04/14/25 04/14/25 06:59 14:59 22:59 Intake Total 820 / 3120 1740 / 1740 Output Total 400 / 400 300 / 300 100 / 400 Balance 420 / 2720 1440 / 1440 -100 / 1340 Weight last 48 hrs Weight 104.978 kg Weight 105.097 kg Weight 103.056 kg Weight 102.965 kg Physical Exam 2 Narrative: General: Alert oriented x3, patient seen in laying in bed with at bedside. Currently on 3 L nasal cannula. HEENT: Normocephalic, atraumatic, EOMI, Cardio: Male clear to auscultation bilaterally with mild rhonchi at bases Respiratory: Good bilateral air entry, no wheezes no rhonchi appreciated GI: Abdomen soft, tenderness improving, no guarding present. Extremities: No edema bilateral lower extremities Data 04/14/25 02:57 04/14/25 02:57 Micro: Microbiology 04/13/25 14:15 Blood Culture - Preliminary Blood NEGATIVE TO DATE 04/13/25 14:16 Blood Culture - Preliminary Blood NEGATIVE TO DATE A&P Assessment and plan (1) Essential hypertension: (2) History of permanent cardiac pacemaker placement: (3) Colitis: (4) Dehydration: (5) Advanced chronic obstructive pulmonary disease: (6) Chronic hypercapnic respiratory failure: (7) C. difficile diarrhea: Plan #Recurrent C. difficile infection #Recently treated for C. difficile #Obstructive sleep apnea/COPD #Complete heart block status post pacemaker #Bladder cancer status post TURP #Type 2 diabetes mellitus #History of CLL - treatment not required per oncology - Will place on IV metronidazole 500 3 times daily ? Will place on oral vancomycin 500 every 6 hours ? CT abdomen pelvis reviewed. No evidence of toxic megacolon at this time. ? Check C. difficile PCR ? Will repeat chest x-ray KUB in a.m. ? Will place on Solu-Medrol 40 twice daily. He has been coughing and needing 3 L nasal cannula recently prior to that he was on 2 L. Does have diffuse rhonchi slightly decreased air entry. Will de-escalate to Solu-Medrol 40 every 24 hours starting tomorrow and do a short 3-day course. ? Continue on famotidine 20 every 12 hours ? Placed on moderate dose intensity sliding scale insulin ? Patient did receive a dose of ciprofloxacin and Flagyl in the ER. I will hold off on giving further ciprofloxacin at this point. ? If patient does not continue to improve in next 48 to 72 hours may consider GI evaluation. ? Check phosphorus magnesium ? Continue on normal saline 100 cc/h as patient was dehydrated upon arriving to the ER. Will reassess tomorrow and turn off IV fluids. ? Last echo done in December 2024 showed EF of 40 to 45% which was a new finding from 2021. - Full code DVT PPX: heparin subcu bid 04/14/2025 Continue oral vancomycin and IV metronidazole Switch to Solu-Medrol 40 daily Will order one-time Lasix 40 IV. ? Stop IV fluids Echo reviewed and shows slightly improved EF Continue to wean down oxygen as able Continue BiPAP at nighttime PDMP PDMP Reviewed: Not Reviewed Attestations 2 Medical Necessity Statement*: > 2 midnight stay for mgmt of c.diff Diagnoses Essential hypertension I10 History of permanent cardiac pacemaker placement Z95.0 Colitis K52.9 Dehydration E86.0 Advanced chronic obstructive pulmonary disease J44.9 Chronic hypercapnic respiratory failure J96.12 C. difficile diarrhea A04.72
[2025-04-14 16:37] LABS: Glucose Point of Care 323 mg/dL (70-110)
[2025-04-14 20:42] LABS: Glucose Point of Care 328 mg/dL (70-110)
[2025-04-15] VITALS (17 sets, daily range): BP systolic 104–119; BP diastolic 47–55; PULSE 60–76; RESP 16–19; TEMP 36.3–36.7; O2SAT 92–98
[2025-04-15] MEDS: albuterol 2.5 MG/0.5 ML NEB INHALATION ×6 (00:45→21:22)
[2025-04-15] MEDS: vancomycin 125 mg Capsule 500 MG PO ×4 (01:23→18:30)
[2025-04-15] MEDS: tamsulosin 0.4 mg Capsule PO ×3 (02:12→18:28)
[2025-04-15] MEDS: metroNIDAZOLE IV 500 MG/100 ML PREMIX 100 MG IV ×3 (02:12→21:04)
[2025-04-15 03:31] LABS: Basophils % 0.3 %; Lymphocytes # 2.8 10^3/uL (0.8-4.8); Lymphocytes % 23.1 %; Mean Corpuscular HGB Conc 30.3 g/dL (30-55); Mean Corpuscular Hemoglobin 30.6 pg (27-33); Mean Corpuscular Volume 101.1 fl (82-101); Mean Platelet Volume 10.7 fL (7.4-10.4); Monocytes # 0.3 10^3/uL (0.2-0.9); Monocytes % 2.7 %; Neutrophils % 72.6 %; Nucleated Red Blood Cells % 0 %; Platelet Count 143 10^3/cmm (157-399); Red Blood Count 3.56 10^6/uL (3.85-5.65); Red Cell Distribution Width 14.7 % (12.1-15.1); White Blood Count 11.98 10^3/uL (3.29-11.43)
[2025-04-15 03:55] LABS: Alanine Aminotransferase 13 U/L (0-41); Alkaline Phosphatase 64 U/L (40-130); Anion Gap 16.5 (5-19); Aspartate Amino Transferase 17 U/L (0-40); Blood Urea Nitrogen 32 mg/dL (8-23); Calcium 8.1 mg/dL (8.5-10.5); Carbon Dioxide 30 mmol/L (22-29); Chloride 96 mmol/L (98-107); Creatinine Clr Calc Pharmacy 63.5437; Globulin 2.5 g/dL (1.3-4.6); Glucose 254 mg/dL (65-115); Magnesium 1.8 mg/dL (1.7-2.3); Osmolality Calculated 302 mOsm/kg (285-295); Potassium 4.5 mmol/L (3.5-5.1); Sodium 138 mmol/L (136-145); Total Bilirubin 0.2 mg/dL (0.15-1.2); Total Protein 5.5 g/dL (6.6-8.7)
[2025-04-15] MEDS: famotidine 20 mg/2 mL INJ IVP ×2 (06:14→18:28)
[2025-04-15] MEDS: heparin 5,000 unit/mL INJ 1 mL 5000 UNIT SUBCUT ×2 (06:14→18:28)
[2025-04-15 06:33] LABS: Glucose Point of Care 288 mg/dL (70-110)
[2025-04-15] MEDS: insulin lispro 100 unit/1 mL SUBCUT ×4 (08:03→21:04)
[2025-04-15] MEDS: budesonide 0.5 mg/2 mL Neb INHALATION ×2 (08:33→21:22)
[2025-04-15 11:09] LABS: Glucose Point of Care 287 mg/dL (70-110)
[2025-04-15] MEDS: methylPREDNISolone sod succ 40 mg/mL INJ IVP (12:55)
--- NOTE | 2025-04-15 13:19 | P.PN_ITS ---
Subjective 2 Subjective: seen this am says diarrhea is starting to slow down abd pain improving Vitals/I&O/Wt Last Vital Signs Temp 97.5 F L 04/15/25 11:32 Pulse 67 04/15/25 11:32 Resp 18 04/15/25 11:32 BP 107/53 04/15/25 11:32 Pulse Ox 94 04/15/25 11:32 O2 Del Method Nasal Cannula 04/15/25 11:32 O2 Flow Rate 3 04/15/25 11:20 04/14/25 04/15/25 04/15/25 22:59 06:59 14:59 Intake Total 1660 / 3400 340 / 3740 960 / 960 Output Total 100 / 400 Balance 1560 / 3000 340 / 3340 960 / 960 Weight last 48 hrs Weight 105.687 kg Weight 104.978 kg Weight 105.097 kg Weight 103.056 kg Weight 102.965 kg Physical Exam 2 Narrative: General: Alert oriented x3, patient seen in laying in bed with at bedside. Currently on 3 L nasal cannula. HEENT: Normocephalic, atraumatic, EOMI, Cardio: Male clear to auscultation bilaterally with mild rhonchi at bases Respiratory: Good bilateral air entry, no wheezes no rhonchi appreciated GI: Abdomen soft, tenderness improving, no guarding present. Extremities: No edema bilateral lower extremities Data 04/15/25 02:46 04/15/25 02:46 Micro: Microbiology 04/13/25 14:15 Blood Culture - Preliminary Blood NEGATIVE TO DATE 04/13/25 14:16 Blood Culture - Preliminary Blood NEGATIVE TO DATE A&P Assessment and plan (1) Essential hypertension: (2) History of permanent cardiac pacemaker placement: (3) Colitis: (4) Dehydration: (5) Advanced chronic obstructive pulmonary disease: (6) Chronic hypercapnic respiratory failure: (7) C. difficile diarrhea: Plan #Recurrent C. difficile infection #Recently treated for C. difficile #Obstructive sleep apnea/COPD #Complete heart block status post pacemaker #Bladder cancer status post TURP #Type 2 diabetes mellitus #History of CLL - treatment not required per oncology - Will place on IV metronidazole 500 3 times daily ? Will place on oral vancomycin 500 every 6 hours ? CT abdomen pelvis reviewed. No evidence of toxic megacolon at this time. ? Check C. difficile PCR ? Will repeat chest x-ray KUB in a.m. ? Will place on Solu-Medrol 40 twice daily. He has been coughing and needing 3 L nasal cannula recently prior to that he was on 2 L. Does have diffuse rhonchi slightly decreased air entry. Will de-escalate to Solu-Medrol 40 every 24 hours starting tomorrow and do a short 3-day course. ? Continue on famotidine 20 every 12 hours ? Placed on moderate dose intensity sliding scale insulin ? Patient did receive a dose of ciprofloxacin and Flagyl in the ER. I will hold off on giving further ciprofloxacin at this point. ? If patient does not continue to improve in next 48 to 72 hours may consider GI evaluation. ? Check phosphorus magnesium ? Continue on normal saline 100 cc/h as patient was dehydrated upon arriving to the ER. Will reassess tomorrow and turn off IV fluids. ? Last echo done in December 2024 showed EF of 40 to 45% which was a new finding from 2021. - Full code DVT PPX: heparin subcu bid 04/14/2025 Continue oral vancomycin and IV metronidazole Switch to Solu-Medrol 40 daily Will order one-time Lasix 40 IV. ? Stop IV fluids Echo reviewed and shows slightly improved EF Continue to wean down oxygen as able Continue BiPAP at nighttime 04/15/2025 Continue oral vancomycin and IV metronidazole continue Solu-Medrol 40 daily Echo reviewed and shows slightly improved EF Continue to wean down oxygen as able Continue BiPAP at nighttime PDMP PDMP Reviewed: Not Reviewed Attestations 2 Medical Necessity Statement*: > 2 midnight stay for mgmt of c.diff Diagnoses Essential hypertension I10 History of permanent cardiac pacemaker placement Z95.0 Colitis K52.9 Dehydration E86.0 Advanced chronic obstructive pulmonary disease J44.9 Chronic hypercapnic respiratory failure J96.12 C. difficile diarrhea A04.72
[2025-04-15 16:55] LABS: Glucose Point of Care 173 mg/dL (70-110)
--- NOTE | 2025-04-15 20:34 | PC.NURSE ---
Addendum entered by Tish Abreu CNA 04/15/25 20:35: Taken at 2030 Original Note: Patient's blood glucose 311 per Dexcom
[2025-04-16] VITALS (7 sets, daily range): BP systolic 113–123; BP diastolic 54–59; PULSE 64–76; RESP 18–21; TEMP 36.5–36.7; O2SAT 90–96
[2025-04-16] MEDS: vancomycin 125 mg Capsule 500 MG PO ×3 (01:46→14:44)
[2025-04-16 03:10] LABS: Hematocrit 31.9 % (37-53); Lymphocytes # 2.4 10^3/uL (0.8-4.8); Lymphocytes % 33.5 %; Mean Corpuscular Hemoglobin 30.8 pg (27-33); Mean Corpuscular Volume 99.4 fl (82-101); Mean Platelet Volume 10.7 fL (7.4-10.4); Monocytes # 0.2 10^3/uL (0.2-0.9); Monocytes % 2.8 %; Neutrophils # 4.45 10^3/uL (1.8-7.7); Nucleated Red Blood Cells % 0 %; Platelet Count 121 10^3/cmm (157-399); Red Blood Count 3.21 10^6/uL (3.85-5.65); Red Cell Distribution Width 14.7 % (12.1-15.1); White Blood Count 7.07 10^3/uL (3.29-11.43)
[2025-04-16 03:26] LABS: Alanine Aminotransferase 11 U/L (0-41); Albumin Level 2.7 g/dL (3.5-5.2); Alkaline Phosphatase 49 U/L (40-130); Anion Gap 14.9 (5-19); Aspartate Amino Transferase 12 U/L (0-40); Blood Urea Nitrogen 34 mg/dL (8-23); Calcium 7.9 mg/dL (8.5-10.5); Carbon Dioxide 32 mmol/L (22-29); Chloride 99 mmol/L (98-107); Creatinine Clr Calc Pharmacy 76.4966; Globulin 2.1 g/dL (1.3-4.6); Glucose 275 mg/dL (65-115); Magnesium 1.7 mg/dL (1.7-2.3); Osmolality Calculated 309 mOsm/kg (285-295); Potassium 4.9 mmol/L (3.5-5.1); Sodium 141 mmol/L (136-145); Total Bilirubin 0.2 mg/dL (0.15-1.2); Total Protein 4.8 g/dL (6.6-8.7)
[2025-04-16] MEDS: albuterol 2.5 MG/0.5 ML NEB INHALATION ×2 (05:10→08:19)
[2025-04-16] MEDS: metroNIDAZOLE IV 500 MG/100 ML PREMIX 100 MG IV (05:45)
[2025-04-16] MEDS: famotidine 20 mg/2 mL INJ IVP (06:36)
[2025-04-16 06:51] LABS: Glucose Point of Care 315 mg/dL (70-110)
[2025-04-16] MEDS: insulin lispro 100 unit/1 mL SUBCUT ×2 (07:04→12:49)
--- NOTE | 2025-04-16 07:56 | P.DS_ITS ---
Discharge Providers Date of Admission: 04/13/25 18:49 Date of Discharge: April 16, 2025 Attending Provider at Admission: Sinai Rodriguez MD Attending Provider at Discharge: Sinai Rodriguez MD Primary Care Provider: MELCHOR Lange Diagnoses at Discharge Discharge Diagnosis (1) Essential hypertension: Status: Chronic (2) History of permanent cardiac pacemaker placement: Status: Acute Permanent problem details: August 2024 at [facility] in [place], [place]. (3) Colitis: Status: Resolved (4) Dehydration: Status: Resolved (5) Advanced chronic obstructive pulmonary disease: Status: Chronic (6) Chronic hypercapnic respiratory failure: Status: Acute (7) C. difficile diarrhea: Status: Acute Reason for Visit Reason for Visit: diaherra/abdominal pain Hospital Course Hospital Course Patient presented to the hospital for recurrent C. difficile infection. Initially he was dehydrated therefore required IV fluids. Also had a another COPD saturation. Was recently discharged from the hospital 2 weeks ago. Patient was ordered oral vancomycin 500 every 6 hours and IV metronidazole 3 times a day for 5 days total. He was treated as fulminant C. difficile infection. Patient's diarrhea resolved and was discharged home with a prolonged vancomycin taper. At time of discharge it was on baseline home oxygen. Advised him to follow-up with his primary care doctor. Physical Exam Narrative: General: Alert oriented x3, HEENT: Normocephalic, atraumatic, EOMI, Cardio: clear to auscultation bilaterally with mild rhonchi at bases Respiratory: Good bilateral air entry, no wheezes no rhonchi appreciated GI: Abdomen soft, tenderness improving, no guarding present. Extremities: No edema bilateral lower extremities Discharge Data Studies Completed and Pending Completed Studies During Hospitalization Category Date Time Status CT abdomen pelvis w con* [id number] Stat Cat Scan 04/13/25 14:50 Completed CTA chest [CT angio chest PE protcl [id number]] Stat Cat Scan 04/14/25 10:44 Completed XR KUB portable [id number] Routine Exams 04/14/25 07:00 Completed XR chest 1V portable [id number] Routine Exams 04/14/25 07:00 Completed CV. echo complete* [id number] Urgent Ultrasound 04/14/25 10:44 Completed Pending at discharge Category Date Time Status Blood Culture Stat Lab 04/13/25 14:15 Results Stool Culture - Enteric [Salmonella / Shigella / Campy] Lab 04/13/25 20:57 Received Routine Radiology Impressions Abdomen/Pelvis CT 04/13/25 14:50 IMPRESSION: 1. Diffuse moderate circumferential wall thickening of the colon and rectum. Pancolitis. 2. There is possible diffuse urinary bladder wall thickening, although the bladder is incompletely distended. Possible acute cystitis versus underdistention of the bladder. Consider urinalysis if clinically indicated. 3. Trace perihepatic ascites. COMMENTS: Consistent with the [employer]'s Incidental Findings Committee white paper (J Am Mady Radiol 2018): Any incidental renal lesion less than 1 cm or classified as too small to characterize, or any incidental cystic renal lesion characterized as simple-appearing, is likely benign. No follow-up imaging is recommended for these lesions per consensus recommendations based on imaging criteria. Chest X-Ray 04/14/25 07:00 IMPRESSION: No acute cardiopulmonary process. KUB X-Ray 04/14/25 07:00 IMPRESSION: 1. Nonobstructive bowel gas pattern. 2. Findings of colitis. Chest CTA 04/14/25 10:44 IMPRESSION: 1. No pulmonary embolism 2. No focal infiltrates. 3. Multiple enlarged mediastinal and right hilar and left axillary lymph nodes, similar to prior study. Laboratory Results WBC 7.07 10^3/uL (3.29-11.43) 04/16/25 02:37 RBC 3.21 10^6/uL (3.85-5.65) L 04/16/25 02:37 Hgb 9.90 g/dL (11.27-16.99) L 04/16/25 02:37 Hct 31.9 % (37-53) L 04/16/25 02:37 MCV 99.4 fl (82-101) 04/16/25 02:37 MCH 30.8 pg (27-33) 04/16/25 02:37 MCHC 31.0 g/dL (30-55) 04/16/25 02:37 RDW 14.7 % (12.1-15.1) 04/16/25 02:37 Plt Count 121 10^3/cmm (157-399) L 04/16/25 02:37 MPV 10.7 fL (7.4-10.4) H 04/16/25 02:37 Neut % (Auto) 63.0 % 04/16/25 02:37 Lymph % (Auto) 33.5 % 04/16/25 02:37 [place] % (Auto) 2.8 % 04/16/25 02:37 Eos % (Auto) 0.0 % 04/16/25 02:37 Baso % (Auto) 0.0 % 04/16/25 02:37 Neut # (Auto) 4.45 10^3/uL (1.8-7.7) 04/16/25 02:37 Lymph # (Auto) 2.4 10^3/uL (0.8-4.8) 04/16/25 02:37 [place] # (Auto) 0.2 10^3/uL (0.2-0.9) 04/16/25 02:37 Eos # (Auto) 0.0 10^3/uL (0.0-0.8) 04/16/25 02:37 Baso # (Auto) 0.0 10^3/uL (0.0-0.1) 04/16/25 02:37 Nucleated RBC % (auto) 0 % 04/16/25 02:37 Nucleated RBCs # 0.0 /100WBC 04/16/25 02:37 Sodium 141 mmol/L (136-145) 04/16/25 02:37 Potassium 4.9 mmol/L (3.5-5.1) 04/16/25 02:37 Chloride 99 mmol/L (98-107) 04/16/25 02:37 Carbon Dioxide 32 mmol/L (22-29) H 04/16/25 02:37 Anion Gap 14.9 (5-19) 04/16/25 02:37 BUN 34 mg/dL (8-23) H 04/16/25 02:37 Creatinine 1.0 mg/dL (0.7-1.2) 04/16/25 02:37 GFR Calculation Not Reportable 04/16/25 02:37 Glucose 275 mg/dL (65-115) H 04/16/25 02:37 POC Glucose 315 mg/dL (70-110) H 04/16/25 06:15 Calculated Osmolality 309 mOsm/kg (285-295) H 04/16/25 02:37 Lactic Acid 1.0 mmol/L (0.5-2.2) 04/13/25 20:26 Calcium 7.9 mg/dL (8.5-10.5) L 04/16/25 02:37 Phosphorus 4.4 mg/dL (2.5-4.5) 04/14/25 02:57 Magnesium 1.7 mg/dL (1.7-2.3) 04/16/25 02:37 Total Bilirubin 0.2 mg/dL (0.15-1.2) 04/16/25 02:37 AST 12 U/L (0-40) 04/16/25 02:37 ALT 11 U/L (0-41) 04/16/25 02:37 Alkaline Phosphatase 49 U/L (40-130) 04/16/25 02:37 Total Protein 4.8 g/dL (6.6-8.7) L 04/16/25 02:37 Albumin 2.7 g/dL (3.5-5.2) L 04/16/25 02:37 Globulin 2.1 g/dL (1.3-4.6) 04/16/25 02:37 Lipase 16 U/L (13-60) 04/13/25 14:16 Procalcitonin 0.20 ng/mL (0-0.5) 04/13/25 14:16 Urine Color Dark yellow (Yellow) A 04/13/25 17:18 Urine Appearance Clear (CLEAR) 04/13/25 17:18 Urine pH 5.0 (5-7) 04/13/25 17:18 Ur Specific [place] 1.074 (1.005-1.030) H 04/13/25 17:18 Urine Protein 1+ (Negative) A 04/13/25 17:18 Urine Glucose (UA) Negative (Normal) 04/13/25 17:18 Urine Ketones Trace (Negative) 04/13/25 17:18 Urine Blood Negative (Negative) 04/13/25 17:18 Urine Nitrate Negative (Negative) 04/13/25 17:18 Urine Bilirubin 1+ (Negative) H 04/13/25 17:18 Urine Urobilinogen 1.0 mg/dL (Negative) 04/13/25 17:18 Ur Leukocyte Esterase Negative (Negative) 04/13/25 17:18 Urine RBC 0-2 /hpf (0-2) 04/13/25 17:18 Urine WBC 0-5 /hpf (0-5) 04/13/25 17:18 Ur Squamous Epith Cells 0-5 /hpf (0-5) 04/13/25 17:18 Amorphous Sediment Not Reportable 04/13/25 17:18 Urine Bacteria None seen /hpf (NONE) 04/13/25 17:18 Hyaline Casts 44.25 /lpf 04/13/25 17:18 C. difficile (PCR) Positive (Negative) H 04/13/25 20:57 C.difficile Tox Confrm Negative (Negative) 04/13/25 20:57 Vitals Last Vital Signs Temp 98.0 F 04/16/25 07:46 Pulse 74 04/16/25 07:46 Resp 18 04/16/25 07:46 BP 123/57 04/16/25 07:46 Pulse Ox 95 04/16/25 07:46 O2 Del Method Nasal Cannula 04/16/25 07:46 O2 Flow Rate 2 04/16/25 05:10 Discharge Plan Discharge Patient Disposition: Home Condition: Stable Prescriptions: New vancomycin 125 mg capsule 125 mg PO DIRECTED Qty: 70 0RF Rx Instructions: take 125 mg 4 times per day for 10 days; 2 times per day for 7 days; once daily for 7 days; once every 2-3 days for 2-8 weeks prednisone 20 mg tablet 20 mg PO DAILY Qty: 3 0RF Continued ascorbate calcium (vitamin C) 500 mg tablet 1,000 mg PO DAILY cholecalciferol (vitamin D3) 10 mcg (400 unit) capsule 10 mcg PO DAILY B Complex Plus Vitamin C 43-62-37-5-300 mg capsule 1 cap PO DAILY Qty: 180 1RF Rx Instructions: give with food (meal/snack) (DME) Oxygen concentrator NC up to 5L See Rx Instructions .ROUTE .MEDSUPPLY Qty: 1 0RF Rx Instructions: Use 2L NC 24 hours for 99 months arformoterol [Brovana] 15 mcg/2 mL solution for nebulization 2 ml inhalation Q12H Qty: 120 2RF budesonide 0.5 mg/2 mL suspension for nebulization 0.5 mg inhalation QAM Qty: 120 2RF Rx Instructions: mixes with brovana (DME) Dexcom G7 Sensor Device See Rx Instructions .ROUTE .MEDSUPPLY Qty: 12 3RF Rx Instructions: change every 10 days (DME) Dexcom G7 Information Analyst Misc See Rx Instructions .ROUTE .MEDSUPPLY Qty: 1 0RF Rx Instructions: As directed zinc acetate 50 mg (zinc) capsule 50 mg PO DAILY albuterol sulfate 90 mcg/actuation HFA aerosol inhaler 2 puff INHALATION QID PRN (Reason: Shortness Of Breath) Qty: 6.7 2RF (DME) Accu-Chek Guide test strips Strip See Rx Instructions .Route Qty: 100 5RF Rx Instructions: check 3 times day as needed tamsulosin 0.4 mg capsule 0.4 mg PO BID Qty: 180 1RF (DME) Disposable nebulizer circuit See Rx Instructions .Route .MEDSUPPLY Qty: 1 0RF Rx Instructions: As directed [place] [place] nebulizers Mis See Rx Instructions .ROUTE .MEDSUPPLY Qty: 1 0RF Rx Instructions: As directed ([facility] [place] pen needle, diabetic 33 gauge x 5/32 needle See Rx Instructions .ROUTE .MEDSUPPLY Qty: 100 5RF Rx Instructions: 1 times day (DME) blood-glucose meter [Accu-Chek Guide Glucose Meter] [facility] [place]ructions .Route Qty: 1 0RF Rx Instructions: As directed hydrocodone-acetaminophen 5-325 mg tablet 1 tab PO Q6H PRN (Reason: pain) Qty: 10 0RF promethazine 25 mg tablet 25 mg PO Q6H PRN (Reason: nausea and vomiting) Qty: 20 0RF insulin glargine [Lantus Solostar U-100 Insulin] 100 unit/mL (3 mL) insulin pen 20 - 25 unit SUBCUT QAM furosemide 40 mg tablet See Rx Instructions .ROUTE .COMPLEX Rx Instructions: TAKE ONE TABLET BY MOUTH DAILY NEEDED FOR weight gain of more THAN THREE pounds in a DAY. Take with potassium. potassium chloride 10 mEq tablet extended release See Rx Instructions .ROUTE .COMPLEX Rx Instructions: TAKE ONE TABLET BY MOUTH DAILY NEEDED FOR weight gain of more THAN THREE pounds in a DAY. Take with furosemide. magnesium L-threonate 48 mg magnesium (667 mg) capsule 48 mg PO DAILY Qty: 90 0RF insulin aspart U-100 [Novolog FlexPen U-100 Insulin] 100 unit/mL (3 mL) insulin pen See Rx Instructions .ROUTE .COMPLEX Qty: 15 0RF Rx Instructions: Inject no more than 6 units by subcutaneous injection 3 times daily, after meals, based on low-dose insulin sliding scale. Discontinued hydralazine 25 mg tablet 25 mg PO Q12H Qty: 180 0RF No Action Probiotic Digestive Care 20 billion cell capsule See Rx Instructions PO .2 times day Qty: 60 5RF Rx Instructions: 20 billion cell PO .2 times day; levothyroxine [Levoxyl] 25 mcg tablet 25 mcg PO DAILY Qty: 30 1RF Discharge Orders: Discharge Order (Routine); Ordered 04/16/25 Ordered By: Sinai Rodriguez Referrals: Ken Escamilla FNP-C [Primary Care Provider, [facility]] - 04/19/25 1:4 0 pm Discharge Diet: Cardiac and Diabetic Discharge Activity: Resume usual activity and Oxygen as instructed Patient Instructions: Clostridium Difficile, Dehydration - Adult, Prednisone (By mouth), Vancomycin (By mouth), Opioid Safety Discharge Attestations Time Spent in Discharge Care*: less than 30 min Quality Metrics Clinical Quality Measures [ No reported AMI, CVA or VTE this stay] Coding Level of Care Code Acute Code for Chg Fwd Diagnoses Essential hypertension I10 History of permanent cardiac pacemaker placement Z95.0 Colitis K52.9 Dehydration E86.0 Advanced chronic obstructive pulmonary disease J44.9 Chronic hypercapnic respiratory failure J96.12 C. difficile diarrhea A04.72
[2025-04-16] MEDS: budesonide 0.5 mg/2 mL Neb INHALATION (08:18)
[2025-04-16] MEDS: tamsulosin 0.4 mg Capsule PO (09:42)
--- NOTE | 2025-04-16 10:18 | PC.SOCIAL ---
IMM Update pg 2 of IMM Updated and reviewed w/ patient. Copy provided and copy dated, initialed and placed in chart.
[2025-04-16 11:43] LABS: Glucose Point of Care 264 mg/dL (70-110)
== END 2025-04-16 15:11 | disposition home or self-care (01) | DRG 372 ==
LOC: ER 17:29 → MEDSURG 18:49
PROVIDERS: Admitting Provider Internal Medicine; Emergency Provider Emergency Medicine; PCP Nurse Practitioner; Visit Provider Internal Medicine
DX: A04.71 Enterocolitis due to Clostridium difficile, recurrent (principal); J96.11 Chronic respiratory failure with hypoxia; N39.0 Urinary tract infection, site not specified; I10 Essential (primary) hypertension; Z95.0 Presence of cardiac pacemaker; E86.0 Dehydration; J44.9 Chronic obstructive pulmonary disease, unspecified; E66.9 Obesity, unspecified; Z68.31 Body mass index [BMI] 31.0-31.9, adult; G47.33 Obstructive sleep apnea (adult) (pediatric); I45.4 Nonspecific intraventricular block; E11.9 Type 2 diabetes mellitus without complications; N40.1 Benign prostatic hyperplasia with lower urinary tract symptoms; N28.9 Disorder of kidney and ureter, unspecified; E55.9 Vitamin D deficiency, unspecified; K59.01 Slow transit constipation; I25.2 Old myocardial infarction; Z99.81 Dependence on supplemental oxygen; Z79.891 Long term (current) use of opiate analgesic; Z79.4 Long term (current) use of insulin; Z85.51 Personal history of malignant neoplasm of bladder; Z85.6 Personal history of leukemia; Z87.891 Personal history of nicotine dependence
CPT/HCPCS: 36415; 36416; 71045; 71275; 74018; 74177; 80053; 81001; 82962; 83605; 83690; 83735; 84100; 84145; 85025; 87040; 87045; 87324; 87427; 87449; 87493; 93306; 94640; 94664; 96365; 96366; 96367; 96372; 96375; 99285; J0744; J1644; J1815; J1938; J2405; J2919; J3490; J7030; J7611; J7626; J9999

== ENCOUNTER → 2025-06-20 13:37 | Outpatient (BNVA) | payer MEDICARE, SELFPAY | PROVIDERS: PCP Nurse Practitioner; Visit Provider Nurse Practitioner | DX: I10 Essential (primary) hypertension (principal); E11.65 Type 2 diabetes mellitus with hyperglycemia; Z79.4 Long term (current) use of insulin; E55.9 Vitamin D deficiency, unspecified | CPT/HCPCS: 80053; 80061; 82306; 84443; 85025 ==

== ENCOUNTER 2025-07-31 11:55 | Observation (INO) | payer MEDICARE, SELFPAY ==
[2025-07-31] VITALS (11 sets, daily range): BP systolic 94–122; BP diastolic 40–65; PULSE 61–78; RESP 16–20; TEMP 36.1–37; O2SAT 89–96; BMI 30.5
--- NOTE | 2025-07-31 12:00 | ECG_ITS ---
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 Measurements Intervals [place] Rate: 91 P: 0 GA: 0 QRS: -88 QRSD: 172 T: 84 QT: 395 QTc: 486 Interpretive Statements ELECTRONIC VENTRICULAR PACEMAKER Compared to ECG 10/29/2024 21:53:00 Sinus rhythm no longer present First degree AV block no longer present Left bundle-branch block no longer present Electronically Signed On 08-02-2025 08:40:11 CDT by Eduardo Dewey M.D. [email or web address]
--- NOTE | 2025-07-31 12:00 | XR_ITS ---
WS: [id number] XR chest 1V portable [id number] REASON FOR EXAM: Shortness of breath FINDINGS: The chest is unchanged compared to the examination 04/24/2025. Cardiac device of the left chest with trans left subclavian leads to the right atrium and right ventricle. Left chest wall wireless cardiac device. Mild cardiomegaly. Mild to moderate central pulmonary venous congestion. No definite pulmonary edema or other acute pulmonary parenchymal or pleural abnormality. XR/XR chest 1V portable [id number] IMPRESSION: Stable abnormal chest without acute abnormality.
--- OUTSIDE RECORDS SUMMARY | 2025-07-31 12:00 | XMS_ITS | Clinical Summary ---
Author Organization [facility] Address [address] [place] [address] Phone Care Team Providers Care Hammer Runner Name Role Phone Unavailable Primary Care Provider Unavailabl e Social History Tobacco Use Types Packs/Day Years Used Date Smoking Tobacco: Never Assessed Sex and Gender Information Value Date Recorded Sex Assigned at Not on file Legal Sex Male 3:57 PM CDT Gender Identity Not on file Sexual Orientation Not on file Plan of Treatment Health Maintenance Due Date Last Done Comments Annual Depression Screening 1956 Hepatitis C Antibody Screen 1964 Pneumococcal Vaccine Age 50+ (1 of 1 - PCV) 1996 RSV Immunization Pa tients or 60+ Years (1 - 1-dose 75+ series) 2021 Flu Vaccine (#1) 07/02/2025 Influenza Vaccine 07/02/2025
--- NOTE | 2025-07-31 12:10 | W.ED.SOB ---
HPI - SOB/Dyspnea General: Chief Complaint: Shortness of Breath/Dyspnea Stated Complaint: SOB Time Seen by Provider: 07/31/25 11:56 History of Present Illness: HPI Narrative: 79-year-old male with a history of obesity, bladder cancer, hypertension, coronary artery disease, chronic hypoxemic respiratory failure on 3 to 4 L nasal cannula at all times, type 2 diabetes, CLL, sleep apnea, who presents emergency room with worsening shortness of breath. He had gone to clinic for routine visit and was found to be hypoxemic on his 4 L. Ambulance was called he was sent to the emergency room. He said he had a fever couple of days ago. He says he does not really feel a whole lot worse than he usually does but he was sent here for hypoxemia. No chest pain. No abdominal pain. No nausea or vomiting. No altered mental status. No focal motor deficits. Related Data Home Medications ?Medication ?Instructions ?Recorded ?Confirmed ascorbate calcium (vitamin C) 500 1,000 mg PO DAILY 04/09/22 07/31/25 mg tablet cholecalciferol (vitamin D3) 10 10 mcg PO DAILY 04/09/22 07/31/25 mcg (400 unit) capsule zinc acetate 50 mg (zinc) capsule 50 mg PO DAILY 03/09/23 07/31/25 furosemide 40 mg tablet See Rx Instructions .Route .COMPLEX 04/13/25 07/31/25 potassium chloride 10 mEq See Rx Instructions .Route .COMPLEX 04/13/25 07/31/25 tablet,extended release Previous Rx's ?Medication ?Instructions ?Recorded Disposable nebulizer circuit #1 ea 03/02/22 nebulizers #1 ea 03/02/22 pen needle, diabetic 33 gauge x #100 ea 08/29/24 vitamin B comp and C no.3 15 mg-10 1 cap PO DAILY #180 caps 09/18/24 mg-50 mg-5 mg-300 mg capsule (B Complex Plus Vitamin C) magnesium L-threonate 48 mg 48 mg PO DAILY #90 caps 10/31/24 magnesium (667 mg) capsule blood-glucose meter (Accu-Chek #1 ea 11/15/24 Guide Glucose Meter) Oxygen concentrator NC up to 5L #1 ea 01/24/25 blood sugar diagnostic (Accu-Chek #100 ea 02/08/25 Guide test strips) hydrocodone 5 mg-acetaminophen 325 1 tab PO Q6H PRN pain #10 tabs 03/20/25 mg tablet promethazine 25 mg tablet 25 mg PO Q6H PRN nausea and 03/20/25 vomiting #20 tabs insulin aspart U-100 100 unit/mL See Rx Instructions .Route 03/29/25 (3 mL) subcutaneous pen (Novolog .COMPLEX #15 mL FlexPen U-100 Insulin aspart) blood-glucose sensor (Dexcom G7 #12 ea 04/09/25 Sensor device) blood-glucose,digital marketing coordinator,cont #1 ea 04/09/25 (Dexcom G7 Filament Cutter) prednisone 20 mg tablet 20 mg PO DAILY #3 tabs 04/16/25 Lactobacillus rhamnosus GG 20 See Rx Instructions PO .2 times 04/24/25 billion cell capsule (Probiotic day #60 caps [facility]) albuterol sulfate 90 mcg/actuation 2 puff inhalation QID PRN 06/20/25 aerosol inhaler Shortness Of Breath #6.7 grams arformoterol 15 mcg/2 mL solution 2 ml inhalation Q12H #120 mL 06/20/25 for nebulization (Brovana) budesonide 0.5 mg/2 mL suspension 0.5 mg (2 mL) inhalation QAM #120 06/20/25 for nebulization mL insulin glargine 100 unit/mL (3 50 unit (0.5 mL) SUBCUT QAM #30 mL 06/20/25 mL) subcutaneous pen (Lantus Solostar U-100 Insulin) levothyroxine 25 mcg tablet 25 mcg PO DAILY #30 tabs 06/20/25 (Levoxyl) tamsulosin 0.4 mg capsule 0.4 mg PO BID #180 caps 06/20/25 Allergies Allergy/AdvReac Type Severity Reaction Status Date / Time amoxicillin Allergy ADR-Diarrhe Verified 07/31/25 10:48 a Review of Systems Narrative: Constitutional symptoms: Negative except as documented in HPI. Skin symptoms: Negative except as documented in HPI. Eye symptoms: Negative except as documented in HPI. ENMT symptoms: Negative except as documented in HPI. Respiratory symptoms: Negative except as documented in HPI. Cardiovascular symptoms: Negative except as documented in HPI. Gastrointestinal symptoms: Negative except as documented in HPI. Genitourinary symptoms: Negative except as documented in HPI. Musculoskeletal symptoms: Negative except as documented in HPI. Neurologic symptoms: Negative except as documented in HPI. Psychiatric symptoms: Negative except as documented in HPI. Endocrine symptoms: Negative except as documented in HPI. 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 History of local excision of skin lesion H/O transurethral destruction of bladder lesion History of condyloma acuminatum removal surgical December 2014 History of arthroplasty of left shoulder tendon 1969' Hx of vasectomy H/O hernia repair umbilical and bilateral inguinal 1979' History of cholecystectomy Family History Mother , at age 73 Diabetes Lung disease Father , at age 75 Cancer blood Lung disease Social History Smoking and tobacco/nicotine status: former use of tobacco/nicotine Quit status (tobacco/nicotine): has quit using Year quit tobacco: 2002 Former quit date comment: smoked 47 years Second hand smoke exposure: No Alcohol intake: current Alcohol intake frequency: holidays/special occasions only Substance/Drug Use: never Adopted: No Caregiver/support person: No Lives independently: Yes Household members: spouse Housing: House Marital status: Number of children: 5 Number of grandchildren: 7 service: Yes branch: [employer] Current occupational status: disabled Pets and animals: Yes Pets & animals: cat(s) and dog(s) Do you think of yourself as: Straight/Heterosexual Current gender identity: Male Special luis needs: No Physical Exam Narrative: EXAM NARRATIVE: General: Alert, no acute distress. Skin: Warm, dry. Head: Normocephalic, atraumatic. Neck: Supple, trachea midline. Eye: Extraocular movements are intact. Ears, nose, mouth and throat: Oral mucosa moist. Cardiovascular: Regular rate and rhythm, Normal peripheral perfusion. Respiratory: coarse, scattered wheeze, mild increased wob. tachypnea, breath sounds are equal, Symmetrical chest wall expansion. Gastrointestinal: Soft, Nontender, Non distended Musculoskeletal: Normal ROM, no deformity. Neurological: Alert and oriented, No focal neurological deficit observed. Psychiatric: Cooperative, appropriate mood & affect. Course Vital Signs: Vital signs: Vital Signs Temperature 98.6 F 07/31/25 11:56 Pulse Rate 66 07/31/25 13:34 Respiratory Rate 16 07/31/25 13:33 Blood Pressure 115/65 07/31/25 11:56 Pulse Oximetry 92 07/31/25 13:34 Oxygen Delivery Me thod BiPAP 07/31/25 13:33 Oxygen Flow Rate 4 07/31/25 11:56 Fraction of Inspir ed Oxygen 45 07/31/25 13:34 MDM - SOB/Dyspnea Medical Decision Making Differential diagnosis for patient with shortness of breath includes but is not limited to and based on the above HPI, review of systems and physical exam: Pneumonia. Bronchitis. Asthma or COPD with acute exacerbation. Acute coronary syndrome / GA. Pulmonary embolism. Anxiety. Congestive heart failure. Viral infections including influenza and Covid-19. Atrial fibrillation. Anxiety. Pleural effusion. Pneumothorax. Orders placed to evaluate differential diagnosis based on the above differential, HPI and physical exam Chest x-ray: Pacemaker in place, implantable device in place, left shoulder hardware but no acute process. No infiltrate. No pneumothorax. This was reviewed and interpreted by myself the emergency room physician. I also reviewed the radiology report. AB.28/90/63 with a bicarb of 44 and an O2 sat of 89% on 4 L nasal cannula. Acute on chronic hypercapnic respiratory failure. Lab Review: Laboratory results were reviewed and interpreted by myself the emergency room physician. No leukocytosis. No anemia. BUN and creatinine 44 and 1. Creatinine is near his baseline. BUN is bit elevated. I reviewed the patient's medical record. Reexamination: Patient is tolerating the BiPAP at this point. O2 sats have improved some. He did not want to be admitted but his convinced him. No altered mental status. No focal motor deficits. Consultation: I spoke with Dr. Parry who is on-call for the hospitalist service who agrees to admission. Assessment and plan: Acute hypercapnic respiratory failure Chronic hypoxemic failure with acute exacerbation COPD with acute exacerbation ?BiPAP, Solu-Medrol, breathing treatments and doxycycline. (Patient said he had a fever a couple of days ago) -I discussed the patient with the hospitalist on-call who is admitting the patient. - Discussed findings and plan with patient. Answered any questions. - All laboratory values were reviewed and interpreted personally by myself, the ER physician - All imaging was reviewed and interpreted personally by myself, the ER physician. - Evaluation and treatment of this problem were appropriate in the emergency setting Critical Care: -I spent a total of >35 minutes of critical care time managing the patient, independent of any other practitioner. -The time involved in the performance of separately reportable procedures was not counted towards critical care time. Lab Data 07/31/25 12:26 07/31/25 12:26 Labs/Radiology: Radiology Impressions Chest X-Ray 07/31/25 12:00 IMPRESSION: Stable abnormal chest without acute abnormality. Laboratory Results WBC 7.56 10^3/uL (3.29-11.43) 07/31/25 12: RBC 3.55 10^6/uL (3.85-5.65) L 07/31/25 12: Hgb 10.30 g/dL (11.27-16.99) L 07/31/25 12: Hct 34.8 % (37-53) L 07/31/25 12: MCV 98.0 fl (82-101) 07/31/25 12:26 MCH 29.0 pg (27-33) 07/31/25 12: MCHC 29.6 g/dL (30-55) L 07/31/25 12: RDW 14.4 % (12.1-15.1) 07/31/25 12: Plt Count 180 10^3/cmm (157-399) 07/31/25 12: MPV 9.9 fL (7.4-10.4) 07/31/25 12: Neut % (Auto) 66.4 % 07/31/25 12:26 Lymph % (Auto) 25.3 % 07/31/25 12: Cuming % (Auto) 7.0 % 07/31/25 12: Eos % (Auto) 0.3 % 07/31/25 12: Baso % (Auto) 0.3 % 07/31/25 12: Neut # (Auto) 5.03 10^3/uL (1.8-7.7) 07/31/25 12: Lymph # (Auto) 1.9 10^3/uL (0.8-4.8) 07/31/25 12: Cuming # (Auto) 0.5 10^3/uL (0.2-0.9) 07/31/25 12: Eos # (Auto) 0.0 10^3/uL (0.0-0.8) 07/31/25 12: Baso # (Auto) 0.0 10^3/uL (0.0-0.1) 07/31/25 12: Nucleated RBC % (auto) 0 % 07/31/25 12: Nucleated RBCs # 0.0 /100WBC 07/31/25 12:26 Specimen Type Arterial 07/31/25 13:52 Sample Site Radial, right 07/31/25 13:52 ABG pH 7.32 (7.35-7.45) L 07/31/25 13:52 ABG pCO2 84.2 mmHg (35-45) H* 07/31/25 13:52 ABG pO2 97.0 mmHg (80.0-100.0) 07/31/25 13:52 ABG PO2/FiO2 Ratio 215 07/31/25 13:52 ABG HCO3 43.4 mmol/L (22-26) H 07/31/25 13:52 ABG O2 Saturation 97.8 07/31/25 13:52 ABG Base Excess 14.5 mmol/L (-2.0-2.0) H 07/31/25 13:52 Remberto Test Pos 07/31/25 13:52 A-a O2 Gradient 16.2 mmHg (5-10) H 07/31/25 13:52 Hematocrit 31.1 % (42-52) L 07/31/25 13:52 Hgb O2 Saturation 96.7 % (95-100) 07/31/25 13:52 Carboxyhemoglobin 1.3 %THgb (0.4-20.1) 07/31/25 13:52 Methemoglobin < 0.0 % (0.4-1.5) L 07/31/25 13:52 Total Hemoglobin 10.1 g/dL (14-18) L 07/31/25 13:52 Sodium 143.0 mmol/L (131-143) 07/31/25 13:52 Potassium 4.9 mmol/L (3.5-5.0) 07/31/25 13:52 Glucose 175.0 mg/dL (70-115) H 07/31/25 13:52 Ionized Calcium 1.2 mmol/L (1.1-1.4) 07/31/25 13:52 O2 Delivery Device Bipap 07/31/25 13:52 O2 Liters/Min 3.5 % 07/31/25 12:58 FiO2 45.0 % 07/31/25 13:52 Box Truck Driver ID [employer] 07/31/25 13:52 Sodium 143 mmol/L (136-145) 07/31/25 12:26 Potassium 5.2 mmol/L (3.5-5.1) H 07/31/25 12:26 Chloride 98 mmol/L (98-107) 07/31/25 12:26 Carbon Dioxide 41 mmol/L (22-29) H 07/31/25 12:26 Anion Gap 9.2 (5-19) 07/31/25 12:26 BUN 44 mg/dL (8-23) H 07/31/25 12:26 Creatinine 1.0 mg/dL (0.7-1.2) 07/31/25 12:26 GFR Calculation Not Reportable 07/31/25 12:26 Glucose 202 mg/dL (65-115) H 07/31/25 12:26 Calculated Osmolality 313 mOsm/kg (285-295) H 07/31/25 12:26 Lactic Acid 0.7 mmol/L (0.5-2.2) 07/31/25 12:26 Calcium 9.4 mg/dL (8.5-10.5) 07/31/25 12:26 Total Bilirubin 0.2 mg/dL (0.15-1.2) 07/31/25 12:26 AST 17 U/L (0-40) 07/31/25 12:26 ALT 12 U/L (0-41) 07/31/25 12:26 Alkaline Phosphatase 55 U/L (40-130) 07/31/25 12:26 C-Reactive Protein 136.6 mg/L (0.0-4.9) H 07/31/25 12:26 NT-Pro-B Natriuret Pep 3998 pg/mL (0-450) H 07/31/25 12:26 Total Protein 6.2 g/dL (6.6-8.7) L 07/31/25 12:26 Albumin 3.1 g/dL (3.5-5.2) L 07/31/25 12:26 Globulin 3.1 g/dL (1.3-4.6) 07/31/25 12:26 All radiology interpretation(s) finalized by discharge Discharge Plan Discharge Patient Disposition: Admitted As Inpatient Clinical Impression: COPD with acute exacerbation, Acute on chronic respiratory failure with hypoxia and hypercapnia Condition: Stable Coding Level of Care Code ED Machine Shorthand Teacher for Brandon Paredes
--- NOTE | 2025-07-31 12:12 | PC.NURSE ---
PATIENT REFUSED COVID/FLU/RSV SWAB. PROVIDER NOTIFIED.
[2025-07-31 12:39] LABS: Hematocrit 34.8 % (37-53); Hemoglobin 10.30 g/dL (11.27-16.99); Mean Corpuscular HGB Conc 29.6 g/dL (30-55); Mean Corpuscular Hemoglobin 29.0 pg (27-33); Mean Corpuscular Volume 98.0 fl (82-101); Nucleated Red Blood Cells % 0 %; Platelet Count 180 10^3/cmm (157-399); Red Blood Count 3.55 10^6/uL (3.85-5.65); White Blood Count 7.56 10^3/uL (3.29-11.43)
[2025-07-31 13:03] LABS: Lactic Sepsis W/Reflex 0.7 mmol/L (0.5-2.2)
[2025-07-31 13:09] LABS: ABG PH Result 7.29 (7.35-7.45); Arterial Blood Gas Hematocrit 32.2 % (42-52); Blood Gas Allen Test Pos; Blood Gas LPM 3.5 %; Blood Gas Operator Identificat WALCI; Blood Gas Sample Site Radial, right; Blood Gas Sample Type Arterial; Carboxyhemoglobin 1.5 %THgb (0.4-20.1); Glucose Level-ABG 182.0 mg/dL (70-115); HCO3 ABG 43.2 mmol/L (22-26); Ionized Calcium Level - ABG 1.2 mmol/L (1.1-1.4); Methemoglobin 1.0 % (0.4-1.5); Oxygen Saturation ABG 90.2; PO2 ABG 63.0 mmHg (80.0-100.0); Potassium Level - ABG 4.8 mmol/L (3.5-5.0); Sodium Level - ABG 143.0 mmol/L (131-143)
[2025-07-31 13:10] LABS: ABG PCO2 90.5 mmHg (35-45)
[2025-07-31 13:13] LABS: Alanine Aminotransferase 12 U/L (0-41); Albumin Level 3.1 g/dL (3.5-5.2); Alkaline Phosphatase 55 U/L (40-130); Anion Gap 9.2 (5-19); Aspartate Amino Transferase 17 U/L (0-40); Blood Urea Nitrogen 44 mg/dL (8-23); Calcium 9.4 mg/dL (8.5-10.5); Chloride 98 mmol/L (98-107); Creatinine Clr Calc Pharmacy 75.2466; Globulin 3.1 g/dL (1.3-4.6); Glucose 202 mg/dL (65-115); NT Pro B Type Natriuretic Pept 3998 pg/mL (0-450); Osmolality Calculated 313 mOsm/kg (285-295); Potassium 5.2 mmol/L (3.5-5.1); Sodium 143 mmol/L (136-145); Total Protein 6.2 g/dL (6.6-8.7)
[2025-07-31 13:18] LABS: Carbon Dioxide 41 mmol/L (22-29)
[2025-07-31 14:03] LABS: ABG PH Result 7.32 (7.35-7.45); Alveolar-Arterial Oxygen Gradi 16.2 mmHg (5-10); Arterial Blood Gas Hematocrit 31.1 % (42-52); Blood Gas Allen Test Pos; Blood Gas Operator Identificat WALCI; Blood Gas Sample Site Radial, right; Blood Gas Sample Type Arterial; Carboxyhemoglobin 1.3 %THgb (0.4-20.1); Glucose Level-ABG 175.0 mg/dL (70-115); HCO3 ABG 43.4 mmol/L (22-26); Ionized Calcium Level - ABG 1.2 mmol/L (1.1-1.4); Methemoglobin < 0.0 % (0.4-1.5); Oxygen Saturation ABG 97.8; PO2 ABG 97.0 mmHg (80.0-100.0); PO2 FiO2 Ratio Arterial Blood 215; Potassium Level - ABG 4.9 mmol/L (3.5-5.0); Sodium Level - ABG 143.0 mmol/L (131-143)
[2025-07-31 14:04] LABS: ABG PCO2 84.2 mmHg (35-45)
[2025-07-31] MEDS: methylPREDNISolone sod succ 125 mg/2 mL INJ IVP (14:13)
[2025-07-31] MEDS: doxycycline 100 MG in sodium chloride 0.9% (plus) 100 ML IV (14:13)
--- NOTE | 2025-07-31 14:35 | CTR_ITS ---
PROCEDURE INFORMATION: Exam: CT Chest Without Contrast; Diagnostic Exam date and time: 07/31/2025 5:02 PM Age: 79 years old Clinical indication: Shortness of breath; Prior surgery; Surgery date: 6+ months; Surgery type: Pacemaker; Additional info: Copd/pna TECHNIQUE: Imaging protocol: Diagnostic computed tomography of the chest without contrast. Radiation optimization: All CT scans at this facility use at least one of these dose optimization techniques: automated exposure control; mA and/or kV adjustment per patient size (includes targeted exams where dose is matched to clinical indication); or iterative reconstruction. COMPARISON: CT angio chest PE protcl [id number] 04/14/2025 12:37 PM RADIATION DOSE METRICS: Total DLP (mGy-cm): 587.59 FINDINGS: Lungs: Emphysematous changes again seen predominantly in the upper lobes. The presence of pulmonary emphysema on CT is an independent risk factor for lung cancer. In the absence of the history of lung cancer, it is recommended that this patient with emphysema be evaluated for enrollment in a low-dose CT lung cancer screening program. Stable 2.6 mm nodular density posterior segment right upper lobe slice image 36 series number 4. Stable 4.3 mm nodule right lower lobe image 33 series 4. Large calcified granuloma again seen left lower lobe. Maybe slight equipment probable atelectatic changes posterior in the lower lobes. Pleural spaces: Stable pleural-parenchymal scarring apices. No pneumothorax. No pleural effusion. Heart: Heart size normal. Two lead AICD. Coronary artery calcification. Lymph nodes: Overall some progression of diffuse mediastinal adenopathy with size of the lymph nodes. Right pretracheal lymph node measures 1.39 x 3 cm in diameters on present study compared to the measurement 0.89 x 2.3 cm . No significant interval change in size of enlarged axillary lymph nodes atelectasis oral lymph nodes since previous study. on previous study. Vasculature: Mild atherosclerosis. No aortic aneurysm. Bones/joints: Degenerative changes and changes of DISH. Soft tissues: Bilateral maxillary and left lymph nodes discussed under lymph nodes. Upper abdomen: Status post cholecystectomy. Enlarged mesenteric lymph nodes measuring up to 1.15 x 2.16 cm in diameter. They appear larger than on previous study of 04/14. CT/CT chest wo con [id number] IMPRESSION: 1. Emphysematous changes again seen. Some slight improvement atelectatic changes lower lobes. Stable 2.6 mm nodule posterior right upper lobe and 4.3 mm nodular right lower lobe. 2. Progression of mediastinal and upper abdominal. No significant change bilateral axillary and left subpectoral adenopathy. 3. Two lead AICD. Coronary artery calcification.
[2025-07-31 15:17] LABS: Procalcitonin 0.21 ng/mL (0-0.5)
[2025-07-31 15:59] LABS: Estmated Average Glucose 166; Hemoglobin A1C 7.4 % (4.0-6.0)
[2025-07-31] MEDS: cefTRIAXone 1,000 mg SDV 1000 MG IVP (16:14)
[2025-07-31] MEDS: heparin 5,000 unit/mL INJ 1 mL 5000 UNIT SUBCUT (16:14)
[2025-07-31] MEDS: pantoprazole 40 mg SDV IVP (16:14)
--- NOTE | 2025-07-31 16:14 | PM.HP ---
Providers/Chief Complaint Admitting Physician: Kenny Carter MD Primary Care Provider: Ken Escamilla, CONTACT CENTER DIRECTOR-C Chief Complaint: SOB History of Present Illness Florentino Alfaro is a 79 year old male with past medical history of obstructive sleep apnea, COPD on home vent, type 2 diabetes mellitus, bladder cancer, CLL, post pacemaker implantation for complete heart block, C. difficile presents to the ER today from primary care's office because of worsening shortness of breath. Patient states he is not feeling too different from his usual but has been having more difficulty in breathing especially on exertion for last 3 to 4 days. Usually he spends his day in the recliner but recently he has been getting more short of breath. Denies any nausea, vomiting, headache, dizziness, diarrhea. Does complain of 1 episode of 101 fever with the last 3 days. In the ER he was found to have respiratory acidosis with hypercapnia for which he was started on BiPAP ventilation after which repeat ABG shows improvement in hypercapnia. On examination patient is awake and alert, on 4 L saturating 92%. Review of Systems General: Reports: 10 or more systems reviewed and unremarkable except in HPI and below Const: Denies: fever(s), chills, body aches, change in appetite, change in weight, malaise, night sweats, diaphoresis, change in sleep pattern, daytime sleepiness or snoring Eyes: Denies: change in vision, blurry vision, photophobia, eye discomfort or eye discharge ENMT: Denies: throat pain, enlarged tonsils, hoarseness, mouth pain, oral sores, dry mouth, tinnitus, nasal congestion or post nasal drip Card: Denies: chest pain, palpitations, irregular heart rhythm, edema, swelling of feet/ankles, lightheadedness, syncope, pre-syncope, dyspnea on exertion, orthopnea, leg pain with exertion or acrocyanosis Resp: Denies: dyspnea, productive cough, non-productive cough, wheezing, stridor, pain on inspiration, change in phlegm color, hemoptysis or chest congestion GI: Denies: abdominal pain, nausea, vomiting, hematemesis, coffee ground emesis, dysphagia, heartburn, diarrhea, constipation, bloating, GI cramping, change in bowel habits, pain on defecation, hematochezia or melena : Denies: flank pain, difficulty urinating, dysuria, urinary frequency, urinary urgency, urinary hesitancy, urinary dribbling, difficulty starting urination, change in urine stream, nocturia or hematuria Musc: Denies: neck pain, back pain, extremity pain, joint pain, joint swelling, joint redness, joint stiffness or limited range of motion Neuro: Denies: headache(s), numbness in extremities, weakness in extremities, sensory changes, lack of coordination, difficulty walking, frequent falls, dizziness, vertigo, confusion, Slurred speech present, difficulty communicating thoughts or seizure-like activity Psych: Denies: anxiety, depression, mood swings, panic attacks, hopelessness or irritability Endo: Denies: polyuria, polydipsia, tired all the time, cold intolerance, excessive sweating, flushing or heat intolerance Sharan/Lymph: Denies: easy bruising or easy bleeding All/Imm: Denies: tongue swelling, facial swelling or acute wheezing Medications/Allergies Home Medications ?Medication ?Instructions ?Recorded ?Confirmed ?Last Taken ?Type Disposable nebulizer circuit #1 ea 03/02/22 07/31/25 Unknown Rx nebulizers #1 ea 03/02/22 07/31/25 Unknown Rx ascorbate calcium (vitamin C) 500 1,000 mg PO DAILY 04/09/22 07/31/25 07/30/25 History mg tablet cholecalciferol (vitamin D3) 10 10 mcg PO DAILY 04/09/22 07/31/25 07/30/25 History mcg (400 unit) capsule zinc acetate 50 mg (zinc) capsule 50 mg PO DAILY 03/09/23 07/31/25 07/30/25 History pen needle, diabetic 33 gauge x #100 ea 08/29/24 07/31/25 Unknown Rx vitamin B comp and C no.3 15 mg-10 1 cap PO DAILY #180 caps 09/18/24 07/31/25 07/30/25 Rx mg-50 mg-5 mg-300 mg capsule (B Complex Plus Vitamin C) magnesium L-threonate 48 mg 48 mg PO DAILY #90 caps 10/31/24 07/31/25 07/30/25 Rx magnesium (667 mg) capsule blood-glucose meter (Accu-Chek #1 ea 11/15/24 07/31/25 Unknown Rx Guide Glucose Meter) Oxygen concentrator NC up to 5L #1 ea 03/26/25 09/30/25 Unknown Rx blood sugar diagnostic (Accu-Chek #100 ea 02/08/25 07/31/25 Unknown Rx Guide test strips) hydrocodone 5 mg-acetaminophen 325 1 tab PO Q6H PRN pain #10 tabs 03/20/25 07/31/25 Unknown Rx mg tablet promethazine 25 mg tablet 25 mg PO Q6H PRN nausea and 03/20/25 07/31/25 Unknown Rx vomiting #20 tabs insulin aspart U-100 100 unit/mL See Rx Instructions .Route 03/29/25 07/31/25 07/30/25 Rx (3 mL) subcutaneous pen (Novolog .COMPLEX #15 mL FlexPen U-100 Insulin aspart) blood-glucose sensor (Dexcom G7 #12 ea 04/09/25 07/31/25 Unknown Rx Sensor device) blood-glucose,geothermal operations engineer,cont #1 ea 04/09/25 07/31/25 Unknown Rx (Dexcom G7 House Mover Supervisor) furosemide 40 mg tablet See Rx Instructions .Route .COMPLEX 04/13/25 07/31/25 Unknown History potassium chloride 10 mEq See Rx Instructions .Route .COMPLEX 04/13/25 07/31/25 Unknown History tablet,extended release prednisone 20 mg tablet 20 mg PO DAILY #3 tabs 04/16/25 07/31/25 Unknown Rx Lactobacillus rhamnosus GG 20 See Rx Instructions PO .2 times 04/24/25 07/31/25 07/30/25 Rx billion cell capsule (Probiotic day #60 caps [facility]) albuterol sulfate 90 mcg/actuation 2 puff inhalation QID PRN 06/20/25 07/31/25 Unknown Rx aerosol inhaler Shortness Of Breath #6.7 grams arformoterol 15 mcg/2 mL solution 2 ml inhalation Q12H #120 mL 06/20/25 07/31/25 07/30/25 Rx for nebulization (Brovana) budesonide 0.5 mg/2 mL suspension 0.5 mg (2 mL) inhalation QAM #120 06/20/25 07/31/25 07/30/25 Rx for nebulization mL insulin glargine 100 unit/mL (3 50 unit (0.5 mL) SUBCUT QAM #30 mL 06/20/25 07/31/25 07/30/25 Rx mL) subcutaneous pen (Lantus Solostar U-100 Insulin) levothyroxine 25 mcg tablet 25 mcg PO DAILY #30 tabs 06/20/25 07/31/25 07/30/25 Rx (Levoxyl) tamsulosin 0.4 mg capsule 0.4 mg PO BID #180 caps 06/20/25 07/31/25 07/30/25 Rx Allergies Allergy/AdvReac Type Severity Reaction Status Date / Time amoxicillin Allergy ADR-Diarrhe Verified 07/31/25 10:48 a PFSH Acute PFSH: Medical History (Updated 07/31/25 @ 17:04 by Kenny Carter MD) C. 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 History of local excision of skin lesion H/O transurethral destruction of bladder lesion History of condyloma acuminatum removal surgical December 2014 History of arthroplasty of left shoulder tendon 1969's Hx of vasectomy H/O hernia repair umbilical and bilateral inguinal History of cholecystectomy Family History Mother , at age 73 Diabetes Lung disease Father , at age 75 Cancer blood Lung disease Social History Smoking and tobacco/nicotine status: former use of tobacco/nicotine Quit status (tobacco/nicotine): has quit using Year quit tobacco: 2002 Former quit date comment: smoked 47 years Second hand smoke exposure: No Alcohol intake: current Alcohol intake frequency: holidays/special occasions only Substance/Drug Use: never Adopted: No Caregiver/support person: No Lives independently: Yes Household members: spouse Housing: House Marital status: Number of children: 5 Number of grandchildren: 7 service: Yes branch: [employer] Current occupational status: disabled Pets and animals: Yes Pets & animals: cat(s) and dog(s) Do you think of yourself as: Straight/Heterosexual Current gender identity: Male Special luis needs: No Vitals/I&O/Wt Last Vital Signs Temp 98.6 F 07/31/25 11:56 Pulse 61 07/31/25 14:45 Resp 16 07/31/25 14:45 BP 110/64 07/31/25 14:45 Pulse Ox 92 07/31/25 14:45 O2 Del Method BiPAP 07/31/25 15:20 O2 Flow Rate 4 07/31/25 11:56 FiO2 45 07/31/25 13:34 07/31/25 07/31/25 07/31/25 06:59 14:59 22:59 Intake Total 100 / 100 Balance 100 / 100 Weight last 48 hrs Weight 102.058 kg Physical Exam Narrative: General: No acute distress, AO x3 HEENT: PERRLA, pupils bilaterally equal and reactive Chest: Bilateral bronchial breath sounds all over lung almanza with occasional rhonchi CVS: S1-S2 regular, no murmurs, no tachycardia, no gallops, no rubs Abdomen: Soft, nontender, no organomegaly, bowel sounds present Neuro: No focal deficits, no facial deformity, AO x3, power 5/5 in all limbs Data 07/31/25 12:26 07/31/25 12:26 Micro: Microbiology 07/31/25 12:29 Blood Culture - Preliminary Blood SPECIMEN COLLECTED 07/31/25 12:26 Blood Culture - Preliminary Blood SPECIMEN COLLECTED A&P Assessment and plan 1. Acute on chronic respiratory failure with hypoxia and hypercapnia: Most likely in setting of COPD exacerbation. Ox supplementation keeping saturation over 88%. BiPAP nightly. Repeat ABG in AM. DuoNeb every 6 hour, Pulmicort twice daily. Solu-Medrol 40 mg every 6 hour. Check sputum culture, MRSA swab, respiratory viral panel. Empirically start on IV ceftriaxone 1 g daily and oral azithromycin. Will discontinue antibiotics within 24 hours if patient shows improvement. CT chest without contrast for further evaluation to rule out pneumonia. 2. COPD with acute exacerbation: 3. Dependence on supplemental oxygen: 4. Essential hypertension: Goal blood pressure less than 140/90 [place]. Continue with home antihypertensives. 5. Type 2 diabetes mellitus with hyperglycemia, with long-term current use of insulin: Check A1c. Continue the home dose of Lantus 50 units nightly along with sliding scale. Expect blood sugars to be higher for next few days as patient is on IV steroids. 6. Hypothyroid: Plan: Full code Cardiac carb consistent diet Protonix for PUD prophylaxis Heparin 5000 every 12 hourly for DVT prophylaxis PDMP PDMP Reviewed: Not Reviewed Attestations Medical Necessity Statement*: Admission for more than 2 midnights for management of acute on chronic hypoxic and hypercapnic respiratory failure, respiratory acidosis in setting of COPD exacerbation Coding Level of Care Code Acute Code for Chg Fwd Diagnoses Acute on chronic respiratory failure with hypoxia and hypercapnia J96.21; J96.22 COPD with acute exacerbation J44.1 Dependence on supplemental oxygen Z99.81 Essential hypertension I10 Type 2 diabetes mellitus with hyperglycemia, with long-term current use of insulin E11.65; Z79.4 Diabetes mellitus type: type 2 Hypothyroid E03.9
[2025-07-31 16:17] LABS: Iron 13 ug/dL (59-158); Thyroid Stimulating Hormone 1.89 uIU/mL (0.27-4.20); Total Iron Binding Capacity 189 mcg/dl; Unsaturated Iron Binding 176 ug/dL (112-347); Vitamin B12 355 pg/mL (232-1245)
[2025-07-31 16:35] LABS: Lactic Sepsis W/Reflex 1.1 mmol/L (0.5-2.2)
[2025-07-31 19:04] LABS: Coronavirus 229E,HKU1,NL63,OC4 Not Detected (NOT DETECT); Parainfluenza Virus Type 1 Not Detected (NOT DETECT); Parainfluenza Virus Type 2 Not Detected (NOT DETECT); Parainfluenza Virus Type 3 Not Detected (NOT DETECT); Parainfluenza Virus Type 4 Not Detected (NOT DETECT); SARS-COV-2 Not Detected (NOT DETECT)
[2025-07-31 19:53] LABS: MRSA PCR OZH (swab) MRSA Detected (Negative)
--- NOTE | 2025-07-31 19:53 | PC.NURSE ---
Nurse notified of low b/p.
[2025-07-31] MEDS: methylPREDNISolone sod succ 40 mg/mL INJ IVP (22:13)
[2025-08-01] VITALS (17 sets, daily range): BP systolic 114–144; BP diastolic 58–90; PULSE 60–77; RESP 16–64; TEMP 36–36.5; O2SAT 90–97; BMI 30.7
[2025-08-01 03:40] LABS: Bacillus cereus group Not Detected (NOT DETECT); Bacillus subtillis group Not Detected (NOT DETECT); Corynebacterium Not Detected (NOT DETECT); Cutibacterium acnes (P.acnes) Not Detected (NOT DETECT); Enterococcus faecalis Not Detected (NOT DETECT); Enterococcus faecium Not Detected (NOT DETECT); Listeria Not Detected (NOT DETECT); Micrococcus Not Detected (NOT DETECT); Pan Candida Not Detected (NOT DETECT); Pan Gram-Negative Not Detected (NOT DETECT); Staphylococcus epidermidis Not Detected (NOT DETECT); Staphylococcus lugdunensis Not Detected (NOT DETECT); Staphylococcus species Not Detected (NOT DETECT); Streptococcus anginosus group Not Detected (NOT DETECT); Streptococcus pyogenes Not Detected (NOT DETECT); Streptococcus species Not Detected (NOT DETECT)
[2025-08-01 04:13] LABS: Hematocrit 38.6 % (37-53); Hemoglobin 11.40 g/dL (11.27-16.99); Mean Corpuscular HGB Conc 29.5 g/dL (30-55); Mean Corpuscular Hemoglobin 28.9 pg (27-33); Mean Corpuscular Volume 97.7 fl (82-101); Nucleated Red Blood Cells % 0 %; Platelet Count 172 10^3/cmm (157-399); Red Blood Count 3.95 10^6/uL (3.85-5.65); White Blood Count 4.90 10^3/uL (3.29-11.43)
[2025-08-01 04:41] LABS: Cholesterol 144 mg/dL (0-200); HDL Cholesterol 31 mg/dL (60-100); Procalcitonin 0.16 ng/mL (0-0.5); Triglycerides 101 mg/dL (0-150)
[2025-08-01 04:46] LABS: Alanine Aminotransferase 13 U/L (0-41); Albumin Level 3.1 g/dL (3.5-5.2); Alkaline Phosphatase 58 U/L (40-130); Anion Gap 10.8 (5-19); Aspartate Amino Transferase 14 U/L (0-40); Blood Urea Nitrogen 41 mg/dL (8-23); Calcium 9.2 mg/dL (8.5-10.5); Carbon Dioxide 39 mmol/L (22-29); Chloride 99 mmol/L (98-107); Creatinine Clr Calc Pharmacy 75.2466; Globulin 3.2 g/dL (1.3-4.6); Glucose 403 mg/dL (65-115); Magnesium 2.0 mg/dL (1.7-2.3); Osmolality Calculated 323 mOsm/kg (285-295); Potassium 5.8 mmol/L (3.5-5.1); Sodium 143 mmol/L (136-145); Total Protein 6.3 g/dL (6.6-8.7)
[2025-08-01] MEDS: methylPREDNISolone sod succ 40 mg/mL INJ IVP ×4 (04:48→21:34)
[2025-08-01] MEDS: heparin 5,000 unit/mL INJ 1 mL 5000 UNIT SUBCUT ×2 (04:48→16:08)
[2025-08-01] MEDS: insulin glargine 100 units/1 mL 50 UNIT SUBCUT (06:13)
[2025-08-01] MEDS: iron sucrose 200 MG in sodium chloride 0.9% (100 ml) 100 ML 220 MG IV (08:28)
--- NOTE | 2025-08-01 09:23 | PC.CHAP ---
Pastoral Care Encounter/Spiritual Assessment Type of Contact [] Declined endo tech visit [] Patient/Family/Request visit [] Outpatient visit [] Follow-up visit [] Physician referral [] Code/Alert [x] Routine visit [] Staff referral [] Actively dying [] Patient sleeping [] Family support [] [] Out of room [] Palliative care [] [] Receiving care in room [] Pre-surgical visit [] Trauma [] Long length of stay [] ICU visit [] Other: Relational/Emotional Strength [x] Patient feels connected with others/family/visitors/staff [] Distress [] Loneliness/isolation [] Abandonment Spirituality of Patient [x] Person of Latonia [] Attends Adventist of their [place] [x] Believes in Prayer [] Reads Bible or Zoroastrianism materials [] There are Spiritual issues to be addressed Sap Security Consultant Interventions [x] Prayer [x] Active listening [] Non-anxious presence [x] Spiritual/emotional support [] Crisis/trauma care [] Spiritual counseling [] Bereavement support [] Provided bereavement packet [] Provided Bible/devotional materials [] Provided toy/stuffed animal, coloring book to patient or family member [] Provided Communion [] Anointing/[place] [] Salvation [x] Completed spiritual assessment [] Other: Impact on Illness or Injury [] Angry [] Fearful [] Anxious [] Often cries [] Exhaustion [] Unable to work [] Unable to attend jew [] Unable to walk/stand [] Unable to read [] Unable to drive [] Unable to eat/drink [] Unable to sleep [] Unable to be with family [] Patient intubated [] Other: Summary Time spent with patient 5 min
[2025-08-01] MEDS: FUROsemide 10 mg/mL SDV 2mL 20 MG IVP (11:40)
--- NOTE | 2025-08-01 11:56 | P.DS_ITS ---
Discharge Providers Date of Admission: 07/31/25 14:50 Date of Discharge: August 02, 2025 Attending Provider at Admission: Kenny Carter MD Attending Provider at Discharge: Christopher Zhou MD Primary Care Provider: MELCHOR Lange Diagnoses at Discharge Discharge Diagnosis 1. Acute on chronic respiratory failure with hypoxia and hypercapnia: Details from hospital stay: Patient once compliant with using BiPAP corrected his pH to 7.49 with a pCO2 of 58.8. I discussed with him that long-term use of his BiPAP will improve his blood gas further and that he should wear his BiPAP whenever sleeping whether that be a nap during the day or at night. During the day he should maintain nasal cannula O2 only for saturation of 89 to 90%. This was written out and directions for his 2. COPD with acute exacerbation: Details from hospital stay: Stable discontinue steroids. Blood sugars were elevated on steroids and he has no wheezing 3. Dependence on supplemental oxygen: Details from hospital stay: Maintain oxygen saturation by oximeter with nasal cannula O2 only to 89 to 90%. On BiPAP use prescribed settings 4. Essential hypertension: Details from hospital stay: Stable 5. Type 2 diabetes mellitus with hyperglycemia, with long-term current use of insulin: Details from hospital stay: Blood sugars as high as 403 here steroids were stopped blood sugars today 300 6. Hypothyroid: Details from hospital stay: TSH 1.89 7. Iron deficiency anemia: Details from hospital stay: Patient with bowel habit change with narrow broken stools up to 7 times a day suspicious for colon cancer in the setting of iron deficiency anemia. He is encouraged to follow-up with Dr. Adler and referral was made. Patient is to have EGD and colonoscopy 8. Mediastinal adenopathy: Details from hospital stay: Patient has history of lung nodules and now also mediastinal lymphadenopathy but also with a history of CLL. Follow-up with Dr. Juanita Velazquez MD pulmonology 9. Chronic lymphocytic leukemia not having achieved remission: Details from hospital stay: Follow-up with Ken Escamilla Reason for Visit Reason for Visit: SOB Brief History: Florentino Alfaro is a 79 year old male with past medical history of obstructive sleep apnea, COPD on home vent, type 2 diabetes mellitus, bladder cancer, CLL, post pacemaker implantation for complete heart block, C. difficile presents to the ER today from primary care's office because of worsening shortness of breath. Patient states he is not feeling too different from his usual but has been having more difficulty in breathing especially on exertion for last 3 to 4 days. Usually he spends his day in the recliner but recently he has been getting more short of breath. Denies any nausea, vomiting, headache, dizziness, diarrhea. Does complain of 1 episode of 101 fever with the last 3 days. In the ER he was found to have respiratory acidosis with hypercapnia for which he was started on BiPAP ventilation after which repeat ABG shows improvement in hypercapnia. On examination patient is awake and alert, on 4 L saturating 92%. Hospital Course Hospital Course 79-year-old male admitted with hypercapnic respiratory failure use BiPAP briefly but then refused it night of admission. Yesterday morning, when I discussed this with him today he tells me that he is not wearing it because it cost 1700 hrs. to use it. Counseled him that the charge for being in the hospital is the largest part of the cost and that he would not get better without using the machine. He states he is not going to w ear it because I am talking about health and he is talking about money. Patient states that he has a machine at home with 2 screens and he has been using it but with a nasal prong mask and his mouth falls open because he does not wear his chinstrap either. He tells me that he was told to wear a fullface mask but he insisted on wearing the nasal prong mask and that was his mistake and he is going to get a fullface mask. Patient told staff members that his is but later was determined that he was just being difficult. He tells me that his is Lolita and lives at home and knows his medications better than he does. I wrote for him to have furosemide IV 20 mg because of crackles in the base of lung but he refused that stating to the staff that it was a gimmick to charge him more money. We were able to convince him to take the furosemide and also get a CTA for elevated D-dimer. came in and convinced him to wear the BiPAP and that his insurance was covering his bill. At that point the patient became cooperative and after wearing BiPAP overnight this morning ABG showed pH 7.49 pCO2 58.8 pO2 114. Patient also has low iron and he received two 200 mg iron sucrose infusions. I discussed with him his mediastinal adenopathy and recommend that he follow-up with Dr. Velazquez. He also has iron deficiency anemia with bowel habit change with narrowest broken stools so should follow-up with Dr. Adler for colonoscopy Physical Exam Narrative: General Well-developed well-nourished male cantankerous argumentative CV irregular rate is controlled 4 of his 6 systolic ejection murmur best heard at left sternal border Lungs no crackles but diminished breath sound in the left base he has prolonged expiratory phase without wheezes Legs no edema Discharge Data Studies Completed and Pending Completed Studies During Hospitalization Category Date Time Status CT chest wo con [id number] Stat Cat Scan 07/31/25 14:35 Completed XR chest 1V portable [id number] Stat Exams 07/31/25 12:00 Completed Pending at discharge Category Date Time Status Bacterial Antigen Stat Lab 07/31/25 14:35 Ordered Blood Culture Stat Lab 07/31/25 12:29 Results Complete Blood Count w/Auto AM LABS Lab 08/02/25 04:00 Ordered Complete Blood Count w/Auto AM LABS Lab 08/03/25 04:00 Ordered Comprehensive Metabolic Panel AM LABS Lab 08/02/25 04:00 Ordered Comprehensive Metabolic Panel AM LABS Lab 08/03/25 04:00 Ordered Magnesium AM LABS Lab 08/02/25 04:00 Ordered Magnesium AM LABS Lab 08/03/25 04:00 Ordered Phosphorus AM LABS Lab 08/02/25 04:00 Ordered Phosphorus AM LABS Lab 08/03/25 04:00 Ordered Sputum Culture and Gram Stain Stat Lab 07/31/25 14:35 Uncollected Urinalysis Routine Lab 07/31/25 15:29 Ordered Radiology Impressions Chest X-Ray 07/31/25 12:00 IMPRESSION: Stable abnormal chest without acute abnormality. Chest CT 07/31/25 14:35 IMPRESSION: 1. Emphysematous changes again seen. Some slight improvement atelectatic changes lower lobes. Stable 2.6 mm nodule posterior right upper lobe and 4.3 mm nodular right lower lobe. 2. Progression of mediastinal and upper abdominal. No significant change bilateral axillary and left subpectoral adenopathy. 3. Two lead AICD. Coronary artery calcification. Laboratory Results WBC 4.90 10^3/uL (3.29-11.43) 08/01/25 03:42 RBC 3.95 10^6/uL (3.85-5.65) 08/01/25 03:42 Hgb 11.40 g/dL (11.27-16.99) 08/01/25 03:42 Hct 38.6 % (37-53) 08/01/25 03:42 MCV 97.7 fl (82-101) 08/01/25 03:42 MCH 28.9 pg (27-33) 08/01/25 03:42 MCHC 29.5 g/dL (30-55) L 08/01/25 03:42 RDW 14.3 % (12.1-15.1) 08/01/25 03:42 Plt Count 172 10^3/cmm (157-399) 08/01/25 03:42 MPV 10.5 fL (7.4-10.4) H 08/01/25 03:42 Neut % (Auto) 75.0 % 08/01/25 03:42 Lymph % (Auto) 21.6 % 08/01/25 03:42 Larimer % (Auto) 2.2 % 08/01/25 03:42 Eos % (Auto) 0.0 % 08/01/25 03:42 Baso % (Auto) 0.2 % 08/01/25 03:42 Neut # (Auto) 3.67 10^3/uL (1.8-7.7) 08/01/25 03:42 Lymph # (Auto) 1.1 10^3/uL (0.8-4.8) 08/01/25 03:42 Larimer # (Auto) 0.1 10^3/uL (0.2-0.9) L 08/01/25 03:42 Eos # (Auto) 0.0 10^3/uL (0.0-0.8) 08/01/25 03:42 Baso # (Auto) 0.0 10^3/uL (0.0-0.1) 08/01/25 03:42 Nucleated RBC % (auto) 0 % 08/01/25 03:42 Nucleated RBCs # 0.0 /100WBC 08/01/25 03:42 D-Dimer 5.14 ug/mLFEU (0-0.59) H 07/31/25 12:26 Specimen Type Arterial 07/31/25 13:52 Sample Site Radial, right 07/31/25 13:52 ABG pH 7.32 (7.35-7.45) L 07/31/25 13:52 ABG pCO2 84.2 mmHg (35-45) H* 07/31/25 13:52 ABG pO2 97.0 mmHg (80.0-100.0) 07/31/25 13:52 ABG PO2/FiO2 Ratio 215 07/31/25 13:52 ABG HCO3 43.4 mmol/L (22-26) H 07/31/25 13:52 ABG O2 Saturation 97.8 07/31/25 13:52 ABG Base Excess 14.5 mmol/L (-2.0-2.0) H 07/31/25 13:52 Remberto Test Pos 07/31/25 13:52 A-a O2 Gradient 16.2 mmHg (5-10) H 07/31/25 13:52 Hematocrit 31.1 % (42-52) L 07/31/25 13:52 Hgb O2 Saturation 96.7 % (95-100) 07/31/25 13:52 Carboxyhemoglobin 1.3 %THgb (0.4-20.1) 07/31/25 13:52 Methemoglobin < 0.0 % (0.4-1.5) L 07/31/25 13:52 Total Hemoglobin 10.1 g/dL (14-18) L 07/31/25 13:52 Sodium 143.0 mmol/L (131-143) 07/31/25 13:52 Potassium 4.9 mmol/L (3.5-5.0) 07/31/25 13:52 Glucose 175.0 mg/dL (70-115) H 07/31/25 13:52 Ionized Calcium 1.2 mmol/L (1.1-1.4) 07/31/25 13:52 O2 Delivery Device Bipap 07/31/25 13:52 O2 Liters/Min 3.5 % 07/31/25 12:58 FiO2 45.0 % 07/31/25 13:52 Heavy Equipment Engine Mechanic ID [place] 07/31/25 13:52 Sodium 143 mmol/L (136-145) 08/01/25 03:42 Potassium 5.8 mmol/L (3.5-5.1) H 08/01/25 03:42 Chloride 99 mmol/L (98-107) 08/01/25 03:42 Carbon Dioxide 39 mmol/L (22-29) H 08/01/25 03:42 Anion Gap 10.8 (5-19) 08/01/25 03:42 BUN 41 mg/dL (8-23) H 08/01/25 03:42 Creatinine 1.0 mg/dL (0.7-1.2) 08/01/25 03:42 GFR Calculation Not Reportable 08/01/25 03:42 Glucose 403 mg/dL (65-115) H 08/01/25 03:42 POC Glucose 407 mg/dL (70-110) H 08/01/25 11:24 Estimat Average Glucose 166 07/31/25 12:26 Hemoglobin A1c 7.4 % (4.0-6.0) H 07/31/25 12:26 Calculated Osmolality 323 mOsm/kg (285-295) H 08/01/25 03:42 Lactic Acid 1.1 mmol/L (0.5-2.2) 07/31/25 15:55 Calcium 9.2 mg/dL (8.5-10.5) 08/01/25 03:42 Phosphorus 3.9 mg/dL (2.5-4.5) 08/01/25 03:42 Magnesium 2.0 mg/dL (1.7-2.3) 08/01/25 03:42 Iron 13 ug/dL (59-158) L 07/31/25 12:26 TIBC 189 mcg/dl 07/31/25 12:26 % Saturation 6.8 % (20-50) L 07/31/25 12:26 Unsat Iron Binding 176 ug/dL (112-347) 07/31/25 12:26 Total Bilirubin 0.2 mg/dL (0.15-1.2) 08/01/25 03:42 AST 14 U/L (0-40) 08/01/25 03:42 ALT 13 U/L (0-41) 08/01/25 03:42 Alkaline Phosphatase 58 U/L (40-130) 08/01/25 03:42 C-Reactive Protein 136.6 mg/L (0.0-4.9) H 07/31/25 12:26 NT-Pro-B Natriuret Pep 3998 pg/mL (0-450) H 07/31/25 12:26 NT-Pro-B Natriuret Pep Cancelled 07/31/25 12:26 Total Protein 6.3 g/dL (6.6-8.7) L 08/01/25 03:42 Albumin 3.1 g/dL (3.5-5.2) L 08/01/25 03:42 Globulin 3.2 g/dL (1.3-4.6) 08/01/25 03:42 Triglycerides 101 mg/dL (0-150) 08/01/25 03:42 Cholesterol 144 mg/dL (0-200) 08/01/25 03:42 LDL Cholesterol, Calc 93 mg/dL (50-129) 08/01/25 03:42 HDL Cholesterol 31 mg/dL (60-100) L 08/01/25 03:42 LDL/HDL Ratio 3.00 RATIO (0.00-3.22) 08/01/25 03:42 Cholesterol/HDL Ratio 4.65 mg/dL (1.0-5.00) 08/01/25 03:42 Vitamin B12 355 pg/mL (232-1245) 07/31/25 12:26 Folate > 20.0 ng/mL (4.5-32.2) 08/01/25 03:42 Procalcitonin 0.16 ng/mL (0-0.5) 08/01/25 03:42 TSH 1.89 uIU/mL (0.27-4.20) 07/31/25 12:26 Nasal MRSA (PCR) Mrsa detected (Negative) A 07/31/25 16:12 Adenovirus (PCR) Not detected (NOT DETECT) 07/31/25 16:12 C. pneumoniae DNA (PCR) Not detected (NOT DETECT) 07/31/25 16:12 Coronavirus 229E (PCR) Not detected (NOT DETECT) 07/31/25 16:12 Human Metapneumovir PCR Not detected (NOT DETECT) 07/31/25 16:12 Influenza A (H1) PCR Not detected (NOT DETECT) 07/31/25 16:12 Influ A (H1/09) PCR Not detected (NOT DETECT) 07/31/25 16:12 Influenza A (H3) PCR Not detected (NOT DETECT) 07/31/25 16:12 Influenza Type A (PCR) Not detected (NOT DETECT) 07/31/25 16:12 Influenza Type B (PCR) Not detected (NOT DETECT) 07/31/25 16:12 M. pneumoniae (PCR) Not detected (NOT DETECT) 07/31/25 16:12 Parainfluenza 1 (PCR) Not detected (NOT DETECT) 07/31/25 16:12 Parainfluenza 2 (PCR) Not detected (NOT DETECT) 07/31/25 16:12 Parainfluenza 3 (PCR) Not detected (NOT DETECT) 07/31/25 16:12 Parainfluenza 4 (PCR) Not detected (NOT DETECT) 07/31/25 16:12 RSV Type A (PCR) Not detected (NOT DETECT) 07/31/25 16:12 RSV Type B (PCR) Not detected (NOT DETECT) 07/31/25 16:12 Entero/Rhino (PCR) Not detected (NOT DETECT) 07/31/25 16:12 SARS-CoV-2 (PCR) Not detected (NOT DETECT) 07/31/25 16:12 Imaging Echo: Radiologist's impression: From 04/14/2025 Normal LV size ejection fraction 57%.abnormal septal motion consistent with conduction abnormality. Moderate left ventricular hypertrophy. Grade I/IV diastolic dysfunction (abnormal relaxation filling pattern), normal to mildly elevated filling pressures. Mild mitral valve regurgitation. Features of aortic valve sclerosis There is no pericardial effusion. There are no intracardiac masses. Compared to the study from 12/06/2024 there is some improvement in the LV ejection fraction CTA Chest: Radiologist's impression: 1. No pulmonary embolism. 2. Dependent changes and areas of atelectasis in the lower lung almanza. No pneumonia. 3. Mild LEFT heart enlargement. 4. Lymphadenopathy in the chest and upper abdomen is reidentified. Lymph node burden at the RIGHT hilum, AP window, RIGHT paratracheal and in the upper abdomen has progressed. The remaining lymph nodes have not significantly changed in the axilla. Progression is noted since 10/29/2024. 5. Splenomegaly. Spleen is incompletely included on the exam. Vitals Last Vital Signs Temp 97.7 F 08/01/25 08:00 Pulse 60 08/01/25 09:10 Resp 20 H 08/01/25 08:59 BP 119/58 08/01/25 08:00 Pulse Ox 95 08/01/25 08:59 O2 Del Method Nasal Cannula 08/01/25 08:59 O2 Flow Rate 4 08/01/25 08:59 FiO2 45 07/31/25 13:34 Discharge Plan Discharge Patient Disposition: Home Condition: Stable Prescriptions: Continued ascorbate calcium (vitamin C) 500 mg tablet 1,000 mg PO DAILY cholecalciferol (vitamin D3) 10 mcg (400 unit) capsule 10 mcg PO DAILY B Complex Plus Vitamin C [id number] mg capsule 1 cap PO DAILY Qty: 180 1RF Rx Instructions: give with food (meal/snack) (DME) Oxygen concentrator NC up to 5L See Rx Instructions .ROUTE .MEDSUPPLY Qty: 1 0RF Rx Instructions: Use 2L NC 24 hours for 99 months (DME) Dexcom G7 Sensor Device See Rx Instructions .ROUTE .MEDSUPPLY Qty: 12 3RF Rx Instructions: change every 10 days ([facility] [place] Dexcom G7 Filling Station Equipment Mechanic Misc See Rx Instructions .ROUTE .MEDSUPPLY Qty: 1 0RF Rx Instructions: As directed Probiotic Digestive Care 20 billion cell capsule See Rx Instructions PO .2 times day Qty: 60 5RF Rx Instructions: Take 1 capsule (20 billion cells) by mouth twice daily. zinc acetate 50 mg (zinc) capsule 50 mg PO DAILY (DME) Accu-Chek Guide test strips Strip See Rx Instructions .Route Qty: 100 5RF Rx Instructions: check 3 times day as needed albuterol sulfate 90 mcg/actuation HFA aerosol inhaler 2 puff INHALATION QID PRN (Reason: Shortness Of Breath) Qty: 6.7 2RF arformoterol [Brovana] 15 mcg/2 mL solution for nebulization 2 ml inhalation Q12H Qty: 120 2RF budesonide 0.5 mg/2 mL suspension for nebulization 0.5 mg inhalation QAM Qty: 120 2RF Rx Instructions: mixes with brovana insulin glargine [Lantus Solostar U-100 Insulin] 100 unit/mL (3 mL) insulin pen 50 unit SUBCUT QAM Qty: 30 2RF levothyroxine [Levoxyl] 25 mcg tablet 25 mcg PO DAILY Qty: 30 2RF tamsulosin 0.4 mg capsule 0.4 mg PO BID Qty: 180 1RF (DME) Disposable nebulizer circuit See Rx Instructions .Route .MEDSUPPLY Qty: 1 0RF Rx Instructions: As directed (DME) nebulizers Mis See Rx Instructions .ROUTE .MEDSUPPLY Qty: 1 0RF Rx Instructions: As directed (DME) pen needle, diabetic 33 gauge x 5/32 needle See Rx Instructions .ROUTE .MEDSUPPLY Qty: 100 5RF Rx Instructions: 1 times day (DME) blood-glucose meter [Accu-Chek Guide Glucose Meter[place] [facility] [place]ructions .Route Qty: 1 0RF Rx Instructions: As directed hydrocodone-acetaminophen 5-325 mg tablet 1 tab PO Q6H PRN (Reason: pain) Qty: 10 0RF promethazine 25 mg tablet 25 mg PO Q6H PRN (Reason: nausea and vomiting) Qty: 20 0RF furosemide 40 mg tablet See Rx Instructions .ROUTE .COMPLEX Rx Instructions: TAKE ONE TABLET BY MOUTH DAILY NEEDED FOR weight gain of more THAN THREE pounds in a DAY. Take with potassium. prednisone 20 mg tablet 20 mg PO DAILY Qty: 3 0RF magnesium L-threonate 48 mg magnesium (667 mg) capsule 48 mg PO DAILY Qty: 90 0RF insulin aspart U-100 [Novolog FlexPen U-100 Insulin] 100 unit/mL (3 mL) insulin pen See Rx Instructions .ROUTE .COMPLEX Qty: 15 0RF Rx Instructions: Inject no more than 6 units by subcutaneous injection 3 times daily, after meals, based on low-dose insulin sliding scale. Discontinued potassium chloride 10 mEq tablet extended release See Rx Instructions .ROUTE .COMPLEX Rx Instructions: TAKE ONE TABLET BY MOUTH DAILY NEEDED FOR weight gain of more THAN THREE pounds in a DAY. Take with furosemide. Referrals: Juanita Velazquez MD [Physician, Pulmonology] - 10/03/25 11:05 am Referral Note: lung nodules mediastinal adenopathy and COPD on BIPAP this appt will move up as soon as insurance clears the pt Problems: Acute on chronic respiratory failure with hypoxia and hypercapnia Mj Adler MD [Physician, General Surgery] - 08/21/25 10:00 am Referral Note: iron deficiency anemia and small stools Ken Escamilla, LOCKSMITH-C [Primary Care Provider, Family Practice] - 08/07/25 2:00 pm Discharge Diet: Cardiac and Diabetic Discharge Activity: Increase activity as tolerated Patient Instructions: Type 2 Diabetes, Sleep Apnea (GEN), Hypothyroidism (DC), Hypertension (DC), BiPAP (GEN), COPD Stoplight, Opioid Safety, Patient Portal & Carlos Manuel Instructions, Iron Deficiency Anemia (GEN) Activity Restrictions/Additional Instructions: Wear your BiPAP at home using a fullface mask to prevent loss of air through the mouth Wear your BiPAP 2 hours twice a day, all night every night and for any naps through the day If you do not wear your BiPAP then years carbon oxide will build up because you are unable to blow it off on your own due to history of emphysema. In that case you will feel short of breath, confused and end up in the hospital again. When using nasal cannula O2 use only the liter flow that keeps your oxygen saturation at 89 to 90%. Do not sleep with just nasal cannula O2 because you will retain carbon oxide Do not turn your oxygen level up to 92% or above because that will cause you to retain carbon oxide as well Please take your medications as prescribed Return for worsening shortness of breath or confusion or chest pain Because your potassium was high we have stopped the potassium replacement You have lung nodules and mediastinal lymph nodes that are enlarged which I think you should follow-up with Dr. Velazquez the hide examiner You have iron deficiency anemia and change in bowel habit with the skinny broken poop which could represent a colon cancer and you should follow-up with Dr. Adler for EGD and colonoscopy for iron deficiency anemia Because you have a history of bladder cancer I recommend that you follow-up with urology and Dr. Garcia and Dr. Gongora are the urologist at [facility]. I am not sure which one you saw before. Weigh yourself on arrival at home and that is your dry weight. If you are gaining more than 3 pounds from your home arrival dry weight on your scale take of furosemide. Discharge Attestations Time Spent in Discharge Care*: greater than 30 min Time Spent in Smoking Cessation: Patient is not a smoker Quality Metrics Clinical Quality Measures [ No reported AMI, CVA or VTE this stay] Coding Level of Care Code 16792 Diagnoses Acute on chronic respiratory failure with hypoxia and hypercapnia J96.21; J96.22 COPD with acute exacerbation J44.1 Dependence on supplemental oxygen Z99.81 Essential hypertension I10 Type 2 diabetes mellitus with hyperglycemia, with long-term current use of insulin E11.65; Z79.4 Diabetes mellitus type: type 2 Hypothyroid E03.9 Iron deficiency anemia D50.9 Mediastinal adenopathy R59.0 Chronic lymphocytic leukemia not having achieved remission C91.10 Time Spent (min) 55
[2025-08-01 13:01] LABS: ABG PH Result 7.32 (7.35-7.45); Alveolar-Arterial Oxygen Gradi 12.2 mmHg (5-10); Arterial Blood Gas Hematocrit 35.6 % (42-52); Blood Gas LPM 4.0 %; Blood Gas Operator Identificat AMH; Blood Gas Sample Site Brachial, right; Blood Gas Sample Type Arterial; Carboxyhemoglobin 1.6 %THgb (0.4-20.1); Glucose Level-ABG 411.0 mg/dL (70-115); HCO3 ABG 43.0 mmol/L (22-26); Ionized Calcium Level - ABG 1.2 mmol/L (1.1-1.4); Methemoglobin 0.9 % (0.4-1.5); Oxygen Saturation ABG 91.9; PO2 ABG 65.4 mmHg (80.0-100.0); PO2 FiO2 Ratio Arterial Blood 181; Potassium Level - ABG 5.0 mmol/L (3.5-5.0); Sodium Level - ABG 143.0 mmol/L (131-143)
[2025-08-01 13:02] LABS: ABG PCO2 82.8 mmHg (35-45)
--- NOTE | 2025-08-01 13:13 | CT_ITS ---
WS: [id number] CT CHEST ANGIOGRAPHY WITH REFORMATS HISTORY: respiratory failure and dimer 5.14 TECHNIQUE: Contiguous axial images are obtained through the chest during arterial injection of intravenous contrast. Images are reconstructed to evaluate the pulmonary arteries. MIP imaging also reviewed. All CT scans at [facility] use at least one of these dose optimization techniques: automated exposure control; mA and/or kV adjustment per patient size (includes targeted exams where dose is matched to clinical indication); or iterative reconstruction. CONTRAST: Omnipaque 350; 100 mL IV. DLP: 440.75 mGy.cm COMPARISON: 07/31/2025 Good contrast opacification of the pulmonary artery. No pulmonary emboli identified. Beyond the segmental branches the opacification becomes limited. Normal size aorta. Mild atherosclerotic plaque. No RIGHT heart strain. Mild LEFT heart enlargement. Dual lead LEFT subclavian cardiac pacer. Chronic emphysema. Mild dependent changes bilaterally. Mild atelectasis at the lung bases. There are a few scattered calcified granuloma. No areas of consolidation or pneumonia. Bilateral axillary lymph nodes are reidentified. Some of these lymph nodes are round and shape. Similar to prior study of 10/29/2024. Minimal change. Numerous mediastinal and hilar lymph nodes ranging in size from a few millimeters to over a centimeter. The largest lymph nodes at the RIGHT hilum measures 3.2 cm in diameter. Lymph node burden at the RIGHT hilum has increased. Subcarinal lymphadenopathy is not definitely increased but is also not improved. AP window lymph nodes and paratracheal lymph nodes have not improved and may be slightly increased in size since 10/29/2024. Jory hepatis and celiac axis lymph nodes have increased since 10/29/2024. Spleen is incompletely included but is enlarged. No destructive bone lesions. CT/CT angio chest PE protcl [id number] IMPRESSION: 1. No pulmonary embolism. 2. Dependent changes and areas of atelectasis in the lower lung almanza. No pne umonia. 3. Mild LEFT heart enlargement. 4. Lymphadenopathy in the chest and upper abdomen is reidentified. Lymph node burden at the RIGHT hilum, AP window, RIGHT paratracheal and in the upper abdom en has progressed. The remaining lymph nodes have not significantly changed in the axilla. Progression is noted since 10/29/2024. 5. Splenomegaly. Spleen is incompletely included on the exam.
--- NOTE | 2025-08-01 13:27 | P.PN_ITS ---
Subjective 2 Subjective: 79-year-old male admitted with acute combined hypoxic and hypercapnic respiratory failure wore BiPAP yesterday but then refused it overnight. He demanded to go home and uses home BiPAP because he thinks we are charting $1700. to use the BiPAP here. His tells me that we should make him use the BiPAP here. I told her that we cannot make him do it against his will. I asked her to and she said she would come in and an hour to help him to comply. The patient was informed of his elevated D-dimer by me and encouraged to have a CT angiogram of the chest. He initially refused telling me that we were keeping him alive just so that we could run more test on him. I told him that he is okay to refuse the test for what ever reason but then he states he does want to know. He just does not want to be on a pill for 20 years. I told him that treatment for a lung clot is 6 months. Patient states he wants to proceed. ABG shows pCO2 still 80 Vitals/I&O/Wt Last Vital Signs Temp 97.7 F 08/01/25 08:00 Pulse 77 08/01/25 12:00 Resp 19 H 08/01/25 12:00 BP 144/90 08/01/25 12:00 Pulse Ox 91 08/01/25 12:00 O2 Del Method Nasal Cannula 08/01/25 08:59 O2 Flow Rate 4 08/01/25 08:59 FiO2 45 07/31/25 13:34 07/31/25 08/01/25 08/01/25 22:59 06:59 14:59 Intake Total 340 / 340 1070 / 1070 Output Total 200 / 200 Balance 140 / 140 1070 / 1070 Weight last 48 hrs Weight 102.7 kg Weight 102.058 kg Physical Exam 2 Narrative: General Well-developed well-nourished male cantankerous argumentative CV irregular rate is controlled 4 of his 6 systolic ejection murmur best heard at left sternal border Lungs crackles heard in both bases Data 08/01/25 03:42 08/01/25 03:42 Micro: Microbiology 07/31/25 12:26 Blood Culture - Preliminary Blood NEGATIVE TO DATE 07/31/25 12:29 Blood Culture - Preliminary Blood A&P Assessment and plan 1. Acute on chronic respiratory failure with hypoxia and hypercapnia: Most likely in setting of COPD exacerbation. Ox supplementation keeping saturation over 88%. BiPAP nightly. Repeat ABG in AM. DuoNeb every 6 hour, Pulmicort twice daily. Solu-Medrol 40 mg every 6 hour. MRSA screen positive viral respiratory panel negative l. Continue doxycycline Noncontrast CT showed emphysema and atelectasis in the bases he has lung nodules that are stable but he has adenopathy with some progression D-dimer 5.14 up from 1.14. Unfortunately we need to evaluate this with a CT with contrast of the chest. Will give lactated Ringer's. Patient and were counseled regarding risks and benefits of this test and elect to proceed 2. COPD with acute exacerbation: Continue with steroids nebulizers doxycycline. Procalcitonin is only 0.16 3. Dependence on supplemental oxygen: Wean O2 for O2 sat of just 90% 4. Essential hypertension: Goal blood pressure less than 140/90. Continue with home antihypertensives. 5. Type 2 diabetes mellitus with hyperglycemia, with long-term current use of insulin: Check A1c. Continue the home dose of Lantus 50 units nightly along with sliding scale. Expect blood sugars to be higher for next few days as patient is on IV steroids. 6. Hypothyroid: Continue home replacement Plan: Full code Cardiac carb consistent diet Protonix for PUD prophylaxis Heparin 5000 every 12 hourly for DVT prophylaxis PDMP PDMP Reviewed: Not Reviewed Attestations 2 Medical Necessity Statement*: Patient remains in the hospital for workup elevated D-dimer and treatment of elevated CO2. He will require 1-2 midnights additional Coding Level of Care Code 48081 Diagnoses Acute on chronic respiratory failure with hypoxia and hypercapnia J96.21; J96.22 COPD with acute exacerbation J44.1 Dependence on supplemental oxygen Z99.81 Essential hypertension I10 Type 2 diabetes mellitus with hyperglycemia, with long-term current use of insulin E11.65; Z79.4 Diabetes mellitus type: type 2 Hypothyroid E03.9 Time Spent (min) 55
--- NOTE | 2025-08-01 13:44 | PC.NURSE ---
patient needing a CT scan to rule out PE explained procedure to patient and the need for a bigger IV in the AC he was agreeable if it could be placed to the out side of his arm IV started in Right outer AC patient tolerated well
[2025-08-01] MEDS: iohexol 350 mg/mL 500 mL Btl (per mL) IV (13:56)
[2025-08-01] MEDS: pantoprazole 40 mg SDV IVP (16:07)
[2025-08-02] VITALS (8 sets, daily range): BP systolic 125–150; BP diastolic 60–74; PULSE 60–77; RESP 18–23; TEMP 36.5; O2SAT 90–96
[2025-08-02] MEDS: methylPREDNISolone sod succ 40 mg/mL INJ IVP ×2 (02:51→08:57)
[2025-08-02] MEDS: heparin 5,000 unit/mL INJ 1 mL 5000 UNIT SUBCUT (02:51)
[2025-08-02 03:04] LABS: Hematocrit 34.6 % (37-53); Hemoglobin 10.70 g/dL (11.27-16.99); Mean Corpuscular HGB Conc 30.9 g/dL (30-55); Mean Corpuscular Hemoglobin 29.4 pg (27-33); Mean Corpuscular Volume 95.1 fl (82-101); Nucleated Red Blood Cells % 0 %; Platelet Count 221 10^3/cmm (157-399); Red Blood Count 3.64 10^6/uL (3.85-5.65); White Blood Count 10.08 10^3/uL (3.29-11.43)
[2025-08-02 03:29] LABS: Alanine Aminotransferase 11 U/L (0-41); Albumin Level 3.1 g/dL (3.5-5.2); Alkaline Phosphatase 55 U/L (40-130); Anion Gap 11.0 (5-19); Aspartate Amino Transferase 11 U/L (0-40); Blood Urea Nitrogen 36 mg/dL (8-23); Calcium 9.5 mg/dL (8.5-10.5); Chloride 96 mmol/L (98-107); Creatinine Clr Calc Pharmacy 83.8531; Globulin 2.6 g/dL (1.3-4.6); Glucose 301 mg/dL (65-115); Magnesium 1.7 mg/dL (1.7-2.3); Osmolality Calculated 316 mOsm/kg (285-295); Potassium 5.0 mmol/L (3.5-5.1); Sodium 143 mmol/L (136-145); Total Protein 5.7 g/dL (6.6-8.7)
[2025-08-02 03:40] LABS: Carbon Dioxide 41 mmol/L (22-29)
[2025-08-02 04:43] LABS: ABG PCO2 58.8 mmHg (35-45); ABG PH Result 7.49 (7.35-7.45); Alveolar-Arterial Oxygen Gradi 13.0 mmHg (5-10); Arterial Blood Gas Hematocrit 33.9 % (42-52); Blood Gas Allen Test Pos; Blood Gas Sample Site Radial, right; Blood Gas Sample Type Arterial; Carboxyhemoglobin 0.9 %THgb (0.4-20.1); Glucose Level-ABG 323.0 mg/dL (70-115); HCO3 ABG 44.6 mmol/L (22-26); Ionized Calcium Level - ABG 1.2 mmol/L (1.1-1.4); Methemoglobin 0.8 % (0.4-1.5); Oxygen Saturation ABG > 99.1; PO2 ABG 114.0 mmHg (80.0-100.0); PO2 FiO2 Ratio Arterial Blood 285; Potassium Level - ABG 4.7 mmol/L (3.5-5.0); Sodium Level - ABG 143.0 mmol/L (131-143)
[2025-08-02] MEDS: insulin glargine 100 units/1 mL 50 UNIT SUBCUT (05:08)
[2025-08-02] MEDS: iron sucrose 200 MG in sodium chloride 0.9% (100 ml) 100 ML 220 MG IV (08:57)
[2025-08-02] MEDS: magnesium sulfate premix 1 GM/100 ML PIGGYBACK IV (10:21)
== END 2025-08-02 12:00 | disposition home or self-care (01) ==
LOC: ER 14:24 → CSU 15:05
PROVIDERS: Admitting Provider Student in an Organized Health Care Education/Training Program; Emergency Provider Emergency Medicine; PCP Nurse Practitioner; Visit Provider Internal Medicine
DX: J96.21 Acute and chronic respiratory failure with hypoxia (principal); J96.22 Acute and chronic respiratory failure with hypercapnia; Z99.81 Dependence on supplemental oxygen; I10 Essential (primary) hypertension; E11.65 Type 2 diabetes mellitus with hyperglycemia; Z79.4 Long term (current) use of insulin; E03.9 Hypothyroidism, unspecified; D50.9 Iron deficiency anemia, unspecified; R59.0 Localized enlarged lymph nodes; C91.10 Chronic lymphocytic leukemia of B-cell type not having achieved remission; G47.33 Obstructive sleep apnea (adult) (pediatric); Z99.89 Dependence on other enabling machines and devices; Z79.891 Long term (current) use of opiate analgesic; Z95.0 Presence of cardiac pacemaker; I49.5 Sick sinus syndrome; I25.2 Old myocardial infarction; Z87.891 Personal history of nicotine dependence
CPT/HCPCS: 36415; 36416; 36600; 71045; 71250; 71275; 80051; 80053; 80061; 82330; 82607; 82746; 82805; 82962; 83036; 83540; 83550; 83605; 83735; 83880; 84100; 84145; 84443; 85025; 85378; 86140; 87040; 87150; 87205; 87486; 87581; 87633; 93005; 94640; 94660; 94664; 96365; 96372; 96375; 99291; G0378; J0696; J1644; J1756; J1815; J1938; J2470; J2919; J3475; J3490; J7626; J9999; Q0144

== ENCOUNTER 2025-08-14 10:00 | Outpatient (CLI) | payer MEDICARE, SELFPAY ==
[2025-08-15 10:12] LABS: ABG PH Result 7.42 (7.35-7.45)
[2025-08-15 10:13] LABS: ABG PCO2 70.6 mmHg (35-45); HCO3 ABG 45.6 mmol/L (22-26); Oxygen Saturation ABG 92.4; PO2 ABG 63.0 mmHg (80.0-100.0); Potassium Level - ABG 4.4 mmol/L (3.5-5.0); Sodium Level - ABG 139.0 mmol/L (131-143)
[2025-08-15 10:14] LABS: Arterial Blood Gas Hematocrit 37.1 % (42-52); Blood Gas Allen Test POS; Blood Gas Operator Identificat GD; Blood Gas Sample Site Radial, left; Blood Gas Sample Type Arterial
[2025-08-15 10:15] LABS: Carboxyhemoglobin 2.4 %THgb (0.4-20.1); Glucose Level-ABG 210.0 mg/dL (70-115); Ionized Calcium Level - ABG 1.2 mmol/L (1.1-1.4); Methemoglobin 0.9 % (0.4-1.5)
== END 2025-08-14 10:01 | disposition home or self-care (01) ==
LOC: LAB 08-15 10:02
PROVIDERS: PCP Nurse Practitioner; Visit Provider Internal Medicine
DX: J44.9 Chronic obstructive pulmonary disease, unspecified (principal)
CPT/HCPCS: 36600; 80051; 82330; 82805

== ENCOUNTER → 2025-08-14 14:18 | Outpatient (BNVA) | payer MEDICARE, SELFPAY | PROVIDERS: PCP Nurse Practitioner; Visit Provider Internal Medicine | DX: J96.11 Chronic respiratory failure with hypoxia (principal); Z99.89 Dependence on other enabling machines and devices; R59.0 Localized enlarged lymph nodes; J44.1 Chronic obstructive pulmonary disease with (acute) exacerbation; R91.8 Other nonspecific abnormal finding of lung field; J43.9 Emphysema, unspecified; Z95.0 Presence of cardiac pacemaker; I51.9 Heart disease, unspecified; Z87.891 Personal history of nicotine dependence; J44.9 Chronic obstructive pulmonary disease, unspecified | CPT/HCPCS: 36415; 80051; 82330; 82805; 85025; 99214; Q3014 ==

== ENCOUNTER → 2025-08-21 09:48 | Outpatient (BNVA) | payer MEDICARE, SELFPAY | PROVIDERS: PCP Nurse Practitioner; Visit Provider Surgery | DX: D50.9 Iron deficiency anemia, unspecified (principal) | CPT/HCPCS: 82274; 99204 ==

== ENCOUNTER → 2025-09-12 12:01 | Outpatient (BNVA) | payer MEDICARE, SELFPAY | PROVIDERS: PCP Nurse Practitioner; Visit Provider Internal Medicine Cardiovascular Disease | DX: Z45.018 Encounter for adjustment and management of other part of cardiac pacemaker (principal); J44.9 Chronic obstructive pulmonary disease, unspecified | CPT/HCPCS: 80053; 85025; 93296 ==

== ENCOUNTER → 2025-09-13 10:50 | Outpatient (BNVA) | payer MEDICARE, SELFPAY | PROVIDERS: PCP Nurse Practitioner; Visit Provider Internal Medicine | DX: J96.11 Chronic respiratory failure with hypoxia (principal); J96.12 Chronic respiratory failure with hypercapnia; Z99.81 Dependence on supplemental oxygen; R59.0 Localized enlarged lymph nodes; R91.8 Other nonspecific abnormal finding of lung field; J44.9 Chronic obstructive pulmonary disease, unspecified; Z99.89 Dependence on other enabling machines and devices; Z87.891 Personal history of nicotine dependence | CPT/HCPCS: 99214; Q3014 ==

== ENCOUNTER → 2025-10-04 13:04 | Outpatient (BNVA) | payer MEDICARE, SELFPAY | PROVIDERS: PCP Nurse Practitioner; Visit Provider Nurse Practitioner Family | DX: I48.91 Unspecified atrial fibrillation (principal); Z95.0 Presence of cardiac pacemaker; J44.9 Chronic obstructive pulmonary disease, unspecified; Z87.891 Personal history of nicotine dependence | CPT/HCPCS: 99214 ==

== ENCOUNTER 2025-10-08 13:28 | Oncology outpatient (recurring) (ONCR) | payer MEDICARE, SELFPAY ==
[2025-10-08 13:51] LABS: Hematocrit 41.8 % (37-53); Hemoglobin 13.00 g/dL (11.27-16.99); Mean Corpuscular HGB Conc 31.1 g/dL (30-55); Mean Corpuscular Hemoglobin 29.1 pg (27-33); Mean Corpuscular Volume 93.7 fl (82-101); Nucleated Red Blood Cells % 0 %; Platelet Count 102 10^3/cmm (157-399); Red Blood Count 4.46 10^6/uL (3.85-5.65); White Blood Count 8.68 10^3/uL (3.29-11.43)
[2025-10-08 14:17] LABS: Alanine Aminotransferase 10 U/L (0-41); Albumin Level 3.8 g/dL (3.5-5.2); Alkaline Phosphatase 66 U/L (40-130); Anion Gap 5.3 (5-19); Aspartate Amino Transferase 15 U/L (0-40); Blood Urea Nitrogen 21 mg/dL (8-23); Calcium 9.1 mg/dL (8.5-10.5); Chloride 96 mmol/L (98-107); Globulin 2.3 g/dL (1.3-4.6); Glucose 227 mg/dL (65-115); Osmolality Calculated 300 mOsm/kg (285-295); Potassium 4.3 mmol/L (3.5-5.1); Sodium 140 mmol/L (136-145); Total Protein 6.1 g/dL (6.6-8.7)
[2025-10-08 14:18] LABS: Carbon Dioxide 43 mmol/L (22-29)
== END 2025-10-31 23:59 | disposition home or self-care (01) ==
PROVIDERS: Nurse Practitioner Family; PCP Nurse Practitioner; Visit Provider Nurse Practitioner
DX: C91.10 Chronic lymphocytic leukemia of B-cell type not having achieved remission (principal); C68.0 Malignant neoplasm of urethra; Z87.891 Personal history of nicotine dependence
CPT/HCPCS: 36415; 80053; 85025; 99213